=== PATIENT | male | born 1950 | race Caucasian/White ===

== ENCOUNTER 2017-01-17 15:00 | Emergency (ER) | payer MEDICARE, OTHER ==
[~2017-01-17] VITALS: Ht 177.8 cm; Wt 86.2 kg
[~2017-01-17 15:00] MED LIST: ALLO300T; BENZ0.5T; CHOLPOW; COLA100C2; FLAG500T; GLUC500T; IBUP600T; IMODIUM; LEVA500T; LIPI10TA; LOPR50TA; VICO5TAB; [UNRECOGNIZED DRUG - CODE]
[2017-01-17] MEDS ORDERED: [UNRECOGNIZED DRUG - CODE] (15:13)
[2017-01-17] MEDS ORDERED: [UNRECOGNIZED DRUG - CODE] PO (15:13)
[2017-01-17] MEDS ORDERED: CEFUROXIME (15:13)
[2017-01-17] MEDS ORDERED: ASPI81TA13 PO (15:13)
[2017-01-17] MEDS ORDERED: LEVO175T2 PO (15:13)
[2017-01-17] MEDS ORDERED: BENZ5TA (15:13)
[2017-01-17] MEDS ORDERED: KELP150T PO (15:13)
[2017-01-17] MEDS ORDERED: LOSA25TA8 (15:13)
[2017-01-17] MEDS ORDERED: FENO160T10 (15:13)
[2017-01-17] MEDS ORDERED: TEST1GEL6 (15:13)
[2017-01-17] MEDS ORDERED: [UNRECOGNIZED DRUG - CODE] PO (15:13)
[2017-01-17] MEDS ORDERED: VITA50003 PO (15:13)
[2017-01-17] MEDS ORDERED: GLUC1CAP10 PO (15:13)
--- NOTE | 2017-01-17 16:57 | REP ---
Clinical: Cough . Comparison: 11/28/2010 . Technique: PA and lateral. Findings: The mediastinum and cardiac silhouette are normal. Lateral view suggests left lower lobe/retrocardiac infiltrate and correlation is recommended. No effusion. No pneumothorax. The skeletal structures are intact and normal. Impression: Possible left lower lobe/retrocardiac infiltrate. Signed by Billy Proctor MD 01/17/2017 04:49 P
[2017-01-17] MEDS ORDERED: LEVA750T PO (16:59)
[2017-01-17] MEDS ORDERED: ALBU17IN INH (16:59)
[2017-01-17 17:08] VITALS: BP 141/75
== END 2017-01-17 17:12 | disposition home or self-care (01) ==
LOC: M ED 15:33
DX: J18.9 Pneumonia, unspecified organism (principal); I10 Essential (primary) hypertension; E78.00 Pure hypercholesterolemia, unspecified; E03.9 Hypothyroidism, unspecified; M54.9 Dorsalgia, unspecified; Z93.2 Ileostomy status; Z79.899 Other long term (current) drug therapy; Z79.2 Long term (current) use of antibiotics; Z79.82 Long term (current) use of aspirin

== ENCOUNTER 2017-12-22 17:30 | Emergency (ER) | payer MEDICARE, OTHER ==
[2017-12-22] MEDS ORDERED: MORPHINE 4 MG/ML 1ML VIAL/SYRINGE (J2270) IV (18:45)
[2017-12-22 19:18] LABS: HEMATOCRIT 47.7 % (42.0-52.0); HEMOGLOBIN 16.3 g/dl (13.5-17.5); IMMATURE GRANULOCYTE % 1.3 % (0-3.0); LYMPH # 1.2 10^3/uL (1.5-4.5); LYMPH % 26.3 % (24.0-44.0); MEAN CORPUSCULAR HEMOGLOBIN 27.6 pg (27.0-33.0); MEAN CORPUSCULAR HGB CONC 34.2 g/dl (32.0-36.5); MEAN CORPUSCULAR VOLUME 80.7 fl (80.0-96.0); MONO # 0.3 10^3/uL (0.0-0.8); MONO % 5.6 % (0.0-5.0); NEUTROPHILS % 66.8 % (36.0-66.0); PLATELET COUNT, AUTOMATED 229 10^3/uL (150-450); RED BLOOD COUNT 5.91 10^6/uL (4.30-6.10); RED CELL DISTRIBUTION WIDTH 15.9 % (11.5-14.5); WHITE BLOOD COUNT 4.5 10^3/uL (4.0-10.0)
[2017-12-22 19:23] LABS: KETONE, URINE AUTO RFX NEGATIVE (NEGATIVE); LEUKOCYTE ESTERASE UR AUTO RFX NEGATIVE (NEGATIVE); NITRITE, URINE AUTO RFX NEGATIVE (NEGATIVE); RBC, URINE AUTO RFX 1 /HPF (0-3); SPECIFIC GRAVITY UR AUTO RFX 1.012 (1.002-1.035); SQUAM EPITHELIAL CELL UR AURFX 0 /HPF (0-6); WBC, URINE AUTO RFX 1 /HPF (0-3)
[2017-12-22] MEDS: NS 1,000 ML IV (19:25)
[2017-12-22 19:47] LABS: ALBUMIN 3.8 GM/DL (3.2-5.2); ALKALINE PHOSPHATASE 68 U/L (45-117); ALT/SGPT 27 U/L (12-78); ANION GAP 8 MEQ/L (8-16); AST/SGOT 17 U/L (7-37); BILIRUBIN,DIRECT 0.4 MG/DL (0.0-0.2); BILIRUBIN,TOTAL 1.4 MG/DL (0.2-1.0); BLOOD UREA NITROGEN 19 MG/DL (7-18); CARBON DIOXIDE LEVEL 29 MEQ/L (21-32); CHLORIDE LEVEL 104 MEQ/L (98-107); CREATININE FOR GFR 1.47 MG/DL (0.70-1.30); GLOMERULAR FILTRATION RATE 50.6 (>49); GLUCOSE, FASTING 124 MG/DL (70-100); LIPASE 203 U/L (73-393); SODIUM LEVEL 141 MEQ/L (136-145); TOTAL PROTEIN 7.6 GM/DL (6.4-8.2)
[2017-12-22 19:50] LABS: LACTIC ACID SEPSIS PROTOCOL 0.9 MMOL/L (0.4-2.0)
[2017-12-22] MEDS ORDERED: ISOVUE-370 76% 100ML VIAL (Q9967) As Ordered (20:06)
[2017-12-22] MEDS: CIPROFLOXACIN 500 MG TAB PO (22:02)
[2017-12-22] MEDS: metroNIDAZOLE (FLAGYL) 500 MG TAB PO (22:02)
== END 2017-12-22 22:05 | disposition home or self-care (01) ==
LOC: M ED 17:30
DX: K57.30 Diverticulosis of large intestine without perforation or abscess without bleeding (principal); R73.09 Other abnormal glucose; I10 Essential (primary) hypertension; E78.5 Hyperlipidemia, unspecified; F20.9 Schizophrenia, unspecified; F41.9 Anxiety disorder, unspecified; F32.9 Major depressive disorder, single episode, unspecified; K56.2 Volvulus; R16.1 Splenomegaly, not elsewhere classified; Z79.82 Long term (current) use of aspirin; Z79.899 Other long term (current) drug therapy
CPT/HCPCS: Q9967

== ENCOUNTER → 2018-03-12 | Outpatient (REF) | payer MEDICARE, OTHER | LOC: M LAB REF 13:17 | DX: J02.9 Acute pharyngitis, unspecified (principal) | CPT/HCPCS: 87081 ==

== ENCOUNTER 2018-04-01 18:15 | Emergency (ER) | payer MEDICARE, OTHER ==
[2018-04-01 21:23] LABS: HEMATOCRIT 47.8 % (42.0-52.0); MEAN CORPUSCULAR HEMOGLOBIN 26.7 pg (27.0-33.0); MEAN CORPUSCULAR HGB CONC 33.5 g/dl (32.0-36.5); MEAN CORPUSCULAR VOLUME 79.7 fl (80.0-96.0); PLATELET COUNT, AUTOMATED 325 10^3/uL (150-450); RED CELL DISTRIBUTION WIDTH 15.7 % (11.5-14.5); WHITE BLOOD COUNT 2.5 10^3/uL (4.0-10.0)
[2018-04-01 21:35] LABS: INR 0.99; PROTHROMBIN TIME 13.2 SECONDS (12.1-14.4)
[2018-04-01 21:47] LABS: ALBUMIN 3.7 GM/DL (3.2-5.2); ALBUMIN/GLOBULIN RATIO 0.93 (1.00-1.93); ALKALINE PHOSPHATASE 64 U/L (45-117); ALT/SGPT 31 U/L (12-78); AST/SGOT 28 U/L (7-37); BILIRUBIN,DIRECT 0.2 MG/DL (0.0-0.2); BILIRUBIN,TOTAL 0.9 MG/DL (0.2-1.0); TOTAL PROTEIN 7.7 GM/DL (6.4-8.2)
== END 2018-04-01 22:17 | disposition home or self-care (01) ==
LOC: M ED 18:15
DX: D72.819 Decreased white blood cell count, unspecified (principal); I10 Essential (primary) hypertension; Z88.8 Allergy status to other drugs, medicaments and biological substances; Z91.030 Bee allergy status; Z91.018 Allergy to other foods; Z79.899 Other long term (current) drug therapy; Z79.82 Long term (current) use of aspirin; Z79.84 Long term (current) use of oral hypoglycemic drugs
CPT/HCPCS: 80076

== ENCOUNTER 2018-06-29 09:12 | Emergency (ER) | payer MEDICARE, OTHER ==
[2018-06-29] MEDS: MORPHINE 2 MG/ML 1ML SYRINGE (J2270) IV (10:12)
[2018-06-29] MEDS: NS 1,000 ML IV (10:12)
[2018-06-29 10:16] LABS: HEMATOCRIT 49.4 % (42.0-52.0); HEMOGLOBIN 16.6 g/dl (13.5-17.5); IMMATURE GRANULOCYTE % 1.8 % (0-3.0); LYMPH # 0.8 10^3/uL (1.5-4.5); LYMPH % 35.9 % (24.0-44.0); MEAN CORPUSCULAR HEMOGLOBIN 26.9 pg (27.0-33.0); MEAN CORPUSCULAR HGB CONC 33.6 g/dl (32.0-36.5); MEAN CORPUSCULAR VOLUME 80.2 fl (80.0-96.0); MONO # 0.2 10^3/uL (0.0-0.8); MONO % 8.2 % (0.0-5.0); NEUTROPHILS # 1.2 10^3/uL (1.8-7.7); NEUTROPHILS % 54.1 % (36.0-66.0); PLATELET COUNT, AUTOMATED 214 10^3/uL (150-450); RED BLOOD COUNT 6.16 10^6/uL (4.30-6.10); RED CELL DISTRIBUTION WIDTH 16.6 % (11.5-14.5); WHITE BLOOD COUNT 2.2 10^3/uL (4.0-10.0)
[2018-06-29 10:45] LABS: ALBUMIN 3.5 GM/DL (3.2-5.2); ALBUMIN/GLOBULIN RATIO 1.09 (1.00-1.93); ALKALINE PHOSPHATASE 86 U/L (45-117); ALT/SGPT 24 U/L (12-78); AMYLASE 53 U/L (25-115); ANION GAP 7 MEQ/L (8-16); AST/SGOT 12 U/L (7-37); BLOOD UREA NITROGEN 18 MG/DL (7-18); CALCIUM LEVEL 8.8 MG/DL (8.8-10.2); CARBON DIOXIDE LEVEL 26 MEQ/L (21-32); CHLORIDE LEVEL 101 MEQ/L (98-107); CREATININE FOR GFR 1.17 MG/DL (0.70-1.30); GLOMERULAR FILTRATION RATE > 60.0 (>42); GLUCOSE, FASTING 175 MG/DL (70-100); LIPASE 143 U/L (73-393); POTASSIUM SERUM 3.7 MEQ/L (3.5-5.1); SODIUM LEVEL 134 MEQ/L (136-145); TOTAL PROTEIN 6.7 GM/DL (6.4-8.2)
[2018-06-29 10:46] LABS: LACTIC ACID SEPSIS PROTOCOL 1.7 MMOL/L (0.4-2.0)
[2018-06-29 10:46] LABS: APPEARANCE, URINE CLEAR (CLEAR); BACTERIA, URINE AUTO NEGATIVE (NEGATIVE); BILIRUBIN, URINE AUTO NEGATIVE (NEGATIVE); BLOOD, URINE BLOOD NEGATIVE (NEGATIVE); COLOR, URINE YELLOW (YELLOW); GLUCOSE, URINE (UA) AUTO NEGATIVE (NEGATIVE); KETONE, URINE AUTO NEGATIVE (NEGATIVE); LEUKOCYTE ESTERASE, URINE AUTO NEGATIVE (NEGATIVE); MUCUS, URINE SMALL (NEGATIVE); NITRITE, URINE AUTO NEGATIVE (NEGATIVE); PROTEIN, URINE AUTO NEGATIVE (NEGATIVE); RBC, URINE AUTO 0 /HPF (0-3); SPECIFIC GRAVITY URINE AUTO 1.017 (1.002-1.035); SQUAMOUS EPITHELIAL CELL UR AU 0 /HPF (0-6); WBC, URINE AUTO 0 /HPF (0-3)
[2018-06-29] MEDS ORDERED: ISOVUE-370 76% 100ML VIAL (Q9967) As Ordered (10:48)
== END 2018-06-29 12:10 | disposition home or self-care (01) ==
LOC: M ED 09:12
DX: K57.32 Diverticulitis of large intestine without perforation or abscess without bleeding (principal); D72.819 Decreased white blood cell count, unspecified; Z87.19 Personal history of other diseases of the digestive system; I10 Essential (primary) hypertension; E03.9 Hypothyroidism, unspecified; F33.9 Major depressive disorder, recurrent, unspecified; F41.9 Anxiety disorder, unspecified; Z98.890 Other specified postprocedural states; Z79.899 Other long term (current) drug therapy; Z79.82 Long term (current) use of aspirin; Z79.890 Hormone replacement therapy; Z79.84 Long term (current) use of oral hypoglycemic drugs

== ENCOUNTER 2018-07-01 00:42 | Inpatient (IN) | payer MEDICARE, OTHER ==
[2018-07-01] MEDS: ONDANSETRON 4MG/2ML VIAL (J2405) IV (01:45)
[2018-07-01] MEDS: NS 1,000 ML IV ×4 (01:45→21:34)
[2018-07-01] MEDS ORDERED: ISOVUE-370 76% 100ML VIAL (Q9967) As Ordered (01:59)
[2018-07-01 02:36] LABS: HEMOGLOBIN 15.1 g/dl (13.5-17.5); MEAN CORPUSCULAR HEMOGLOBIN 27.2 pg (27.0-33.0); MEAN CORPUSCULAR HGB CONC 33.6 g/dl (32.0-36.5); MEAN CORPUSCULAR VOLUME 81.1 fl (80.0-96.0); PLATELET COUNT, AUTOMATED 163 10^3/uL (150-450); RED BLOOD COUNT 5.55 10^6/uL (4.30-6.10); RED CELL DISTRIBUTION WIDTH 16.3 % (11.5-14.5)
[2018-07-01 02:38] LABS: ADD MANUAL DIFFER YES; DIFF SLIDE NUMBER 90; POS COUNT POS FLAG; POSITIVE DIFF POS FLAG; POSITIVE MORPH POS FLAG; WHITE BLOOD COUNT 1.1 10^3/uL (4.0-10.0)
[2018-07-01 02:48] LABS: INR 1.24; PROTHROMBIN TIME 15.8 SECONDS (12.1-14.4)
[2018-07-01 02:49] LABS: PARTIAL THROMBOPLASTIN TIME 33.4 SECONDS (25.4-37.6)
[2018-07-01] MEDS: MORPHINE 4 MG/ML 1ML VIAL/SYRINGE (J2270) IV (02:55)
[2018-07-01 03:01] LABS: LACTIC ACID SEPSIS PROTOCOL 1.4 MMOL/L (0.4-2.0)
[2018-07-01 03:06] LABS: ALBUMIN 2.6 GM/DL (3.2-5.2); ALBUMIN/GLOBULIN RATIO 0.87 (1.00-1.93); ALKALINE PHOSPHATASE 70 U/L (45-117); ALT/SGPT 19 U/L (12-78); ANION GAP 9 MEQ/L (8-16); AST/SGOT 14 U/L (7-37); BILIRUBIN,DIRECT 0.4 MG/DL (0.0-0.2); BILIRUBIN,TOTAL 1.8 MG/DL (0.2-1.0); BLOOD UREA NITROGEN 20 MG/DL (7-18); CALCIUM LEVEL 7.7 MG/DL (8.8-10.2); CARBON DIOXIDE LEVEL 26 MEQ/L (21-32); CHLORIDE LEVEL 99 MEQ/L (98-107); CREATININE FOR GFR 1.71 MG/DL (0.70-1.30); GLOMERULAR FILTRATION RATE 42.3 (>42); GLUCOSE, FASTING 181 MG/DL (70-100); LIPASE 144 U/L (73-393); POTASSIUM SERUM 3.8 MEQ/L (3.5-5.1); SODIUM LEVEL 134 MEQ/L (136-145); TOTAL PROTEIN 5.6 GM/DL (6.4-8.2)
[2018-07-01 03:11] LABS: ATYPICAL LYMPH 2 % (0-5); BANDS 2 % (< 11); LYMPHOCYTES 14 % (16-52); METAMYELOCYTES 1 % (0-0); MONOCYTES 3 % (0-8); NEUTROPHILS 78 % (35-75)
[2018-07-01 03:13] LABS: ANISOCYTOSIS 1+; GIANT PLATELETS 2+; PLATELET ESTIMATE NORMAL (NORMAL)
[2018-07-01] MEDS: VANCOMYCIN HCL 1,000 MG, VIAL MATE ADAPTER 1 EACH in D5W 250 ML IV ×2 (04:00→17:27)
[2018-07-01] MEDS: PIPERACILLIN/TAZOBACTAM SOD 3.375 GM in D5W MINI-BAG PLUS 50 ML IV ×3 (04:00→19:38)
[2018-07-01] MEDS ORDERED: BISACODYL 10 MG SUPP PR (04:15)
[2018-07-01] MEDS ORDERED: DEXTROSE 50% 50 ML SYRINGE IV (04:15)
[2018-07-01] MEDS ORDERED: MORPHINE 4 MG/ML 1ML VIAL/SYRINGE (J2270) IV (04:15)
[2018-07-01] MEDS ORDERED: GLUCAGON FOR INJ 1 MG VIAL (J1610) SC (04:15)
[2018-07-01] MEDS ORDERED: ONDANSETRON 4MG/2ML VIAL (J2405) IV (04:15)
[2018-07-01] MEDS ORDERED: GLUCOSE 4 GM CHEW TABLET PO (04:15)
[2018-07-01 04:21] LABS: IMMATURE GRANULOCYTE % 1.8 % (0-3.0); LYMPH # 0.2 10^3/uL (1.5-4.5); LYMPH % 17.1 % (24.0-44.0); MONO # 0.1 10^3/uL (0.0-0.8); MONO % 6.3 % (0.0-5.0); NEUTROPHILS # 0.8 10^3/uL (1.8-7.7); NEUTROPHILS % 74.8 % (36.0-66.0)
[2018-07-01] MEDS ORDERED: NORCO, ANEXSIA 5/325MG TABLET (HYDROcodone/ACETAMINOPHEN) PO (05:15)
[2018-07-01] MEDS ORDERED: ALBUTEROL 90 MCG/ACT 8GM HFA INHALER INH (05:15)
[2018-07-01] MEDS ORDERED: metroNIDAZOLE 500 MG in APPROPRIATE DILUENT 1 EA IV (06:00)
[2018-07-01] MEDS: HumaLOG INSULIN (NovoLOG) PER UNIT SC ×4 (07:30→21:00)
[2018-07-01] MEDS: PANTOPRAZOLE 40MG INJ (PROTONIX) (C9113) IV (08:58)
[2018-07-01] MEDS: HEPARIN SOD (PORCINE) 5000 UNITS/ML VIAL SC ×3 (08:58→21:34)
[2018-07-01] MEDS: LOSARTAN 25 MG TAB PO (08:59)
[2018-07-01] MEDS: LEVOTHYROXINE 100MCG TABLET (0.1MG) PO (08:59)
[2018-07-01] MEDS: ASPIRIN 81 MG ENTERIC TAB PO (08:59)
[2018-07-01] MEDS: LEVOTHYROXINE 75MCG TABLET (0.075MG) PO (09:00)
[2018-07-01] MEDS: ACETAMINOPHEN TAB 650MG DOSE (2X325MG) PO ×2 (09:06→18:20)
[2018-07-01 12:06] LABS: BEDSIDE GLUCOSE 235 MG/DL (83-110)
[2018-07-01 12:09] LABS: HEMATOCRIT 43.6 % (42.0-52.0); HEMOGLOBIN 14.6 g/dl (13.5-17.5); IMMATURE GRANULOCYTE % 0.9 % (0-3.0); LYMPH # 0.3 10^3/uL (1.5-4.5); LYMPH % 23.1 % (24.0-44.0); MEAN CORPUSCULAR HEMOGLOBIN 27.3 pg (27.0-33.0); MEAN CORPUSCULAR HGB CONC 33.5 g/dl (32.0-36.5); MEAN CORPUSCULAR VOLUME 81.6 fl (80.0-96.0); MONO # 0.1 10^3/uL (0.0-0.8); MONO % 6.8 % (0.0-5.0); NEUTROPHILS % 69.2 % (36.0-66.0); PLATELET COUNT, AUTOMATED 154 10^3/uL (150-450); RED BLOOD COUNT 5.34 10^6/uL (4.30-6.10); RED CELL DISTRIBUTION WIDTH 16.5 % (11.5-14.5)
[2018-07-01 12:42] LABS: NEUTROPHILS # 0.8 10^3/uL (1.8-7.7); POS COUNT POS FLAG; POSITIVE DIFF POS FLAG; WHITE BLOOD COUNT 1.2 10^3/uL (4.0-10.0)
[2018-07-01 16:39] LABS: BEDSIDE GLUCOSE 177 MG/DL (83-110)
[2018-07-01 21:45] LABS: BEDSIDE GLUCOSE 188 MG/DL (83-110)
[2018-07-02] MEDS: PIPERACILLIN/TAZOBACTAM SOD 3.375 GM in D5W MINI-BAG PLUS 50 ML IV ×3 (04:18→20:12)
[2018-07-02] MEDS: HEPARIN SOD (PORCINE) 5000 UNITS/ML VIAL SC ×3 (05:54→22:12)
[2018-07-02] MEDS: PANTOPRAZOLE 40MG INJ (PROTONIX) (C9113) IV (05:54)
[2018-07-02] MEDS: LEVOTHYROXINE 100MCG TABLET (0.1MG) PO (05:54)
[2018-07-02] MEDS: LEVOTHYROXINE 75MCG TABLET (0.075MG) PO (05:54)
[2018-07-02 06:43] LABS: HEMATOCRIT 43.8 % (42.0-52.0); HEMOGLOBIN 14.5 g/dl (13.5-17.5); MEAN CORPUSCULAR HEMOGLOBIN 26.9 pg (27.0-33.0); MEAN CORPUSCULAR HGB CONC 33.1 g/dl (32.0-36.5); MEAN CORPUSCULAR VOLUME 81.3 fl (80.0-96.0); PLATELET COUNT, AUTOMATED 165 10^3/uL (150-450); RED BLOOD COUNT 5.39 10^6/uL (4.30-6.10); RED CELL DISTRIBUTION WIDTH 16.4 % (11.5-14.5)
[2018-07-02 07:06] LABS: POS COUNT POS FLAG; POSITIVE DIFF POS FLAG; WHITE BLOOD COUNT 0.8 10^3/uL (4.0-10.0)
[2018-07-02 07:09] LABS: ANION GAP 8 MEQ/L (8-16); BLOOD UREA NITROGEN 13 MG/DL (7-18); CALCIUM LEVEL 8.3 MG/DL (8.8-10.2); CARBON DIOXIDE LEVEL 27 MEQ/L (21-32); CHLORIDE LEVEL 104 MEQ/L (98-107); CREATININE FOR GFR 1.32 MG/DL (0.70-1.30); GLOMERULAR FILTRATION RATE 57.1 (>42); GLUCOSE, FASTING 143 MG/DL (70-100); MAGNESIUM LEVEL 1.5 MG/DL (1.8-2.4); POTASSIUM SERUM 3.7 MEQ/L (3.5-5.1); SODIUM LEVEL 139 MEQ/L (136-145)
[2018-07-02 07:46] LABS: SLIDE REVIEW Report; SOURCE PERIPHERAL SMEAR
[2018-07-02 07:47] LABS: REASON FOR REVIEW WBC/LEUKEMIA/BLAST
[2018-07-02 08:08] LABS: C REACTIVE PROTEIN QUANTITATIV 8.06 MG/DL (0.00-0.30)
[2018-07-02] MEDS: HumaLOG INSULIN (NovoLOG) PER UNIT SC ×4 (08:24→20:15)
[2018-07-02] MEDS: ASPIRIN 81 MG ENTERIC TAB PO (08:25)
[2018-07-02] MEDS: LOSARTAN 25 MG TAB PO (08:26)
[2018-07-02] MEDS: MAG SULF 1GM/100ML (MAG RUN) 1 GM in APPROPRIATE DILUENT 1 EA IV (08:27)
[2018-07-02 08:34] LABS: ALBUMIN 2.4 GM/DL (3.2-5.2); ALBUMIN/GLOBULIN RATIO 0.71 (1.00-1.93); ALKALINE PHOSPHATASE 62 U/L (45-117); ALT/SGPT 16 U/L (12-78); AST/SGOT 6 U/L (7-37); BILIRUBIN,TOTAL 1.3 MG/DL (0.2-1.0); TOTAL PROTEIN 5.8 GM/DL (6.4-8.2)
[2018-07-02] MEDS: NS 1,000 ML IV ×2 (08:36→20:10)
[2018-07-02 11:48] LABS: BEDSIDE GLUCOSE 220 MG/DL (83-110)
[2018-07-02 16:48] LABS: BEDSIDE GLUCOSE 153 MG/DL (83-110)
[2018-07-02] MEDS: FILGRASTIM 480 MCG/0.8 ML SYRINGE (J1442) SC (17:14)
[2018-07-02] MEDS: QUEtiapine FUMARATE 25 MG TAB PO (20:10)
[2018-07-02 20:15] LABS: BEDSIDE GLUCOSE 171 MG/DL (83-110)
[2018-07-02 21:20] LABS: BEDSIDE GLUCOSE 169 MG/DL (83-110)
[2018-07-03] MEDS: PIPERACILLIN/TAZOBACTAM SOD 3.375 GM in D5W MINI-BAG PLUS 50 ML IV ×3 (04:31→20:23)
[2018-07-03] MEDS: HEPARIN SOD (PORCINE) 5000 UNITS/ML VIAL SC ×3 (05:55→21:56)
[2018-07-03] MEDS: NS 1,000 ML IV ×3 (05:55→20:23)
[2018-07-03] MEDS: LEVOTHYROXINE 75MCG TABLET (0.075MG) PO (05:55)
[2018-07-03] MEDS: LEVOTHYROXINE 100MCG TABLET (0.1MG) PO (05:55)
[2018-07-03] MEDS: PANTOPRAZOLE 40MG INJ (PROTONIX) (C9113) IV (05:55)
[2018-07-03] MEDS: HumaLOG INSULIN (NovoLOG) PER UNIT SC ×4 (07:30→21:00)
[2018-07-03 08:03] LABS: BASO % 0.3 % (0.0-1.0); HEMATOCRIT 43.8 % (42.0-52.0); HEMOGLOBIN 14.8 g/dl (13.5-17.5); IMMATURE GRANULOCYTE % 1.3 % (0-3.0); LYMPH # 0.7 10^3/uL (1.5-4.5); LYMPH % 17.7 % (24.0-44.0); MEAN CORPUSCULAR HEMOGLOBIN 27.3 pg (27.0-33.0); MEAN CORPUSCULAR HGB CONC 33.8 g/dl (32.0-36.5); MEAN CORPUSCULAR VOLUME 80.8 fl (80.0-96.0); MONO # 0.1 10^3/uL (0.0-0.8); MONO % 3.2 % (0.0-5.0); NEUTROPHILS # 2.9 10^3/uL (1.8-7.7); NEUTROPHILS % 77.5 % (36.0-66.0); PLATELET COUNT, AUTOMATED 199 10^3/uL (150-450); RED BLOOD COUNT 5.42 10^6/uL (4.30-6.10); RED CELL DISTRIBUTION WIDTH 16.4 % (11.5-14.5); WHITE BLOOD COUNT 3.7 10^3/uL (4.0-10.0)
[2018-07-03 08:24] LABS: MAGNESIUM LEVEL 1.6 MG/DL (1.8-2.4)
[2018-07-03 08:30] LABS: ALBUMIN 2.4 GM/DL (3.2-5.2); ALBUMIN/GLOBULIN RATIO 0.71 (1.00-1.93); ALKALINE PHOSPHATASE 92 U/L (45-117); ALT/SGPT 17 U/L (12-78); ANION GAP 7 MEQ/L (8-16); AST/SGOT 10 U/L (7-37); BILIRUBIN,TOTAL 1.3 MG/DL (0.2-1.0); BLOOD UREA NITROGEN 9 MG/DL (7-18); C REACTIVE PROTEIN QUANTITATIV 3.21 MG/DL (0.00-0.30); CALCIUM LEVEL 8.1 MG/DL (8.8-10.2); CARBON DIOXIDE LEVEL 26 MEQ/L (21-32); CHLORIDE LEVEL 107 MEQ/L (98-107); CREATININE FOR GFR 1.17 MG/DL (0.70-1.30); GLOMERULAR FILTRATION RATE > 60.0 (>42); GLUCOSE, FASTING 116 MG/DL (70-100); POTASSIUM SERUM 3.6 MEQ/L (3.5-5.1); SODIUM LEVEL 140 MEQ/L (136-145); TOTAL PROTEIN 5.8 GM/DL (6.4-8.2)
[2018-07-03 08:40] LABS: KETONE, URINE AUTO RFX NEGATIVE (NEGATIVE); LEUKOCYTE ESTERASE UR AUTO RFX NEGATIVE (NEGATIVE); MUCUS, URINE RFX SMALL (NEGATIVE); NITRITE, URINE AUTO RFX NEGATIVE (NEGATIVE); RBC, URINE AUTO RFX 0 /HPF (0-3); SPECIFIC GRAVITY UR AUTO RFX 1.011 (1.002-1.035); SQUAM EPITHELIAL CELL UR AURFX 0 /HPF (0-6); WBC, URINE AUTO RFX 0 /HPF (0-3)
[2018-07-03] MEDS: ASPIRIN 81 MG ENTERIC TAB PO (09:48)
[2018-07-03] MEDS: LOSARTAN 25 MG TAB PO (09:49)
[2018-07-03] MEDS: MAG SULF 1GM/100ML (MAG RUN) 1 GM in APPROPRIATE DILUENT 1 EA IV (09:50)
[2018-07-03] MEDS: FILGRASTIM 480 MCG/0.8 ML SYRINGE (J1442) SC (10:27)
[2018-07-03 11:34] LABS: BEDSIDE GLUCOSE 184 MG/DL (83-110)
[2018-07-03 16:31] LABS: BEDSIDE GLUCOSE 105 MG/DL (83-110)
[2018-07-03 17:18] LABS: BEDSIDE GLUCOSE 106 MG/DL (83-110)
[2018-07-03] MEDS: QUEtiapine FUMARATE 25 MG TAB PO (20:23)
[2018-07-03 20:36] LABS: BEDSIDE GLUCOSE 164 MG/DL (83-110)
[2018-07-04] MEDS: PIPERACILLIN/TAZOBACTAM SOD 3.375 GM in D5W MINI-BAG PLUS 50 ML IV ×2 (03:55→12:00)
[2018-07-04] MEDS: PANTOPRAZOLE 40MG INJ (PROTONIX) (C9113) IV (05:51)
[2018-07-04] MEDS: HEPARIN SOD (PORCINE) 5000 UNITS/ML VIAL SC (05:51)
[2018-07-04] MEDS: LEVOTHYROXINE 100MCG TABLET (0.1MG) PO (05:51)
[2018-07-04] MEDS: LEVOTHYROXINE 75MCG TABLET (0.075MG) PO (05:51)
[2018-07-04 06:57] LABS: HEMATOCRIT 43.9 % (42.0-52.0); HEMOGLOBIN 14.6 g/dl (13.5-17.5); MEAN CORPUSCULAR HEMOGLOBIN 26.9 pg (27.0-33.0); MEAN CORPUSCULAR HGB CONC 33.3 g/dl (32.0-36.5); PLATELET COUNT, AUTOMATED 217 10^3/uL (150-450); RED BLOOD COUNT 5.42 10^6/uL (4.30-6.10); RED CELL DISTRIBUTION WIDTH 16.4 % (11.5-14.5)
[2018-07-04 07:18] LABS: ANION GAP 6 MEQ/L (8-16); BLOOD UREA NITROGEN 8 MG/DL (7-18); C REACTIVE PROTEIN QUANTITATIV 2.17 MG/DL (0.00-0.30); CARBON DIOXIDE LEVEL 29 MEQ/L (21-32); CHLORIDE LEVEL 106 MEQ/L (98-107); GLOMERULAR FILTRATION RATE 58.1 (>42); GLUCOSE, FASTING 101 MG/DL (70-100); MAGNESIUM LEVEL 1.4 MG/DL (1.8-2.4); POTASSIUM SERUM 3.7 MEQ/L (3.5-5.1); SODIUM LEVEL 141 MEQ/L (136-145)
[2018-07-04 07:19] LABS: ADD MANUAL DIFFER YES; DIFF SLIDE NUMBER 71; POS COUNT POS FLAG; POSITIVE MORPH POS FLAG
[2018-07-04 07:49] LABS: ANISOCYTOSIS 1+; ATYPICAL LYMPH 4 % (0-5); BANDS 10 % (< 11); HYPOCHROMASIA 1+; LYMPHOCYTES 17 % (16-52); MICROCYTOSIS 1+; MONOCYTES 3 % (0-8); NEUTROPHILS 66 % (35-75); PLATELET ESTIMATE NORMAL (NORMAL)
[2018-07-04] MEDS: ASPIRIN 81 MG ENTERIC TAB PO (08:31)
[2018-07-04] MEDS: LOSARTAN 50 MG TAB PO (08:31)
[2018-07-04] MEDS: HumaLOG INSULIN (NovoLOG) PER UNIT SC ×2 (08:31→12:36)
[2018-07-04] MEDS: amLODIPine 5 MG TAB PO (08:31)
[2018-07-04 12:03] LABS: BEDSIDE GLUCOSE 118 MG/DL (83-110)
== END 2018-07-04 12:30 | disposition home or self-care (01) | DRG 872 ==
LOC: M ED 00:42 → M ED INP 04:13 → M MSPAV 15:55
DX: A41.9 Sepsis, unspecified organism (principal); N17.9 Acute kidney failure, unspecified; K57.32 Diverticulitis of large intestine without perforation or abscess without bleeding; D70.2 Other drug-induced agranulocytosis; E86.0 Dehydration; F32.9 Major depressive disorder, single episode, unspecified; F25.0 Schizoaffective disorder, bipolar type; E11.9 Type 2 diabetes mellitus without complications; I10 Essential (primary) hypertension; E78.00 Pure hypercholesterolemia, unspecified; E03.9 Hypothyroidism, unspecified; Z79.82 Long term (current) use of aspirin; Z79.84 Long term (current) use of oral hypoglycemic drugs; Z79.899 Other long term (current) drug therapy; Z91.030 Bee allergy status; Z91.018 Allergy to other foods; Z88.8 Allergy status to other drugs, medicaments and biological substances; T43.505A Adverse effect of unspecified antipsychotics and neuroleptics, initial encounter

== ENCOUNTER → 2018-07-28 | Outpatient (REF) | payer MEDICARE, OTHER ==
[2018-07-28 18:25] LABS: APPEARANCE, URINE CLEAR (CLEAR); BACTERIA, URINE AUTO NEGATIVE (NEGATIVE); BILIRUBIN, URINE AUTO NEGATIVE (NEGATIVE); BLOOD, URINE BLOOD NEGATIVE (NEGATIVE); COLOR, URINE YELLOW (YELLOW); GLUCOSE, URINE (UA) AUTO 3+ mg/dL (NEGATIVE); KETONE, URINE AUTO NEGATIVE (NEGATIVE); LEUKOCYTE ESTERASE, URINE AUTO NEGATIVE (NEGATIVE); MUCUS, URINE SMALL (NEGATIVE); NITRITE, URINE AUTO NEGATIVE (NEGATIVE); PROTEIN, URINE AUTO NEGATIVE (NEGATIVE); RBC, URINE AUTO 0 /HPF (0-3); SPECIFIC GRAVITY URINE AUTO 1.015 (1.002-1.035); SQUAMOUS EPITHELIAL CELL UR AU 0 /HPF (0-6); UROBILINOGEN, URINE AUTO 0.2 mg/dL (0.0-2.0); WBC, URINE AUTO 3 /HPF (0-3)
[2018-07-28 18:48] LABS: ERYTHROCYTE SEDIMENTATION RATE 1 mm/hr (0-20)
[2018-07-28 19:45] LABS: C REACTIVE PROTEIN QUANTITATIV < 0.30 MG/DL (0.00-0.30); COMPLEMENT C3 124 MG/DL (90-180); COMPLEMENT C4 26 MG/DL (10-40); IMMUNOGLOBULIN A 351 MG/DL (70-400); IMMUNOGLOBULIN G 1270 MG/DL (681-1648); IMMUNOGLOBULIN M 20 MG/DL (40-230); RHEUMATOID FACTOR QUANT < 10.0 IU/ML (<15.0)
[2018-07-28 22:55] LABS: TOTAL PROTEIN,RANDOM URINE 19.3 MG/DL (0.0-12.0)
[2018-08-02 00:30] LABS: ANA (HEP2) Positive (.); ANA HOMOGENEOUS PATTERN >1:1280 (.); ANTI DOUBLE STRAND-DNA AB 72 IU/mL (0-9); ANTI TETANUS ANTIBODY >7.00 IU/mL (<0.10); BETA-2 GLYCOPROTEIN I ABY IGA <9 (0-25); BETA-2 GLYCOPROTEIN I ABY IGG <9 (0-20); BETA-2 GLYCOPROTEIN I ABY IGM <9 (0-32); CARDIOLIPIN IGA ANTIBODY <9 APL U/mL (0-11); CARDIOLIPIN IGG ANTIBODY <9 GPL U/mL (0-14); CARDIOLIPIN IGM ANTIBODY <9 MPL U/mL (0-12); CYCLIC CITRULLINATED PEPTIDE 21 units (0-19); RNP ANTIBODY 0.4 AI (0.0-0.9); SMITHS ANTIBODY < 0.2 AI (0.0-0.9)
[2018-08-02 09:19] LABS: DRVV SCREEN 40.4 SEC
== END ==
LOC: M SFHCPLAZ 15:41
DX: R76.8 Other specified abnormal immunological findings in serum (principal); D72.810 Lymphocytopenia; E03.9 Hypothyroidism, unspecified
CPT/HCPCS: 84443

== ENCOUNTER 2018-08-02 03:20 | Inpatient (IN) | payer MEDICARE, OTHER ==
[2018-08-02 04:43] LABS: ALBUMIN 3.7 GM/DL (3.2-5.2); ALBUMIN/GLOBULIN RATIO 1.19 (1.00-1.93); ALKALINE PHOSPHATASE 97 U/L (45-117); ALT/SGPT 30 U/L (12-78); ANION GAP 9 MEQ/L (8-16); AST/SGOT 19 U/L (7-37); BILIRUBIN,DIRECT 0.4 MG/DL (0.0-0.2); BILIRUBIN,TOTAL 1.6 MG/DL (0.2-1.0); BLOOD UREA NITROGEN 31 MG/DL (7-18); CALCIUM LEVEL 8.8 MG/DL (8.8-10.2); CARBON DIOXIDE LEVEL 28 MEQ/L (21-32); CHLORIDE LEVEL 102 MEQ/L (98-107); CREATININE FOR GFR 1.62 MG/DL (0.70-1.30); GLOMERULAR FILTRATION RATE 45.1 (>42); GLUCOSE, FASTING 135 MG/DL (70-100); POTASSIUM SERUM 3.8 MEQ/L (3.5-5.1); SODIUM LEVEL 139 MEQ/L (136-145); TOTAL PROTEIN 6.8 GM/DL (6.4-8.2)
[2018-08-02 04:44] LABS: HEMATOCRIT 51.7 % (42.0-52.0); HEMOGLOBIN 17.2 g/dl (13.5-17.5); IMMATURE GRANULOCYTE % 0.9 % (0-3.0); LYMPH % 15.8 % (24.0-44.0); MEAN CORPUSCULAR HEMOGLOBIN 27.2 pg (27.0-33.0); MEAN CORPUSCULAR HGB CONC 33.3 g/dl (32.0-36.5); MEAN CORPUSCULAR VOLUME 81.7 fl (80.0-96.0); MONO % 1.8 % (0.0-5.0); NEUTROPHILS % 81.5 % (36.0-66.0); PLATELET COUNT, AUTOMATED 247 10^3/uL (150-450); RED BLOOD COUNT 6.33 10^6/uL (4.30-6.10); RED CELL DISTRIBUTION WIDTH 17.4 % (11.5-14.5)
[2018-08-02 05:11] LABS: LYMPH # 0.2 10^3/uL (1.5-4.5); NEUTROPHILS # 0.9 10^3/uL (1.8-7.7); POS COUNT POS FLAG; POSITIVE DIFF POS FLAG; WHITE BLOOD COUNT 1.1 10^3/uL (4.0-10.0)
[2018-08-02] MEDS: ONDANSETRON 4MG/2ML VIAL (J2405) IV (06:15)
[2018-08-02] MEDS: NS 1,000 ML IV ×5 (06:15→22:11)
[2018-08-02] MEDS: PIPERACILLIN/TAZOBACTAM SOD 3.375 GM in D5W MINI-BAG PLUS 50 ML IV (07:53)
[2018-08-02 08:29] LABS: AMORPHOUS SEDIMENT SMALL (NEGATIVE); APPEARANCE, URINE HAZY (CLEAR); BACTERIA, URINE AUTO 1+ (NEGATIVE); BILIRUBIN, URINE AUTO NEGATIVE (NEGATIVE); BLOOD, URINE BLOOD NEGATIVE (NEGATIVE); CALCIUM OXALATE CRYSTALS SMALL; COLOR, URINE AMBER (YELLOW); GLUCOSE, URINE (UA) AUTO NEGATIVE (NEGATIVE); KETONE, URINE AUTO NEGATIVE (NEGATIVE); LEUKOCYTE ESTERASE, URINE AUTO TRACE (NEGATIVE); MUCUS, URINE SMALL (NEGATIVE); NITRITE, URINE AUTO NEGATIVE (NEGATIVE); PROTEIN, URINE AUTO 2+ mg/dL (NEGATIVE); RBC, URINE AUTO 2 /HPF (0-3); SPECIFIC GRAVITY URINE AUTO 1.018 (1.002-1.035); SQUAMOUS EPITHELIAL CELL UR AU 0 /HPF (0-6); WBC, URINE AUTO 15 /HPF (0-3)
[2018-08-02] MEDS: ACETAMINOPHEN TAB 650MG DOSE (2X325MG) PO (09:01)
[2018-08-02 09:48] LABS: LACTIC ACID SEPSIS PROTOCOL 1.9 MMOL/L (0.4-2.0)
[2018-08-02] MEDS ORDERED: NS 1,000 ML IV (10:00)
[2018-08-02] MEDS ORDERED: GLUCAGON FOR INJ 1 MG VIAL (J1610) SC (10:15)
[2018-08-02] MEDS ORDERED: GLUCOSE 4 GM CHEW TABLET PO (10:15)
[2018-08-02] MEDS ORDERED: ONDANSETRON 4MG/2ML VIAL (J2405) IV (10:15)
[2018-08-02] MEDS ORDERED: DEXTROSE 50% 50 ML SYRINGE IV (10:15)
[2018-08-02] MEDS: ASPIRIN 81 MG ENTERIC TAB PO (10:51)
[2018-08-02] MEDS: MULTIVITAMINS/MINERALS THERAP 1 TAB PO (10:51)
[2018-08-02] MEDS: LEVOTHYROXINE 75MCG TABLET (0.075MG) PO (10:52)
[2018-08-02] MEDS: MAGNESIUM OXIDE 400 MG TAB (MAG-OX) PO (10:52)
[2018-08-02] MEDS: LEVOTHYROXINE 100MCG TABLET (0.1MG) PO (10:52)
[2018-08-02 11:00] LABS: C REACTIVE PROTEIN QUANTITATIV < 0.30 MG/DL (0.00-0.30)
[2018-08-02] MEDS: VANCOMYCIN HCL 1,000 MG, VIAL MATE ADAPTER 1 EACH in D5W 250 ML IV ×2 (11:45→22:11)
[2018-08-02] MEDS: VANCOMYCIN HCL 750 MG, VIAL MATE ADAPTER 1 EACH in D5W 250 ML IV (12:30)
[2018-08-02 12:32] LABS: BEDSIDE GLUCOSE 132 MG/DL (83-110)
[2018-08-02] MEDS: HumaLOG INSULIN (NovoLOG) PER UNIT SC ×3 (12:35→21:00)
[2018-08-02] MEDS: HEPARIN SOD (PORCINE) 5000 UNITS/ML VIAL SC ×2 (14:45→22:11)
[2018-08-02] MEDS: PIPERACILLIN/TAZOBACTAM SOD 2.25 GM in D5W MINI-BAG PLUS 50 ML IV ×2 (14:45→20:05)
[2018-08-02 17:28] LABS: BEDSIDE GLUCOSE 161 MG/DL (83-110)
[2018-08-02] MEDS ORDERED: diphenhydrAMINE INJ 50MG/ML VIAL (J1200) IV (17:46)
[2018-08-02] MEDS: FAMOTIDINE IV BAG 20 MG in APPROPRIATE DILUENT 1 EA IV (18:00)
[2018-08-02] MEDS: diphenhydrAMINE INJ 50MG/ML VIAL (J1200) IV (18:17)
[2018-08-02 18:42] LABS: ERYTHROCYTE SEDIMENTATION RATE 1 mm/hr (0-20)
[2018-08-02 20:06] LABS: IMMUNOGLOBULIN A 254 MG/DL (70-400); IMMUNOGLOBULIN G 887 MG/DL (681-1648); IMMUNOGLOBULIN M 12 MG/DL (40-230)
[2018-08-02] MEDS: QUEtiapine FUMARATE 25 MG TAB PO (22:11)
[2018-08-02 22:19] LABS: BEDSIDE GLUCOSE 139 MG/DL (83-110)
[2018-08-03] MEDS: diphenhydrAMINE INJ 50MG/ML VIAL (J1200) IV ×2 (01:04→09:12)
[2018-08-03] MEDS: PIPERACILLIN/TAZOBACTAM SOD 2.25 GM in D5W MINI-BAG PLUS 50 ML IV ×2 (01:04→09:12)
[2018-08-03 05:07] LABS: LYMPH # 0.5 10^3/uL (1.5-4.5); LYMPH % 33.8 % (24.0-44.0); MEAN CORPUSCULAR HEMOGLOBIN 27.1 pg (27.0-33.0); MEAN CORPUSCULAR HGB CONC 32.9 g/dl (32.0-36.5); MEAN CORPUSCULAR VOLUME 82.3 fl (80.0-96.0); MONO # 0.1 10^3/uL (0.0-0.8); MONO % 7.4 % (0.0-5.0); NEUTROPHILS % 58.8 % (36.0-66.0); PLATELET COUNT, AUTOMATED 188 10^3/uL (150-450); RED BLOOD COUNT 4.98 10^6/uL (4.30-6.10); RED CELL DISTRIBUTION WIDTH 16.9 % (11.5-14.5)
[2018-08-03 05:10] LABS: NEUTROPHILS # 0.8 10^3/uL (1.8-7.7); POS COUNT POS FLAG; POSITIVE DIFF POS FLAG; WHITE BLOOD COUNT 1.4 10^3/uL (4.0-10.0)
[2018-08-03 05:11] LABS: HEMOGLOBIN 13.5 g/dl (13.5-17.5)
[2018-08-03 05:34] LABS: ALBUMIN 2.4 GM/DL (3.2-5.2); ALBUMIN/GLOBULIN RATIO 0.77 (1.00-1.93); ALKALINE PHOSPHATASE 61 U/L (45-117); ALT/SGPT 25 U/L (12-78); ANION GAP 6 MEQ/L (8-16); AST/SGOT 11 U/L (7-37); BILIRUBIN,TOTAL 2.2 MG/DL (0.2-1.0); BLOOD UREA NITROGEN 26 MG/DL (7-18); CALCIUM LEVEL 7.3 MG/DL (8.8-10.2); CARBON DIOXIDE LEVEL 26 MEQ/L (21-32); CHLORIDE LEVEL 108 MEQ/L (98-107); CREATININE FOR GFR 1.74 MG/DL (0.70-1.30); GLOMERULAR FILTRATION RATE 41.5 (>42); GLUCOSE, FASTING 112 MG/DL (70-100); MAGNESIUM LEVEL 1.6 MG/DL (1.8-2.4); POTASSIUM SERUM 4.5 MEQ/L (3.5-5.1); SODIUM LEVEL 140 MEQ/L (136-145); TOTAL PROTEIN 5.5 GM/DL (6.4-8.2)
[2018-08-03] MEDS: LEVOTHYROXINE 75MCG TABLET (0.075MG) PO (05:36)
[2018-08-03] MEDS: FAMOTIDINE IV BAG 20 MG in APPROPRIATE DILUENT 1 EA IV ×2 (05:37→17:27)
[2018-08-03] MEDS: HEPARIN SOD (PORCINE) 5000 UNITS/ML VIAL SC ×3 (05:37→21:47)
[2018-08-03] MEDS: LEVOTHYROXINE 100MCG TABLET (0.1MG) PO (05:37)
[2018-08-03] MEDS: MULTIVITAMINS/MINERALS THERAP 1 TAB PO (09:11)
[2018-08-03] MEDS: ASPIRIN 81 MG ENTERIC TAB PO (09:11)
[2018-08-03] MEDS: MAGNESIUM OXIDE 400 MG TAB (MAG-OX) PO (09:12)
[2018-08-03] MEDS: HumaLOG INSULIN (NovoLOG) PER UNIT SC ×4 (09:12→20:45)
[2018-08-03] MEDS ORDERED: diphenhydrAMINE INJ 50MG/ML VIAL (J1200) IV (11:15)
[2018-08-03] MEDS: NS 1,000 ML IV ×2 (11:52→12:29)
[2018-08-03 12:09] LABS: BEDSIDE GLUCOSE 116 MG/DL (83-110)
[2018-08-03] MEDS: FILGRASTIM 480 MCG/0.8 ML SYRINGE (J1442) SC (15:04)
[2018-08-03 16:48] LABS: BEDSIDE GLUCOSE 145 MG/DL (83-110)
[2018-08-03 19:47] LABS: BEDSIDE GLUCOSE 149 MG/DL (83-110)
[2018-08-03] MEDS: QUEtiapine FUMARATE 25 MG TAB PO (20:15)
[2018-08-03] MEDS: ACETAMINOPHEN TAB 650MG DOSE (2X325MG) PO (20:16)
[2018-08-04 05:06] LABS: BASO % 0.2 % (0.0-1.0); HEMATOCRIT 45.4 % (42.0-52.0); HEMOGLOBIN 14.9 g/dl (13.5-17.5); IMMATURE GRANULOCYTE % 3.7 % (0-3.0); LYMPH # 0.9 10^3/uL (1.5-4.5); MEAN CORPUSCULAR HEMOGLOBIN 27.5 pg (27.0-33.0); MEAN CORPUSCULAR HGB CONC 32.8 g/dl (32.0-36.5); MEAN CORPUSCULAR VOLUME 83.8 fl (80.0-96.0); MONO # 0.1 10^3/uL (0.0-0.8); MONO % 3.4 % (0.0-5.0); NEUTROPHILS # 2.9 10^3/uL (1.8-7.7); NEUTROPHILS % 71.7 % (36.0-66.0); PLATELET COUNT, AUTOMATED 192 10^3/uL (150-450); RED BLOOD COUNT 5.42 10^6/uL (4.30-6.10); WHITE BLOOD COUNT 4.1 10^3/uL (4.0-10.0)
[2018-08-04 05:29] LABS: ALBUMIN 2.8 GM/DL (3.2-5.2); ALBUMIN/GLOBULIN RATIO 0.82 (1.00-1.93); ALKALINE PHOSPHATASE 65 U/L (45-117); ALT/SGPT 24 U/L (12-78); ANION GAP 4 MEQ/L (8-16); AST/SGOT 12 U/L (7-37); BILIRUBIN,TOTAL 1.9 MG/DL (0.2-1.0); BLOOD UREA NITROGEN 17 MG/DL (7-18); C REACTIVE PROTEIN QUANTITATIV 7.36 MG/DL (0.00-0.30); CALCIUM LEVEL 8.4 MG/DL (8.8-10.2); CARBON DIOXIDE LEVEL 27 MEQ/L (21-32); CHLORIDE LEVEL 110 MEQ/L (98-107); CREATININE FOR GFR 1.47 MG/DL (0.70-1.30); GLOMERULAR FILTRATION RATE 50.4 (>42); GLUCOSE, FASTING 105 MG/DL (70-100); MAGNESIUM LEVEL 1.6 MG/DL (1.8-2.4); POTASSIUM SERUM 4.9 MEQ/L (3.5-5.1); SODIUM LEVEL 141 MEQ/L (136-145); TOTAL PROTEIN 6.2 GM/DL (6.4-8.2)
[2018-08-04] MEDS: LEVOTHYROXINE 100MCG TABLET (0.1MG) PO (06:08)
[2018-08-04] MEDS: FAMOTIDINE IV BAG 20 MG in APPROPRIATE DILUENT 1 EA IV (06:08)
[2018-08-04] MEDS: LEVOTHYROXINE 75MCG TABLET (0.075MG) PO (06:08)
[2018-08-04] MEDS: HEPARIN SOD (PORCINE) 5000 UNITS/ML VIAL SC (06:09)
[2018-08-04] MEDS: MAG SULF 1GM/100ML (MAG RUN) 1 GM in APPROPRIATE DILUENT 1 EA IV ×2 (08:29→09:45)
[2018-08-04] MEDS: ASPIRIN 81 MG ENTERIC TAB PO (08:29)
[2018-08-04] MEDS: HumaLOG INSULIN (NovoLOG) PER UNIT SC (08:29)
[2018-08-04] MEDS: MULTIVITAMINS/MINERALS THERAP 1 TAB PO (08:29)
[2018-08-04] MEDS: MAGNESIUM OXIDE 400 MG TAB (MAG-OX) PO (08:30)
[2018-08-04] MEDS: LOSARTAN 50 MG TAB PO (09:45)
[2018-08-04] MEDS: FILGRASTIM 480 MCG/0.8 ML SYRINGE (J1442) SC (09:45)
[2018-08-04] MEDS ORDERED: amLODIPine 5 MG TAB PO (21:00)
[2018-08-05 00:29] LABS: EBV VIRAL CAPSID AG IgM <36.0 U/mL (0.0-35.9)
== END 2018-08-04 11:08 | disposition home or self-care (01) | DRG 810 ==
LOC: M ED 03:20 → M ED INP 10:10 → M ICU 13:38
DX: D70.9 Neutropenia, unspecified (principal); B34.8 Other viral infections of unspecified site; F32.9 Major depressive disorder, single episode, unspecified; E11.22 Type 2 diabetes mellitus with diabetic chronic kidney disease; I12.9 Hypertensive chronic kidney disease with stage 1 through stage 4 chronic kidney disease, or unspecified chronic kidney disease; E78.5 Hyperlipidemia, unspecified; N18.3 Chronic kidney disease, stage 3 (moderate); R21 Rash and other nonspecific skin eruption; E03.9 Hypothyroidism, unspecified; Z79.82 Long term (current) use of aspirin; Z79.84 Long term (current) use of oral hypoglycemic drugs; Z79.899 Other long term (current) drug therapy; Z91.030 Bee allergy status; Z91.018 Allergy to other foods; Z88.8 Allergy status to other drugs, medicaments and biological substances; T36.0X5A Adverse effect of penicillins, initial encounter

== ENCOUNTER → 2018-09-12 | Outpatient (CLI) | payer MEDICARE, OTHER ==
[~2018-09-12] MED LIST changes: +ALBU17IN INH; +AMLO2.5T3 PO; +AMLO5TAB6 PO; +ARTI99.0 OU; +ASPI81TA24 PO; +AUGM500T34 PO; +AUGM875T28 PO; +BENZ0.5T PO; +CEFD300CAP PO; +CEFUROXIME; +CIPR-249 PO; +COZA50TA PO; +D32000CA PO; +FENO160T10; +FISH5CAP PO; +FLAG500T PO; +GLUC1CAP10 PO; +IBUP200T45 PO; +IBUPOTC PO; +KEFL500C17 PO; +KELP150T PO; +LEVA750T7 PO; +LEVO175T2 PO; +LOSA25TA14; +LOSA25TA14 PO; +LOSA50TA88 PO; +MAGN400T2 PO; +METF500T13 PO; +METF500T4 PO; +NORC1TAB4 PO; +NORCOTAB PO; +PRED10TA2 PO; +PROAAER10 INH; +QUET1TAB7 PO; +TEST1GEL6; +TEST200I14 IM; +VITA200048 PO; +VITA50005 PO; +VITMTA PO; +[UNRECOGNIZED DRUG - CODE]; +[UNRECOGNIZED DRUG - CODE] PO; +[UNRECOGNIZED DRUG - CODE] PO; +[UNRECOGNIZED DRUG - CODE] PO; +[UNRECOGNIZED DRUG - CODE] PO
[2018-09-12 18:28] LABS: EOS % 1.5 % (0.0-3.0); HEMATOCRIT 48.2 % (42.0-52.0); HEMOGLOBIN 16.6 g/dl (13.5-17.5); LYMPH # 0.6 10^3/uL (1.5-4.5); LYMPH % 44.6 % (24.0-44.0); MEAN CORPUSCULAR HEMOGLOBIN 27.9 pg (27.0-33.0); MEAN CORPUSCULAR HGB CONC 34.4 g/dl (32.0-36.5); MEAN CORPUSCULAR VOLUME 81.1 fl (80.0-96.0); MONO # 0.1 10^3/uL (0.0-0.8); MONO % 3.8 % (0.0-5.0); NEUTROPHILS % 48.6 % (36.0-66.0); RED BLOOD COUNT 5.94 10^6/uL (4.30-6.10)
[2018-09-12 18:29] LABS: APPEARANCE, URINE CLEAR (CLEAR); BACTERIA, URINE AUTO NEGATIVE (NEGATIVE); BILIRUBIN, URINE AUTO NEGATIVE (NEGATIVE); BLOOD, URINE BLOOD NEGATIVE (NEGATIVE); COLOR, URINE YELLOW (YELLOW); GLUCOSE, URINE (UA) AUTO 3+ mg/dL (NEGATIVE); KETONE, URINE AUTO NEGATIVE (NEGATIVE); LEUKOCYTE ESTERASE, URINE AUTO NEGATIVE (NEGATIVE); NITRITE, URINE AUTO NEGATIVE (NEGATIVE); PROTEIN, URINE AUTO NEGATIVE (NEGATIVE); RBC, URINE AUTO 1 /HPF (0-3); SPECIFIC GRAVITY URINE AUTO 1.016 (1.002-1.035); SQUAMOUS EPITHELIAL CELL UR AU 0 /HPF (0-6); UROBILINOGEN, URINE AUTO 0.2 mg/dL (0.0-2.0); WBC, URINE AUTO 1 /HPF (0-3)
[2018-09-12 18:36] LABS: HEMOGLOBIN A1c 7.4 %
[2018-09-12 18:43] LABS: C REACTIVE PROTEIN QUANTITATIV 0.86 MG/DL (0.00-0.30); TOTAL PROTEIN 7.2 GM/DL (6.4-8.2)
[2018-09-12 18:50] LABS: THYROID PEROXIDASE ANTIBODY < 28.0 U/ML (<60.0)
[2018-09-12 19:17] LABS: NEUTROPHILS # 0.6 10^3/uL (1.8-7.7); WHITE BLOOD COUNT 1.3 10^3/uL (4.0-10.0)
[2018-09-12 19:22] LABS: TOTAL PROTEIN,RANDOM URINE 26.5 MG/DL (0.0-12.0)
[2018-09-13 13:46] LABS: ALBUMIN % 60.3 % (55.8-66.1); ALPHA-1-GLOBULIN % 5.3 % (2.9-4.9); ALPHA-2-GLOBULINS % 8.9 % (7.1-11.8); BETA-1-GLOBULINS % 6.5 % (4.7-7.2); BETA-2-GLOBULINS % 5.8 % (3.2-6.5); GAMMA GLOBULIN % 13.2 % (11.1-18.8)
[2018-09-13 13:50] LABS: ALBUMIN 4.34 GM/DL (3.29-5.55); ALPHA-1-GLOBULINS 0.38 GM/DL (0.17-0.41); ALPHA-2-GLOBULINS 0.64 GM/DL (0.42-0.99); BETA-1-GLOBULINS 0.47 GM/DL (0.28-0.60); BETA-2-GLOBULINS 0.42 GM/DL (0.19-0.55); GAMMA GLOBULINS 0.95 GM/DL (0.65-1.58)
[2018-09-14 10:17] LABS: ANTI DOUBLE STRAND-DNA AB 41 IU/mL (0-9)
[2018-09-15 00:10] LABS: COMPLEMENT TOTAL (CH50) > 60 U/mL (>41); CYCLIC CITRULLINATED PEPTIDE 11 units (0-19); THYROID STIMULATING IMMUNOGLOB <0.10 IU/L (0.00-0.55); TISSUE TRANSGLUTAMINASE IgA <2 U/mL (0-3); TISSUE TRANSGLUTAMINASE IgG <2 U/mL (0-5)
== END ==
LOC: M LAB 16:17
PROVIDERS: ATTEND Internal Medicine Rheumatology
DX: D80.4 Selective deficiency of immunoglobulin M [IgM] (principal); E11.22 Type 2 diabetes mellitus with diabetic chronic kidney disease
CPT/HCPCS: 36415; 81001; 82570; 83036; 84156; 84165; 84445; 85025; 86140; 86162; 86200; 86225; 86256; 86335; 86376; G0463

== ENCOUNTER → 2018-09-19 | Outpatient (REF) | payer MEDICARE, OTHER ==
[~2018-09-19] MED LIST changes: -AMLO2.5T3 PO
[2018-09-19 12:00] LABS: HEMATOCRIT 45.7 % (42.0-52.0); HEMOGLOBIN 15.6 g/dl (13.5-17.5); LYMPH # 0.8 10^3/uL (1.5-4.5); LYMPH % 49.4 % (24.0-44.0); MEAN CORPUSCULAR HEMOGLOBIN 28.4 pg (27.0-33.0); MEAN CORPUSCULAR HGB CONC 34.1 g/dl (32.0-36.5); MEAN CORPUSCULAR VOLUME 83.1 fl (80.0-96.0); MONO # 0.1 10^3/uL (0.0-0.8); MONO % 3.2 % (0.0-5.0); NEUTROPHILS % 46.8 % (36.0-66.0); PLATELET COUNT, AUTOMATED 260 10^3/uL (150-450)
[2018-09-19 12:19] LABS: WHITE BLOOD COUNT 1.6 10^3/uL (4.0-10.0)
[2018-09-19 12:20] LABS: NEUTROPHILS # 0.7 10^3/uL (1.8-7.7)
== END ==
LOC: M SFHCPLAZ 09:15
PROVIDERS: ATTEND Internal Medicine Rheumatology
DX: D80.4 Selective deficiency of immunoglobulin M [IgM] (principal)

== ENCOUNTER → 2018-09-26 | Outpatient (REF) | payer MEDICARE, OTHER ==
[~2018-09-26] MED LIST changes: +AMLO2.5T3 PO; +SULF1TAB93 PO
[2018-09-26 19:07] LABS: HEMATOCRIT 42.1 % (42.0-52.0); HEMOGLOBIN 14.6 g/dl (13.5-17.5); LYMPH % 23.6 % (24.0-44.0); MEAN CORPUSCULAR HEMOGLOBIN 28.1 pg (27.0-33.0); MEAN CORPUSCULAR HGB CONC 34.7 g/dl (32.0-36.5); MEAN CORPUSCULAR VOLUME 81.1 fl (80.0-96.0); MONO % 3.4 % (0.0-5.0); NEUTROPHILS % 70.8 % (36.0-66.0); PLATELET COUNT, AUTOMATED 266 10^3/uL (150-450); RED BLOOD COUNT 5.19 10^6/uL (4.30-6.10)
[2018-09-26 19:25] LABS: LYMPH # 0.2 10^3/uL (1.5-4.5); NEUTROPHILS # 0.6 10^3/uL (1.8-7.7); WHITE BLOOD COUNT 0.9 10^3/uL (4.0-10.0)
[2018-09-28 11:15] LABS: HEPATITIS B SURFACE ANTIGEN NEGATIVE (NEGATIVE)
[2018-09-30 00:06] LABS: IgG SERUM (part of Subclasses) 804 mg/dL (700-1600); IgG Subclass 1 471 mg/dL (248-810); IgG Subclass 2 300 mg/dL (130-555); IgG Subclass 3 21 mg/dL (15-102); IgG Subclass 4 10 mg/dL (2-96)
== END ==
LOC: M SFHCPLAZ 15:59
PROVIDERS: ATTEND Internal Medicine Rheumatology
DX: D72.819 Decreased white blood cell count, unspecified (principal)
CPT/HCPCS: 36415; 82784; 82787; 85025; 86803; 87340; G0463

== ENCOUNTER 2018-10-03 11:51 | Inpatient (IN) | payer MEDICARE, OTHER ==
[~2018-10-03] VITALS: Ht 177.8 cm; Wt 77.2 kg
[~2018-10-03 11:51] MED LIST changes: -AMLO2.5T3 PO
[2018-10-03 12:22] LABS: HEMATOCRIT 38.5 % (42.0-52.0); HEMOGLOBIN 13.7 g/dl (13.5-17.5); LYMPH # 0.5 10^3/uL (1.5-4.5); LYMPH % 31.9 % (24.0-44.0); MEAN CORPUSCULAR HEMOGLOBIN 28.7 pg (27.0-33.0); MEAN CORPUSCULAR HGB CONC 35.6 g/dl (32.0-36.5); MEAN CORPUSCULAR VOLUME 80.7 fl (80.0-96.0); MONO # 0.1 10^3/uL (0.0-0.8); MONO % 4.9 % (0.0-5.0); NEUTROPHILS % 61.8 % (36.0-66.0); PLATELET COUNT, AUTOMATED 242 10^3/uL (150-450); RED BLOOD COUNT 4.77 10^6/uL (4.30-6.10)
[2018-10-03 12:41] LABS: WHITE BLOOD COUNT 1.4 10^3/uL (4.0-10.0)
[2018-10-03 12:42] LABS: NEUTROPHILS # 0.9 10^3/uL (1.8-7.7)
[2018-10-03 12:52] LABS: ALBUMIN 3.6 GM/DL (3.2-5.2); BILIRUBIN,DIRECT 0.5 MG/DL (0.0-0.2); BILIRUBIN,TOTAL 2.2 MG/DL (0.2-1.0); CALCIUM LEVEL 8.9 MG/DL (8.8-10.2); CREATININE FOR GFR 1.34 MG/DL (0.70-1.30); GLOMERULAR FILTRATION RATE 56.1 (>42); POTASSIUM SERUM 4.5 MEQ/L (3.5-5.1); TOTAL PROTEIN 6.5 GM/DL (6.4-8.2)
[2018-10-03] MEDS ORDERED: MORPHINE 2 MG/ML 1ML SYRINGE (J2270) IV PRN (14:15)
[2018-10-03] MEDS: NS 1,000 ML IV SCH ×2 (14:45→20:37)
[2018-10-03] MEDS: GASTROGRAFIN SOLUTION 30ML PO SCH ×2 (14:58→15:27)
[2018-10-03] MEDS ORDERED: ISOVUE-370 76% 100ML VIAL (Q9967) As Ordered ONE (16:39)
[2018-10-03] MEDS ORDERED: metroNIDAZOLE 500 MG in APPROPRIATE DILUENT 1 EA IV ONE (19:00)
[2018-10-03] MEDS ORDERED: CIPROFLOXACIN 400 MG in APPROPRIATE DILUENT 1 EA IV ONE (19:00)
--- NOTE | 2018-10-03 19:08 | REP ---
CT ABDOMEN AND PELVIS WITH ORAL AND IV CONTRAST: TECHNIQUE: Axial contrast enhanced images from the lung bases to the pubic symphysis using 100 mL Isovue 370 intravenous contrast material with multiplanar reformations. There are again bibasilar fibro atelectatic changes with scattered tiny calcifications inferiorly on the right. The liver is unremarkable in appearance. The patient has had a prior cholecystectomy. The spleen, adrenals and pancreas are unremarkable. There are bilateral renal cysts. There is no hydronephrosis. There is no abdominal aortic aneurysm. There is no adenopathy. There is no free air or free fluid. Diffuse colonic diverticulosis is again noted. There is segmental thickening with surrounding streaky inflammatory change involving the mid to left transverse colon consistent with diverticulitis. Anterior abdominal wall hernias in the midline and to the right are unchanged. No pelvic mass is seen. Urinary bladder appears unremarkable. IMPRESSION: Diverticulitis of the mid to left transverse colon. Scattered diverticula are seen throughout the remainder of the colon without other acute finding. No free air or free fluid. Electronically Signed by Brendon Pickens MD 10/03/2018 07:59 P
[2018-10-03] MEDS ORDERED: AMLO2.5T3 PO (19:44)
[2018-10-03] MEDS ORDERED: PRED10TA2 PO (19:44)
[2018-10-03] MEDS ORDERED: MORPHINE 4 MG/ML 1ML VIAL/SYRINGE (J2270) IV PRN (22:15)
[2018-10-03] MEDS ORDERED: ONDANSETRON 4MG/2ML VIAL (J2405) IV PRN (22:15)
[2018-10-03] MEDS ORDERED: GLUCOSE 4 GM CHEW TABLET PO PRN (22:45)
[2018-10-03] MEDS ORDERED: GLUCAGON FOR INJ 1 MG VIAL (J1610) SC PRN (22:45)
[2018-10-03] MEDS ORDERED: POLYVINYL ALCOHOL OPHTH SOLN 15 ML(LIQUITEARS) OU PRN (22:45)
[2018-10-03] MEDS ORDERED: DEXTROSE 50% 50 ML SYRINGE IV PRN (22:45)
[2018-10-03 23:00] LABS: THYROID STIMULATING HORMONE 2.82 uIU/ML (0.358-3.740)
[2018-10-03] MEDS ORDERED: NS 1,000 ML IV SCH (23:00)
[2018-10-03] MEDS ORDERED: FILGRASTIM 480 MCG/0.8 ML SYRINGE (J1442) SC ONE (23:00)
[2018-10-03] MEDS: QUEtiapine FUMARATE 25 MG TAB PO SCH (23:52)
[2018-10-03] MEDS: ACETAMINOPHEN TAB 650MG DOSE (2X325MG) PO PRN (23:56)
[2018-10-04] MEDS: metroNIDAZOLE 500 MG in APPROPRIATE DILUENT 1 EA IV SCH ×3 (05:23→21:17)
[2018-10-04] MEDS: NS 1,000 ML IV SCH ×4 (05:23→21:17)
[2018-10-04] MEDS: LEVOTHYROXINE 125MCG TABLET (0.125MG) PO SCH (05:24)
[2018-10-04] MEDS: LEVOTHYROXINE 50MCG TABLET (0.05MG) PO SCH (05:24)
[2018-10-04 05:33] VITALS: BP 125/60
--- NOTE | 2018-10-04 05:48 | HPE ---
DATE OF ADMISSION: 10/03/2018 CHIEF COMPLAINT: Left lower quadrant abdominal pain. HISTORY OF PRESENT ILLNESS (HPI): The patient is a 68-year-old male. His significant past medical history is depression, diabetes, hypertension, hyperlipidemia, hypothyroidism. He has neutropenia. He follows with Dr. Edwards and Dr. Baptiste for hematology/oncology. He has also been seen by Dr. Tang of rheumatology. He has had bone marrow biopsy. The etiology of his neutropenia is unclear. He has received multiple doses of Neupogen. He is scheduled to have IVIG infusion starting tomorrow with Dr. Tang, three doses; therefore coming into the emergency room complaining of left lower quadrant abdominal pain. He denies nausea, vomiting. On presentation to the emergency room he received morphine and the pain significantly improved. He denies any diarrhea, he denies any cough, chest pain, shortness of breath, urinary symptoms, fever or chills. In the emergency room a CAT scan was done which is concerning for diverticulitis uncomplicated. He is also neutropenic with an absolute neutrophil content of 900. The information technology instructor, Dr. Edwards who was on-call was consulted and stated to start the patient on Neupogen. PAST MEDICAL HISTORY: See HPI. PAST SURGICAL HISTORY: 1. Bone marrow biopsy. 2. Abdominal surgery for volvulus with partial colectomy. 3. Vasectomy. 4. Cataracts. 5. Tonsillectomy. 6. Ileostomy which is since reversed. ALLERGIES: MICH INHIBITORS, AMOXICILLIN, BEE VENOM, CLAVULANIC ACID, POULTRY. SOCIAL HISTORY: Denies tobacco, alcohol or illicit drug use. FAMILY HISTORY: Noncontributory. REVIEW OF SYSTEMS: A 12-point review of system was completed all of which negative except those listed in the HPI. HOME MEDICATIONS: - Norvasc - aspirin - losartan - magnesium oxide - metformin - prednisone - Seroquel - vitamin D - Synthroid PHYSICAL EXAMINATION: VITAL SIGNS ON ADMISSION: Temperature 98.9, pulse 81, respirations 17, blood pressure 121/59, satting 96% on room air. GENERAL: He is well nourished in no apparent distress. HEAD: Normocephalic atraumatic. Eyes: Extraocular movements are intact. Pupils equal, round, and reactive to light. NECK: Supple, no jugular venous distention (JVD). LUNGS: Clear to auscultation. No crackles, wheezes, rales or rhonchi. CARDIOVASCULAR: Regular rate and rhythm, normal S1, S2, no murmurs, rubs, gallops. ABDOMEN: Soft, nontender, nondistended. Positive bowel sounds. No rebound or guarding. Well healed midline scar. Well healed past ileostomy scar. EXTREMITIES: No pitting edema or calf tenderness. SKIN: Intact, no rashes, lesions or breakdown. NEUROLOGIC: Awake, alert and oriented times three. No focal deficits appreciated on the exam. LABS AND IMAGING DONE IN THE EMERGENCY ROOM (ER): White count 1.4, absolute neutrophils count 900, hemoglobin 13, hematocrit 38, platelet count 242. Lactate 2.5, normalized. Sodium 1323, chloride 94, BUN 24, creatinine 1.34. Baseline creatinine is around 1.4. Total bilirubin (T-bili) is elevated at 2.2 with direct bilirubin of 0.5. He has a chronic elevation of T-bili possibly secondary to Gilbert syndrome. ASSESSMENT AND PLAN: 1.Acute on complicated diverticulitis in the setting of neutropenia. Will place the patient on Cipro and Flagyl, Zofran as needed, morphine as needed. Continue his diet. The patient is able to tolerate diabetic, cardiac diet. Will give gentle fluid hydration. 2. Neutropenia. Etiology is unclear. Absolute neutrophil count is 900. As per the emergency room provider the patient is to be started on Neupogen, to be seen by information technology instructor, Dr. Edwards in the a.m. Continue prednisone. The patient is also supposed to see Dr. Tang tomorrow for infusion of IVIG. This will likely have to be deferred until his diverticulitis has resolved. He is also scheduled for an outpatient PET scan next week, Wednesday for elevation of total bilirubin. This seems to be chronically elevated. This is possibly secondary to Gilbert's syndrome versus possibly hemolysis. Will continue to trend renal function. Heme/Onc evaluation pending. 3. Blood pressure. Will continue Norvasc and losartan. 4. Diabetes. Hold metformin, insulin sliding scale. 5. Mood disorder. Continue Seroquel. 6. Hypothyroidism. Continue Synthroid. 7. Chronic kidney disease (CKD) stage III. Creatinine stable at baseline. 8. History of volvulus. Status post surgery with end ileostomy which is intra versed. This is stable. The patient will likely need a colonoscopy after this episode of diverticulitis has resolved in 4-6 weeks which can be set up as an outpatient. SUPPORTIVE: Deep venous thrombosis (DVT) prophylaxis, sequential compression devices (SCDs). Gastrointestinal (GI) prophylaxis not indicated. DIET: Cardiac diabetic diet.
[2018-10-04 07:04] LABS: HEMOGLOBIN 12.1 g/dl (13.5-17.5); MEAN CORPUSCULAR HEMOGLOBIN 28.3 pg (27.0-33.0); MEAN CORPUSCULAR HGB CONC 34.6 g/dl (32.0-36.5); PLATELET COUNT, AUTOMATED 193 10^3/uL (150-450); RED BLOOD COUNT 4.27 10^6/uL (4.30-6.10); WHITE BLOOD COUNT 2.8 10^3/uL (4.0-10.0)
[2018-10-04 07:29] LABS: ALT/SGPT 21 U/L (12-78); BILIRUBIN,TOTAL 2.6 MG/DL (0.2-1.0); BLOOD UREA NITROGEN 15 MG/DL (7-18); CALCIUM LEVEL 8.5 MG/DL (8.8-10.2); CARBON DIOXIDE LEVEL 33 MEQ/L (21-32); CHLORIDE LEVEL 100 MEQ/L (98-107); CREATININE FOR GFR 1.18 MG/DL (0.70-1.30); GLOMERULAR FILTRATION RATE > 60.0 (>42); GLUCOSE, FASTING 147 MG/DL (70-100); POTASSIUM SERUM 3.9 MEQ/L (3.5-5.1); SODIUM LEVEL 137 MEQ/L (136-145); TOTAL PROTEIN 5.9 GM/DL (6.4-8.2)
[2018-10-04 08:00] VITALS: BP 129/60
[2018-10-04] MEDS: HumaLOG INSULIN (NovoLOG) PER UNIT SC SCH ×3 (08:03→17:41)
[2018-10-04] MEDS: CIPROFLOXACIN 400 MG in APPROPRIATE DILUENT 1 EA IV SCH ×2 (08:03→22:27)
[2018-10-04] MEDS: VITAMIN D 1,000 INTERNATIONAL UNITS TABLET PO SCH (08:04)
[2018-10-04] MEDS: MULTIVITAMINS/MINERALS THERAP 1 TAB PO SCH (08:04)
[2018-10-04] MEDS: ASPIRIN 81 MG ENTERIC TAB PO SCH (08:04)
[2018-10-04] MEDS: LOSARTAN 50 MG TAB PO SCH (08:05)
[2018-10-04] MEDS ORDERED: predniSONE 10 MG TAB PO ONE (09:00)
[2018-10-04] MEDS ORDERED: FILGRASTIM 480 MCG/0.8 ML SYRINGE (J1442) SC SCH (09:00)
[2018-10-04] MEDS ORDERED: predniSONE 10 MG TAB PO SCH (09:00)
[2018-10-04 11:24] VITALS: BP 129/72
[2018-10-04] MEDS: MAGNESIUM OXIDE 400 MG TAB (MAG-OX) PO SCH (12:17)
[2018-10-04 14:00] VITALS: BP 111/58
--- NOTE | 2018-10-04 19:30 | CR ---
DATE OF CONSULTATION: 10/04/2018 HEMATOLOGY/ONCOLOGY INPATIENT CONSULTATION This is a very pleasant 68-year-old male who has a significant past medical history of neutropenia. He had been followed by my colleague, Dr. Karon Morales. He had a bone marrow biopsy and aspirate done for neutropenia and was found to have a normal male karyotype and cytogenetics as well as a marked erythroid hyperplasia with increasing hemoglobin and hematocrit in the peripheral blood. The concern was that the patient may have some form of myeloproliferative disorder and JAK2 mutational analysis was initially done. In the differential count, he had a preponderance of 68% erythroid precursors and the remainder myeloid. The megakaryocytes had appeared increased with normal morphology, and the erythroid maturation appeared to be normoblastic with hyperplastic and a few binucleated forms. The myeloid maturation appeared news videographer and complete with decreased numbers. Sideroblasts were seen, approximately 5%. The overall M/E ratio was decreased. There was about 12% lymphocytes and about 3.6% neutrophils noted overall and 1.6% plasma cells in the differential of his bone marrow biopsy. There was approximately 4% blasts and a markedly decreased M/E ratio. 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 There is an unknown clinical effect of this particular variant and no associated known pathology assigned to it. The patient had been admitted to the hospital due to abdominal pain and concern for acute diverticulitis. Due to the neutropenia, the patient had been treated with broad-spectrum antibiotic therapy and concern for gram-negative sepsis was predominant. He currently is getting broad-spectrum antibiotic. He is getting Flagyl therapy. He has no fever. He has currently abdominal pain only when palpated and is here with his . No diarrhea or any constipation. The abdominal pain is predominantly in the left lower quadrant. He has had no nausea or vomiting. The pain was improved with morphine. His past medical history includes abdominal surgery for volvulus and partial colectomy, a vasectomy, cataracts, tonsillectomy and a reversal of an ileostomy. Allergies are to have AMOXICILLIN, BEE VENOM, CLAVULANIC ACID, POULTRY and ANGIOTENSIN-CONVERTING ENZYME (MICH) INHIBITORS. SOCIAL HISTORY: He denies tobacco, smoking. He is currently . is supportive. Family history is otherwise noncontributory. The remainder of the 12-point review of systems was completed. They were all negative with the exception of the GI system and abdominal examination, which was noted in HPI. The patient's current medications include the above noted Flagyl. His medications at home include amlodipine besylate 2.5 mg p.o. daily, aspirin 81 mg p.o. daily, fish oil 1200 mg two capsules p.o. b.i.d., levothyroxine 175 mcg p.o. daily, losartan potassium 50 mg p.o. daily, magnesium oxide 800 mg p.o. daily and metformin 500 mg p.o. He is on prednisone 10 mg taper and quetiapine fumarate 25 mg p.o. q.h.s. Prednisone 10 mg taper. PHYSICAL EXAM: On his physical examination, he is awake, alert. He appears to be in no acute distress. His temperature is 98.5, pulse is 87, respiratory rate is 18, BP is 118/58, pulse oximetry is 98%. HEENT: He has generalized pallor. His sclerae is white, nonicteric. Oropharynx is otherwise clear. TMs are intact. There are no signs of any buccal lesions, thrush, ulcerations. He has no adenopathy in the neck, supraclavicular area, axillary area. His chest is clear to auscultation and percussion. Cardiovascular: S1 and S2 are appreciated with no murmurs. His abdomen is otherwise soft. He does have some pain on deep palpation. His bowel sounds are positive, and he shows no signs of any edema or numbness or tingling of the fingertips or toes. On his laboratories, he has an admission WBC count of 1.4, hemoglobin of 13.7 over 38.5, MCV of 80.7, RDW of 16.2, platelets of 242,000, neutrophils of 61% lymphocytes of 31%. His chemistries show a sodium of 131, potassium 3.9, chloride of 100, CO2 of 33, BUN of 15, creatinine of 1.18, GFR is greater than 60, calcium is 8.5, total bilirubin is 2.6 and AST is 13, ALT is 21. Please note that the absolute neutrophil count was 900 on admission. IMPRESSION: At this time is myeloproliferative disorder with an increase of 4% blasts noted in his peripheral smear with JAK2 mutation, Exon 12 being positive with an unknown clinical significance in a 68-year-old male. The differential diagnosis is a primary unclassified hematological disorder versus an autoimmune phenomenon due to rheumatologic disorder or perhaps even a combination of both. Plan is to cover the patient with broad-spectrum antibiotic therapy, also to support the patient with Neupogen injections so that his absolute neutrophil count is over 1000 or 1500 preferably. I would be more than happy to follow this gentleman with you until he gets over his acute episode of abdominal pain and would maintain his ANC at least over 1000 once he is discharged on an outpatient basis. The patient and his plan to go to [place] to the [facility] there and for a second opinion regarding his disease.
[2018-10-04 20:00] VITALS: BP 119/58
--- NOTE | 2018-10-04 21:43 | IPN ---
DATE: 10/04/2018 SUBJECTIVE: The patient tells me he is feeling much better today and tells me he has no specific complaints and his pain is improved. He is having minimal belly pain. This is not his worse episode of diverticulitis and that is resolving quite well. He has actually been able to tolerate a diet this morning. OBJECTIVE: VITAL SIGNS: Temperature 98.3, maximum temperature 99.4, heart rate 96, respiratory rate 18, blood pressure 129/72, oxygen saturation 97% on room air. GENERAL: He is a pleasant elderly male laying flat in bed. He does not appear to be in any acute distress. Awake and alert times three, speaking in complete sentences. HEENT: Cranial nerves II through XII are grossly intact. He had moist mucous membranes. No elevation in CVP. CARDIOVASCULAR: S1 and S2 are regular. RESPIRATORY EXAM: Clear. ABDOMINAL EXAM: Bowel sounds are present. The abdomen is actually soft and there is some mild diffuse tenderness to palpation in the lower quadrant. EXTREMITIES: No clubbing, cyanosis or edema. LABORATORY STUDIES: WBC 2.8, hemoglobin 12.1, platelet count 193. Chemistry panel: Sodium 137, potassium 3.9, chloride 100, bicarbonate 33, BUN 15, creatinine 1.1. MICROBIOLOGY: Blood cultures thus far negative. IMAGING: The patient had a CT scan of the abdomen and pelvis which revealed reticulitis of the mid to left transverse colon and scattered diverticula are seen throughout the remainder of the colon without other acute findings. ASSESSMENT AND PLAN: This is a 68-year-old man with myeloproliferative disorder with an unclassified hematological disorder and presenting with diverticulitis. PROBLEMS: 1. Diverticulitis. He is on appropriate antiobiotic therapy. His case appears to be relatively mild and he appears to be doing quite well with diet at this time. He was given one dose of Neupogen with a goal of getting his ANC greater than 1000 or 1500 preferably. I suspect that he may be able to get there as early as tomorrow. He has had positive response of his Neupogen in the past he is able to tell me. Patient is currently tolerating a diet so I will not dial that back. We will continue with it. As soon as the ANC increases I suspect he could potentially go home with a low reside diet as early as tomorrow. 2. Neutropenia. The of the patient plan on going to [place] for a second opinion. For the time being he is continued on Prednisone. 3. Hypertension. He is on Losartan. The patient is on Norvasc. 4. Hypothyroidism . He is on Levothyroxine. 5. Psychiatric condition, he is continued on Seroquel. DISPOSITION: Possibly home tomorrow if his ANC is improved and he continues to tolerate diet with improvement in his symptoms.
[2018-10-04] MEDS: QUEtiapine FUMARATE 25 MG TAB PO SCH (22:27)
[2018-10-05] MEDS: NS 1,000 ML IV SCH ×3 (00:54→16:56)
[2018-10-05] MEDS: metroNIDAZOLE 500 MG in APPROPRIATE DILUENT 1 EA IV SCH ×3 (04:09→21:35)
[2018-10-05] MEDS: LEVOTHYROXINE 125MCG TABLET (0.125MG) PO SCH (05:11)
[2018-10-05] MEDS: LEVOTHYROXINE 50MCG TABLET (0.05MG) PO SCH (05:11)
[2018-10-05 06:00] VITALS: BP 124/64
[2018-10-05 06:52] LABS: HEMATOCRIT 31.4 % (42.0-52.0); HEMOGLOBIN 10.8 g/dl (13.5-17.5); MEAN CORPUSCULAR HEMOGLOBIN 28.5 pg (27.0-33.0); MEAN CORPUSCULAR HGB CONC 34.4 g/dl (32.0-36.5); MEAN CORPUSCULAR VOLUME 82.8 fl (80.0-96.0); PLATELET COUNT, AUTOMATED 204 10^3/uL (150-450); RED BLOOD COUNT 3.79 10^6/uL (4.30-6.10); WHITE BLOOD COUNT 2.8 10^3/uL (4.0-10.0)
[2018-10-05 07:14] LABS: ALBUMIN 2.7 GM/DL (3.2-5.2); ALT/SGPT 18 U/L (12-78); BILIRUBIN,TOTAL 1.8 MG/DL (0.2-1.0); BLOOD UREA NITROGEN 12 MG/DL (7-18); CARBON DIOXIDE LEVEL 29 MEQ/L (21-32); CHLORIDE LEVEL 103 MEQ/L (98-107); CREATININE FOR GFR 1.16 MG/DL (0.70-1.30); GLOMERULAR FILTRATION RATE > 60.0 (>42); GLUCOSE, FASTING 150 MG/DL (70-100); POTASSIUM SERUM 3.7 MEQ/L (3.5-5.1); SODIUM LEVEL 139 MEQ/L (136-145); TOTAL PROTEIN 5.5 GM/DL (6.4-8.2)
[2018-10-05] MEDS: CIPROFLOXACIN 400 MG in APPROPRIATE DILUENT 1 EA IV SCH ×2 (08:39→22:44)
[2018-10-05] MEDS: predniSONE 5 MG TAB PO SCH (08:40)
[2018-10-05] MEDS: ASPIRIN 81 MG ENTERIC TAB PO SCH (08:40)
[2018-10-05] MEDS: MULTIVITAMINS/MINERALS THERAP 1 TAB PO SCH (08:40)
[2018-10-05] MEDS: LOSARTAN 50 MG TAB PO SCH (08:41)
[2018-10-05] MEDS: ACETAMINOPHEN TAB 650MG DOSE (2X325MG) PO PRN ×2 (08:42→17:50)
[2018-10-05] MEDS: VITAMIN D 1,000 INTERNATIONAL UNITS TABLET PO SCH (08:42)
[2018-10-05] MEDS: HumaLOG INSULIN (NovoLOG) PER UNIT SC SCH ×3 (08:43→17:39)
[2018-10-05 09:47] LABS: BASOPHILS 1 % (0-4); LYMPHOCYTES 35 % (16-52); MONOCYTES 3 % (0-8); NEUTROPHILS 51 % (35-75)
[2018-10-05 09:48] LABS: PLATELET ESTIMATE NORMAL (NORMAL)
[2018-10-05] MEDS: MAGNESIUM OXIDE 400 MG TAB (MAG-OX) PO SCH (12:13)
[2018-10-05 14:00] VITALS: BP 127/60
--- NOTE | 2018-10-05 17:52 | IPN ---
DATE: 10/05/2018 SUBJECTIVE: The patient tells me that he has some right lower quadrant abdominal pain which was not there yesterday. He denies any chest pain or shortness of breath. He denies that it is associated with food. Otherwise, he denies any other change in status. OBJECTIVE: VITAL SIGNS: Temperature 98.4, pulse 91, respiratory rate 18, blood pressure 124/64, oxygen saturation 95% on room air. GENERAL: He is a pleasant, elderly man laying flat in bed. He does not appear to be in no acute distress. He does have a strange affect. HEENT: Cranial nerves II-XII are grossly intact. He has moist mucous membranes. No elevation of central venous pressure (CVP). CARDIOVASCULAR: S1, S2. Regular rate and rhythm. RESPIRATORY EXAMINATION: Clear. ABDOMINAL EXAMINATION: Bowel sounds are present. The abdomen is soft. There is mild tenderness to palpation in the right lower quadrant, but otherwise, fairly unremarkable. EXTREMITIES: No clubbing, cyanosis or edema. LABORATORY STUDIES: WBC 2.8, hemoglobin 10.8, platelet count 204, % neutrophils 51. ANC just below 1500. Chemistry panel: Sodium 139, potassium 3.7, chloride 103, bicarbonate 29, BUN 12, creatinine 1.1. MICROBIOLOGY: Blood cultures are negative. No imaging. ASSESSMENT AND PLAN: This is a 68-year-old man with myeloproliferative disorder presenting with an unclassified hematological disorder presenting with diverticulitis. PROBLEMS: 1. Diverticulitis. He is on appropriate antibiotics. Appears to be a relatively mild case. He is doing quite well. I suspect that his right lower quadrant pain is related to this. We will continue to monitor him closely and sure that it does resolve over the next 24 hours. His ANC is still less than 1500. He did receive Neupogen. We will reevaluate his differential tomorrow. I suspect that it may be above and at that point be stable for discharge. 2. Unclassified hematological disorder with neutropenia. Dr. Baptiste's help is really appreciated. The plan is for him to continue on prednisone and have outpatient followup in [place] for a second opinion. 3. Hypertension. He is on Losartan. He is on Norvasc. 4. Hypothyroidism . He is on Levothyroxine. 5. Psychiatric condition. He is continued on Seroquel. DISPOSITION: Possibly home pending his ANC.
[2018-10-05 20:00] VITALS: BP 138/67
[2018-10-05] MEDS: QUEtiapine FUMARATE 25 MG TAB PO SCH (21:36)
[2018-10-06] MEDS: NS 1,000 ML IV SCH ×2 (01:00→08:34)
[2018-10-06 04:00] VITALS: BP 147/71
[2018-10-06] MEDS: metroNIDAZOLE 500 MG in APPROPRIATE DILUENT 1 EA IV SCH (04:30)
[2018-10-06] MEDS: LEVOTHYROXINE 50MCG TABLET (0.05MG) PO SCH (05:31)
[2018-10-06] MEDS: LEVOTHYROXINE 125MCG TABLET (0.125MG) PO SCH (05:32)
[2018-10-06 06:59] LABS: HEMATOCRIT 31.4 % (42.0-52.0); HEMOGLOBIN 10.6 g/dl (13.5-17.5); LYMPH # 0.6 10^3/uL (1.5-4.5); LYMPH % 43.1 % (24.0-44.0); MEAN CORPUSCULAR HEMOGLOBIN 28.2 pg (27.0-33.0); MEAN CORPUSCULAR HGB CONC 33.8 g/dl (32.0-36.5); MEAN CORPUSCULAR VOLUME 83.5 fl (80.0-96.0); MONO % 2.8 % (0.0-5.0); NEUTROPHILS % 52.7 % (36.0-66.0); PLATELET COUNT, AUTOMATED 213 10^3/uL (150-450); RED BLOOD COUNT 3.76 10^6/uL (4.30-6.10)
[2018-10-06 07:11] LABS: ALBUMIN 2.7 GM/DL (3.2-5.2); ALT/SGPT 19 U/L (12-78); BLOOD UREA NITROGEN 11 MG/DL (7-18); CALCIUM LEVEL 8.2 MG/DL (8.8-10.2); CARBON DIOXIDE LEVEL 28 MEQ/L (21-32); CHLORIDE LEVEL 107 MEQ/L (98-107); CREATININE FOR GFR 0.99 MG/DL (0.70-1.30); GLOMERULAR FILTRATION RATE > 60.0 (>42); GLUCOSE, FASTING 153 MG/DL (70-100); POTASSIUM SERUM 3.7 MEQ/L (3.5-5.1); SODIUM LEVEL 140 MEQ/L (136-145); TOTAL PROTEIN 5.5 GM/DL (6.4-8.2)
[2018-10-06 07:13] LABS: WHITE BLOOD COUNT 1.4 10^3/uL (4.0-10.0)
[2018-10-06 07:14] LABS: NEUTROPHILS # 0.8 10^3/uL (1.8-7.7)
[2018-10-06] MEDS: FILGRASTIM 480 MCG/0.8 ML SYRINGE (J1442) SC SCH (08:33)
[2018-10-06] MEDS: BACTRIM 160MG/800MG DS TAB PO SCH ×2 (08:33→20:41)
[2018-10-06] MEDS: VITAMIN D 1,000 INTERNATIONAL UNITS TABLET PO SCH (08:33)
[2018-10-06] MEDS: LOSARTAN 50 MG TAB PO SCH (08:33)
[2018-10-06] MEDS: MULTIVITAMINS/MINERALS THERAP 1 TAB PO SCH (08:33)
[2018-10-06] MEDS: ASPIRIN 81 MG ENTERIC TAB PO SCH (08:33)
[2018-10-06] MEDS: predniSONE 5 MG TAB PO SCH (08:33)
[2018-10-06] MEDS: HumaLOG INSULIN (NovoLOG) PER UNIT SC SCH ×3 (08:34→17:26)
[2018-10-06] MEDS: MAGNESIUM OXIDE 400 MG TAB (MAG-OX) PO SCH (12:32)
[2018-10-06 14:00] VITALS: BP 148/68
--- NOTE | 2018-10-06 15:08 | IPNPDOC ---
Date Seen The patient was seen on 10/06/18. Progress Note SUBJECTIVE: Patient tells me that his abdominal pain is improved he will yesterday was 5 today is 1 he is having normal bowel movements she has no specific complaints at this time OBJECTIVE PHYSICAL EXAMINATION: VITAL SIGNS: Please see below. GENERAL: [Pleasant elderly man with a strange affect lying flat in bed he is in no acute distress] HEENT: Cranial nerves II through XII grossly intact CARDIOVASCULAR: Is 1 S2 regular. RESPIRATORY: Clear to auscultation bilaterally. ABDOMINAL: Bowel sounds are present abdomen soft there is some mild tenderness to deep palpation in the right lower quadrant EXTREMITIES: No clubbing cyanosis or edema LABORATORY DATA, IMAGING STUDIES, MICROBIOLOGY: Please see below. DVT prophylaxis ordered?: [Encourage early ambulation] ASSESSMENT AND PLAN: This is a [68]-year-old man with diverticulitis and neutropenia. 1. Diverticulitis. He is on appropriate antibiotics however his neutrophil count is dropping and as such I'll transition him off ciprofloxacin and on Bactrim and transition to by mouth antibiotics. I'll discontinue his IV fluids well. Appears to be a relatively mild case. He is doing quite well. I suspect that his right lower quadrant pain is related to this and continues to resolve today. 2. Unclassified hematological disorder with neutropenia. Dr. Baptiste's help is really appreciated. The plan is for him to continue on prednisone and have outpatient followup in [place] for a second opinion. His ANC is actually dropped today I'll provide him with additional Neupogen changes antibiotics and discontinue IV fluids should be above 1500 tomorrow I would like to discharge home 3. Hypertension. He is on Losartan. He is on Norvasc. 4. Hypothyroidism . He is on Levothyroxine. 5. Psychiatric condition. He is continued on Seroquel. DISPOSITION: Possibly home pending his ANC. DISPOSITION: . VS, I&O, 24H, Fishbone Vital Signs/I&O Vital Signs Date Time Temp Pulse Resp B/P (MAP) Pulse Ox O2 Delivery O2 Flow Rate FiO2 10/06/18 14:00 97.7 84 18 148/68 (94) 96 10/03/18 23:40 Room Air I&O- Last 24 Hours up to 6 AM 10/06/18 06:00 Intake Total 1405 ml Output Total 1900 ml Balance -495 ml Laboratory Data 24H LABS Laboratory Tests 2 10/05/18 17:25: Bedside Glucose (Misc Panel) 173H 10/05/18 20:38: Bedside Glucose (Misc Panel) 270H 10/06/18 06:27: Immature Granulocyte % (Auto) 1.4, White Blood Count 1.4L, Red Blood Count 3.76L, Hemoglobin 10.6L, Hematocrit 31.4L, Mean Corpuscular Volume 83.5, Mean Corpuscular Hemoglobin 28.2, Mean Corpuscular Hemoglobin Concent 33.8, Red Cell Distribution Width 16.8H, Platelet Count 213, Neutrophils (%) (Auto) 52.7, Lymphocytes (%) (Auto) 43.1, Monocytes (%) (Auto) 2.8, Eosinophils (%) (Auto) 0.0, Basophils (%) (Auto) 0.0, Neutrophils # (Auto) 0.8L, Lymphocytes # (Auto) 0.6L, Monocytes # (Auto) 0.0, Eosinophils # (Auto) 0.0, Basophils # (Auto) 0.0, Nucleated Red Blood Cells % (auto) 0.0 10/06/18 06:29: Anion Gap 5L, Glomerular Filtration Rate > 60.0, Blood Urea Nitrogen 11, Creatinine 0.99, Sodium Level 140, Potassium Level 3.7, Chloride Level 107, Carbon Dioxide Level 28, Calcium Level 8.2L, Aspartate Amino Transf (AST/SGOT) 7, Alanine Aminotransferase (ALT/SGPT) 19, Alkaline Phosphatase 63, Total Bilirubin 1.0, Total Protein 5.5L, Albumin 2.7L, Albumin/Globulin Ratio 0.96L 10/06/18 11:50: Bedside Glucose (Misc Panel) 197H CBC/BMP Laboratory Tests 10/06/18 06:27 Red Blood Count 3.76 L, Mean Corpuscular Volume 83.5, Mean Corpuscular Hemoglobin 28.2, Mean Corpuscular Hemoglobin Concent 33.8, Red Cell Distribution Width 16.8 H, Neutrophils (%) (Auto) 52.7, Lymphocytes (%) (Auto) 43.1, Monocytes (%) (Auto) 2.8, Eosinophils (%) (Auto) 0.0, Basophils (%) (Auto) 0.0, Neutrophils # (Auto) 0.8 L, Lymphocytes # (Auto) 0.6 L, Monocytes # (Auto) 0.0, Eosinophils # (Auto) 0.0, Basophils # (Auto) 0.0 10/06/18 06:29 Calcium Level 8.2 L, Aspartate Amino Transf (AST/SGOT) 7, Alanine Aminotransferase (ALT/SGPT) 19, Alkaline Phosphatase 63, Total Bilirubin 1.0, Total Protein 5.5 L, Albumin 2.7 L Microbiology Microbiology 10/03/18 Blood Culture - Preliminary, Resulted No Growth after 72 hours. All specime... PEREZ QUINN MD Oct 06, 2018 15:07
[2018-10-06] MEDS: metroNIDAZOLE (FLAGYL) 500 MG TAB PO SCH ×2 (15:14→20:41)
[2018-10-06 20:00] VITALS: BP 149/70
[2018-10-06] MEDS: QUEtiapine FUMARATE 25 MG TAB PO SCH (20:41)
[2018-10-07 05:00] VITALS: BP 138/65
[2018-10-07] MEDS: LEVOTHYROXINE 50MCG TABLET (0.05MG) PO SCH (05:11)
[2018-10-07] MEDS: LEVOTHYROXINE 125MCG TABLET (0.125MG) PO SCH (05:12)
[2018-10-07] MEDS: metroNIDAZOLE (FLAGYL) 500 MG TAB PO SCH (05:12)
[2018-10-07 07:40] LABS: HEMATOCRIT 32.6 % (42.0-52.0); HEMOGLOBIN 11.1 g/dl (13.5-17.5); LYMPH # 0.9 10^3/uL (1.5-4.5); LYMPH % 31.3 % (24.0-44.0); MEAN CORPUSCULAR HEMOGLOBIN 27.9 pg (27.0-33.0); MEAN CORPUSCULAR VOLUME 81.9 fl (80.0-96.0); MONO # 0.1 10^3/uL (0.0-0.8); MONO % 3.6 % (0.0-5.0); NEUTROPHILS # 1.8 10^3/uL (1.8-7.7); NEUTROPHILS % 64.4 % (36.0-66.0); PLATELET COUNT, AUTOMATED 267 10^3/uL (150-450); RED BLOOD COUNT 3.98 10^6/uL (4.30-6.10); WHITE BLOOD COUNT 2.8 10^3/uL (4.0-10.0)
[2018-10-07] MEDS ORDERED: FLAG500T PO (07:57)
[2018-10-07] MEDS ORDERED: SULF1TAB93 PO (07:57)
[2018-10-07 08:00] VITALS: BP 152/72
[2018-10-07 08:03] LABS: ALBUMIN 2.8 GM/DL (3.2-5.2); ALT/SGPT 22 U/L (12-78); BILIRUBIN,TOTAL 1.4 MG/DL (0.2-1.0); BLOOD UREA NITROGEN 8 MG/DL (7-18); CALCIUM LEVEL 8.1 MG/DL (8.8-10.2); CARBON DIOXIDE LEVEL 26 MEQ/L (21-32); CHLORIDE LEVEL 106 MEQ/L (98-107); CREATININE FOR GFR 1.08 MG/DL (0.70-1.30); GLOMERULAR FILTRATION RATE > 60.0 (>42); GLUCOSE, FASTING 137 MG/DL (70-100); POTASSIUM SERUM 3.5 MEQ/L (3.5-5.1); SODIUM LEVEL 138 MEQ/L (136-145); TOTAL PROTEIN 5.7 GM/DL (6.4-8.2)
[2018-10-07] MEDS: BACTRIM 160MG/800MG DS TAB PO SCH (08:24)
[2018-10-07] MEDS: VITAMIN D 1,000 INTERNATIONAL UNITS TABLET PO SCH (08:24)
[2018-10-07] MEDS: ASPIRIN 81 MG ENTERIC TAB PO SCH (08:24)
[2018-10-07 08:25] VITALS: BP 152/72
[2018-10-07] MEDS: MULTIVITAMINS/MINERALS THERAP 1 TAB PO SCH (08:25)
[2018-10-07] MEDS: HumaLOG INSULIN (NovoLOG) PER UNIT SC SCH (08:25)
[2018-10-07] MEDS: ACETAMINOPHEN TAB 650MG DOSE (2X325MG) PO PRN (08:25)
[2018-10-07] MEDS: predniSONE 5 MG TAB PO SCH (08:25)
[2018-10-07] MEDS: LOSARTAN 50 MG TAB PO SCH (08:25)
[2018-10-07] MEDS: FILGRASTIM 480 MCG/0.8 ML SYRINGE (J1442) SC SCH (09:45)
--- NOTE | 2018-10-07 20:46 | DSES ---
DATE OF ADMISSION: 10/03/2018 DATE OF DISCHARGE: 10/07/2018 DISCHARGE DIAGNOSIS: Diverticulitis. SECONDARY DIAGNOSES: 1. Neutropenia. 2. Unclassified hematological disorder. 3. Hypertension. 4. Hypothyroidism. 5. Psychiatric disorders. HOSPITAL COURSE: The patient is a 68-year-old man who presented with a relatively mild case of diverticulitis, but given that he was neutropenic with an ANC less than 1500, he was admitted for close observation. He did receive Neupogen and IV fluid, as well as IV Cipro and Flagyl. His WBC count was slow to respond, even with Neupogen, and I did transition him from Cipro and Bactrim. We discontinued IV fluids and he was able to tolerate his diet quite well. After the two doses of Neupogen, his ANC did begin to rise. He did receive three doses total while in the hospital. He was seen in consultation by Dr. Baptiste. At this time, he was cleared for discharge. I sent him with a prescription to have a CBC checked with differential again on Wednesday with the results sent to Dr. Baptiste. OBJECTIVE: This morning, the patient tells me that he is feeling better. He has no abdominal pain. Bowel movements are normal. He has no complaints. VITAL SIGNS: Temperature 99, heart rate 79, respiratory rate 18, blood pressure 152/72, oxygen saturation 95% on room air. GENERAL: He is a very pleasant, elderly, man lying flat in bed with a strange affect. He is in no acute distress. Cranial nerves II-XII are grossly intact. He has moist mucous membranes. CARDIOVASCULAR EXAM: S1, S2 regular. RESPIRATORY EXAM: Clear. ABDOMINAL EXAM: Benign. EXTREMITIES: No clubbing or cyanosis. LABORATORY STUDIES: WBC 2.8, ANC greater than 1500, hemoglobin 11.1, platelets 267. Chemistry panel: Sodium 138, potassium 3.5, chloride 106, bicarbonate 26, BUN 8, creatinine 1.0. IMAGING: The patient did have a CT scan of the abdomen that was suggestive of diverticulitis on 10/03/2018 involving the mid and left transverse colon. ASSESSMENT AND PLAN: This is a 68-year-old man with diverticulitis and neutropenia. 1. Diverticulitis. At this time, he has been transitioned to Bactrim and Flagyl orally. I will discharge him on this to complete a 7 day course. He is doing quite well. I recommended a high fiber diet and he should consider an outpatient colonoscopy, as he has not had one recently. 2. Unclassified hematologic disorder with neutropenia. Dr. Baptiste's help was greatly appreciated. He was continued on prednisone. He was planning to followup in [place] for a second opinion. He did receive three doses of Neupogen in total while hospitalized. At this time, after receiving two doses, his ANC is greater than 1500. He is medically stable for discharge home with a repeat lab on Wednesday sent to Dr. Baptiste's office. 3. Hypertension. He is on losartan and Norvasc. 4. Hypothyroidism. He is on levothyroxine. 5. Psychiatric disorder. He is continued on Seroquel. DISPOSITION: At this time, he is medically stable for discharge home. His clinical syndrome has resolved. He is to followup with his primary care provider in [address] Baptiste within 2 weeks. Activity is as prior to admission. Diet is high fiber. Consider outpatient colonoscopy. Return to the emergency room if symptoms worsen. MEDICATIONS: At the time of discharge: - Flagyl 500 mg every 8 hours - Bactrim DSS 800-160 mg one tablet twice a day to complete a 7 day course - amlodipine 2.5 mg at night - artificial tears one drop in each eye four times a day as needed for dry eyes - aspirin 81 mg daily - vitamin D 2000 units daily - fish oil 1200 mg two tablets twice a day - kelp 150 mcg daily, as per the patient - Synthroid 175 mcg daily - losartan 50 mg daily - magnesium oxide 800 mg daily - metformin 500 mg - multivitamin one tablet daily - prednisone taper as outlined from his provider prior to admission - Seroquel 25 mg at night Greater than 30 minutes was spent organizing disposition.
== END 2018-10-07 10:27 | disposition home or self-care (01) | DRG 392 ==
LOC: M ED 11:51 → M ED INP 22:34 → M MS4PR 10-04 11:37
PROVIDERS: ADMIT Internal Medicine; ATTEND Internal Medicine
DX: K57.32 Diverticulitis of large intestine without perforation or abscess without bleeding (principal); C94.6 Myelodysplastic disease, not elsewhere classified; F32.9 Major depressive disorder, single episode, unspecified; E11.9 Type 2 diabetes mellitus without complications; D75.9 Disease of blood and blood-forming organs, unspecified; I12.9 Hypertensive chronic kidney disease with stage 1 through stage 4 chronic kidney disease, or unspecified chronic kidney disease; N18.3 Chronic kidney disease, stage 3 (moderate); E78.5 Hyperlipidemia, unspecified; E03.9 Hypothyroidism, unspecified; Z90.49 Acquired absence of other specified parts of digestive tract; Z98.49 Cataract extraction status, unspecified eye; Z88.1 Allergy status to other antibiotic agents; Z88.8 Allergy status to other drugs, medicaments and biological substances; Z91.030 Bee allergy status; Z91.018 Allergy to other foods; Z79.82 Long term (current) use of aspirin; Z79.52 Long term (current) use of systemic steroids; Z79.899 Other long term (current) drug therapy

== ENCOUNTER → 2018-10-03 | Outpatient (REF) | payer MEDICARE, OTHER ==
[~2018-10-03] MED LIST changes: -SULF1TAB93 PO
== END ==
LOC: M LABDRAWP 09:10
PROVIDERS: ATTEND Internal Medicine Rheumatology
DX: D72.819 Decreased white blood cell count, unspecified (principal)

== ENCOUNTER → 2018-10-10 | Outpatient (REF) | payer MEDICARE, OTHER ==
[~2018-10-10] MED LIST changes: +AMLO2.5T3 PO; +SULF1TAB93 PO
[2018-10-10 14:05] LABS: HEMATOCRIT 34.9 % (42.0-52.0); MEAN CORPUSCULAR HEMOGLOBIN 28.1 pg (27.0-33.0); MEAN CORPUSCULAR HGB CONC 34.4 g/dl (32.0-36.5); MEAN CORPUSCULAR VOLUME 81.7 fl (80.0-96.0); PLATELET COUNT, AUTOMATED 366 10^3/uL (150-450); RED BLOOD COUNT 4.27 10^6/uL (4.30-6.10)
[2018-10-10 14:07] LABS: WHITE BLOOD COUNT 1.6 10^3/uL (4.0-10.0)
== END ==
LOC: M LABDRWAD 12:16
PROVIDERS: ATTEND Internal Medicine
DX: D70.9 Neutropenia, unspecified (principal)

== ENCOUNTER → 2018-10-20 | Outpatient (REF) | payer MEDICARE, OTHER ==
[2018-10-20 16:04] LABS: CLOSTRIDIUM DIFFICILE PCR NEGATIVE (NEGATIVE)
== END ==
LOC: M LAB REF 15:07
PROVIDERS: ATTEND Internal Medicine Gastroenterology
DX: K57.33 Diverticulitis of large intestine without perforation or abscess with bleeding (principal)

== ENCOUNTER 2018-11-03 07:20 | Outpatient (CLI) | payer MEDICARE, OTHER ==
[2018-11-03] VITALS (7 sets, daily range): BP systolic 103–121; BP diastolic 56–59
[~2018-11-03] VITALS: Ht 177.8 cm; Wt 78.3 kg
[~2018-11-03 07:20] MED LIST changes: +HYDR-3715 PO; +IMMUNE GLOBULIN 10% 10 GM in APPROPRIATE DILUENT 1 EA IV ONE; +IMMUNE GLOBULIN 10% 20 GM in APPROPRIATE DILUENT 1 EA IV ONE; +IMMUNE GLOBULIN 10% 40 GM in APPROPRIATE DILUENT 1 EA IV ONE; +IMMUNE GLOBULIN 10% 5 GM in APPROPRIATE DILUENT 1 EA IV ONE; -NORC1TAB4 PO; +NORC1TAB7 PO; -NORCOTAB PO
[2018-11-10] MEDS ORDERED: ACET500T15 PO (12:58)
[2018-11-10] MEDS ORDERED: LORA1TAB12 PO (13:42)
[2019-01-04] MEDS ORDERED: KELP150T2 PO (13:29)
[2019-01-04] MEDS ORDERED: OMEG12003 PO (13:29)
== END 2018-11-03 13:20 | disposition home or self-care (01) ==
LOC: M INFU 07:20
PROVIDERS: ATTEND Internal Medicine Hematology & Oncology
DX: D80.5 Immunodeficiency with increased immunoglobulin M [IgM] (principal); D81.89 Other combined immunodeficiencies; D61.810 Antineoplastic chemotherapy induced pancytopenia; D70.8 Other neutropenia; C94.6 Myelodysplastic disease, not elsewhere classified; D72.819 Decreased white blood cell count, unspecified; N18.9 Chronic kidney disease, unspecified; Z79.899 Other long term (current) drug therapy
CPT/HCPCS: 96365; 96366; J1459

== ENCOUNTER 2018-11-04 07:18 | Outpatient (CLI) | payer MEDICARE, OTHER ==
[2018-11-04] VITALS (8 sets, daily range): BP systolic 99–133; BP diastolic 54–63
[~2018-11-04] VITALS: Ht 177.8 cm; Wt 78.3 kg
[~2018-11-04 07:18] MED LIST changes: -HYDR-3715 PO; -IMMUNE GLOBULIN 10% 10 GM in APPROPRIATE DILUENT 1 EA IV ONE; -IMMUNE GLOBULIN 10% 20 GM in APPROPRIATE DILUENT 1 EA IV ONE; -IMMUNE GLOBULIN 10% 40 GM in APPROPRIATE DILUENT 1 EA IV ONE; -IMMUNE GLOBULIN 10% 5 GM in APPROPRIATE DILUENT 1 EA IV ONE; +NORC1TAB4 PO; -NORC1TAB7 PO; +NORCOTAB PO
[2018-11-04] MEDS ORDERED: IMMUNE GLOBULIN 10% 60 GM in APPROPRIATE DILUENT 1 EA IV ONE (07:30)
[2018-11-04] MEDS ORDERED: IMMUNE GLOBULIN 10% 5 GM in APPROPRIATE DILUENT 1 EA IV ONE (07:30)
[2018-11-04] MEDS ORDERED: IMMUNE GLOBULIN 10% 10 GM in APPROPRIATE DILUENT 1 EA IV ONE (07:30)
[2018-11-04] MEDS ORDERED: IMMUNE GLOBULIN 10% 20GM 200ML BOTTLE (PRIVIGEN) (J1459 PER 500MG) As Ordered ONE (08:30)
== END 2018-11-04 13:00 | disposition home or self-care (01) ==
LOC: M INFU 07:18
PROVIDERS: ATTEND Internal Medicine Hematology & Oncology
DX: D80.4 Selective deficiency of immunoglobulin M [IgM] (principal); D75.9 Disease of blood and blood-forming organs, unspecified; C94.6 Myelodysplastic disease, not elsewhere classified; D81.9 Combined immunodeficiency, unspecified
CPT/HCPCS: 96365; 96366; J1459

== ENCOUNTER 2018-12-13 20:16 | Emergency (ER) | payer MEDICARE, OTHER ==
[~2018-12-13] VITALS: Ht 180.3 cm; Wt 160.0 kg
[~2018-12-13 20:16] MED LIST changes: +ACET500T15 PO; +HYDR-3715 PO; +LORA1TAB12 PO; -NORC1TAB4 PO; +NORC1TAB7 PO; -NORCOTAB PO
[2018-12-13] MEDS ORDERED: MAGN400C2 PO (20:31)
[2018-12-13 22:41] VITALS: BP 114/55
--- NOTE | 2018-12-14 08:27 | REP ---
Third digit left hand four views: There is no fracture or dislocation. There are no calcifications or foreign bodies. There is mild joint space narrowing. I suspect there is soft tissue in discard injury at the distal tip. Electronically Signed by Brendon Roy MD 12/14/2018 08:19 A
== END 2018-12-13 22:46 | disposition home or self-care (01) ==
LOC: M ED 20:16
DX: S61.213A Laceration without foreign body of left middle finger without damage to nail, initial encounter (principal); W31.2XXA Contact with powered woodworking and forming machines, initial encounter; Y92.098 Other place in other non-institutional residence as the place of occurrence of the external cause; I10 Essential (primary) hypertension; E78.5 Hyperlipidemia, unspecified; D70.9 Neutropenia, unspecified; Z79.899 Other long term (current) drug therapy; Z79.82 Long term (current) use of aspirin; Z79.84 Long term (current) use of oral hypoglycemic drugs; Z88.8 Allergy status to other drugs, medicaments and biological substances; Z88.0 Allergy status to penicillin; Z91.018 Allergy to other foods; Z91.030 Bee allergy status

== ENCOUNTER 2019-01-23 19:36 | Inpatient (IN) | payer MEDICARE, OTHER ==
[~2019-01-23] VITALS: Ht 182.9 cm; Wt 69.6 kg
[~2019-01-23 19:36] MED LIST changes: +KELP150T2 PO; +MAGN400C2 PO; +OMEG12003 PO
[2019-01-23] MEDS ORDERED: DOXY100C37 (19:46)
[2019-01-23] MEDS ORDERED: FILG48VL SC (20:41)
[2019-01-23] MEDS ORDERED: MAGN400T PO (20:41)
[2019-01-23] MEDS ORDERED: FISH1000 PO (20:41)
[2019-01-23 21:04] LABS: HEMOGLOBIN 11.8 g/dl (13.5-17.5); MEAN CORPUSCULAR HEMOGLOBIN 29.6 pg (27.0-33.0); MEAN CORPUSCULAR HGB CONC 34.7 g/dl (32.0-36.5); MEAN CORPUSCULAR VOLUME 85.4 fl (80.0-96.0); PLATELET COUNT, AUTOMATED 466 10^3/uL (150-450); RED BLOOD COUNT 3.98 10^6/uL (4.30-6.10)
[2019-01-23 21:07] LABS: WHITE BLOOD COUNT 1.6 10^3/uL (4.0-10.0)
--- NOTE | 2019-01-23 21:24 | REPVR ---
EXAM: US Abdomen Limited EXAM DATE/TIME: 01/23/2019 8:41 PM CLINICAL HISTORY: 68 years old, male; Signs and symptoms; Mass, lump, or swelling; Periumbilical; Additional info: Assess for skin abscess umbilical area TECHNIQUE: Imaging protocol: Real-time ultrasound of the abdomen with image documentation. Examination is focused on the region of clinical interest. COMPARISON: CT ABD PELVIS W/O CONTRAST 08/02/2018 11:10 AM FINDINGS: Soft tissues: According to history the patient had a possible tick bite left of the umbilicus. The scan was only in the area of the umbilicus and a reddened area. Other findings: There is no evidence of abscess. There is mild soft tissue swelling. IMPRESSION: Mild soft tissue swelling. Electronically signed by: Sunil Castillo On 01/23/2019 21:24:05 PM
[2019-01-23 21:26] LABS: ALBUMIN 3.6 GM/DL (3.2-5.2); ALT/SGPT 34 U/L (12-78); ATYPICAL LYMPH 6 % (0-5); BILIRUBIN,DIRECT 0.3 MG/DL (0.0-0.2); BILIRUBIN,TOTAL 1.3 MG/DL (0.2-1.0); BLOOD UREA NITROGEN 26 MG/DL (7-18); CALCIUM LEVEL 8.7 MG/DL (8.8-10.2); CARBON DIOXIDE LEVEL 29 MEQ/L (21-32); CHLORIDE LEVEL 98 MEQ/L (98-107); CREATININE FOR GFR 1.09 MG/DL (0.70-1.30); GLOMERULAR FILTRATION RATE > 60.0 (>42); GLUCOSE, FASTING 98 MG/DL (70-100); LYMPHOCYTES 74 % (16-52); MAGNESIUM LEVEL 1.7 MG/DL (1.8-2.4); NEUTROPHILS 20 % (35-75); PLATELET ESTIMATE INCREASED (NORMAL); POTASSIUM SERUM 4.7 MEQ/L (3.5-5.1); SODIUM LEVEL 137 MEQ/L (136-145); TOTAL PROTEIN 6.8 GM/DL (6.4-8.2)
[2019-01-23] MEDS ORDERED: NS 1,000 ML IV ONE (21:45)
[2019-01-23] MEDS ORDERED: VANCOMYCIN HCL 1,000 MG, VIAL MATE ADAPTER 1 EACH in D5W 250 ML IV ONE (22:15)
[2019-01-23] MEDS ORDERED: DEXTROSE 50% 50 ML SYRINGE IV PRN (23:45)
[2019-01-23] MEDS ORDERED: POLYVINYL ALCOHOL OPHTH SOLN 15 ML(LIQUITEARS) OU PRN (23:45)
[2019-01-23] MEDS ORDERED: GLUCAGON FOR INJ 1 MG VIAL (J1610) SC PRN (23:45)
[2019-01-23] MEDS ORDERED: GLUCOSE 4 GM CHEW TABLET PO PRN (23:45)
[2019-01-24] VITALS: BP 136/62
--- NOTE | 2019-01-24 00:25 | HPEPDOC ---
General Date of Admission January 23, 2019 at 23:20 Date of Service: January 23, 2019 Other Providers Primary care provider: Clarence Mancuso Attending Physician: ETTA MILLER MD Chief Complaint The patient is a 68-year-old male admitted with a reason for visit of Cellulitis, Abdominal Wall. Source: Patient, Old records Exam Limitations: No limitations Timing/Duration: Day(s) History of Present Illness Mr. Chin is a 68-year-old male who presents to 's Emergency Department with left sided abdominal swelling and redness. Patient states that he was in his usual state of health until Wednesday, January 07, when he was outside clearing brush, trimming trees, and getting ready to mow. On the Wednesday after getting out of the shower he noticed what appeared to him as an "infected hair follicle" on his abdomen. There was no itching or pain. His noticed the same area on Wednesday and recommended that he put some Neosporin and a band aid over it. He then had a follow up appointment with his local medical oncologist the following day. The nurse at the office removed the band aid and noticed an engorged tick in the same location. The patient then presented to the Urgent Care on January 11. The tick was removed in its entirety. He was given two tablets of Doxycycline. The patient does not recall a rash in the area not does he report rashes in any other location. He states that he has subsequently undergone a full skin examination for other ticks, but none have been found. He further denies painful joints, painful muscles, chest pain, shortness of breath, constitutional symptoms, such as fever, night sweats, or chills. He does report some orthostatic hypotension associated with his Losartan, but does not report weakness or any current dizziness or lightheadedness. Hospitalist service was consulted and patient was admitted for further medical management. Home Medications Scheduled Aspirin (Aspirin EC) 81 Mg Tab, 81 MG PO DAILY, (Reported) Ergocalciferol (Vitamin D2) (Vitamin D2) 2,000 Unit Cap, 2,000 UNIT PO DAILY, (Reported) Filgrastim (Neupogen) 480 Mcg/0.8 Ml Syringe, 480 MCG SC 1XWK, (Reported) WEDNESDAYS Iodine (Kelp) 150 Mcg Tablet, 150 MCG PO DAILY, (Reported) Levothyroxine Sodium (Levothyroxine Sodium) 175 Mcg Tab, 175 MCG PO DAILY, (Reported) Losartan Potassium (Losartan Potassium) 50 Mg Tab, 50 MG PO DAILY, (Reported) Magnesium Oxide (Magnesium Oxide) 400 Mg Tablet, 800 MG PO BID, (Reported) LUNCH AND DINNERTIME Metformin HCl (Metformin HCl ER) 500 Mg Tab, 1,000 MG PO QPM, (Reported) TAKES AT DINNERTIME Multivitamins (Thera M Plus Tablet) 1 Tab Tab, 1 TAB PO DAILY, (Reported) Calhoun-3 Fatty Acids/Fish Oil (Fish Oil 1,000 mg Capsule) 1 Each Capsule, 2,000 MG PO BID, (Reported) Quetiapine Fumarate (Quetiapine Fumarate) 25 Mg Tab, 25 MG PO QHS, (Reported) Scheduled PRN Polyvinyl Alcohol (Artificial Tears) 1.4 % Rach, 1 DROP OU QID PRN for DRY EYES, (Reported) Allergies Coded Allergies: bee venom protein (honey bee) (Verified Allergy, Severe, ANAPHYLACTIC, 11/25/18) amoxicillin (Verified Allergy, Intermediate, ALL OVER BODY RASH, 11/25/18) clavulanic acid (Verified Allergy, Intermediate, ALL OVER BODY RASH, 11/25/18) POULTRY (Verified Adverse Reaction, Intermediate, turkey - gout, 07/01/18) MICH Inhibitors (Verified Adverse Reaction, Mild, COUGH, 11/25/18) Past Medical History Medical History 1. 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 Diverticulitis 3. HTN 4. Hypothyroidism 5. Schizophrenia 6. DM 7. Chronic diarrhea 8. Questionable Lupus Surgical History 1. Right colon resection with ileostomy 2. Appendectomy 3. Cholecystectomy Family History Father: , 76, CHF Mother: , 96, heart and kidney Siblings - Sister: Alive, 74, DM-II Social History * Smoker: Denies Alcohol: Denies Drugs: denies Patient is a retired manager clinical research. He is to his of 44 years. They have one adult daughter who has many medical problems, including DM-I, failed renal and pancreatic transplant, and hemodialysis. Patient does not smoke, drink alcohol, or use illicit drugs. There are no pets in the home. He has no grandchildren. He has "granddogs." A-FIB/CHADSVASC A-FIB History Current/History of A-Fib/PAF?: No Review of Systems Constitutional: Reports: Weight Loss (40 pounds since 08/2017); Denies: Chills, Fever, Malaise, Night Sweats, Weakness, Fatigue Eyes: Denies: Pain, Vision change, Conjunctivae inflammation, Eyelid inflammation ENT: Denies: Head Aches, Ear Pain, Dysphagia, Sinus Congestion, Post Nasal Drip, Sore Throat, Epistaxis Skin: Reports: Rash (left sided abdomen without pruritus or pain); Denies: Lesions, Jaundice, Bruising, Dry Pulmonary: Denies: Dyspnea, Cough, Pleuritic Chest Pain Cardiovascular: Reports: Orthopnea (associated with Losartan); Denies: Chest Pain, Palpitations, Paroxysmal Noc. Dyspnea, Edema, Lt Headedness Gastrointestinal: Reports: Diarrhea (chronic secondary to prior colonic surgery); Denies: Nausea, Vomiting, Abdominal Pain, Constipation, Melena, Hematochezia Genitourinary: Denies: Dysuria, Frequency, Incontinence, Hematuria Hematologic: Denies: Bruising, Bleeding Excessively Endocrine: Reports: Polydipsia, Polyuria; Denies: Polyphagia Musculoskeletal: Denies: Neck Pain, Back Pain, Joint Pain, Muscle Pain Neurological: Denies: Weakness, Numbness Physical Examination General Exam: Positive: Alert, Cooperative, No Acute Distress Eye Exam: Positive: PERRLA, Conjunctiva & lids normal, EOMI; Negative: Sclera icteric ENT Exam: Positive: Atraumatic, Mucous membr. moist/pink, Pharynx Normal, Tongue Midline, Pharyngeal Edema, Nares Patent, Other ENT (wearing protective mask) Neck Exam: Positive: Supple, +2 carotid pulse wo bruit; Negative: JVD, thyromegaly, Lymphadenopathy Chest Exam: Positive: Clear to auscultation, Normal air movement; Negative: Rales, Rhonchi, Wheezing, Diminished Heart Exam: Positive: Rate Normal, Regular Rhythm, Normal S1, Normal S2; Negative: Gallops, Murmurs, Rubs Telemetry: Positive: Sinus Abdomen Exam: Positive: Normal bowel sounds, Soft, Hernia (abdominal), Other (ovoid shaped elevated erythematous area approximately 10cm in greatest length with isolated central pustular lesion in the center, healed abdominal surgical scars); Negative: Tenderness, Hepatospenomegaly, Mass Extremity Exam: Positive: Normal pulses; Negative: Clubbing, Cyanosis, Edema, Tenderness, Swelling Skin Exam: Positive: Rash (as noted in abdominal examination); Negative: Lesion Neuro Exam: Positive: Normal Speech, Strength at 5/5 X4 ext, Cranial Nerves 3- 12 NL Psych Exam: Positive: Oriented x 3 Vital Signs Vital Signs Date Time Temp Pulse Resp B/P (MAP) Pulse Ox O2 Delivery O2 Flow Rate FiO2 01/23/19 23:45 63 97 01/23/19 23:30 18 140/67 (91) Room Air 01/23/19 20:57 98.3 Height (in): 72 Weight (kg): 74 BMI (kg): 22.1 Laboratory Data Labs 24H Laboratory Tests 2 01/23/19 20:52: White Blood Count 1.6L, Red Blood Count 3.98L, Hemoglobin 11.8L, Hematocrit 34.0L, Mean Corpuscular Volume 85.4, Mean Corpuscular Hemoglobin 29.6, Mean Corpuscular Hemoglobin Concent 34.7, Red Cell Distribution Width 14.6H, Platelet Count 466H, Neutrophils # (Auto) , Nucleated Red Blood Cells % (auto) 0.0, Neutrophils 20L, Lymphocytes (Manual) 74H, Atypical Lymphocytes 6H, Platelet Estimate INCREASED, Red Blood Cell Morphology NORMAL, Anion Gap 10, Glomerular Filtration Rate > 60.0, Lactic Acid Level 2.0, Calcium Level 8.7L, Magnesium Level 1.7L, Aspartate Amino Transf (AST/SGOT) 22, Alanine Aminotransferase (ALT/SGPT) 34, Alkaline Phosphatase 93, Total Bilirubin 1.3H, Direct Bilirubin 0.3H, Total Protein 6.8, Albumin 3.6, Albumin/Globulin Ratio 1.13 CBC/BMP Laboratory Tests 01/23/19 20:52 Red Blood Count 3.98 L, Mean Corpuscular Volume 85.4, Mean Corpuscular Hemoglobin 29.6, Mean Corpuscular Hemoglobin Concent 34.7, Red Cell Distribution Width 14.6 H, Neutrophils # (Auto) Microbiology Microbiology 01/23/19 Blood Culture, Received Pending 01/23/19 Blood Culture, Received Pending Plan / VTE VTE Prophylaxis Ordered?: Yes (Lovenox 40mg SQ daily) Plan Plan 1. Abdominal cellulitis - Ceftriaxone 1g IV Q24H. One-time dose of Vancomycin in ED. Abdominal US revealed mild soft tissue swelling. MRSA screen. Lyme screen. Blood cultures pending. Daily CBC, CMP. Tylenol 650mg PO Q4HP for pain or fever. 2. Chronic autoimmune neutropenia - Continue Neupogen weekly. Daily CBC. Eveline rendon follows with local medical oncologist. 3. DM - Hold Metformin. SSI AC/HS, FSBS AC/HS, hypoglycemic protocol. 4. HTN - Continue Losartan. 5. Hypothyroidism - Continue Levothyroxine 175mcg daily. 6. Schizophrenia - Continue Seroquel. Disposition Admit: Med/Surg Anticipated hospitalization: 2 nights Attending: Diet: Continue Current (2g Na) Activity: Continue Current Medications: Start Antibiotics (Ceftriaxone 1g IV Q24H) Diagnostics: Check Labs, Repeat Labs in AM, Obtain Cultures (blood) Anticipated Discharge: Home TRISHA WALLS DO January 24, 2019 00:25
[2019-01-24] MEDS: ENOXAPARIN 40 MG/0.4 ML SYRINGE (J1650) SC SCH ×2 (00:45→21:57)
[2019-01-24] MEDS: QUEtiapine FUMARATE 25 MG TAB PO SCH ×2 (00:45→21:56)
[2019-01-24] MEDS: cefTRIAXone SOD 1 GM in D5W MINI-BAG PLUS 50 ML IV SCH (00:46)
[2019-01-24] MEDS: LEVOTHYROXINE 25MCG TABLET (0.025MG) PO SCH (05:29)
[2019-01-24] MEDS: LEVOTHYROXINE 150MCG TABLET (0.15MG) PO SCH (05:29)
[2019-01-24 06:00] VITALS: BP 138/69
[2019-01-24] MEDS: ACETAMINOPHEN TAB 650MG DOSE (2X325MG) PO PRN ×2 (06:07→21:56)
[2019-01-24 06:26] LABS: ALBUMIN 3.9 GM/DL (3.2-5.2); ALT/SGPT 32 U/L (12-78); BILIRUBIN,TOTAL 1.4 MG/DL (0.2-1.0); BLOOD UREA NITROGEN 20 MG/DL (7-18); CALCIUM LEVEL 9.4 MG/DL (8.8-10.2); CARBON DIOXIDE LEVEL 27 MEQ/L (21-32); CHLORIDE LEVEL 106 MEQ/L (98-107); GLOMERULAR FILTRATION RATE > 60.0 (>42); GLUCOSE, FASTING 94 MG/DL (70-100); POTASSIUM SERUM 4.6 MEQ/L (3.5-5.1); SODIUM LEVEL 138 MEQ/L (136-145); TOTAL PROTEIN 7.1 GM/DL (6.4-8.2)
[2019-01-24] MEDS: HumaLOG INSULIN (NovoLOG) PER UNIT SC SCH ×4 (07:30→21:00)
[2019-01-24] MEDS ORDERED: VANCOMYCIN HCL 1,000 MG, VIAL MATE ADAPTER 1 EACH in D5W 250 ML IV ONE ×2 (07:45→08:00)
--- NOTE | 2019-01-24 08:11 | REP ---
Chest x-ray: Two views. History: Systemic inflammatory response syndrome. Findings: The lungs are well inflated and clear. The pleural angles are sharp. Heart size is normal. The aorta somewhat tortuous. Pulmonary vasculature is not increased. Pleural angles are sharp. There are degenerative changes in the thoracic spine. Impression: No active disease. Electronically Signed by Aravind Ge MD 01/24/2019 08:02 A
[2019-01-24 08:17] LABS: HEMATOCRIT 37.9 % (42.0-52.0); HEMOGLOBIN 12.9 g/dl (13.5-17.5); LYMPH # 0.9 10^3/uL (1.5-4.5); LYMPH % 71.4 % (24.0-44.0); MEAN CORPUSCULAR HEMOGLOBIN 28.9 pg (27.0-33.0); MEAN CORPUSCULAR VOLUME 84.8 fl (80.0-96.0); MONO # 0.1 10^3/uL (0.0-0.8); NEUTROPHILS % 23.6 % (36.0-66.0); PLATELET COUNT, AUTOMATED 473 10^3/uL (150-450); RED BLOOD COUNT 4.47 10^6/uL (4.30-6.10)
[2019-01-24 09:05] LABS: NEUTROPHILS # 0.3 10^3/uL (1.8-7.7); WHITE BLOOD COUNT 1.2 10^3/uL (4.0-10.0)
[2019-01-24] MEDS: MULTIVITAMINS/MINERALS THERAP 1 TAB PO SCH (09:26)
[2019-01-24] MEDS: ASPIRIN 81 MG ENTERIC TAB PO SCH (09:26)
[2019-01-24] MEDS: MAGNESIUM OXIDE 400 MG TAB (MAG-OX) PO SCH ×2 (09:26→21:56)
[2019-01-24] MEDS: LOSARTAN 50 MG TAB PO SCH (09:26)
--- NOTE | 2019-01-24 10:10 | PHACANCOPD ---
PHARMACY VANCOMYCIN DOSING Pt Demographics Demographics Patient Age:68 , Weight:75.000 , Gender: male Adjusted Body Weight Date: 01/24/19, Adjusted Body Weight: 75.56 Kg Events Past 24 Hours Events Past 24 Hours: YES: Other Vancomycin Vancomycin indication: SKIN SOFT TISSUE Vancomycin Target Ranges: 15-20 mcg/ml Vancomycin Load Y/N: Yes Load Dose Date Time Vancomycin Load Dose: PATIENT RECEIVED 1G IN ED @ 2300 ON 01/23 AND THEN 1G @0927 ON 01/24 Vancomycin Dose Date: 01/24/19. Current Vancomycin Dose: [1G Q12H STARTING @1500] Intermittent Dosing?: No Labs Labs Laboratory Tests 01/23/19 20:52 Red Blood Count 3.98 L, Mean Corpuscular Volume 85.4, Mean Corpuscular Hemoglobin 29.6, Mean Corpuscular Hemoglobin Concent 34.7, Red Cell Distribution Width 14.6 H, Neutrophils # (Auto) 01/24/19 05:41 Red Blood Count 4.47, Mean Corpuscular Volume 84.8, Mean Corpuscular Hemoglobin 28.9, Mean Corpuscular Hemoglobin Concent 34.0, Red Cell Distribution Width 14.9 H, Neutrophils # (Auto) 0.3 L, Neutrophils (%) (Auto) 23.6 L, Lymphocytes (%) (Auto) 71.4 H, Monocytes (%) (Auto) 5.0, Eosinophils (%) (Auto) 0.0, Basophils (%) (Auto) 0.0, Lymphocytes # (Auto) 0.9 L, Monocytes # (Auto) 0.1, Eosinophils # (Auto) 0.0, Basophils # (Auto) 0.0 01/24/19 05:48 Calcium Level 9.4, Aspartate Amino Transf (AST/SGOT) 22, Alanine Aminotransferase (ALT/SGPT) 32, Alkaline Phosphatase 105, Total Bilirubin 1.4 H, Total Protein 7.1, Albumin 3.9 Micro Microbiology 01/23/19 Blood Culture, Received Pending 01/23/19 Blood Culture, Received Pending 01/24/19 MRSA Screen, Received Pending Creatinine Clearance Date:01/24/19. Creatinine Clearance: . Pending Labs MRSA SCREEN PENDING AND BC PENDING Assessment and Plan Maintaining Current Dose?: Yes Reason for dose change: No Dose Change Pharmacist Note Pharmacist Note Date: 01/24/19. Pharmacist note: Patient does have vancomycin history here at [facility], however, treatment was d/c before trough could be obtained. Patient's kidney function is improved at this time vs last stay in 08/16 with a CrCl of 75. Patient being treated for skin/soft tissue infection and also receiving ceftriaxone 1g q24h. MRSA screen and BC pending. Patient received 1G IV Vanco in ED @2300 on 01/23/19. I scheduled another 1g dose IV Vanco that was given @0927 om 01/24/19 to be followed by 1g q12h starting at 1500. I have scheduled a trough for 1400 tomorrow 01/25/19. I will continue to monitor patient and adjust dose as needed. MAHAD GIRALDO PHARMACY January 24, 2019 10:10
[2019-01-24 14:00] VITALS: BP 128/66
[2019-01-24] MEDS: VANCOMYCIN HCL 1,000 MG, VIAL MATE ADAPTER 1 EACH in D5W 250 ML IV SCH (16:40)
--- NOTE | 2019-01-24 18:18 | IPNPDOC ---
Subjective Date Seen The patient was seen on 01/24/19. Subjective Chief Complaint/HPI Erythema/pain involving abdominal wall following tick bite 2 weeks ago Objective Physical Examination Eye Exam: Negative: Sclera icteric Neck Exam: Negative: JVD, thyromegaly, Lymphadenopathy Chest Exam: Negative: Rales, Rhonchi, Wheezing, Diminished Heart Exam: Negative: Gallops, Murmurs, Rubs Abdomen Exam: Negative: Tenderness, Hepatospenomegaly, Mass Extremity Exam: Negative: Clubbing, Cyanosis, Edema, Tenderness, Swelling Skin Exam: Negative: Lesion Assessment /Plan Assessment Current Medications Acetaminophen (Tylenol Tab) 650 mg Q4H PRN PO PAIN OR FEVER Last administered on 01/24/19at 06:07; Start 01/23/19 at 23:45 Artificial Tears (Akwa Tears) 1 drop QID PRN OU DRY EYES; Start 01/23/19 at 23: 45 Aspirin (Ecotrin) 81 mg DAILY PO Last administered on 01/24/19at 09:26; Start 01/24/19 at 09:00 Ceftriaxone Sodium 1 gm/ Dextrose 50 ml @ 100 mls/hr Q24H IV Last administered on 01/24/19at 00:46; Start 01/24/19 at 00:00 Dextrose (Dextrose 50%) 25 ml ASDIRECTED PRN IV SEE LABEL COMMENTS; Start 01/23/19 at 23:45 Enoxaparin Sodium (Lovenox) 40 mg DAILY@2100 SC Last administered on 01/24/19at 00:45; Start 01/23/19 at 21:00 Filgrastim (Neupogen) 480 mcg We@0900 SC ; Start 01/25/19 at 09:00 Glucagon (Glucagon) 1 mg ASDIRECTED PRN SC SEE LABEL COMMENTS; Start 01/23/19 at 23:45 Glucose (Glucose) 16 GM ASDIRECTED PRN PO SEE LABEL COMMENTS; Start 01/23/19 at 23:45 Home Med (Med Rec Complete!) ASDIRECTED XX ; Start 01/23/19 at 20:45; Stop 01/23/19 at 20:45; Status DC Insulin Human Lispro (HumaLOG INSULIN) SEE PROTOCOL TABLE AC SC Last administered on 01/24/19at 17:29; Start 01/24/19 at 07:30 Insulin Human Lispro (HumaLOG INSULIN) SEE PROTOCOL TABLE QHS SC ; Start 01/24/19 at 21:00 Levothyroxine Sodium (Synthroid) 25 mcg DAILY@06 PO Last administered on 01/24/19 05:29; Start 01/24/19 at 06:00 Levothyroxine Sodium (Synthroid) 150 mcg DAILY@06 PO Last administered on 01/24/19 05:29; Start 01/24/19 at 06:00 Losartan Potassium (Cozaar) 50 mg DAILY PO Last administered on 01/24/19 09:26; Start 01/24/19 at 09:00 Magnesium Oxide (Mag-Ox) 800 mg BID PO Last administered on 01/24/19 09:26; Start 01/24/19 at 09:00 Multivitamins (Theragram-M) 1 tab DAILY PO Last administered on 01/24/19 09:26; Start 01/24/19 at 09:00 Quetiapine Fumarate (SEROquel) 25 mg QHS PO Last administered on 01/24/19 00:45; Start 01/23/19 at 21:00 Vancomycin HCl 1000 mg/IV Miscellaneous Supplies 1 each/ Dextrose 270 ml @ 270 mls/hr Q12H IV Last administered on 01/24/19 16:40; Start 01/24/19 at 15:00 I personally saw and examined the patient earlier today. Vitals as well as labs/imaging studies were personally reviewed. 1. Abdominal wall cellulitis following previous tick bite 2 weeks ago, in setting of chronic autoimmune neutropenia: -Continue IV vancomycin and ceftriaxone -MRSA and Lyme screen -Abdominal ultrasound did not show any abscess -Follow up on blood cultures 2. Chronic autoimmune neutropenia -Continue Neupogen weekly - dose ordered for tomorrow morning. -Outpatient follow-up with hematology/oncology per previous appointment on discharge 3. DM -Hold Metformin. -Continue SSI AC/HS, FSBS AC/HS, hypoglycemic protocol. 4. HTN -Continue Losartan. 5. Hypothyroidism: -Continue Levothyroxine 6. Schizophrenia -Continue Seroquel. DVT prophylaxis: -Enoxaparin Disposition Anticipate eventual discharge home once cellulitis improves Plan/VTE VTE Prophylaxis Ordered?: Yes (Lovenox 40mg SQ daily) VS, I&O, 24H, Fishbone Vital Signs/I&O Vital Signs Date Time Temp Pulse Resp B/P (MAP) Pulse Ox O2 Delivery O2 Flow Rate FiO2 01/24/19 09:26 138/69 01/24/19 06:00 97.2 76 19 99 01/23/19 23:30 Room Air I&O- Last 24 Hours up to 6 AM 01/24/19 06:00 Intake Total 1870 ml Output Total 4475 ml Balance -2605 ml Laboratory Data 24H LABS Laboratory Tests 2 01/23/19 20:52: White Blood Count 1.6L, Red Blood Count 3.98L, Hemoglobin 11.8L, Hematocrit 34.0L, Mean Corpuscular Volume 85.4, Mean Corpuscular Hemoglobin 29.6, Mean Corpuscular Hemoglobin Concent 34.7, Red Cell Distribution Width 14.6H, Platelet Count 466H, Neutrophils # (Auto) , Nucleated Red Blood Cells % (auto) 0.0, Neutrophils 20L, Lymphocytes (Manual) 74H, Atypical Lymphocytes 6H, Platelet Estimate INCREASED, Red Blood Cell Morphology NORMAL, Anion Gap 10, Glomerular Filtration Rate > 60.0, Lactic Acid Level 2.0, Calcium Level 8.7L, Magnesium Level 1.7L, Aspartate Amino Transf (AST/SGOT) 22, Alanine Aminotransferase (ALT/SGPT) 34, Alkaline Phosphatase 93, Total Bilirubin 1.3H, Direct Bilirubin 0.3H, Total Protein 6.8, Albumin 3.6, Albumin/Globulin Ratio 1.13 01/24/19 05:41: White Blood Count 1.2L, Red Blood Count 4.47, Hemoglobin 12.9L, Hematocrit 37.9L, Mean Corpuscular Volume 84.8, Mean Corpuscular Hemoglobin 28.9, Mean Corpuscular Hemoglobin Concent 34.0, Red Cell Distribution Width 14.9H, Platelet Count 473H, Neutrophils # (Auto) 0.3L, Nucleated Red Blood Cells % (auto) 0.0, Immature Granulocyte % (Auto) 0.0, Neutrophils (%) (Auto) 23.6L, Lymphocytes (%) (Auto) 71.4H, Monocytes (%) (Auto) 5.0, Eosinophils (%) (Auto) 0.0, Basophils (%) (Auto) 0.0, Lymphocytes # (Auto) 0.9L, Monocytes # (Auto) 0.1, Eosinophils # (Auto) 0.0, Basophils # (Auto) 0.0 01/24/19 05:48: Anion Gap 5L, Glomerular Filtration Rate > 60.0, Calcium Level 9.4, Aspartate Amino Transf (AST/SGOT) 22, Alanine Aminotransferase (ALT/SGPT) 32, Alkaline Phosphatase 105, Total Bilirubin 1.4H, Total Protein 7.1, Albumin 3.9, Albumin/Globulin Ratio 1.22, Blood Urea Nitrogen 20H, Creatinine 1.00, Sodium Level 138, Potassium Level 4.6, Chloride Level 106, Carbon Dioxide Level 27 01/24/19 11:48: Bedside Glucose (Misc Panel) 93 01/24/19 16:55: Bedside Glucose (Misc Panel) 123H CBC/BMP Laboratory Tests 01/23/19 20:52 Red Blood Count 3.98 L, Mean Corpuscular Volume 85.4, Mean Corpuscular Hemoglobin 29.6, Mean Corpuscular Hemoglobin Concent 34.7, Red Cell Distribution Width 14.6 H, Neutrophils # (Auto) 01/24/19 05:41 Red Blood Count 4.47, Mean Corpuscular Volume 84.8, Mean Corpuscular Hemoglobin 28.9, Mean Corpuscular Hemoglobin Concent 34.0, Red Cell Distribution Width 14.9 H, Neutrophils # (Auto) 0.3 L, Neutrophils (%) (Auto) 23.6 L, Lymphocytes (%) (Auto) 71.4 H, Monocytes (%) (Auto) 5.0, Eosinophils (%) (Auto) 0.0, Basophils (%) (Auto) 0.0, Lymphocytes # (Auto) 0.9 L, Monocytes # (Auto) 0.1, Eosinophils # (Auto) 0.0, Basophils # (Auto) 0.0 01/24/19 05:48 Calcium Level 9.4, Aspartate Amino Transf (AST/SGOT) 22, Alanine Aminotransferase (ALT/SGPT) 32, Alkaline Phosphatase 105, Total Bilirubin 1.4 H, Total Protein 7.1, Albumin 3.9 Microbiology Microbiology 01/23/19 Blood Culture, Received Pending 01/23/19 Blood Culture, Received Pending 01/24/19 MRSA Screen, Received Pending MICHELLE HERNANDEZ MD January 24, 2019 18:18
[2019-01-24 22:00] VITALS: BP 129/63
[2019-01-25] MEDS: cefTRIAXone SOD 1 GM in D5W MINI-BAG PLUS 50 ML IV SCH ×2 (00:25→23:58)
[2019-01-25] MEDS: VANCOMYCIN HCL 1,000 MG, VIAL MATE ADAPTER 1 EACH in D5W 250 ML IV SCH (03:37)
[2019-01-25] MEDS: LEVOTHYROXINE 150MCG TABLET (0.15MG) PO SCH (05:55)
[2019-01-25] MEDS: LEVOTHYROXINE 25MCG TABLET (0.025MG) PO SCH (05:55)
[2019-01-25 06:00] VITALS: BP 136/65
[2019-01-25 07:05] LABS: HEMATOCRIT 35.3 % (42.0-52.0); HEMOGLOBIN 12.4 g/dl (13.5-17.5); LYMPH # 0.7 10^3/uL (1.5-4.5); LYMPH % 76.8 % (24.0-44.0); MEAN CORPUSCULAR HEMOGLOBIN 30.3 pg (27.0-33.0); MEAN CORPUSCULAR HGB CONC 35.1 g/dl (32.0-36.5); MEAN CORPUSCULAR VOLUME 86.3 fl (80.0-96.0); MONO # 0.1 10^3/uL (0.0-0.8); MONO % 5.3 % (0.0-5.0); NEUTROPHILS % 16.8 % (36.0-66.0); PLATELET COUNT, AUTOMATED 420 10^3/uL (150-450); RED BLOOD COUNT 4.09 10^6/uL (4.30-6.10)
[2019-01-25 07:15] LABS: NEUTROPHILS # 0.2 10^3/uL (1.8-7.7)
[2019-01-25 07:28] LABS: BLOOD UREA NITROGEN 11 MG/DL (7-18); CALCIUM LEVEL 9.4 MG/DL (8.8-10.2); CARBON DIOXIDE LEVEL 28 MEQ/L (21-32); CHLORIDE LEVEL 104 MEQ/L (98-107); CREATININE FOR GFR 0.96 MG/DL (0.70-1.30); GLOMERULAR FILTRATION RATE > 60.0 (>42); GLUCOSE, FASTING 103 MG/DL (70-100); POTASSIUM SERUM 3.8 MEQ/L (3.5-5.1); SODIUM LEVEL 137 MEQ/L (136-145)
[2019-01-25] MEDS: HumaLOG INSULIN (NovoLOG) PER UNIT SC SCH ×4 (08:34→20:53)
[2019-01-25] MEDS: ASPIRIN 81 MG ENTERIC TAB PO SCH (08:34)
[2019-01-25] MEDS: MAGNESIUM OXIDE 400 MG TAB (MAG-OX) PO SCH ×2 (08:35→20:50)
[2019-01-25] MEDS: MULTIVITAMINS/MINERALS THERAP 1 TAB PO SCH (08:35)
[2019-01-25] MEDS: LOSARTAN 50 MG TAB PO SCH (08:35)
[2019-01-25] MEDS ORDERED: FILGRASTIM 480 MCG/0.8 ML SYRINGE (J1442) SC SCH (09:00)
[2019-01-25 14:00] VITALS: BP 131/67
[2019-01-25] MEDS ORDERED: VANCOMYCIN HCL 750 MG, VIAL MATE ADAPTER 1 EACH in D5W 250 ML IV SCH (15:00)
[2019-01-25] MEDS ORDERED: VANCOMYCIN HCL 500 MG in D5W MINI-BAG PLUS 100 ML IV SCH (16:00)
--- NOTE | 2019-01-25 18:08 | IPNPDOC ---
Subjective Date Seen The patient was seen on 01/25/19. Subjective Chief Complaint/HPI Pain/erythema involving abdominal wall following tick bite 2 weeks prior Events since last encounter The patient reports the area of erythema seems about the same. Not as sore but still a little sore to touch. Denies any fevers/chills or sweats today. No nausea or vomiting. Tolerating oral intake. No chest pain or shortness of breath. Urinating okay and denies any constipation. Objective Physical Examination General Exam: Positive: Alert, Cooperative, No Acute Distress Eye Exam: Positive: PERRLA ENT Exam: Positive: Mucous membr. moist/pink Chest Exam: Positive: Clear to auscultation, Normal air movement; Negative: Rales, Rhonchi, Wheezing Heart Exam: Positive: Rate Normal, Normal S1, Normal S2; Negative: Tachycardic Abdomen Exam: Positive: Soft Skin Exam: Positive: Other skin issue (area of erythema over the left anterior abdominal wall unchanged. Associated induration seems less. No fluctuance. Minimally tender to palpation.) Neuro Exam: Positive: Other (awake, alert, answering questions appropriately.) Assessment /Plan Assessment Current Medications Acetaminophen (Tylenol Tab) 650 mg Q4H PRN PO PAIN OR FEVER Last administered on 01/24/19at 21:56; Start 01/23/19 at 23:45 Artificial Tears ([place]wa Tears) 1 drop QID PRN OU DRY EYES; Start 01/23/19 at 23:45 Aspirin (Ecotrin) 81 mg DAILY PO Last administered on 01/25/19at 08:34; Start 01/24/19 at 09:00 Ceftriaxone Sodium 1 gm/ Dextrose 50 ml @ 100 mls/hr Q24H IV Last administered on 01/25/19at 00:25; Start 01/24/19 at 00:00 Dextrose (Dextrose 50%) 25 ml ASDIRECTED PRN IV SEE LABEL COMMENTS; Start 01/23/19 at 23:45 Enoxaparin Sodium (Lovenox) 40 mg DAILY@2100 SC Last administered on 01/24/19at 21:57; Start 01/23/19 at 21:00 Filgrastim (Neupogen) 480 mcg We@0900 SC Last administered on 01/25/19at 10:20; Start 01/25/19 at 09:00 Glucagon (Glucagon) 1 mg ASDIRECTED PRN SC SEE LABEL COMMENTS; Start 01/23/19 at 23:45 Glucose (Glucose) 16 GM ASDIRECTED PRN PO SEE LABEL COMMENTS; Start 01/23/19 at 23:45 Home Med (Med Rec Complete!) ASDIRECTED XX ; Start 01/23/19 at 20:45; Stop 01/23/19 at 20:45; Status DC Insulin Human Lispro (HumaLOG INSULIN) SEE PROTOCOL TABLE AC SC Last admini stered on 01/25/19at 08:34; Start 01/24/19 at 07:30 Insulin Human Lispro (HumaLOG INSULIN) SEE PROTOCOL TABLE QHS SC ; Start 01/24/19 at 21:00 Levothyroxine Sodium (Synthroid) 25 mcg DAILY@06 PO Last administered on 01/25/19at 05:55; Start 01/24/19 at 06:00 Levothyroxine Sodium (Synthroid) 150 mcg DAILY@06 PO Last administered on 01/25/19at 05:55; Start 01/24/19 at 06:00 Losartan Potassium (Cozaar) 50 mg DAILY PO Last administered on 01/25/19at 08:35; Start 01/24/19 at 09:00 Magnesium Oxide (Mag-Ox) 800 mg BID PO Last administered on 01/25/19at 08:35; Start 01/24/19 at 09:00 Multivitamins (Theragram-M) 1 tab DAILY PO Last administered on 01/25/19at 08:35; Start 01/24/19 at 09:00 Quetiapine Fumarate (SEROquel) 25 mg QHS PO Last administered on 01/24/19at 21:56; Start 01/23/19 at 21:00 Vancomycin HCl 500 mg/Dextrose 110 ml @ 110 mls/hr Q12H IV Last administered on 01/25/19at 17:17; Start 01/25/19 at 16:00; Stop 01/25/19 at 18:00; Status DC Vancomycin HCl 750 mg/IV Miscellaneous Supplies 1 each/ Dextrose 275 ml @ 275 mls/hr Q12H IV Last administered on 01/25/19at 15:16; Start 01/25/19 at 15:00; Stop 01/25/19 at 18:00; Status DC Vancomycin HCl 1000 mg/IV Miscellaneous Supplies 1 each/ Dextrose 270 ml @ 270 mls/hr Q12H IV Last administered on 01/25/19at 03:37; Start 01/24/19 at 15:00; Stop 01/25/19 at 15:04; Status DC 1. Abdominal wall cellulitis following tick bite 2 weeks ago, in setting of chronic autoimmune neutropenia: -Continue IV ceftriaxone -DC IV vancomycin as cellulitis is improving and MRSA screen was negative -Abdominal ultrasound did not show any abscess -Blood cultures negative to 4 hours 2. Chronic autoimmune neutropenia with worsening neutropenia -He received Neupogen this morning -Recheck labs in the morningmay require Neupogen dose again tomorrow -Outpatient follow-up with hematology/oncology per previous appointment on discharge 3. DM type 2 -Holding Metformin. -Continue SSI 4. HTN -Continue Losartan. 5. Hypothyroidism: -Continue Levothyroxine 6. Schizophrenia -Continue Seroquel. DVT prophylaxis: -Enoxaparin Disposition Anticipate eventual discharge home on oral antibiotics once cellulitis improves, hopefully within the next 24-48 hours Plan/VTE VTE Prophylaxis Ordered?: Yes (Lovenox 40mg SQ daily) VS, I&O, 24H, [facility] Vital Signs/I&O Vital Signs Date Time Temp Pulse Resp B/P (MAP) Pulse Ox O2 Delivery O2 Flow Rate FiO2 01/25/19 08:35 136/65 01/25/19 06:00 98.0 61 16 97 01/23/19 23:30 Room Air I&O- Last 24 Hours up to 6 AM 01/25/19 06:00 Intake Total 2240 ml Output Total 1100 ml Balance 1140 ml Laboratory Data 24H LABS Laboratory Tests 2 01/24/19 20:52: Bedside Glucose (Misc Panel) 154H 01/25/19 06:40: Immature Granulocyte % (Auto) 1.1, White Blood Count 1.0L, Red Blood Count 4.09L, Hemoglobin 12.4L, Hematocrit 35.3L, Mean Corpuscular Volume 86.3, Mean Corpuscular Hemoglobin 30.3, Mean Corpuscular Hemoglobin Concent 35.1, Red Cell Distribution Width 14.7H, Platelet Count 420, Neutrophils (%) (Auto) 16.8L, Lymphocytes (%) (Auto) 76.8H, Monocytes (%) (Auto) 5.3H, Eosinophils (%) (Auto) 0.0, Basophils (%) (Auto) 0.0, Neutrophils # (Auto) 0.2L, Lymphocytes # (Auto) 0.7L, Monocytes # (Auto) 0.1, Eosinophils # (Auto) 0.0, Basophils # (Auto) 0.0, Nucleated Red Blood Cells % (auto) 0.0, Anion Gap 5L, Glomerular Filtration Rate > 60.0, Blood Urea Nitrogen 11, Creatinine 0.96, Sodium Level 137, Potassium Level 3.8, Chloride Level 104, Carbon Dioxide Level 28, Calcium Level 9.4 01/25/19 12:32: Bedside Glucose (Misc Panel) 75L 01/25/19 13:54: Vancomycin Level Trough 12.1 01/25/19 13:59: Bedside Glucose (Misc Panel) 187H 01/25/19 16:48: Bedside Glucose (Misc Panel) 142H CBC/BMP Laboratory Tests 01/25/19 06:40 Red Blood Count 4.09 L, Mean Corpuscular Volume 86.3, Mean Corpuscular Hemoglobin 30.3, Mean Corpuscular Hemoglobin Concent 35.1, Red Cell Distribution Width 14.7 H, Neutrophils (%) (Auto) 16.8 L, Lymphocytes (%) (Auto) 76.8 H, [place] cytes (%) (Auto) 5.3 H, Eosinophils (%) (Auto) 0.0, Basophils (%) (Auto) 0.0, Neutrophils # (Auto) 0.2 L, Lymphocytes # (Auto) 0.7 L, Monocytes # (Auto) 0.1, Eosinophils # (Auto) 0.0, Basophils # (Auto) 0.0, Calcium Level 9.4 Microbiology Microbiology 01/23/19 Blood Culture - Preliminary, Resulted No growth after 24 hours . All specim... 01/23/19 Blood Culture - Preliminary, Resulted No growth after 24 hours . All specim... 01/24/19 MRSA Screen - Final, Complete HERNANDEZ,MICHELLE Montoya MD January 25, 2019 18:07
[2019-01-25] MEDS: QUEtiapine FUMARATE 25 MG TAB PO SCH (20:50)
[2019-01-25] MEDS: ENOXAPARIN 40 MG/0.4 ML SYRINGE (J1650) SC SCH (20:51)
[2019-01-25 22:00] VITALS: BP 121/56
[2019-01-26] MEDS ORDERED: HYDROCORTISONE 1% CREAM 30 GM TOP PRN (03:00)
[2019-01-26 06:00] VITALS: BP 118/57
[2019-01-26 06:03] LABS: HEMATOCRIT 38.2 % (42.0-52.0); HEMOGLOBIN 12.9 g/dl (13.5-17.5); LYMPH # 1.1 10^3/uL (1.5-4.5); LYMPH % 33.2 % (24.0-44.0); MEAN CORPUSCULAR HEMOGLOBIN 29.2 pg (27.0-33.0); MEAN CORPUSCULAR HGB CONC 33.8 g/dl (32.0-36.5); MEAN CORPUSCULAR VOLUME 86.4 fl (80.0-96.0); MONO # 0.1 10^3/uL (0.0-0.8); MONO % 2.8 % (0.0-5.0); NEUTROPHILS % 62.1 % (36.0-66.0); PLATELET COUNT, AUTOMATED 415 10^3/uL (150-450); RED BLOOD COUNT 4.42 10^6/uL (4.30-6.10); WHITE BLOOD COUNT 3.2 10^3/uL (4.0-10.0)
[2019-01-26] MEDS: LEVOTHYROXINE 25MCG TABLET (0.025MG) PO SCH (06:12)
[2019-01-26] MEDS: LEVOTHYROXINE 150MCG TABLET (0.15MG) PO SCH (06:12)
[2019-01-26 06:29] LABS: BLOOD UREA NITROGEN 14 MG/DL (7-18); CALCIUM LEVEL 9.5 MG/DL (8.8-10.2); CARBON DIOXIDE LEVEL 29 MEQ/L (21-32); CHLORIDE LEVEL 104 MEQ/L (98-107); CREATININE FOR GFR 1.02 MG/DL (0.70-1.30); GLOMERULAR FILTRATION RATE > 60.0 (>42); GLUCOSE, FASTING 108 MG/DL (70-100); POTASSIUM SERUM 3.8 MEQ/L (3.5-5.1); SODIUM LEVEL 139 MEQ/L (136-145)
[2019-01-26] MEDS: HumaLOG INSULIN (NovoLOG) PER UNIT SC SCH ×4 (07:30→21:00)
[2019-01-26] MEDS: LOSARTAN 50 MG TAB PO SCH (08:35)
[2019-01-26] MEDS: MULTIVITAMINS/MINERALS THERAP 1 TAB PO SCH (08:35)
[2019-01-26] MEDS: MAGNESIUM OXIDE 400 MG TAB (MAG-OX) PO SCH ×2 (08:35→17:42)
[2019-01-26] MEDS: ASPIRIN 81 MG ENTERIC TAB PO SCH (08:36)
[2019-01-26 14:00] VITALS: BP 115/58
[2019-01-26 14:19] LABS: Lyme Disease IgG/IgM Antibodie <0.91 ISR (0.00-0.90); Lyme Disease IgM Ab Quantitati <0.80 index (0.00-0.79)
--- NOTE | 2019-01-26 17:09 | IPNPDOC ---
Subjective Date Seen The patient was seen on 01/26/19. Subjective Chief Complaint/HPI Pain, erythema involving abdominal wall following tick bite 2 weeks prior to presentation Events since last encounter The patient reports daily, seems about the same as yesterday. Still a little sore. No associated overnight fevers/chills or sweats. Does report some itching involving upper extremities where he had labs drawn. Also reports a previous wound over the right dorsum of hand at the base of thumb for which he has been applying topical ointment as an outpatient denies impulsive chest pain or shortness of breath. No nausea or vomitingtolerating oral intake well. Urinating okay and having bowel movements okay. Able to ambulate okay. Objective Physical Examination General Exam: Positive: Alert, Cooperative, No Acute Distress, Other (sitting up in couch) Eye Exam: Positive: PERRLA ENT Exam: Positive: Mucous membr. moist/pink Chest Exam: Positive: Clear to auscultation, Normal air movement; Negative: Rales, Rhonchi, Wheezing Heart Exam: Positive: Rate Normal, Normal S1, Normal S2; Negative: Tachycardic Abdomen Exam: Positive: Soft Extremity Exam: Negative: Edema Skin Exam: Positive: Other skin issue (area of abdominal wall erythema anteriorlyunchanged. Associated induration does seem to be improving. Does not seem as tender to palpation today.) Neuro Exam: Positive: Other (awake, alert, answering questions appropriately.) Assessment /Plan Assessment 1. Abdominal wall cellulitis following tick bite 2 weeks ago, in setting of chronic autoimmune neutropenia: -Continue IV ceftriaxone D3 -Off IV vancomycin as cellulitis was improving and MRSA screen was negative, however, ileus in light this appears unchanged from yesterday. If not improving by tomorrow, may need to switch to a different antibiotic. -Abdominal ultrasound did not show any abscess -Blood cultures negative at 48 hours 2. Chronic autoimmune neutropenia with worsening neutropenia -Status post Neupogen 01/25/19 -ANC better [id number] -No additional Neupogen at this timerepeat labs in a.m. -Outpatient follow-up with hematology/oncology per previous appointment on discharge 3. DM type 2 -Holding Metformin. -Continue SSI 4. HTN -Continue Losartan. 5. Hypothyroidism: -Continue Levothyroxine 6. Schizophrenia -Continue Seroquel. 7. Right dorsum hand wound present on admission: -Continue topical triple antibiotic ointment 8. Itching: -When necessary Benadryl, continue topical hydrocortisone DVT prophylaxis: -Enoxaparin Disposition Anticipate eventual discharge home on oral antibiotics once cellulitis improves Plan/VTE VTE Prophylaxis Ordered?: Yes (Lovenox 40mg SQ daily) VS, I&O, 24H, Viniciusbonyesenia Vital Signs/I&O Vital Signs Date Time Temp Pulse Resp B/P (MAP) Pulse Ox O2 Delivery O2 Flow Rate FiO2 01/26/19 14:00 98.2 71 21 115/58 (77) 99 01/23/19 23:30 Room Air I&O- Last 24 Hours up to 6 AM 01/26/19 06:00 Intake Total 2345 ml Output Total 0 ml Balance 2345 ml Laboratory Data 24H LABS Laboratory Tests 2 01/25/19 19:42: Bedside Glucose (Misc Panel) 233H 01/26/19 05:37: Immature Granulocyte % (Auto) 1.9, White Blood Count 3.2L, Red Blood Count 4.42, Hemoglobin 12.9L, Hematocrit 38.2L, Mean Corpuscular Volume 86.4, Mean Corpuscular Hemoglobin 29.2, Mean Corpuscular Hemoglobin Concent 33.8, Red Cell Distribution Width 14.7H, Platelet Count 415, Neutrophils (%) (Auto) 62.1, Lymphocytes (%) (Auto) 33.2, Monocytes (%) (Auto) 2.8, Eosinophils (%) (Auto) 0.0, Basophils (%) (Auto) 0.0, Neutrophils # (Auto) 2.0, Lymphocytes # (Auto) 1.1L, Monocytes # (Auto) 0.1, Eosinophils # (Auto) 0.0, Basophils # (Auto) 0.0, Nucleated Red Blood Cells % (auto) 0.0, Anion Gap 6L, Glomerular Filtration Rate > 60.0, Blood Urea Nitrogen 14, Creatinine 1.02, Sodium Level 139, Potassium Level 3.8, Chloride Level 104, Carbon Dioxide Level 29, Calcium Level 9.5 01/26/19 11:16: Bedside Glucose (Misc Panel) 125H 01/26/19 16:11: Bedside Glucose (Misc Panel) 147H CBC/BMP Laboratory Tests 01/26/19 05:37 Red Blood Count 4.42, Mean Corpuscular Volume 86.4, Mean Corpuscular Hemoglobin 29.2, Mean Corpuscular Hemoglobin Concent 33.8, Red Cell Distribution Width 14.7 H, Neutrophils (%) (Auto) 62.1, Lymphocytes (%) (Auto) 33.2, Monocytes (%) (Auto) 2.8, Eosinophils (%) (Auto) 0.0, Basophils (%) (Auto) 0.0, Neutrophils # (Auto) 2.0, Lymphocytes # (Auto) 1.1 L, Monocytes # (Auto) 0.1, Eosinophils # (Auto) 0.0, Basophils # (Auto) 0.0, Calcium Level 9.5 Microbiology Microbiology 01/23/19 Blood Culture - Preliminary, Resulted No Growth after 48 hours. All Specime... 01/23/19 Blood Culture - Preliminary, Resulted No Growth after 48 hours. All Specime... 01/24/19 MRSA Screen - Final, Complete MICHELLE HERNANDEZ MD January 26, 2019 17:08
[2019-01-26] MEDS: NEOSPORIN TOP OINT 15GM TOP SCH (17:15)
[2019-01-26] MEDS: diphenhydrAMINE 25 MG CAP PO PRN (17:42)
[2019-01-26] MEDS: QUEtiapine FUMARATE 25 MG TAB PO SCH (21:22)
[2019-01-26] MEDS: ENOXAPARIN 40 MG/0.4 ML SYRINGE (J1650) SC SCH (21:22)
[2019-01-26 22:00] VITALS: BP 133/64
[2019-01-26] MEDS: cefTRIAXone SOD 1 GM in D5W MINI-BAG PLUS 50 ML IV SCH (23:44)
[2019-01-27] MEDS: LEVOTHYROXINE 25MCG TABLET (0.025MG) PO SCH (05:53)
[2019-01-27] MEDS: LEVOTHYROXINE 150MCG TABLET (0.15MG) PO SCH (05:53)
[2019-01-27 06:00] VITALS: BP 131/64
[2019-01-27 06:36] LABS: HEMATOCRIT 39.2 % (42.0-52.0); HEMOGLOBIN 13.6 g/dl (13.5-17.5); MEAN CORPUSCULAR HEMOGLOBIN 30.2 pg (27.0-33.0); MEAN CORPUSCULAR HGB CONC 34.7 g/dl (32.0-36.5); MEAN CORPUSCULAR VOLUME 86.9 fl (80.0-96.0); PLATELET COUNT, AUTOMATED 468 10^3/uL (150-450); RED BLOOD COUNT 4.51 10^6/uL (4.30-6.10); WHITE BLOOD COUNT 2.7 10^3/uL (4.0-10.0)
[2019-01-27 06:59] LABS: BLOOD UREA NITROGEN 16 MG/DL (7-18); CARBON DIOXIDE LEVEL 32 MEQ/L (21-32); CHLORIDE LEVEL 101 MEQ/L (98-107); CREATININE FOR GFR 1.08 MG/DL (0.70-1.30); GLOMERULAR FILTRATION RATE > 60.0 (>42); GLUCOSE, FASTING 113 MG/DL (70-100); SODIUM LEVEL 137 MEQ/L (136-145)
[2019-01-27 07:08] LABS: ATYPICAL LYMPH 11 % (0-5); LYMPHOCYTES 38 % (16-52); MONOCYTES 1 % (0-8); NEUTROPHILS 50 % (35-75)
[2019-01-27 07:11] LABS: PLATELET ESTIMATE INCREASED (NORMAL)
[2019-01-27 07:13] LABS: TOXIC VACUOLATION 1+
[2019-01-27] MEDS ORDERED: FILGRASTIM 480 MCG/0.8 ML SYRINGE (J1442) SC ONE (09:00)
[2019-01-27] MEDS: MULTIVITAMINS/MINERALS THERAP 1 TAB PO SCH (09:02)
[2019-01-27] MEDS: HumaLOG INSULIN (NovoLOG) PER UNIT SC SCH ×4 (09:02→20:22)
[2019-01-27] MEDS: ASPIRIN 81 MG ENTERIC TAB PO SCH (09:03)
[2019-01-27] MEDS: LOSARTAN 50 MG TAB PO SCH (10:30)
[2019-01-27] MEDS: MAGNESIUM OXIDE 400 MG TAB (MAG-OX) PO SCH ×2 (10:31→17:15)
[2019-01-27] MEDS: NEOSPORIN TOP OINT 15GM TOP SCH (10:33)
[2019-01-27] MEDS: ACETAMINOPHEN TAB 650MG DOSE (2X325MG) PO PRN (10:33)
[2019-01-27] MEDS: diphenhydrAMINE 25 MG CAP PO PRN (10:33)
--- NOTE | 2019-01-27 13:40 | IPNPDOC ---
Subjective Date Seen The patient was seen on 01/27/19. Subjective Chief Complaint/HPI Pain, erythema involving abdominal wall following tick bite 2 weeks prior to presentation Events since last encounter Patient reports the area of erythema appears unchanged from yesterday. Associated pain seems a little improved. No overnight associated fevers/chills or sweats. No nausea or vomiting. Tolerating oral intake. Able to ambulate well. No problems with bladder/bowel habits. Objective Physical Examination General Exam: Positive: Alert, Cooperative, No Acute Distress Eye Exam: Positive: PERRLA ENT Exam: Positive: Mucous membr. moist/pink Chest Exam: Positive: Clear to auscultation, Normal air movement; Negative: Rales, Rhonchi, Wheezing Heart Exam: Positive: Rate Normal, Normal S1, Normal S2; Negative: Tachycardic Abdomen Exam: Positive: Soft Extremity Exam: Negative: Edema Skin Exam: Positive: Other skin issue (erythema over anterior abdominal wallthere appears about the same, this seems to be some slight central clearing. Associated induration has improved. It does not seem as tender to palp ation) Neuro Exam: Positive: Other (awake, alert, answering questions appropriately.) Assessment /Plan Assessment 1. Abdominal wall cellulitis following tick bite 2 weeks ago, in setting of chronic autoimmune neutropenia: -Continue IV ceftriaxone D4 -Off IV vancomycin as cellulitis was improving and MRSA screen was negative -Area of erythema appears unchanged although there seems to some slight central clearing and improvement as far as the induration is concerned -Consulted ID -Abdominal ultrasound did not show any abscess -Blood cultures negative at 48 hours 2. Chronic autoimmune neutropenia with worsening neutropenia -Status post Neupogen 01/25/19 -ANC lower todayordered another dose of Neupogen 01/27/90 -Repeat labs in a.m. -Outpatient follow-up with hematology/oncology per previous appointment on discharge 3. DM type 2 -Holding Metformin. -Continue SSI 4. HTN -Continue Losartan. 5. Hypothyroidism: -Continue Levothyroxine 6. Schizophrenia -Continue Seroquel. 7. Right dorsum hand wound present on admission: -Continue topical triple antibiotic ointment 8. Itching: -When necessary Benadryl, continue topical hydrocortisone -Itching is better per patient DVT prophylaxis: -Enoxaparin Disposition Anticipate eventual discharge home on oral antibiotics once cellulitis improves, hopefully within the next 24-48 hours Plan/VTE VTE Prophylaxis Ordered?: Yes (Lovenox 40mg SQ daily) VS, I&O, 24H, [facility] Vital Signs/I&O Vital Signs Date Time Temp Pulse Resp B/P (MAP) Pulse Ox O2 Delivery O2 Flow Rate FiO2 01/27/19 10:30 105/59 01/27/19 06:00 97.1 71 20 98 01/23/19 23:30 Room Air I&O- Last 24 Hours up to 6 AM 01/27/19 06:00 Intake Total 1950 ml Output Total 0 ml Balance 1950 ml Laboratory Data 24H LABS Laboratory Tests 2 01/26/19 16:11: Bedside Glucose (Misc Panel) 147H 01/26/19 20:57: Bedside Glucose (Misc Panel) 140H 01/27/19 06:13: Nucleated Red Blood Cells % (auto) 0.0, Neutrophils 50, Lymphocytes (Manual) 38, Monocytes (Manual) 1, Atypical Lymphocytes 11H, Toxic Vacuolation 1+, Platelet Estimate INCREASED, Red Blood Cell Morphology NORMAL, Anion Gap 4L, Glomerular Filtration Rate > 60.0, Blood Urea Nitrogen 16, Creatinine 1.08, Sodium Level 137, Potassium Level 4.0, Chloride Level 101, Carbon Dioxide Level 32, Calcium Level 9.0 01/27/19 11:42: Bedside Glucose (Misc Panel) 94 CBC/BMP Laboratory Tests 01/27/19 06:13 Red Blood Count 4.51, Mean Corpuscular Volume 86.9, Mean Corpuscular Hemoglobin 30.2, Mean Corpuscular Hemoglobin Concent 34.7, Red Cell Distribution Width 14.9 H, Calcium Level 9.0 Microbiology Microbiology 01/23/19 Blood Culture - Preliminary, Resulted No Growth after 72 hours. All specime... 01/23/19 Blood Culture - Preliminary, Resulted No Growth after 72 hours. All specime... 01/24/19 MRSA Screen - Final, Complete HERNANDEZ,MICHELLE Montoya MD January 27, 2019 13:40
[2019-01-27] MEDS: DOXYCYCLINE HYCLATE 100 MG TAB PO SCH (20:22)
[2019-01-27] MEDS: ENOXAPARIN 40 MG/0.4 ML SYRINGE (J1650) SC SCH (20:22)
[2019-01-27] MEDS: QUEtiapine FUMARATE 25 MG TAB PO SCH (20:22)
[2019-01-27 22:00] VITALS: BP 140/65
[2019-01-28] MEDS: LEVOTHYROXINE 150MCG TABLET (0.15MG) PO SCH (05:41)
[2019-01-28] MEDS: LEVOTHYROXINE 25MCG TABLET (0.025MG) PO SCH (05:41)
[2019-01-28 06:00] VITALS: BP 99/60
[2019-01-28 06:42] LABS: BASO % 0.2 % (0.0-1.0); HEMATOCRIT 38.3 % (42.0-52.0); HEMOGLOBIN 13.1 g/dl (13.5-17.5); LYMPH # 1.5 10^3/uL (1.5-4.5); LYMPH % 36.9 % (24.0-44.0); MEAN CORPUSCULAR HEMOGLOBIN 29.6 pg (27.0-33.0); MEAN CORPUSCULAR HGB CONC 34.2 g/dl (32.0-36.5); MEAN CORPUSCULAR VOLUME 86.5 fl (80.0-96.0); MONO # 0.1 10^3/uL (0.0-0.8); MONO % 2.2 % (0.0-5.0); NEUTROPHILS # 2.5 10^3/uL (1.8-7.7); NEUTROPHILS % 60.2 % (36.0-66.0); PLATELET COUNT, AUTOMATED 508 10^3/uL (150-450); RED BLOOD COUNT 4.43 10^6/uL (4.30-6.10); WHITE BLOOD COUNT 4.2 10^3/uL (4.0-10.0)
[2019-01-28 06:59] LABS: BLOOD UREA NITROGEN 16 MG/DL (7-18); CARBON DIOXIDE LEVEL 31 MEQ/L (21-32); CHLORIDE LEVEL 102 MEQ/L (98-107); GLOMERULAR FILTRATION RATE > 60.0 (>42); GLUCOSE, FASTING 102 MG/DL (70-100); MAGNESIUM LEVEL 1.8 MG/DL (1.8-2.4); PHOSPHORUS LEVEL 3.5 MG/DL (2.5-4.9); POTASSIUM SERUM 3.9 MEQ/L (3.5-5.1); SODIUM LEVEL 138 MEQ/L (136-145)
[2019-01-28] MEDS: HumaLOG INSULIN (NovoLOG) PER UNIT SC SCH ×2 (07:30→12:00)
--- NOTE | 2019-01-28 08:51 | CR ---
DATE OF CONSULTATION: 01/27/2019 Asked to consult by the hospitalist for evaluation of a rash on the abdomen in the setting of a tick bite. HISTORY OF PRESENT ILLNESS: Mr. Chin is a pleasant 68-year-old gentleman with autoimmune neutropenia who was outside gardening at his daughter's house on January 07 when he was clearing brush, trimming trees and mowing. A couple days later, he noticed an infected hair follicle. About Wednesday he went to his oncologist for his followup and they recommended he go to the urgent care for removal of a tick. At that point, the tick was removed. There was no parts left and he was given doxycycline 200 mg times one dose prophylactically. This occurred on January 11. He denied having any fever or chills. No nausea, vomiting or diarrhea. No headache, neck stiffness. No Thacker's palsy. The patient presented to [facility] on 01/23 with a large rash around the same site where the tick bite was. He still feels well. He was started on IV vancomycin, Rocephin with some improvement although he still has an extensive rash. He denies any joint pain. PAST MEDICAL HISTORY: Significant for: Autoimmune thrombocytopenia. Hypothyroidism. Hypertension. Diabetes. Diverticulitis. History of volvulus. History of schizophrenia. Chronic diarrhea. PAST SURGICAL HISTORY: Volvulus with secondary infection in the ostomy. Appendectomy. Cholecystectomy. FAMILY HISTORY: Father of congestive heart failure (CHF), mother of heart and kidney disease at 96. SOCIAL HISTORY: He lives with his . (cut off) alcohol abuse. Daughter had type I diabetes and has failed renal and pancreatic transplant, currently on hemodialysis. REVIEW OF SYSTEMS: Weight loss about 40 pounds since August 2017. He has no fever, chills, night sweats. No [place] palsy. No headache. No neck stiffness. No joint pain. No dyspnea, cough, shortness of breath. His only complaint is the rash around the abdomen. LABORATORY DATA: White count was 2.7 today, on admission was 1.6, hemoglobin 13.6, hematocrit 39.2, platelets 468. 50% neutrophils, 38% lymphocytes, 11% atypical lymphs. Sodium 137, potassium 4, chloride 101, bicarbonate 32, BUN 16, creatinine 1, glucose 113, calcium 9. Vancomycin trough was 12.1. Serology line was less than 0.91 on 01/23. Blood cultures two sets were negative. Methicillin-resistant staphylococcus aureus (MRSA) screen was negative. Chest x-ray PA and lateral showed no acute disease. Abdominal ultrasound showed no evidence of abscess. Mild soft tissue swelling. On physical exam, temperature is 97.2, pulse 70, respirations 20, blood pressure 105/59, O2 sat 99% on room air. He has been afebrile throughout this admission. Heart: Normal S1, S2. No murmurs, rubs or gallops. Lungs are clear. No wheezes, rales or rhonchi. Abdomen is soft, nontender, no hepatosplenomegaly. He has a umbilical hernia. He has a midline scar from volvulus. Right lower quadrant scar from ileostomy. He has a large erythematous bright red area measuring about 15 x 10 cm right lower quadrant extending to the umbilicus. Oropharynx clear. No lesions. No thrush. Pupils equal and reactive, anicteric. Cranial nerves intact. No [place] palsy. Skin is warm but not tender to touch. IMPRESSION: This is a 68-year-old gentleman admitted with a rash on the abdomen which is nontender, not associated with fever, white count or chills. He has autoimmune neutropenia so it is difficult to from an elevated white count but this has occurred in setting of a tick bite that was engorged. His Lyme serology is expected to be negative in the setting of erythema migranes. PLAN: Discontinue IV Rocephin, start doxycycline 100 mg by mouth twice daily for 2 weeks. May repeat Lyme serology in 6 weeks to document whether it is or it was not Lyme disease. In any event, the patient should be treated for erythema migranes. Discontinue neomycin. There is no need for topical antibiotics and it can cause contact dermatitis. Would suggest discharging patient home tomorrow.
[2019-01-28 09:00] VITALS: BP 129/64
[2019-01-28] MEDS: MULTIVITAMINS/MINERALS THERAP 1 TAB PO SCH (09:24)
[2019-01-28 09:25] VITALS: BP 129/64
[2019-01-28] MEDS: DOXYCYCLINE HYCLATE 100 MG TAB PO SCH (09:25)
[2019-01-28] MEDS: MAGNESIUM OXIDE 400 MG TAB (MAG-OX) PO SCH (09:25)
[2019-01-28] MEDS: ASPIRIN 81 MG ENTERIC TAB PO SCH (09:25)
[2019-01-28] MEDS: LOSARTAN 50 MG TAB PO SCH (09:25)
[2019-01-28] MEDS ORDERED: DOXY100T PO (12:03)
[2019-01-28 12:42] VITALS: BP 128/62
--- NOTE | 2019-01-28 15:34 | DS.PDOC ---
Discharge Summary General Date of Admission January 23, 2019 at 23:20 Date of Discharge 01/28/19 Specialist/Consultants Involve: Anny Burleson MD Discharge Summary PROCEDURES PERFORMED DURING STAY: None. ADMITTING DIAGNOSES: Abdominal cellulitis, chronic autoimmune neutropenia, diabetes mellitus, hypertension, hypothyroidism, schizophrenia DISCHARGE DIAGNOSES: Abdominal wall cellulitis following tick bite 2 weeks prior to presentation in setting of chronic autoimmune neutropenia with possible erythema migrans, chronic autoimmune neutropenia with worsening neutropenia status post Neupogen 2 with improvement, diabetes mellitus type 2, hypertension, hypothyroid, schizophrenia, right dorsum hand wound present on admission, itching COMPLICATIONS/CHIEF COMPLAINT: Cellulitis, Abdominal Wall. HISTORY OF PRESENT ILLNESS: The patient is a 68-year-old gentleman who presented to the ER with left abdominal wall swelling and erythema. The patient had had a take bite a couple of weeks prior to presentationthe tick was removed at urgent care on 01/11/19 and patient was treated with 200 mg doxycycline 1 time dose. However, as noted, patient had presented with the above complaints. He did not have any painful joints/muscles/chest pain/shortness of breath/fever/night sweats or chills. The patient does have history of chronic autoimmune neutropenia for which he has been on Neupogen. The patient was admitted to our facility for further management. HOSPITAL COURSE: 1. Abdominal wall cellulitis following tick bite 2 weeks ago, in setting of chronic autoimmune neutropenia: -The patient was treated with IV vancomycin and ceftriaxone followed by IV ceftr iaxone alone after MRSA screen was negative. -There was some improvement in his abdominal wall cellulitis, but he still continued to have abdominal wall erythema despite improvement in the induration. -The patient was thereafter seen in consultation by Id by Dr Ahumadae is some concern that this may be possibly erythema migranspatient has been recommended doxycycline 100 mg twice daily for 2 weeks. -Patient has been advised outpatient recheck of Lyme serology in 6 weeks to see if he had underlying Lyme's diseasehis Lyme serology was negative here during this stay. -Abdominal ultrasound did not show any abscess -Blood cultures negative at 72 hours 2. Chronic autoimmune neutropenia with worsening neutropenia -Status post Neupogen 01/25/19 and 01/27/19 -ANC 2889 on day of discharge. -Outpatient follow-up with Dr. Baptiste per previous appointment on discharge 3. DM type 2 -Resumed metformin on discharge 4. HTN -Continue Losartan. 5. Hypothyroidism: -Continue Levothyroxine 6. Schizophrenia -Continue Seroquel. 7. Right dorsum hand wound present on admission: -Continue wound care - no obvious infection locally 8. Itching: -Was on prn benadryl, prn topical hydrocortisone -Itching is better On day of discharge, patient's cellulitis appears to have improvedneed of erythema has improved significantly. No fevers/chills or sweats. Associated abdominal wall pain has improved as well. Patient is tolerating oral intake well and able to ambulate without any problems. Plan is for the patient was discharged on oral doxycycline as noted above for 2 weeks. Outpatient recheck of Lyme serology in 6 weeksthis was discussed with the patient to be obtained through his primary care provider's office. DISCHARGE MEDICATIONS: Please see below. ALLERGIES: Please see below. PHYSICAL EXAMINATION ON DISCHARGE: VITAL SIGNS: Please see below. GENERAL: Sitting up in chair. No distress HEENT: PERRLA, oral mucous membranes moist CARDIOVASCULAR EXAMINATION: S1, S2, no rubs or gallops RESPIRATORY EXAMINATION: Clear to auscultation bilaterally ABDOMINAL EXAMINATION: Left abdominal wall erythemaimproved. No underlying induration. Nontender to touch. NEUROLOGICAL EXAMINATION: Awake, alert, answering questions appropriately PSYCHIATRIC EXAMINATION: Appropriate mood and affect LABORATORY DATA: Please see below. IMAGING: Ultrasound abdomen Limited: FINDINGS: Soft tissues: According to history the patient had a possible tick bite left of the umbilicus. The scan was only in the area of the umbilicus and a reddened area. Other findings: There is no evidence of abscess. There is mild soft tissue swelling. IMPRESSION: Mild soft tissue swelling. CXR: Impression: No active disease. PROGNOSIS: Fair ACTIVITY: As tolerated. DIET: 2 g sodium DISCHARGE PLAN: Patient will discharge home today. Outpatient follow-up with his primary care provider Dr. Clarence Mancuso in 1-2 weeks or soonest available appointment. Advised patient to recheck Lyme serology in 6 weeks through PCP. Outpatient follow-up per Dr. Kandi Baptiste on Wednesday per prior appointmentadvise d patient to discuss with her as regards need to increase the frequency of Neupogen given his neutropenia. DISPOSITION: Home, Self-Care. ITEMS TO FOLLOWUP ON ON OUTPATIENT: 1. Patient will require repeat Lyme serology testing in 6 weeks per ID recommendations DISCHARGE CONDITION: Stable. TIME SPENT ON DISCHARGE: 38 minutes. Vital Signs/I&Os Vital Signs Date Time Temp Pulse Resp B/P (MAP) Pulse Ox O2 Delivery O2 Flow Rate FiO2 01/28/19 12:42 97.8 86 18 128/62 (84) 99 01/23/19 23:30 Room Air I&O- Last 24 Hours up to 6 AM 01/28/19 06:00 Intake Total 2620 ml Balance 2620 ml Laboratory Data Labs 24H Laboratory Tests 2 01/27/19 16:30: Bedside Glucose (Misc Panel) 111H 01/27/19 19:57: Bedside Glucose (Misc Panel) 125H 01/28/19 05:55: Immature Granulocyte % (Auto) 0.5, White Blood Count 4.2, Red Blood Count 4.43, Hemoglobin 13.1L, Hematocrit 38.3L, Mean Corpuscular Volume 86.5, Mean Corpuscular Hemoglobin 29.6, Mean Corpuscular Hemoglobin Concent 34.2, Red Cell Distribution Width 14.8H, Platelet Count 508H, Neutrophils (%) (Auto) 60.2, Lymphocytes (%) (Auto) 36.9, Monocytes (%) (Auto) 2.2, Eosinophils (%) (Auto) 0.0, Basophils (%) (Auto) 0.2, Neutrophils # (Auto) 2.5, Lymphocytes # (Auto) 1 .5, Monocytes # (Auto) 0.1, Eosinophils # (Auto) 0.0, Basophils # (Auto) 0.0, Nucleated Red Blood Cells % (auto) 0.0, Anion Gap 5L, Glomerular Filtration Rate > 60.0, Blood Urea Nitrogen 16, Creatinine 1.00, Sodium Level 138, Potassium Level 3.9, Chloride Level 102, Carbon Dioxide Level 31, Calcium Level 9.0, Phosphorus Level 3.5, Magnesium Level 1.8 01/28/19 11:13: Bedside Glucose (Misc Panel) 140H CBC/BMP Laboratory Tests 01/28/19 05:55 Red Blood Count 4.43, Mean Corpuscular Volume 86.5, Mean Corpuscular Hemoglobin 29.6, Mean Corpuscular Hemoglobin Concent 34.2, Red Cell Distribution Width 14.8 H, Neutrophils (%) (Auto) 60.2, Lymphocytes (%) (Auto) 36.9, Monocytes (%) (Auto) 2.2, Eosinophils (%) (Auto) 0.0, Basophils (%) (Auto) 0.2, Neutrophils # (Auto) 2.5, Lymphocytes # (Auto) 1.5, Monocytes # (Auto) 0.1, Eosinophils # (Auto) 0.0, Basophils # (Auto) 0.0, Calcium Level 9.0 FSBS Laboratory Tests Test 01/27/19 16:30 01/27/19 19:57 01/28/19 11:13 Range/Units Bedside Glucose (Misc Panel) 111 125 140 83-110 MG/DL Microbiology Microbiology 01/23/19 Blood Culture - Preliminary, Resulted No Growth after 72 hours. All specime... 01/23/19 Blood Culture - Preliminary, Resulted No Growth after 72 hours. All specime... 01/24/19 MRSA Screen - Final, Complete Discharge Medications Scheduled Aspirin (Aspirin EC) 81 Mg Tab, 81 MG PO DAILY, (Reported) Doxycycline Hyclate (Doxycycline Hyclate) 100 Mg Tablet, 100 MG PO BID Ergocalciferol (Vitamin D2) (Vitamin D2) 2,000 Unit Cap, 2,000 UNIT PO DAILY, (Reported) Filgrastim (Neupogen) 480 Mcg/0.8 Ml Syringe, 480 MCG SC 1XWK, (Reported) [place] Iodine (Kelp) 150 Mcg Tablet, 150 MCG PO DAILY, (Reported) Levothyroxine Sodium (Levothyroxine Sodium) 175 Mcg Tab, 175 MCG PO DAILY, (Reported) Losartan Potassium (Losartan Potassium) 50 Mg Tab, 50 MG PO DAILY, (Reported) Magnesium Oxide (Magnesium Oxide) 400 Mg Tablet, 800 MG PO BID, (Reported) LUNCH AND DINNERTIME Metformin HCl (Metformin HCl ER) 500 Mg Tab, 1,000 MG PO QPM, (Reported) TAKES AT DINNERTIME Multivitamins (Thera M Plus Tablet) 1 Tab Tab, 1 TAB PO DAILY, (Reported) [place]-3 Fatty Acids/Fish Oil (Fish Oil 1,000 mg Capsule) 1 Each Capsule, 2,000 MG PO BID, (Reported) Quetiapine Fumarate (Quetiapine Fumarate) 25 Mg Tab, 25 MG PO QHS, (Reported) Scheduled PRN Polyvinyl Alcohol (Artificial Tears) 1.4 % Rach, 1 DROP OU QID PRN for DRY EYES, (Reported) Allergies Coded Allergies: bee venom protein (honey bee) (Verified Allergy, Severe, ANAPHYLACTIC, 11/25/18) amoxicillin (Verified Allergy, Intermediate, ALL OVER BODY RASH, 11/25/18) clavulanic acid (Verified Allergy, Intermediate, ALL OVER BODY RASH, 11/25/18) POULTRY (Verified Adverse Reaction, Intermediate, turkey - gout, 07/01/18) MICH Inhibitors (Verified Adverse Reaction, Mild, COUGH, 11/25/18) MICHELLE HERNANDEZ MD Jan 28, 2019 15:34
== END 2019-01-28 13:20 | disposition home or self-care (01) | DRG 603 ==
LOC: M ED 19:36 → M ED INP 23:20 → M MS5PR 01-24 00:08
PROVIDERS: ADMIT Internal Medicine Nephrology; ATTEND Internal Medicine
DX: L03.311 Cellulitis of abdominal wall (principal); D70.8 Other neutropenia; I10 Essential (primary) hypertension; E03.9 Hypothyroidism, unspecified; F20.9 Schizophrenia, unspecified; A26.0 Cutaneous erysipeloid; E11.9 Type 2 diabetes mellitus without complications; K52.9 Noninfective gastroenteritis and colitis, unspecified; Z90.49 Acquired absence of other specified parts of digestive tract; Z93.2 Ileostomy status; Z79.84 Long term (current) use of oral hypoglycemic drugs; Z79.899 Other long term (current) drug therapy; Z79.82 Long term (current) use of aspirin; Z91.030 Bee allergy status; Z88.0 Allergy status to penicillin; Z88.8 Allergy status to other drugs, medicaments and biological substances; Z91.018 Allergy to other foods

== ENCOUNTER → 2019-03-09 | Outpatient (CLI) | payer MEDICARE, OTHER ==
[~2019-03-09] MED LIST changes: -BENZ0.5T PO; +BENZ0.5T23; +BENZ0.5T23 PO; +DOXY100C37; +DOXY100T PO; +FILG48VL SC; +FISH1000 PO; +LIQUID POLIBAR PLUS 105% w/v 1900ML BTL As Ordered ONE; +MAGN400T PO
--- NOTE | 2019-03-10 10:10 | REP ---
Examination Requested: Barium and Air contrast Reason For Exam: Diverticulitis of the large intestine The procedure was performed by JUANIS Mojica, under the direct supervision of Dr. Pickens. The images were reviewed with Dr Edita Pickens. The extraction supervisor film shows no organomegaly, or pathological masses. The intestinal gas pattern is unremarkable. Liquid barium and air were instilled into the colon and retrograde flow of the barium air mixture. There is marked redundancy of the colon as well as residual feces limiting the exam. Postradiation bulla is unremarkable throughout. There is free flow of contrast to the cecum. There is reflux into the terminal ileum. The colonic mucosal pattern is normal in course and caliber. There is no annular constricting lesion identified. There are multiple diverticula visualized throughout the colon Impression: 1. Multiple diverticula visualized throughout the colon. 2. Limited exam due to redundancy of the colon and residual feces. 4.1 minutes of fluoroscopy time was utilized for this procedure. Some fluoroscopic images are performed with last image hold technology. These images require no additional radiation. Reviewed by JUANIS Giles 03/09/2019 04:25 P Electronically Signed by Brendon Pickens MD 03/10/2019 10:01 A
== END ==
LOC: M RAD 09:09
PROVIDERS: ATTEND Internal Medicine Gastroenterology
DX: K57.33 Diverticulitis of large intestine without perforation or abscess with bleeding (principal)

== ENCOUNTER → 2019-03-14 | Outpatient (REF) | payer MEDICARE, OTHER ==
[~2019-03-14] MED LIST changes: -LIQUID POLIBAR PLUS 105% w/v 1900ML BTL As Ordered ONE
[2019-03-14 15:20] LABS: FREE T3 1.9 PG/ML (2.2-4.0); FREE T4 1.12 NG/DL (0.76-1.46); THYROID STIMULATING HORMONE 0.96 uIU/ML (0.358-3.740)
== END ==
LOC: M LAB REF 14:43
PROVIDERS: ATTEND Family Medicine
DX: E03.9 Hypothyroidism, unspecified (principal)

== ENCOUNTER → 2019-05-04 | Outpatient (CLI) | payer MEDICARE, OTHER ==
[~2019-05-04] MED LIST changes: -ARTI99.0 OU; +ARTIDRO2 OU; +CVS1CAP2 PO; +CVS500TA35 PO; +D200CAP PO; +FISH1200 PO; +MAG400TA PO; +METF-791 PO; -METF500T4 PO
[2019-05-04 17:10] LABS: ALBUMIN 3.4 GM/DL (3.2-5.2); ALT/SGPT 32 U/L (12-78); BILIRUBIN,TOTAL 1.2 MG/DL (0.2-1.0); BLOOD UREA NITROGEN 28 MG/DL (7-18); CALCIUM LEVEL 9.3 MG/DL (8.8-10.2); CARBON DIOXIDE LEVEL 31 MEQ/L (21-32); CHLORIDE LEVEL 101 MEQ/L (98-107); CREATININE FOR GFR 1.01 MG/DL (0.70-1.30); GLOMERULAR FILTRATION RATE > 60.0 (>42); GLUCOSE, FASTING 105 MG/DL (70-100); POTASSIUM SERUM 4.7 MEQ/L (3.5-5.1); SODIUM LEVEL 136 MEQ/L (136-145); TOTAL PROTEIN 6.7 GM/DL (6.4-8.2)
== END ==
LOC: M LAB 15:54
PROVIDERS: ATTEND Family Medicine
DX: E78.5 Hyperlipidemia, unspecified (principal)

== ENCOUNTER 2019-05-05 17:12 | Inpatient (IN) | payer MEDICARE, OTHER ==
[~2019-05-05] VITALS: Ht 177.8 cm; Wt 70.2 kg
[~2019-05-05 17:12] MED LIST changes: -CVS1CAP2 PO; -CVS500TA35 PO; -D200CAP PO; -FISH1200 PO; -LORA1TAB12 PO; +LORA1TAB4 PO; -MAG400TA PO; -MAGN400T PO; +MAGN400T3 PO
[2019-05-05] MEDS ORDERED: D200CAP PO (17:35)
[2019-05-05] MEDS ORDERED: MAG400TA PO (17:35)
[2019-05-05] MEDS ORDERED: CVS500TA35 PO (17:35)
[2019-05-05] MEDS ORDERED: CVS1CAP2 PO (17:35)
[2019-05-05 17:50] LABS: VENOUS BASE EXCESS 3.5 (-2.0-2.0); VENOUS HCO3 29.8 MEQ/L (23.0-27.0); VENOUS O2 SATURATION 79.7 % (60.0-80.0); VENOUS PARTIAL PRESSURE CO2 53.3 mmHg (38.0-50.0); VENOUS PARTIAL PRESSURE O2 46.6 mmHg (30.0-50.0); VENOUS PH 7.365 UNITS (7.330-7.430); VENOUS STANDARD HCO3 27.2 MEQ/L; VENOUS TOTAL CO2 31.4 MEQ/L (24.0-28.0)
[2019-05-05 18:00] LABS: HEMATOCRIT 30.8 % (42.0-52.0); HEMOGLOBIN 10.7 g/dl (13.5-17.5); LYMPH # 0.9 10^3/uL (1.5-5.0); MEAN CORPUSCULAR HEMOGLOBIN 30.1 pg (27.0-33.0); MEAN CORPUSCULAR HGB CONC 34.7 g/dl (32.0-36.5); MEAN CORPUSCULAR VOLUME 86.8 fl (80.0-96.0); MONO % 2.2 % (0.0-5.0); NEUTROPHILS % 45.2 % (36.0-66.0); PLATELET COUNT, AUTOMATED 523 10^3/uL (150-450); RED BLOOD COUNT 3.55 10^6/uL (4.30-6.10)
[2019-05-05 18:13] LABS: INR 1.3; PROTHROMBIN TIME 15.9 SECONDS (11.8-14.0)
--- NOTE | 2019-05-05 18:14 | REP ---
Clinical: Sepsis/shock . Comparison: 01/23/2019 . Findings: The mediastinum and cardiac silhouette are stable and within normal limits for portable technique. The lung calderon are clear without acute consolidation, effusion, or pneumothorax. Skeletal structures are intact. Impression: No acute cardiopulmonary process appreciated. Electronically Signed by Billy Proctor MD 05/05/2019 06:06 P
[2019-05-05 18:29] LABS: ALBUMIN 3.2 GM/DL (3.2-5.2); ALT/SGPT 25 U/L (12-78); BILIRUBIN,DIRECT 0.4 MG/DL (0.0-0.2); BILIRUBIN,TOTAL 1.4 MG/DL (0.2-1.0); BLOOD UREA NITROGEN 23 MG/DL (7-18); CALCIUM LEVEL 8.6 MG/DL (8.8-10.2); CARBON DIOXIDE LEVEL 31 MEQ/L (21-32); CHLORIDE LEVEL 97 MEQ/L (98-107); CK-MB VALUE MASS 1.3 NG/ML (<3.6); CPK CREATINE PHOSPHOKINASE 41 U/L (39-308); CREATININE FOR GFR 1.16 MG/DL (0.70-1.30); GLOMERULAR FILTRATION RATE > 60.0 (>42); GLUCOSE, FASTING 205 MG/DL (70-100); MB/CK RELATIVE INDEX 3.17 (< OR =4); POTASSIUM SERUM 4.2 MEQ/L (3.5-5.1); SODIUM LEVEL 133 MEQ/L (136-145); TOTAL PROTEIN 6.3 GM/DL (6.4-8.2); TROPONIN I < 0.02 NG/ML (< 0.10)
[2019-05-05 18:44] LABS: NEUTROPHILS # 0.8 10^3/uL (1.5-8.5); WHITE BLOOD COUNT 1.8 10^3/uL (4.0-10.0)
--- NOTE | 2019-05-05 19:39 | ECGEPIP ---
[facility] - ED Test Date: 2019-05-05 Pat Name: XOCHILT TAVERAS Department: Room: - Gender: Male Manager Fleet: CT : 1950 Requested By: Kandi Acosta Order Number: [id number] Reading MD: Jair Thurman Measurements Intervals [place] Rate: 82 P: 49 OR: 158 QRS: 79 QRSD: 94 T: 73 QT: 362 QTc: 425 Interpretive Statements SINUS RHYTHM POSSIBLE INCOMPLETE RIGHT BUNDLE BRANCH BLOCK NO PRIORS FOR COMPARISON Electronically Signed on 05-05-2019 19:39:12 EDT by Jair Thurman
[2019-05-05] MEDS ORDERED: metroNIDAZOLE 500 MG in IV 1 EA IV ONE (19:45)
[2019-05-05] MEDS: QUEtiapine FUMARATE 25 MG TAB PO SCH (21:00)
[2019-05-05] MEDS ORDERED: FISH1200 PO (21:02)
[2019-05-05] MEDS ORDERED: MAALOX 30 ML SUSP *UDC PO PRN (22:30)
[2019-05-05] MEDS ORDERED: POLYVINYL ALCOHOL OPHTH SOLN 15 ML(LIQUITEARS) OU PRN (22:30)
[2019-05-05] MEDS ORDERED: FILGRASTIM 480 MCG/0.8 ML SYRINGE (J1442) SC ONE (23:00)
[2019-05-06 00:38] VITALS: BP 135/65
[2019-05-06] MEDS: ACETAMINOPHEN TAB 650MG DOSE (2X325MG) PO PRN ×3 (01:26→16:22)
[2019-05-06] MEDS: QUEtiapine FUMARATE 25 MG TAB PO SCH ×2 (01:26→20:30)
[2019-05-06] MEDS: CEFEPIME HCL 2 GM in D5W MINI-BAG PLUS 50 ML IV SCH ×3 (01:27→16:22)
--- NOTE | 2019-05-06 03:02 | HPEPDOC ---
General Date of Admission May 05, 2019 at 22:18 Date of Service: May 05, 2019 Chief Complaint The patient is a 69-year-old male admitted with a reason for visit of Acute Diverticulitis,Neutropenic Fever. 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 Pt notes that he had lifted something heavy on wednesday. Wednesday morning when he woke up he was having pain across the lower part of his abdomen which he had attributed to injuring himself lifting. He was eating normally, no subjective fevers, no change in his bowel habits. The pain persisted and he went to a clinic. he had an outpatient ct done which was reported to him to show diverticulitis. He has had several episodes of diverticulitis in the past, has not had a follow up colonoscopy due to concerns related to his chronic neutropenia. A full ROS was performed and negative except as above. Home Medications Scheduled Aspirin (Aspirin EC) 81 Mg Tab, 81 MG PO DAILY, (Reported) Cholecalciferol (Vitamin D3) (Vitamin D3) 2,000 Unit Capsule, 2,000 MG PO DAILY, (Reported) Iodine (Kelp) 150 Mcg Tablet, 150 MCG PO DAILY, (Reported) Lactobacillus Combo No.10 (Probiotic) 1 Each Capsule, 1 TAB PO DAILY, (Reported) Levothyroxine Sodium (Levothyroxine Sodium) 175 Mcg Tab, 175 MCG PO DAILY, (Reported) Losartan Potassium (Losartan Potassium) 50 Mg Tab, 25 MG PO DAILY, (Reported) Magnesium Oxide (Magnesium Oxide) 400 Mg Tablet, 800 MG PO BID, (Reported) TAKES AT NOON AND DINNERTIME Multivitamins (Thera M Plus Tablet) 1 Tab Tab, 1 TAB PO DAILY, (Reported) [place]-3 Fatty Acids/Fish Oil (Fish Oil 1,200 mg Softgel) 1 Each Capsule, 2,400 MG PO BID, (Reported) TAKES AT BREAKFAST AND DINNERTIME Quetiapine Fumarate (Quetiapine Fumarate) 25 Mg Tab, 25 MG PO QHS, (Reported) Scheduled PRN Acetaminophen (Pain Relief Extra Strength) 500 Mg Tablet, 500 MG PO for PAIN, (Reported) Polyvinyl Alcohol (Artificial Tears) 1.4 % Rach, 1 DROP OU QID PRN for DRY EYES, (Reported) Allergies Coded Allergies: bee venom protein (honey bee) (Verified Allergy, Severe, ANAPHYLACTIC, 11/25/18) amoxicillin (Verified Allergy, Intermediate, ALL OVER BODY RASH, 11/25/18) clavulanic acid (Verified Allergy, Intermediate, ALL OVER BODY RASH, 11/25/18) POULTRY (Verified Adverse Reaction, Intermediate, turkey - gout, 07/01/18) MICH Inhibitors (Verified Adverse Reaction, Mild, COUGH, 11/25/18) Family History Significant Family History: No pertinent family hx Social History * Smoker: Denies Alcohol: Denies Drugs: denies A-FIB/CHADSVASC A-FIB History Current/History of A-Fib/PAF?: No Current PO Anticoag Therapy: No Age/Risk Factor Scoring CHADSVASC: CHADSVASC Response (Comments) Value Age Risk Factor Age 65-74 years old 1 Gender Risk Factor Male 0 Hx of CHF No 0 Hx of HTN No 0 Hx of Stroke/TIA/or VTE No 0 Hx of Diabetes Yes 1 Hx of Vascular Disease No 0 Total 2 Treatment Treatment ordered: NONE Reason Anticoagulant not given: Not indicated/[id number] Physical Examination General Exam: Positive: Alert, No Acute Distress Eye Exam: Positive: PERRLA, Conjunctiva & lids normal, EOMI; Negative: Sclera icteric ENT Exam: Positive: Atraumatic, Mucous membr. moist/pink, Pharynx Normal Neck Exam: Positive: Supple; Negative: JVD, thyromegaly Chest Exam: Positive: Clear to auscultation, Normal air movement Heart Exam: Positive: Rate Normal, Regular Rhythm, Normal S1, Normal S2; Negative: Murmurs, Rubs Abdomen Exam: Positive: Normal bowel sounds, Soft, Tenderness (llq exquisitely tender to light touch); Negative: Hepatospenomegaly Extremity Exam: Positive: Normal pulses; Negative: Clubbing, Cyanosis, Edema Skin Exam: Positive: Nl turgor and temperature; Negative: Breakdown, Lesion Neuro Exam: Positive: Normal Gait, Normal Speech, Cranial Nerves 3-12 NL, Reflexes 2+ Psych Exam: Positive: Mental status NL, Oriented x 3, Other (abnormal affect) Vital Signs Vital Signs Date Time Temp Pulse Resp B/P (MAP) Pulse Ox O2 Delivery O2 Flow Rate FiO2 05/06/19 00:38 98.2 83 20 135/65 (88) 93 05/06/19 00:09 Room Air Laboratory Data Labs 24H Laboratory Tests 2 05/05/19 17:24: Immature Granulocyte % (Auto) 0.6, White Blood Count 1.8L, Red Blood Count 3.55L, Hemoglobin 10.7L, Hematocrit 30.8L, Mean Corpuscular Volume 86.8, Mean Corpuscular Hemoglobin 30.1, Mean Corpuscular Hemoglobin Concent 34.7, Red Cell Distribution Width 14.2, Platelet Count 523H, Neutrophils (%) (Auto) 45.2, Lymphocytes (%) (Auto) 52.0H, Monocytes (%) (Auto) 2.2, Eosinophils (%) (Auto) 0.0, Basophils (%) (Auto) 0.0, Neutrophils # (Auto) 0.8L, Lymphocytes # (Auto) 0.9L, Monocytes # (Auto) 0.0, Eosinophils # (Auto) 0.0, Basophils # (Auto) 0.0, Nucleated Red Blood Cells % (auto) 0.0, Prothrombin Time 15.9H, Prothromb Time International Ratio 1.30, Anion Gap 5L, Glomerular Filtration Rate > 60.0, Lactic Acid Level 1.9, Calcium Level 8.6L, Aspartate Amino Transf (AST/SGOT) 8, Alanine Aminotransferase (ALT/SGPT) 25, Alkaline Phosphatase 121H, Total Bilirubin 1.4H, Direct Bilirubin 0.4H, Total Creatine Kinase 41, Creatine Kinase MB 1.3, Creatine Kinase MB Relative Index 3.17, Troponin I < 0.02, Total Protein 6.3L, Albumin 3.2, Albumin/Globulin Ratio 1.03 05/05/19 17:34: Blood Gas Bicarbonate Standard 27.2, Venous Blood pH 7.365, Venous Blood Partial Pressure CO2 53.3H, Venous Blood Partial Pressure O2 46.6, Venous Blood Total Carbon Dioxide 31.4H, Venous Blood HCO3 29.8H, Venous Blood Oxygen Saturation 79.7, Venous Blood Base Excess 3.5H CBC/BMP Laboratory Tests 05/05/19 17:24 Red Blood Count 3.55 L, Mean Corpuscular Volume 86.8, Mean Corpuscular Hemoglobin 30.1, Mean Corpuscular Hemoglobin Concent 34.7, Red Cell Distribution Width 14.2, Neutrophils (%) (Auto) 45.2, Lymphocytes (%) (Auto) 52.0 H, Monocytes (%) (Auto) 2.2, Eosinophils (%) (Auto) 0.0, Basophils (%) (Auto) 0.0, Neutrophils # (Auto) 0.8 L, Lymphocytes # (Auto) 0.9 L, Monocytes # (Auto) 0.0, Eosinophils # (Auto) 0.0, Basophils # (Auto) 0.0 Microbiology Microbiology 05/05/19 Blood Culture, Received Pending 05/05/19 Blood Culture, Received Pending Assessment/Plan 69m p/w neutropenic fever and diverticulitis will cover with cefepime and flagyl in past admissions Dr Lieberman has started neupogen to keep anc greater than 1000 until infection improves will start neupogen consider consulting Dr Lieberman in am clear liquid diet iv fluids will either need to obtain report from outside CT or repeat study here hypothyroid stable continue synthroid schizophrenia stable continue seroquel Plan / VTE VTE Prophylaxis Ordered?: Yes JOY KOTHARI MD May 06, 2019 03:02
[2019-05-06] MEDS: metroNIDAZOLE 500 MG in IV 1 EA IV SCH ×3 (04:16→20:30)
[2019-05-06] MEDS: NS 0.45% 1,000 ML IV SCH ×2 (04:18→20:30)
[2019-05-06] MEDS ORDERED: LEVOTHYROXINE 125MCG TABLET (0.125MG) PO SCH (06:00)
[2019-05-06] MEDS: LEVOTHYROXINE 75MCG TABLET (0.075MG) PO SCH (06:41)
[2019-05-06] MEDS: LEVOTHYROXINE 100MCG TABLET (0.1MG) PO SCH (06:41)
[2019-05-06 06:48] VITALS: BP 115/70
[2019-05-06] MEDS: OMEGA-3 1000MG CAPSULE PO SCH ×2 (08:25→18:15)
[2019-05-06] MEDS: ASPIRIN 81 MG ENTERIC TAB PO SCH (08:26)
[2019-05-06] MEDS: LACTOBACILLUS ACIDOPHILUS CAP (BACID) PO SCH (08:26)
[2019-05-06] MEDS: MULTIVITAMINS/MINERALS THERAP 1 TAB PO SCH (08:28)
[2019-05-06] MEDS: LOSARTAN 25 MG TAB PO SCH (08:28)
[2019-05-06] MEDS: ENOXAPARIN 40 MG/0.4 ML SYRINGE (J1650) SC SCH (08:29)
[2019-05-06 09:20] LABS: HEMATOCRIT 33.2 % (42.0-52.0); HEMOGLOBIN 11.1 g/dl (13.5-17.5); LYMPH # 0.6 10^3/uL (1.5-5.0); LYMPH % 29.2 % (24.0-44.0); MEAN CORPUSCULAR HEMOGLOBIN 29.4 pg (27.0-33.0); MEAN CORPUSCULAR HGB CONC 33.4 g/dl (32.0-36.5); MEAN CORPUSCULAR VOLUME 87.8 fl (80.0-96.0); MONO # 0.1 10^3/uL (0.0-0.8); MONO % 3.8 % (0.0-5.0); NEUTROPHILS # 1.3 10^3/uL (1.5-8.5); NEUTROPHILS % 64.1 % (36.0-66.0); PLATELET COUNT, AUTOMATED 511 10^3/uL (150-450); RED BLOOD COUNT 3.78 10^6/uL (4.30-6.10); WHITE BLOOD COUNT 2.1 10^3/uL (4.0-10.0)
[2019-05-06 10:27] LABS: BLOOD UREA NITROGEN 19 MG/DL (7-18); CALCIUM LEVEL 8.9 MG/DL (8.8-10.2); CARBON DIOXIDE LEVEL 30 MEQ/L (21-32); CHLORIDE LEVEL 101 MEQ/L (98-107); CREATININE FOR GFR 1.02 MG/DL (0.70-1.30); GLOMERULAR FILTRATION RATE > 60.0 (>42); GLUCOSE, FASTING 195 MG/DL (70-100); POTASSIUM SERUM 4.2 MEQ/L (3.5-5.1); SODIUM LEVEL 136 MEQ/L (136-145)
[2019-05-06] MEDS: MAGNESIUM OXIDE 400 MG TAB (MAG-OX) PO SCH ×2 (12:08→18:16)
--- NOTE | 2019-05-06 12:56 | IPNPDOC ---
Text Note Date of Service The patient was seen on 05/06/19. NOTE Subjective: patient seen and examined at bedside. No acute overnight events reported. No new medical complaints this morning. Feels his pain is improving. 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 He had an outpatient CT done which was reported to him to show diverticulitis. he has not had a follow up colonoscopy due to concerns related to his chronic neutropenia. #diverticulitis in the setting of neutropenic fever - continue cefepim/flagyl - d/w Dr. Baptiste - continue neupogen - target ANC 5000 - IV fluids, CLD #hypothyroid stable continue synthroid #schizophrenia stable continue seroquel #DVT prophylaxis VS,Fishbone, I+O VS, Fishbone, I+O Laboratory Tests 05/05/19 17:24 Red Blood Count 3.55 L, Mean Corpuscular Volume 86.8, Mean Corpuscular He moglobin 30.1, Mean Corpuscular Hemoglobin Concent 34.7, Red Cell Distribution Width 14.2, Neutrophils (%) (Auto) 45.2, Lymphocytes (%) (Auto) 52.0 H, Monocytes (%) (Auto) 2.2, Eosinophils (%) (Auto) 0.0, Basophils (%) (Auto) 0.0, Neutrophils # (Auto) 0.8 L, Lymphocytes # (Auto) 0.9 L, Monocytes # (Auto) 0.0, Eosinophils # (Auto) 0.0, Basophils # (Auto) 0.0 05/06/19 08:40 Red Blood Count 3.78 L, Mean Corpuscular Volume 87.8, Mean Corpuscular Hemoglobin 29.4, Mean Corpuscular Hemoglobin Concent 33.4, Red Cell Distribution Width 14.3, Neutrophils (%) (Auto) 64.1, Lymphocytes (%) (Auto) 29.2, Monocytes (%) (Auto) 3.8, Eosinophils (%) (Auto) 0.0, Basophils (%) (Auto) 0.0, N eutrophils # (Auto) 1.3 L, Lymphocytes # (Auto) 0.6 L, Monocytes # (Auto) 0.1, Eosinophils # (Auto) 0.0, Basophils # (Auto) 0.0, Calcium Level 8.9 Vital Signs Date Time Temp Pulse Resp B/P (MAP) Pulse Ox O2 Delivery O2 Flow Rate FiO2 05/06/19 08:28 127/59 05/06/19 06:48 97.0 73 20 97 05/06/19 00:09 Room Air I&O- Last 24 Hours up to 6 AM 05/06/19 06:00 Intake Total 885 ml Output Total 0 ml Balance 885 ml TUNDE WHITE MD May 06, 2019 12:52
[2019-05-06 14:00] VITALS: BP 123/57
[2019-05-06] MEDS: ONDANSETRON 4MG/2ML VIAL (J2405) IV PRN (16:22)
[2019-05-06] MEDS: FILGRASTIM 480 MCG/0.8 ML SYRINGE (J1442) SC SCH (20:30)
[2019-05-06] MEDS ORDERED: FILGRASTIM 480 MCG/0.8 ML SYRINGE (J1442) SC SCH (21:00)
[2019-05-06 22:00] VITALS: BP 116/56
[2019-05-07] MEDS: CEFEPIME HCL 2 GM in D5W MINI-BAG PLUS 50 ML IV SCH ×3 (02:06→17:33)
[2019-05-07] MEDS: metroNIDAZOLE 500 MG in IV 1 EA IV SCH ×3 (04:51→20:13)
[2019-05-07 06:00] VITALS: BP 131/69
[2019-05-07] MEDS: LEVOTHYROXINE 100MCG TABLET (0.1MG) PO SCH (06:02)
[2019-05-07] MEDS: LEVOTHYROXINE 75MCG TABLET (0.075MG) PO SCH (06:02)
[2019-05-07] MEDS: ACETAMINOPHEN TAB 650MG DOSE (2X325MG) PO PRN (06:13)
[2019-05-07 07:16] LABS: HEMATOCRIT 31.4 % (42.0-52.0); HEMOGLOBIN 10.7 g/dl (13.5-17.5); MEAN CORPUSCULAR HEMOGLOBIN 29.3 pg (27.0-33.0); MEAN CORPUSCULAR HGB CONC 34.1 g/dl (32.0-36.5); PLATELET COUNT, AUTOMATED 537 10^3/uL (150-450); RED BLOOD COUNT 3.65 10^6/uL (4.30-6.10); WHITE BLOOD COUNT 2.4 10^3/uL (4.0-10.0)
[2019-05-07 07:40] LABS: ALBUMIN 2.8 GM/DL (3.2-5.2); ALT/SGPT 18 U/L (12-78); BILIRUBIN,TOTAL 1.8 MG/DL (0.2-1.0); BLOOD UREA NITROGEN 13 MG/DL (7-18); CALCIUM LEVEL 8.6 MG/DL (8.8-10.2); CARBON DIOXIDE LEVEL 27 MEQ/L (21-32); CHLORIDE LEVEL 103 MEQ/L (98-107); CREATININE FOR GFR 0.96 MG/DL (0.70-1.30); GLOMERULAR FILTRATION RATE > 60.0 (>42); GLUCOSE, FASTING 107 MG/DL (70-100); POTASSIUM SERUM 4.3 MEQ/L (3.5-5.1); SODIUM LEVEL 137 MEQ/L (136-145); TOTAL PROTEIN 5.9 GM/DL (6.4-8.2)
[2019-05-07 08:06] LABS: ATYPICAL LYMPH 3 % (0-5); LYMPHOCYTES 33 % (16-44); METAMYELOCYTES 1 % (0-0); MONOCYTES 1 % (0-5); MYELOCYTES 2 % (0-0); NEUTROPHILS 49 % (28-66); PLATELET ESTIMATE INCREASED (NORMAL)
[2019-05-07 08:07] LABS: ANISOCYTOSIS 1+
[2019-05-07] MEDS: ASPIRIN 81 MG ENTERIC TAB PO SCH (08:22)
[2019-05-07] MEDS: MULTIVITAMINS/MINERALS THERAP 1 TAB PO SCH (08:22)
[2019-05-07] MEDS: LACTOBACILLUS ACIDOPHILUS CAP (BACID) PO SCH (08:22)
[2019-05-07] MEDS: ONDANSETRON 4MG/2ML VIAL (J2405) IV PRN (08:22)
[2019-05-07] MEDS: OMEGA-3 1000MG CAPSULE PO SCH ×2 (08:22→17:33)
[2019-05-07] MEDS: LOSARTAN 25 MG TAB PO SCH (08:23)
[2019-05-07] MEDS: ENOXAPARIN 40 MG/0.4 ML SYRINGE (J1650) SC SCH (08:23)
[2019-05-07] MEDS ORDERED: FILGRASTIM 300 MCG/0.5 ML SYRINGE (J1442 PER 1MCG) SC SCH (09:00)
--- NOTE | 2019-05-07 09:37 | IPNPDOC ---
Text Note Date of Service The patient was seen on 05/07/19. NOTE Subjective: patient seen and examined at bedside. No acute overnight events reported. No new medical complaints this morning. Feels his pain is improving. 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 He had an outpatient CT done which was reported to him to show diverticulitis. he has not had a follow up colonoscopy due to concerns related to his chronic neutropenia. #diverticulitis in the setting of neutropenic fever - continue cefepim/flagyl - d/w Dr. Baptiste - continue neupogen - target ANC 5000 - IV fluids, advance to full liquids #hypothyroid stable continue synthroid #schizophrenia stable continue seroquel #DVT prophylaxis VS,Fishbone, I+O VS, Fishbone, I+O Laboratory Tests 05/07/19 06:50 Red Blood Count 3.65 L, Mean Corpuscular Volume 86.0, Mean Corpuscular Hemoglobin 29.3, Mean Corpuscular Hemoglobin Concent 34.1, Red Cell Distribution Width 13.9, Calcium Level 8.6 L, Aspartate Amino Transf (AST/SGOT) 6 L, Alanine Aminotransferase (ALT/SGPT) 18, Alkaline Phosphatase 122 H, Total Bilirubin 1.8 H, Total Protein 5.9 L, Albumin 2.8 L Vital Signs Date Time Temp Pulse Resp B/P (MAP) Pulse Ox O2 Delivery O2 Flow Rate FiO2 05/07/19 08:23 131/69 05/07/19 06:00 98.6 86 18 96 05/06/19 00:09 Room Air I&O- Last 24 Hours up to 6 AM 05/07/19 06:00 Intake Total 1410 ml Output Total 1850 ml Balance -440 ml TUNDE WHITE MD May 07, 2019 09:37
[2019-05-07] MEDS: MAGNESIUM OXIDE 400 MG TAB (MAG-OX) PO SCH ×2 (12:26→17:33)
[2019-05-07] MEDS: NS 0.45% 1,000 ML IV SCH ×2 (12:26→19:15)
[2019-05-07 16:00] VITALS: BP 110/52
[2019-05-07] MEDS: QUEtiapine FUMARATE 25 MG TAB PO SCH (20:13)
[2019-05-07] MEDS: FILGRASTIM 480 MCG/0.8 ML SYRINGE (J1442) SC SCH (20:14)
[2019-05-07 22:00] VITALS: BP 105/44
[2019-05-08] MEDS: CEFEPIME HCL 2 GM in D5W MINI-BAG PLUS 50 ML IV SCH ×2 (00:28→08:17)
[2019-05-08] MEDS: NS 0.45% 1,000 ML IV SCH (00:28)
[2019-05-08] MEDS: metroNIDAZOLE 500 MG in IV 1 EA IV SCH (03:24)
[2019-05-08] MEDS: ONDANSETRON 4MG/2ML VIAL (J2405) IV PRN ×2 (03:24→08:17)
[2019-05-08] MEDS: LEVOTHYROXINE 75MCG TABLET (0.075MG) PO SCH (05:18)
[2019-05-08] MEDS: LEVOTHYROXINE 100MCG TABLET (0.1MG) PO SCH (05:18)
[2019-05-08 06:00] VITALS: BP 112/54
[2019-05-08 06:39] LABS: HEMATOCRIT 31.7 % (42.0-52.0); HEMOGLOBIN 10.7 g/dl (13.5-17.5); MEAN CORPUSCULAR HEMOGLOBIN 29.3 pg (27.0-33.0); MEAN CORPUSCULAR HGB CONC 33.8 g/dl (32.0-36.5); MEAN CORPUSCULAR VOLUME 86.8 fl (80.0-96.0); PLATELET COUNT, AUTOMATED 576 10^3/uL (150-450); RED BLOOD COUNT 3.65 10^6/uL (4.30-6.10); WHITE BLOOD COUNT 3.2 10^3/uL (4.0-10.0)
[2019-05-08 06:55] LABS: ANISOCYTOSIS 1+; ATYPICAL LYMPH 4 % (0-5); GIANT PLATELETS 1+; LYMPHOCYTES 22 % (16-44); MONOCYTES 3 % (0-5); NEUTROPHILS 61 % (28-66); PLATELET ESTIMATE INCREASED (NORMAL)
[2019-05-08 07:03] LABS: ALBUMIN 2.9 GM/DL (3.2-5.2); ALT/SGPT 19 U/L (12-78); BILIRUBIN,TOTAL 1.6 MG/DL (0.2-1.0); BLOOD UREA NITROGEN 13 MG/DL (7-18); CALCIUM LEVEL 8.8 MG/DL (8.8-10.2); CARBON DIOXIDE LEVEL 27 MEQ/L (21-32); CHLORIDE LEVEL 104 MEQ/L (98-107); GLOMERULAR FILTRATION RATE > 60.0 (>42); GLUCOSE, FASTING 121 MG/DL (70-100); POTASSIUM SERUM 3.8 MEQ/L (3.5-5.1); SODIUM LEVEL 140 MEQ/L (136-145); TOTAL PROTEIN 6.2 GM/DL (6.4-8.2)
[2019-05-08] MEDS: ENOXAPARIN 40 MG/0.4 ML SYRINGE (J1650) SC SCH (08:17)
[2019-05-08] MEDS: LACTOBACILLUS ACIDOPHILUS CAP (BACID) PO SCH (08:17)
[2019-05-08] MEDS: ASPIRIN 81 MG ENTERIC TAB PO SCH (08:17)
[2019-05-08 08:18] VITALS: BP 112/54
[2019-05-08] MEDS: MULTIVITAMINS/MINERALS THERAP 1 TAB PO SCH (08:18)
[2019-05-08] MEDS: OMEGA-3 1000MG CAPSULE PO SCH (08:18)
[2019-05-08] MEDS: LOSARTAN 25 MG TAB PO SCH (08:18)
[2019-05-08] MEDS: MAGNESIUM OXIDE 400 MG TAB (MAG-OX) PO SCH (11:35)
[2019-05-08 14:00] VITALS: BP 110/52
[2019-05-08] MEDS ORDERED: metroNIDAZOLE (FLAGYL) 500 MG TAB PO SCH (14:00)
[2019-05-08] MEDS ORDERED: FLAG500T PO (15:02)
[2019-05-08] MEDS ORDERED: CEFD300CAP PO (15:02)
--- NOTE | 2019-05-08 15:07 | DS.PDOC ---
Discharge Summary General Date of Admission May 05, 2019 at 22:18 Date of Discharge 05/08/19 Discharge Summary PROCEDURES PERFORMED DURING STAY: [None]. DISCHARGE DIAGNOSES: #diverticulitis in the setting of neutropenic fever #hypothyroid #schizophrenia COMPLICATIONS/CHIEF COMPLAINT: Acute Diverticulitis,Neutropenic Fever. HISTORY OF PRESENT ILLNESS: 69m with hx of chronic autoimmune neutropenia, colon resection due to volvulus, hypothyroid and schizophrenia, who presented with abdominal pain. Pt notes that he had lifted something heavy on wednesday. Wednesday morning when he woke up he was having pain across the lower part of his abdomen which he had attributed to injuring himself lifting. He was eating normally, no subjective fevers, no change in his bowel habits. The pain persisted and he went to a clinic. he had an outpatient ct done which was reported to him to show diverticulitis. He has had several episodes of diverticulitis in the past, has not had a follow up colonoscopy due to concerns related to his chronic neutropenia. HOSPITAL COURSE: Patient admitted for furthe evaluation and treatment. He was initially NPO with IV fluids and antibiotic therapy. His diet was advanced and tolerated. He received neupogen SC daily until his ANC was >1000 as per recs with hematology. He tolerated his diet and was discharged home with outpatient follow up. DISCHARGE MEDICATIONS: Please see below. ALLERGIES: Please see below. PHYSICAL EXAMINATION ON DISCHARGE: VITAL SIGNS: Please see below. General: NAD, lying comfortably in bed HEENT: NC/AT, EOMI Lungs: CTA B/L Heart: +S1S2, RRR Abd: soft, tender, +BS Ext: no edema LABORATORY DATA: Please see below. ACTIVITY: [As tolerated]. DIET: As tolerated DISPOSITION: Discharge home DISCHARGE INSTRUCTIONS: 1. Follow up PCP in 3-5 days 2. Follow up hematology in 3-5 days 3. Follow up CBC / differential. DISCHARGE CONDITION: [Stable]. TIME SPENT ON DISCHARGE: 40 minutes. Vital Signs/I&Os Vital Signs Date Time Temp Pulse Resp B/P (MAP) Pulse Ox O2 Delivery O2 Flow Rate FiO2 05/08/19 08:18 112/54 05/08/19 06:00 97.2 76 19 96 05/06/19 00:09 Room Air I&O- Last 24 Hours up to 6 AM 05/08/19 06:00 Intake Total 2480 ml Output Total 1350 ml Balance 1130 ml Laboratory Data Labs 24H Laboratory Tests 2 05/08/19 06:17: Immature Granulocyte % (Auto) , Nucleated Red Blood Cells % (auto) 0.0, Neutrophils 61, Band Neutrophils 10, Lymphocytes (Manual) 22, Monocytes (Manual) 3, Atypical Lymphocytes 4, Platelet Estimate INCREASED, Giant Platelets 1+, Anisocytosis 1+, Anion Gap 9, Glomerular Filtration Rate > 60.0, Blood Urea Nitrogen 13, Creatinine 1.00, Sodium Level 140, Potassium Level 3.8, Chloride Level 104, Carbon Dioxide Level 27, Calcium Level 8.8, Aspartate Amino Transf (AST/SGOT) 6L, Alanine Aminotransferase (ALT/SGPT) 19, Alkaline Phosphatase 123H, Total Bilirubin 1.6H, Total Protein 6.2L, Albumin 2.9L, Albumin/Globulin Ratio 0.88L CBC/BMP Laboratory Tests 05/08/19 06:17 Red Blood Count 3.65 L, Mean Corpuscular Volume 86.8, Mean Corpuscular Hemoglobin 29.3, Mean Corpuscular Hemoglobin Concent 33.8, Red Cell Distribution Width 14.0, Calcium Level 8.8, Aspartate Amino Transf (AST/SGOT) 6 L, Alanine Aminotransferase (ALT/SGPT) 19, Alkaline Phosphatase 123 H, Total Bilirubin 1.6 H, Total Protein 6.2 L, Albumin 2.9 L Microbiology Microbiology 05/05/19 Blood Culture - Preliminary, Resulted No Growth after 48 hours. All Specime... 05/05/19 Blood Culture - Preliminary, Resulted No Growth after 48 hours. All Specime... Discharge Medications Scheduled Aspirin (Aspirin EC) 81 Mg Tab, 81 MG PO DAILY, (Reported) Cefdinir (Cefdinir) 300 Mg Capsule, 300 MG PO BID Cholecalciferol (Vitamin D3) (Vitamin D3) 2,000 Unit Capsule, 2,000 MG PO DAILY, (Reported) Iodine (Kelp) 150 Mcg Tablet, 150 MCG PO DAILY, (Reported) Lactobacillus Combo No.10 (Probiotic) 1 Each Capsule, 1 TAB PO DAILY, (Reported) Levothyroxine Sodium (Levothyroxine Sodium) 175 Mcg Tab, 175 MCG PO DAILY, (Reported) Losartan Potassium (Losartan Potassium) 50 Mg Tab, 25 MG PO DAILY, (Reported) Magnesium Oxide (Magnesium Oxide) 400 Mg Tablet, 800 MG PO BID, (Reported) TAKES AT NOON AND DINNERTIME Metronidazole (Flagyl) 500 Mg Tablet, 500 MG PO Q8H Multivitamins (Thera M Plus Tablet) 1 Tab Tab, 1 TAB PO DAILY, (Reported) [place]-3 Fatty Acids/Fish Oil (Fish Oil 1,200 mg Softgel) 1 Each Capsule, 2,400 MG PO BID, (Reported) TAKES AT BREAKFAST AND DINNERTIME Quetiapine Fumarate (Quetiapine Fumarate) 25 Mg Tab, 25 MG PO QHS, (Reported) Scheduled PRN Acetaminophen (Pain Relief Extra Strength) 500 Mg Tablet, 500 MG PO for PAIN, (Reported) Polyvinyl Alcohol (Artificial Tears) 1.4 % Rach, 1 DROP OU QID PRN for DRY EYES, (Reported) Allergies Coded Allergies: bee venom protein (honey bee) (Verified Allergy, Severe, ANAPHYLACTIC, 11/25/18) amoxicillin (Verified Allergy, Intermediate, ALL OVER BODY RASH, 11/25/18) clavulanic acid (Verified Allergy, Intermediate, ALL OVER BODY RASH, 11/25/18) POULTRY (Verified Adverse Reaction, Intermediate, turkey - gout, 07/01/18) MICH Inhibitors (Verified Adverse Reaction, Mild, COUGH, 11/25/18) TUNDE WHITE MD May 08, 2019 15:07
[2019-05-08] MEDS ORDERED: CEFDINIR 300 MG CAP (OMNICEF) PO SCH (21:00)
[2019-06-16] MEDS ORDERED: GING1CAP PO (09:42)
[2019-07-06] MEDS ORDERED: [UNRECOGNIZED DRUG - CODE] PO (10:16)
[2019-07-20] MEDS ORDERED: GRAP50CA3 PO (10:41)
[2019-08-03] MEDS ORDERED: GRAP60TA PO (11:38)
[2019-08-31] MEDS ORDERED: MAGICMW SSP (10:23)
== END 2019-05-08 15:50 | disposition home or self-care (01) | DRG 809 ==
LOC: M ED 17:12 → M ED INP 22:18 → M MS5PR 05-06 00:38
PROVIDERS: ADMIT Hospitalist; ATTEND Internal Medicine
DX: D70.8 Other neutropenia (principal); K57.92 Diverticulitis of intestine, part unspecified, without perforation or abscess without bleeding; Z90.49 Acquired absence of other specified parts of digestive tract; E03.9 Hypothyroidism, unspecified; F25.9 Schizoaffective disorder, unspecified; Z79.82 Long term (current) use of aspirin; Z79.899 Other long term (current) drug therapy; Z91.030 Bee allergy status; Z88.0 Allergy status to penicillin; Z88.8 Allergy status to other drugs, medicaments and biological substances; Z91.018 Allergy to other foods

== ENCOUNTER 2019-05-28 22:33 | Inpatient (IN) | payer MEDICARE, OTHER ==
[~2019-05-28] VITALS: Ht 177.8 cm; Wt 68.2 kg
[~2019-05-28 22:33] MED LIST changes: +CVS1CAP2 PO; +CVS500TA35 PO; +D200CAP PO; +FISH1200 PO; +LORA1TAB12 PO; -LORA1TAB4 PO; +MAG400TA PO; +MAGN400T PO; -MAGN400T3 PO
[2019-05-28] MEDS ORDERED: VITAE20CA PO (22:45)
[2019-05-28] MEDS ORDERED: KETOROLAC 30 MG/ML VIAL (J1885) IV ONE (23:00)
[2019-05-28] MEDS ORDERED: ONDANSETRON 4MG/2ML VIAL (J2405) IV ONE (23:00)
[2019-05-28] MEDS ORDERED: MORPHINE 4 MG/ML 1ML VIAL/SYRINGE (J2270) IV ONE (23:00)
[2019-05-28] MEDS: NS 1,000 ML IV SCH (23:22)
[2019-05-28 23:25] LABS: HEMATOCRIT 33.7 % (42.0-52.0); HEMOGLOBIN 11.2 g/dl (13.5-17.5); MEAN CORPUSCULAR HEMOGLOBIN 28.5 pg (27.0-33.0); MEAN CORPUSCULAR HGB CONC 33.2 g/dl (32.0-36.5); MEAN CORPUSCULAR VOLUME 85.8 fl (80.0-96.0); PLATELET COUNT, AUTOMATED 762 10^3/uL (150-450); RED BLOOD COUNT 3.93 10^6/uL (4.30-6.10)
[2019-05-28 23:34] LABS: WHITE BLOOD COUNT 1.4 10^3/uL (4.0-10.0)
[2019-05-28 23:40] LABS: INR 1.2; PROTHROMBIN TIME 14.9 SECONDS (11.8-14.0)
[2019-05-28 23:43] LABS: ATYPICAL LYMPH 14 % (0-5); LYMPHOCYTES 64 % (16-44); MONOCYTES 3 % (0-5); NEUTROPHILS 19 % (28-66)
[2019-05-28 23:44] LABS: ANISOCYTOSIS 1+; POLYCHROMASIA 1+
[2019-05-28 23:45] LABS: GIANT PLATELETS 1+
[2019-05-28 23:46] LABS: PLATELET ESTIMATE INCREASED (NORMAL)
[2019-05-28 23:49] LABS: ALBUMIN 3.8 GM/DL (3.2-5.2); ALT/SGPT 27 U/L (12-78); BILIRUBIN,DIRECT 0.2 MG/DL (0.0-0.2); BILIRUBIN,TOTAL 0.7 MG/DL (0.2-1.0); BLOOD UREA NITROGEN 33 MG/DL (7-18); CARBON DIOXIDE LEVEL 34 MEQ/L (21-32); CHLORIDE LEVEL 99 MEQ/L (98-107); GLOMERULAR FILTRATION RATE > 60.0 (>42); GLUCOSE, FASTING 106 MG/DL (70-100); LIPASE 213 U/L (73-393); POTASSIUM SERUM 4.3 MEQ/L (3.5-5.1); SODIUM LEVEL 136 MEQ/L (136-145); TOTAL PROTEIN 7.6 GM/DL (6.4-8.2)
--- NOTE | 2019-05-29 00:12 | REPVR ---
PROCEDURE INFORMATION: Exam: CT Abdomen and pelvis without contrast Exam date and time: 05/28/2019 11:06 PM Clinical history: 69 years old, male; Abdominal pain; Additional info: Llq divertic TECHNIQUE: Imaging protocol: Computed tomography of the abdomen and pelvis without contrast. Radiation optimization: All CT scans at this facility use at least one of these dose optimization techniques: automated exposure control; mA and/or kV adjustment per patient size (includes targeted exams where dose is matched to clinical indication); or iterative reconstruction. COMPARISON: CT ABD PELVIS W/O CONTRAST 08/02/2018 11:10 AM FINDINGS: Lungs: Multiple small calcified granulomata in the right lower lobe posteriorly. Mediastinum: Minimal hiatal hernia. Liver: The liver at mid clavicular line measures 17.4 cm. Gallbladder and bile ducts: Status post cholecystectomy. Pancreas: Normal. No ductal dilation. Spleen: The spleen measures 15.1 cm. Adrenals: Normal. No mass. Kidneys and ureters: Normal. No hydronephrosis. Stomach and bowel: Somewhat redundant and elongated sigmoid colonic diverticulosis. There is mild diverticulitis of the proximal to mid sigmoid which appears centered around a few diverticula but particularly a diverticulum which projects laterally on series 202, image #18 and may reflect a culprit diverticulum and is in the upper pelvis adjacent to the peritoneal surface anteriorly. Appendix: There are no changes of appendicitis. A normal appendix is not seen. There is question of prior partial descending colectomy with ileocolic anastomosis. Intraperitoneal space: Scattered suture lines in the right abdomen. Vasculature: Coronary artery calcifications are present. Lymph nodes: Unremarkable. No enlarged lymph nodes. Bladder: Unremarkable as visualized. Reproductive: Unremarkable as visualized. Bones/joints: Fusion of the SI joints. Soft tissues: Broad-based right anterolateral ventral wall hernia through the lateral aspect of the right rectus abdominis muscle. Small fat filled epigastric ventral wall hernia to the right of midline. IMPRESSION: 1. Colonic diverticulosis with mild diverticulitis of the proximal to mid sigmoid which may be centered around a specific culprit diverticulum. The sigmoid is somewhat elongated and redundant and the location of the diverticulitis since in the upper pelvis and anterior adjacent to the anterior peritoneal surface. 2. Small ventral wall epigastric hernias centered to the right of midline and anterolateral right which are similar to the prior study. 3. Mild hepatosplenomegaly which is slightly increased since 08/02/2018. 4. Minimal hiatal hernia. 5. Status post cholecystectomy. Electronically signed by: Gopal Stuart On 05/29/2019 00:10:55 AM
[2019-05-29] MEDS ORDERED: CIPROFLOXACIN 400 MG in IV 1 EA IV ONE (01:30)
[2019-05-29] MEDS ORDERED: metroNIDAZOLE 500 MG in IV 1 EA IV ONE (01:30)
[2019-05-29] MEDS ORDERED: POLYVINYL ALCOHOL OPHTH SOLN 15 ML(LIQUITEARS) OU PRN (02:45)
[2019-05-29 03:40] VITALS: BP 125/62
[2019-05-29] MEDS: NS 1,000 ML IV SCH ×2 (04:07→15:44)
[2019-05-29] MEDS: QUEtiapine FUMARATE 25 MG TAB PO SCH ×2 (04:10→20:37)
[2019-05-29] MEDS: metroNIDAZOLE 500 MG in IV 1 EA IV SCH ×3 (05:42→20:37)
[2019-05-29 06:00] VITALS: BP 128/64
[2019-05-29] MEDS ORDERED: LEVOTHYROXINE 100MCG TABLET (0.1MG) PO SCH (06:00)
[2019-05-29 06:30] LABS: HEMATOCRIT 29.1 % (42.0-52.0); HEMOGLOBIN 9.8 g/dl (13.5-17.5); MEAN CORPUSCULAR HEMOGLOBIN 28.8 pg (27.0-33.0); MEAN CORPUSCULAR HGB CONC 33.7 g/dl (32.0-36.5); MEAN CORPUSCULAR VOLUME 85.6 fl (80.0-96.0)
[2019-05-29 06:32] LABS: PLATELET COUNT, AUTOMATED 644 10^3/uL (150-450); WHITE BLOOD COUNT 1.3 10^3/uL (4.0-10.0)
--- NOTE | 2019-05-29 06:42 | HPEPDOC ---
General Date of Admission May 29, 2019 at 02:24 Date of Service: May 29, 2019 Chief Complaint The patient is a 69-year-old male admitted with a reason for visit of Acute Diverticulitis, Autoimmune Neutripenia. History of Present Illness 69m with hx of chronic autoimmune neutropenia, colon resection due to volvulus, hypothyroid and schizophrenia. Pt was admitted 05/05-05/08 for neutropenic fever and diverticulitis. He completed a 10 day course of antibiotics and was given neupogen to support his neutrophil count. His pain had improved but never quite resolved. He reports seeing Dr Lieberman 05/15 for follow up and noted to be neutropenic again. She prescribed him another four days of neupogen as he was still having some discomfort. Prior to this episode he felt he had strained his abdominal muscles lifting something heavy and still attributes the persisting pain perhaps to this injury. Last night after eating dinner he acutely felt a severe pain in his lower left abdomen which he felt was more consistent with his diverticulitis episodes and he came to the ED. He denied any fevers this time. A full ROS was performed and negative except as above Home Medications Scheduled Aspirin (Aspirin EC) 81 Mg Tab, 81 MG PO DAILY, (Reported) Cholecalciferol (Vitamin D3) (Vitamin D3) 2,000 Unit Capsule, 2,000 MG PO DAILY, (Reported) Iodine (Kelp) 150 Mcg Tablet, 150 MCG PO DAILY, (Reported) Lactobacillus Combo No.10 (Probiotic) 1 Each Capsule, 1 TAB PO DAILY, (Reported) Levothyroxine Sodium (Levothyroxine Sodium) 175 Mcg Tab, 175 MCG PO DAILY, (Reported) Losartan Potassium (Losartan Potassium) 50 Mg Tab, 25 MG PO DAILY, (Reported) Magnesium Oxide (Magnesium Oxide) 400 Mg Tablet, 800 MG PO BID, (Reported) TAKES AT NOON AND DINNERTIME Multivitamins (Thera M Plus Tablet) 1 Tab Tab, 1 TAB PO DAILY, (Reported) [place]-3 Fatty Acids/Fish Oil (Fish Oil 1,200 mg Softgel) 1 Each Capsule, 2,400 MG PO BID, (Reported) TAKES AT BREAKFAST AND DINNERTIME Quetiapine Fumarate (Quetiapine Fumarate) 25 Mg Tab, 25 MG PO QHS, (Reported) Vitamin E (Vitamin E) 200 Unit Capsule, 200 UNIT PO DAILY, (Reported) Scheduled PRN Acetaminophen (Pain Relief Extra Strength) 500 Mg Tablet, 500 MG PO for PAIN, (Reported) Polyvinyl Alcohol (Artificial Tears) 1.4 % Rach, 1 DROP OU QID PRN for DRY EYES, (Reported) Allergies Coded Allergies: bee venom protein (honey bee) (Verified Allergy, Severe, ANAPHYLACTIC, 11/25/18) amoxicillin (Verified Allergy, Intermediate, ALL OVER BODY RASH, 11/25/18) clavulanic acid (Verified Allergy, Intermediate, ALL OVER BODY RASH, 11/25/18) POULTRY (Verified Adverse Reaction, Intermediate, turkey - gout, 07/01/18) MICH Inhibitors (Verified Adverse Reaction, Mild, COUGH, 11/25/18) Past Medical History Medical History hypothyroid, chronic AI neutropenia Surgical History colon resection Family History Significant Family History: No pertinent family hx Social History * Smoker: Denies Alcohol: Denies Drugs: denies A-FIB/CHADSVASC A-FIB History Current/History of A-Fib/PAF?: No Current PO Anticoag Therapy: No Age/Risk Factor Scoring CHADSVASC: CHADSVASC Response (Comments) Value Age Risk Factor Age 65-74 years old 1 Gender Risk Factor Male 0 Hx of CHF No 0 Hx of HTN No 0 Hx of Stroke/TIA/or VTE No 0 Hx of Diabetes No 0 Hx of Vascular Disease No 0 Total 1 Treatment Treatment ordered: NONE Reason Anticoagulant not given: Not indicated/[id number] Physical Examination General Exam: Positive: Alert, No Acute Distress Eye Exam: Positive: PERRLA, Conjunctiva & lids normal, EOMI; Negative: Sclera icteric ENT Exam: Positive: Atraumatic, Mucous membr. moist/pink, Pharynx Normal Neck Exam: Positive: Supple; Negative: JVD, thyromegaly Chest Exam: Positive: Clear to auscultation, Normal air movement Heart Exam: Positive: Rate Normal, Regular Rhythm, Normal S1, Normal S2; Negative: Murmurs, Rubs Telemetry: Positive: No significant arrhythmia Abdomen Exam: Positive: Normal bowel sounds, Soft, Tenderness; Negative: Hepatospenomegaly Extremity Exam: Positive: Normal pulses; Negative: Clubbing, Cyanosis, Edema Skin Exam: Positive: Nl turgor and temperature; Negative: Breakdown, Lesion Neuro Exam: Positive: Normal Gait, Normal Speech, Cranial Nerves 3-12 NL, Reflexes 2+ Psych Exam: Positive: Mental status NL, Mood NL, Oriented x 3 Vital Signs Vital Signs Date Time Temp Pulse Resp B/P (MAP) Pulse Ox O2 Delivery O2 Flow Rate FiO2 05/29/19 03:00 65 122/70 (87) 97 05/28/19 22:33 97.4 18 Room Air Laboratory Data Labs 24H Laboratory Tests 2 05/28/19 23:18: White Blood Count 1.4L, Red Blood Count 3.93L, Hemoglobin 11.2L, Hematocrit 33.7L, Mean Corpuscular Volume 85.8, Mean Corpuscular Hemoglobin 28.5, Mean Corpuscular Hemoglobin Concent 33.2, Red Cell Distribution Width 15.6H, Platelet Count 762H, Neutrophils # (Auto) , Nucleated Red Blood Cells % (auto) 0.0, Neutrophils 19L, Lymphocytes (Manual) 64H, Monocytes (Manual) 3, Atypical Lymphocytes 14H, Platelet Estimate INCREASED, Giant Platelets 1+, Polychromasia 1+, Anisocytosis 1+, Prothrombin Time 14.9H, Prothromb Time International Ratio 1.20, Anion Gap 3L, Glomerular Filtration Rate > 60.0, Calcium Level 9.0, Aspartate Amino Transf (AST/SGOT) 12, Alanine Aminotransferase (ALT/SGPT) 27, Alkaline Phosphatase 96, Total Bilirubin 0.7, Direct Bilirubin 0.2, Total Protein 7.6, Albumin 3.8, Albumin/Globulin Ratio 1.00, Lipase 213 05/28/19 23:42: Urine Color YELLOW, Urine Appearance CLEAR, Urine pH 6.0, Urine Specific [place] 1.013, Urine Protein NEGATIVE, Urine Glucose (UA) NEGATIVE, Urine Ketones NEGATIVE, Urine Blood NEGATIVE, Urine Nitrite NEGATIVE, Urine Bilirubin NEGATIVE, Urine Urobilinogen 0.2, Urine Leukocyte Esterase NEGATIVE, Urine WBC (Auto) 0, Urine RBC (Auto) 1, Urine Hyaline Casts (Auto) 0, Urine Bacteria (Auto) NEGATIVE, Urine Squamous Epithelial Cells 0, Urine Sperm (Auto) 05/29/19 05:38: CBC/BMP Laboratory Tests 05/28/19 23:18 Red Blood Count 3.93 L, Mean Corpuscular Volume 85.8, Mean Corpuscular Hemoglobin 28.5, Mean Corpuscular Hemoglobin Concent 33.2, Red Cell Distribution Width 15.6 H, Neutrophils # (Auto) Assessment/Plan 69m p/w recurrent diverticulitis in setting of chronic neutropenia has been unable to get a colonoscopy due to the neutropenia continue cipro and flagyl as started in ED continue neupogen (ANC goal last time noted to be 5k, will defer to Dr Lieberman) monitor cbc and inflammatory markers hypothyroid stable continue synthroid schizophrenia stable continue seroquel Plan / VTE VTE Prophylaxis Ordered?: Yes JOY KOTHARI MD May 29, 2019 06:42
[2019-05-29 06:58] LABS: BLOOD UREA NITROGEN 34 MG/DL (7-18); CALCIUM LEVEL 8.5 MG/DL (8.8-10.2); CARBON DIOXIDE LEVEL 28 MEQ/L (21-32); CHLORIDE LEVEL 104 MEQ/L (98-107); CREATININE FOR GFR 0.98 MG/DL (0.70-1.30); GLOMERULAR FILTRATION RATE > 60.0 (>42); GLUCOSE, FASTING 92 MG/DL (70-100); POTASSIUM SERUM 4.2 MEQ/L (3.5-5.1); SODIUM LEVEL 137 MEQ/L (136-145)
[2019-05-29 07:21] LABS: ATYPICAL LYMPH 10 % (0-5); LYMPHOCYTES 75 % (16-44); METAMYELOCYTES 1 % (0-0); MONOCYTES 2 % (0-5); NEUTROPHILS 12 % (28-66); PLATELET ESTIMATE INCREASED (NORMAL)
[2019-05-29 07:22] LABS: ANISOCYTOSIS 1+; POIKILOCYTOSIS 1+
[2019-05-29] MEDS: LOSARTAN 50 MG TAB PO SCH (08:56)
[2019-05-29] MEDS: ASPIRIN 81 MG ENTERIC TAB PO SCH (08:56)
[2019-05-29] MEDS: MAGNESIUM OXIDE 400 MG TAB (MAG-OX) PO SCH ×2 (08:56→17:37)
[2019-05-29] MEDS: ENOXAPARIN 40 MG/0.4 ML SYRINGE (J1650) SC SCH (08:57)
[2019-05-29] MEDS: MULTIVITAMINS/MINERALS THERAP 1 TAB PO SCH (08:57)
[2019-05-29] MEDS: FILGRASTIM 480 MCG/0.8 ML SYRINGE (J1442) SC SCH (08:57)
--- NOTE | 2019-05-29 11:27 | IPNPDOC ---
Text Note Date of Service The patient was seen on 05/29/19. NOTE Subjective: Patient stated that his abdominal pain markedly improved, he denies fever, chills, nausea, vomiting, diarrhea or dysuria Objective: Objective:VITAL SIGNS: Please see below. GENERAL APPEARANCE: Well-nourished, well-developed, not in apparent distress HEENT: Normocephalic, atraumatic. Mucous members moist and pink CARDIOVASCULAR: Regular rate and rhythm. No murmurs, rubs or gallops. Radial pulses are intact. There is no lower extremity edema LUNGS: . Diminished lung sounds, scattered lung sounds on the left side ABDOMEN: Bowel sounds are hypoactive. Abdomen is soft and moderately tender in the left lower quadrant MUSCULOSKELETAL: Range of motion is intact in all 4 extremities NEUROLOGICAL: Cranial nerves II-12 are grossly intact. Speech is not dysarthric Assessment and plan Patient is 69 years old male with past medical history of autoimmune neutropeni a, colon resection due to volvulus, hypothyroidism, schizophrenia presented hospital with acute diverticulitis Acute recurrent diverticulitis Continue antibiotic treatment with Flagyl and Cipro Appreciate/agree with surgical consult for possible future bowel resection Clear liquid diet for now Neutropenia We'll check CBC with differential Patient does not have fever, chills Appreciate/agree with Dr. Baptiste consult Continue Neupogen hypothyroid stable continue synthroid schizophrenia stable continue seroquel VS,Fishbone, I+O VS, Fishbone, I+O Laboratory Tests 05/28/19 23:18 Red Blood Count 3.93 L, Mean Corpuscular Volume 85.8, Mean Corpuscular Hemoglobin 28.5, Mean Corpuscular Hemoglobin Concent 33.2, Red Cell Distribution Width 15.6 H, Neutrophils # (Auto) 05/29/19 05:38 Red Blood Count 3.40 L, Mean Corpuscular Volume 85.6, Mean Corpuscular Hemoglobin 28.8, Mean Corpuscular Hemoglobin Concent 33.7, Red Cell Distribution Width 15.8 H, Neutrophils # (Auto) , Calcium Level 8.5 L Vital Signs Date Time Temp Pulse Resp B/P (MAP) Pulse Ox O2 Delivery O2 Flow Rate FiO2 05/29/19 08:56 126/67 05/29/19 06:00 97.4 70 18 98 05/28/19 22:33 Room Air I&O- Last 24 Hours up to 6 AM 05/29/19 05:59 Intake Total 1100 ml Balance 1100 ml ISAI BRUMFIELD DO May 29, 2019 11:26
[2019-05-29 14:00] VITALS: BP 123/65
[2019-05-29] MEDS: ONDANSETRON 4MG/2ML VIAL (J2405) IV PRN (17:36)
[2019-05-29] MEDS: CIPROFLOXACIN 400 MG in IV 1 EA IV SCH (17:37)
[2019-05-29] MEDS: ACETAMINOPHEN TAB 650MG DOSE (2X325MG) PO PRN (20:37)
[2019-05-29 22:00] VITALS: BP 119/61
[2019-05-30] MEDS: NS 1,000 ML IV SCH ×2 (03:16→15:26)
[2019-05-30] MEDS: metroNIDAZOLE 500 MG in IV 1 EA IV SCH ×3 (05:05→21:12)
[2019-05-30 06:00] VITALS: BP 121/62
[2019-05-30 06:11] LABS: HEMATOCRIT 32.4 % (42.0-52.0); HEMOGLOBIN 10.6 g/dl (13.5-17.5); MEAN CORPUSCULAR HEMOGLOBIN 28.5 pg (27.0-33.0); MEAN CORPUSCULAR HGB CONC 32.7 g/dl (32.0-36.5); MEAN CORPUSCULAR VOLUME 87.1 fl (80.0-96.0); PLATELET COUNT, AUTOMATED 689 10^3/uL (150-450); RED BLOOD COUNT 3.72 10^6/uL (4.30-6.10)
[2019-05-30 06:14] LABS: WHITE BLOOD COUNT 1.3 10^3/uL (4.0-10.0)
[2019-05-30] MEDS: LEVOTHYROXINE 100MCG TABLET (0.1MG) PO SCH (06:27)
[2019-05-30] MEDS: LEVOTHYROXINE 75MCG TABLET (0.075MG) PO SCH (06:27)
[2019-05-30] MEDS: CIPROFLOXACIN 400 MG in IV 1 EA IV SCH ×2 (06:27→17:10)
[2019-05-30 06:46] LABS: BLOOD UREA NITROGEN 16 MG/DL (7-18); CALCIUM LEVEL 8.7 MG/DL (8.8-10.2); CARBON DIOXIDE LEVEL 32 MEQ/L (21-32); CHLORIDE LEVEL 108 MEQ/L (98-107); CREATININE FOR GFR 0.97 MG/DL (0.70-1.30); GLOMERULAR FILTRATION RATE > 60.0 (>42); GLUCOSE, FASTING 87 MG/DL (70-100); MAGNESIUM LEVEL 1.7 MG/DL (1.8-2.4); POTASSIUM SERUM 3.8 MEQ/L (3.5-5.1); SODIUM LEVEL 144 MEQ/L (136-145)
[2019-05-30 08:00] VITALS: BP 122/62
[2019-05-30] MEDS: ONDANSETRON 4MG/2ML VIAL (J2405) IV PRN ×4 (08:16→21:11)
[2019-05-30] MEDS: ENOXAPARIN 40 MG/0.4 ML SYRINGE (J1650) SC SCH (09:39)
[2019-05-30] MEDS: ASPIRIN 81 MG ENTERIC TAB PO SCH (09:40)
[2019-05-30] MEDS: ACETAMINOPHEN TAB 650MG DOSE (2X325MG) PO PRN ×2 (09:40→21:11)
[2019-05-30] MEDS: MAGNESIUM OXIDE 400 MG TAB (MAG-OX) PO SCH ×2 (09:41→17:10)
[2019-05-30] MEDS: LOSARTAN 50 MG TAB PO SCH (09:42)
[2019-05-30] MEDS: MULTIVITAMINS/MINERALS THERAP 1 TAB PO SCH (09:42)
[2019-05-30] MEDS: FILGRASTIM 480 MCG/0.8 ML SYRINGE (J1442) SC SCH (09:43)
--- NOTE | 2019-05-30 09:45 | CR ---
MEDICAL ONCOLOGY/HEMATOLOGY CONSULTATION DATE OF CONSULTATION: 05/29/2019 REASON FOR CONSULTATION: Neutropenia. This is a very pleasant 69-year-old gentleman who is currently being followed in the outpatient setting for autoimmune neutropenia. The patient has had bouts of diverticulitis and this is now the third admission in less than 1 year for the same. The patient had been getting Neupogen injections when he has an acute episode to try to maintain his absolute neutrophil count over 1500. He had also been tried with a trial of Neupogen on a biweekly basis, however, this failed to maintain an ANC over 500 and this was subsequently abandoned as it had not made any clinical difference. He does respond to sequential Neupogen given on a daily basis during periods of acute infection at a dose of 480 mcg daily. The patient's bone marrow biopsy core and aspirate had shown a normal cellular marrow with an erythroid predominant trilinear hematopoiesis. There was no sign of any increased blasts or neoplasia. 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 The patient has been seen at [facility] and has been advised to follow up with us here on observation alone. PAST MEDICAL HISTORY: Includes hypothyroidism, above-noted chronic neutropenia, status post colon resection, schizoaffective disorder. ALLERGIES: - BEE VENOM - AMOXICILLIN - CLAVULANIC ACID - POULTRY - MICH INHIBITORS FAMILY HISTORY: His father has CHF and diagnosed with heart disease. Mother had CHF and arthritis. There is family hereditary hearing loss also. SOCIAL HISTORY: Nonsmoker. Currently . Negative for EtOH. CURRENT MEDICATIONS: He is on acetaminophen, aspirin 81 mg, Lovenox 40 mg subcutaneous, started on Neupogen 480 mcg subcutaneous, Synthroid 75 mcg p.o. daily, Cozaar 25 mg p.o. daily, magnesium oxide 800 mg p.o. b.i.d., Seroquel 25 mg p.o. q.h.s., omega 3 fatty acids, fish oil 2400 mg p.o. b.i.d., as well as artificial Tears. REVIEW OF SYSTEMS: He currently denies any fever, shaking chills, nausea, vomiting, however, states that he does have pain and tenderness in the left flank area, especially on palpation. He has not had any problem with pain on defecation, change in color or caliber of stools. Relates that he has been trying to regulate his diet so that he has some fiber, but not too much in order to avoid these episodes. The remainder of the 12-point review of systems is otherwise negative. PHYSICAL EXAMINATION: His temperature is 98.1, pulse is 63, respiratory rate is 18, BP is 119/61, pulse oximetry is 99. HEENT is normocephalic, atraumatic. PERRL. EOMI. Sclerae is white, nonicteric. Oropharynx is otherwise clear. His neck is supple with no adenopathy. Chest has decreased breath sounds at the bases. Cardiovascular: S1 and S2 are appreciated with no murmurs. Abdomen shows an abdomen with prior scars. He does have some herniation on the left flank and the right flank area. He does have some tenderness on deep palpation in left flank area, but no guarding and no rebound. His extremities show no cyanosis, clubbing or any edema. There are no skin rashes. LABORATORIES: From 05/29/2019, show a WBC count of 1.3, hemoglobin of 9.8 over 29.1, platelet count of 644, neutrophils of 12, lymphocytes 75, monocytes 2% and atypical lymphs 10. ASSESSMENT: 1. Chronic autoimmune neutropenia with recurrent bouts of diverticulitis as a source of infection and constant risk for the patient. The plan is continue the Neupogen at 480 mcg. 2. To have surgical consultation assess the patient for possible consideration for diagnostic imaging. If the patient has one particular area where the diverticulitis is causing him trouble, resection as per surgical consultation may be amenable. Diagnostic testing may need to be done on an outside basis when the patient does not have an acute diverticulitis episode.
[2019-05-30 12:00] VITALS: BP 116/57
--- NOTE | 2019-05-30 12:38 | IPNPDOC ---
Subjective Date Seen The patient was seen on 05/30/19. Subjective Chief Complaint/HPI Patient is still has a abdominal pain and he is worried about his white cell count General: Denies: ROS Unobtainable, Chills, Night Sweats, Fatigue, Malaise, Normal Appetite, Other Symptoms Skin: Denies: Rash, Lesions, Jaundice, Bruising, Itching, Dry, Breakdown, Nail Changes, Other Pulmonary: Denies: Dyspnea, Cough, Pleuritic Chest Pain, Other Symptoms Cardiovascular: Denies: Chest Pain, Palpitations, Orthopnea, Paroxysmal Noc. Dyspnea, Edema, Lt Headedness, Other Symptoms Gastrointestinal: Reports: Abdominal Pain; Denies: Nausea, Vomiting, Diarrhea, Constipation, Melena, Hematochezia, Other Symptoms Musculoskeletal: Denies: Neck Pain, Back Pain, Shoulder Pain, Arm Pain, Hand Pain, Leg Pain, Foot Pain, Joint Pain, Muscle Pain, Spasms, Other Symptoms Neurological: Denies: Weakness, Numbness, Incoordination, Change in speech, Confusion, Seizures, Other Symptoms Objective Physical Examination General Exam: Positive: Alert, No Acute Distress Neck Exam: Positive: Supple Chest Exam: Positive: Clear to auscultation, Normal air movement Heart Exam: Positive: Rate Normal, Regular Rhythm, Normal S1, Normal S2 Abdomen Exam: Positive: Normal bowel sounds, Soft, Tenderness (left lower quadrant) Extremity Exam: Positive: Normal pulses Skin Exam: Positive: Nl turgor and temperature Assessment /Plan Problems (1) Diverticulitis Status: Acute Problem Text: Patient is 69 years old male with past medical history of autoimmune neutropenia, colon resection due to volvulus, hypothyroidism, schizophrenia presented hospital with acute diverticulitis Patient has acute recurrent diverticulitis He has been started on IVs Flagyl and Cipro Will continue the present antibiotics and follow with patient's clinical course and laboratory work Clear liquids Activity as tolerated Level work in a.m. (2) Autoimmune neutropenia Status: Chronic Problem Text: Patient follows up with Dr. Still Further recommendation as per oncology Reverse isolation Continue present medications Plan/VTE VTE Prophylaxis Ordered?: Yes VS, I&O, 24H, Fishbone Vital Signs/I&O Vital Signs Date Time Temp Pulse Resp B/P (MAP) Pulse Ox O2 Delivery O2 Flow Rate FiO2 05/30/19 12:00 97.9 71 16 116/57 (76) 97 05/28/19 22:33 Room Air I&O- Last 24 Hours up to 6 AM 05/30/19 06:00 Intake Total 3060 ml Balance 3060 ml Laboratory Data 24H LABS Laboratory Tests 2 05/30/19 05:40: Nucleated Red Blood Cells % (auto) 0.0, Anion Gap 4L, Glomerular Filtration Rate > 60.0, Blood Urea Nitrogen 16#, Creatinine 0.97, Sodium Level 144#, Potassium Level 3.8, Chloride Level 108H, Carbon Dioxide Level 32, Calcium Level 8.7L, Magnesium Level 1.7L CBC/BMP Laboratory Tests 05/30/19 05:40 Red Blood Count 3.72 L, Mean Corpuscular Volume 87.1, Mean Corpuscular Hemoglobin 28.5, Mean Corpuscular Hemoglobin Concent 32.7, Red Cell Distribution Width 16.0 H, Calcium Level 8.7 L LALIT VALENCIA MD May 30, 2019 12:38
[2019-05-30 14:00] VITALS: BP 118/60
[2019-05-30] MEDS: QUEtiapine FUMARATE 25 MG TAB PO SCH (21:12)
[2019-05-30 22:00] VITALS: BP 125/63
[2019-05-31] MEDS: NS 1,000 ML IV SCH ×3 (02:23→21:45)
[2019-05-31] MEDS: ONDANSETRON 4MG/2ML VIAL (J2405) IV PRN (05:11)
[2019-05-31] MEDS: metroNIDAZOLE 500 MG in IV 1 EA IV SCH ×3 (05:11→21:44)
[2019-05-31 06:00] VITALS: BP 126/63
[2019-05-31 06:15] LABS: HEMATOCRIT 33.7 % (42.0-52.0); MEAN CORPUSCULAR HEMOGLOBIN 28.1 pg (27.0-33.0); MEAN CORPUSCULAR HGB CONC 32.6 g/dl (32.0-36.5); MEAN CORPUSCULAR VOLUME 86.2 fl (80.0-96.0); PLATELET COUNT, AUTOMATED 658 10^3/uL (150-450); RED BLOOD COUNT 3.91 10^6/uL (4.30-6.10)
[2019-05-31] MEDS: LEVOTHYROXINE 100MCG TABLET (0.1MG) PO SCH (06:24)
[2019-05-31] MEDS: LEVOTHYROXINE 75MCG TABLET (0.075MG) PO SCH (06:24)
[2019-05-31] MEDS: CIPROFLOXACIN 400 MG in IV 1 EA IV SCH ×2 (06:24→18:45)
[2019-05-31 06:43] LABS: ALT/SGPT 19 U/L (12-78); BLOOD UREA NITROGEN 14 MG/DL (7-18); CALCIUM LEVEL 8.5 MG/DL (8.8-10.2); CARBON DIOXIDE LEVEL 26 MEQ/L (21-32); CHLORIDE LEVEL 106 MEQ/L (98-107); GLOMERULAR FILTRATION RATE > 60.0 (>42); GLUCOSE, FASTING 87 MG/DL (70-100); MAGNESIUM LEVEL 1.5 MG/DL (1.8-2.4); POTASSIUM SERUM 3.4 MEQ/L (3.5-5.1); SODIUM LEVEL 141 MEQ/L (136-145); TOTAL PROTEIN 6.4 GM/DL (6.4-8.2)
[2019-05-31 06:44] LABS: BILIRUBIN,TOTAL 1.7 MG/DL (0.2-1.0)
[2019-05-31 06:58] LABS: ANISOCYTOSIS 1+; ATYPICAL LYMPH 4 % (0-5); LYMPHOCYTES 61 % (16-44); MONOCYTES 3 % (0-5); NEUTROPHILS 32 % (28-66); PLATELET ESTIMATE INCREASED (NORMAL); SMUDGE CELLS 1+
[2019-05-31] MEDS ORDERED: POTASSIUM CHLORIDE 10 MEQ SR TABLET PO ONE (07:45)
[2019-05-31 08:00] VITALS: BP 121/64
[2019-05-31] MEDS: PROMETHAZINE INJ 25 MG/ML VIAL (J2550) IV PRN ×3 (09:15→18:07)
[2019-05-31] MEDS: ENOXAPARIN 40 MG/0.4 ML SYRINGE (J1650) SC SCH (09:17)
[2019-05-31] MEDS: FILGRASTIM 480 MCG/0.8 ML SYRINGE (J1442) SC SCH (09:17)
[2019-05-31] MEDS: ASPIRIN 81 MG ENTERIC TAB PO SCH (09:53)
[2019-05-31] MEDS: LOSARTAN 50 MG TAB PO SCH (09:54)
[2019-05-31] MEDS: MAGNESIUM OXIDE 400 MG TAB (MAG-OX) PO SCH ×2 (09:55→18:07)
[2019-05-31] MEDS: MULTIVITAMINS/MINERALS THERAP 1 TAB PO SCH (09:55)
--- NOTE | 2019-05-31 11:32 | IPNPDOC ---
Subjective Date Seen The patient was seen on 05/31/19. Subjective Chief Complaint/HPI Patient is still complaining of nausea. Zofran is not helping. General: Denies: ROS Unobtainable, Chills, Night Sweats, Fatigue, Malaise, Normal Appetite, Other Symptoms Constitutional: Denies: Chills, Fever, Malaise, Night Sweats, Weakness, Fatigue, Weight Loss, Lethargy, Other Skin: Denies: Rash, Lesions, Jaundice, Bruising, Itching, Dry, Breakdown, Nail Changes, Other Pulmonary: Denies: Dyspnea, Cough, Pleuritic Chest Pain, Other Symptoms Cardiovascular: Denies: Chest Pain, Palpitations, Orthopnea, Paroxysmal Noc. Dyspnea, Edema, Lt Headedness, Other Symptoms Gastrointestinal: Reports: Nausea Musculoskeletal: Denies: Neck Pain, Back Pain, Shoulder Pain, Arm Pain, Hand Pain, Leg Pain, Foot Pain, Joint Pain, Muscle Pain, Spasms, Other Symptoms Neurological: Denies: Weakness, Numbness, Incoordination, Change in speech, Confusion, Seizures, Other Symptoms Objective Physical Examination Neck Exam: Positive: Supple Chest Exam: Positive: Clear to auscultation, Normal air movement Heart Exam: Positive: Rate Normal, Regular Rhythm, Normal S1, Normal S2 Abdomen Exam: Positive: Normal bowel sounds, Soft, Tenderness (left lower quadrant) Extremity Exam: Positive: Normal pulses Skin Exam: Positive: Nl turgor and temperature Assessment /Plan Problems (1) Diverticulitis Status: Acute Problem Text: Patient is 69 years old male with past medical history of autoimmune neutropenia, 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 Stable H&H Patient follows up with Dr. Baptiste Further recommendation as per oncology Reverse isolation Continue present medications Plan/VTE VTE Prophylaxis Ordered?: Yes VS, I&O, 24H, Fishbone Vital Signs/I&O Vital Signs Date Time Temp Pulse Resp B/P (MAP) Pulse Ox O2 Delivery O2 Flow Rate FiO2 05/31/19 09:54 121/64 05/31/19 08:00 97.7 78 18 98 05/28/19 22:33 Room Air I&O- Last 24 Hours up to 6 AM 05/31/19 06:00 Intake Total 3840 ml Output Total 15 ml Balance 3825 ml Laboratory Data 24H LABS Laboratory Tests 2 05/31/19 05:50: White Blood Count 2.0L, Red Blood Count 3.91L, Hemoglobin 11.0L, Hematocrit 33.7L, Mean Corpuscular Volume 86.2, Mean Corpuscular Hemoglobin 28.1, Mean Corpuscular Hemoglobin Concent 32.6, Red Cell Distribution Width 15.9H, Platelet Count 658H, Neutrophils # (Auto) , Nucleated Red Blood Cells % (auto) 0.0, Neutrophils 32, Lymphocytes (Manual) 61H, Monocytes (Manual) 3, Atypical Lymphocytes 4, Smudge Cells 1+, Platelet Estimate INCREASED, Anisocytosis 1+, Ovalocytes , Anion Gap 9, Glomerular Filtration Rate > 60.0, Blood Urea Nitrogen 14, Creatinine 1.00, Sodium Level 141, Potassium Level 3.4L, Chloride Level 106, Carbon Dioxide Level 26, Calcium Level 8.5L, Aspartate Amino Transf (AST/SGOT) 5L, Alanine Aminotransferase (ALT/SGPT) 19, Alkaline Phosphatase 89, Total Bilirubin 1.7#H, Total Protein 6.4, Albumin 3.0#L, Magnesium Level 1.5L, Albumin/Globulin Ratio 0.88L CBC/BMP Laboratory Tests 05/31/19 05:50 Red Blood Count 3.91 L, Mean Corpuscular Volume 86.2, Mean Corpuscular Hemoglobin 28.1, Mean Corpuscular Hemoglobin Concent 32.6, Red Cell Distribution Width 15.9 H, Neutrophils # (Auto) , Calcium Level 8.5 L, Aspartate Amino Transf (AST/SGOT) 5 L, Alanine Aminotransferase (ALT/SGPT) 19, Alkaline Phosphatase 89, Total Bilirubin 1.7 #H, Total Protein 6.4, Albumin 3.0 #L LALIT VALENCIA MD May 31, 2019 11:32
[2019-05-31 14:01] VITALS: BP 120/60
--- NOTE | 2019-05-31 21:23 | CR ---
DATE OF CONSULTATION: 05/30/2019 REASON FOR CONSULTATION: Diverticulitis. HISTORY OF PRESENT ILLNESS The patient is a pleasant 69-year-old man who was admitted on the May 12 by the hospitalist for management of diverticulitis. The patient has a history of autoimmune neutropenia from which he has suffered for 14 months or more. He has apparently had several episodes of abdominal pain diagnosed as diverticulitis based on CT findings which mandated admission for intravenous antibiotics. He has been followed by Dr. Baptiste in the hematology oncology department for management of his neutropenia. He apparently had been tried on some Neupogen on a routine basis but did not actually achieve an adequate response and so this was stopped. He does apparently improve his white count with Neupogen on a daily basis. He reports that he had presented with some severe lower to mid abdominal pain on the left. He reports that today he is feeling better than at the time of his admission. The question had been raised as to whether he would benefit from a possible resection for his diverticulosis, particularly given his neutropenia and I was asked to consult. ALLERGIES: The patient reports allergies to AMOXICILLIN, CLAVULANIC ACID, MICH INHIBITORS, BEE VENOM and POULTRY. HOME MEDICATIONS: His routine home medications are listed as aspirin, vitamin D3, iodine, lactobacillus probiotic capsules, levothyroxine, losartan, magnesium oxide, multivitamins, omega 3 fatty acids, quetiapine fumarate and vitamin E. PAST MEDICAL HISTORY: Significant for hypothyroidism and his more recent chronic autoimmune neutropenia. 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 He unfortunately suffered an anastomotic leak shortly after that procedure and required additional surgery for drainage of multiple abscesses. During that surgery he also underwent removal of his gallbladder and had a diverting ileostomy created. His ileostomy was closed about 3 months later in July 2008. He has known ventral incisional hernias secondary to that surgery. FAMILY HISTORY: Shows no pertinent inheritable conditions. SOCIAL HISTORY The patient is retired. He denies tobacco use. REVIEW OF SYSTEMS: Reveals no history of chest pain or palpitations. He has no shortness of breath, cough or wheezing. He has not had any melena or hematochezia. He denies any history of hepatitis, pancreatitis or peptic ulcer disease. He has no significant orthopedic issues. There is no history of deep venous thrombosis (DVT) or pulmonary embolus. PHYSICAL EXAMINATION: Reveals a pleasant older man lying quietly on the hospital bed. He is alert and cooperative. He appears very knowledgeable about his medical conditions. Neck is supple without mass. Heart exam shows a regular rhythm and he is not tachycardiac. The lungs are clear. The abdomen shows scarring consistent with a long midline incision as well as a scar on the right from his ileostomy site. He appears to have hernias along the midline near the umbilicus and also in the right lower quadrant at his ileostomy site. He has bowel sounds present. There is some tenderness fairly localized to an area in the left lower quadrant slightly below the level of the umbilicus. This is an area perhaps 6-8 cm in diameter. In this area he has some moderate tenderness and some much less tenderness in the remainder of the left lower quadrant. Extremities are without edema. LABORATORY STUDIES: Show a white count of 1.3 with a hemoglobin of 11, hematocrit 32 and platelet count of 689,000. Chemistry profile showed a sodium of 144, potassium 3.8, chloride 108, CO2 of 32, BUN of 16, creatinine of 1 and glucose of 87. CT images from May 28 were reviewed. These confirm his several abdominal wall hernias. The study was done without any contrast. There is a suggestion of an anastomosis in the right midabdomen. There is some stool noted in the colon. He does have some diverticular disease noted with several contrast containing diverticuli in the sigmoid colon. There does appear to be an area of some thickening in what seems to be his transverse colon on the left. IMPRESSION: 1. Recurrent diverticulitis in a patient with autoimmune neutropenia. 2. Status post partial colectomy with a history of multiple abdominal abscesses. 3. Ventral incisional hernias. 4. Hypothyroidism. 5. Reported history of schizophrenia. RECOMMENDATIONS The patient has autoimmune neutropenia which certainly would complicate any sort of infectious process. He has had by his report several episodes of diverticulitis. Certainly if these have all occurred in the same segment of the bowel and within a reasonably short period of time it may be reasonable to consider a resection to try to prevent additional episodes just as we would do in somebody who did not have autoimmune neutropenia. However, his surgery will be a somewhat more difficult if we choose to go this road based on his past history of a colon resection complicated by anastomotic leak with multiple abscesses requiring additional surgery and bowel resection. He also has two incisional hernias that would need to be addressed. Certainly there is no indication for surgery during this acute attack. I would recommend continuing his antibiotics and addressing his neutropenia as recommended by Dr. Baptiste. I will review his other hospitalizations and CT scans to get a better feeling for whether he may be a good candidate for bowel resection and follow up with him within the next 1-2 days. DEDE
[2019-05-31] MEDS: QUEtiapine FUMARATE 25 MG TAB PO SCH (21:45)
[2019-06-01] MEDS: metroNIDAZOLE 500 MG in IV 1 EA IV SCH (05:04)
[2019-06-01] MEDS: PROMETHAZINE INJ 25 MG/ML VIAL (J2550) IV PRN ×3 (05:52→22:56)
[2019-06-01] MEDS: CIPROFLOXACIN 400 MG in IV 1 EA IV SCH (05:52)
[2019-06-01] MEDS: LEVOTHYROXINE 100MCG TABLET (0.1MG) PO SCH (05:52)
[2019-06-01] MEDS: LEVOTHYROXINE 75MCG TABLET (0.075MG) PO SCH (05:53)
[2019-06-01] MEDS: NS 1,000 ML IV SCH ×2 (05:53→17:53)
[2019-06-01 06:00] VITALS: BP 138/67
[2019-06-01 06:15] LABS: HEMATOCRIT 31.9 % (42.0-52.0); HEMOGLOBIN 10.5 g/dl (13.5-17.5); MEAN CORPUSCULAR HEMOGLOBIN 28.2 pg (27.0-33.0); MEAN CORPUSCULAR HGB CONC 32.9 g/dl (32.0-36.5); MEAN CORPUSCULAR VOLUME 85.8 fl (80.0-96.0); PLATELET COUNT, AUTOMATED 658 10^3/uL (150-450); RED BLOOD COUNT 3.72 10^6/uL (4.30-6.10)
[2019-06-01 06:23] LABS: WHITE BLOOD COUNT 1.9 10^3/uL (4.0-10.0)
[2019-06-01 06:51] LABS: ALBUMIN 2.8 GM/DL (3.2-5.2); ALT/SGPT 14 U/L (12-78); BILIRUBIN,TOTAL 1.6 MG/DL (0.2-1.0); BLOOD UREA NITROGEN 14 MG/DL (7-18); CALCIUM LEVEL 8.3 MG/DL (8.8-10.2); CARBON DIOXIDE LEVEL 25 MEQ/L (21-32); CHLORIDE LEVEL 106 MEQ/L (98-107); CREATININE FOR GFR 0.93 MG/DL (0.70-1.30); GLOMERULAR FILTRATION RATE > 60.0 (>42); GLUCOSE, FASTING 97 MG/DL (70-100); MAGNESIUM LEVEL 1.5 MG/DL (1.8-2.4); POTASSIUM SERUM 3.6 MEQ/L (3.5-5.1); SODIUM LEVEL 139 MEQ/L (136-145); TOTAL PROTEIN 5.6 GM/DL (6.4-8.2)
[2019-06-01 07:05] LABS: ANISOCYTOSIS 1+; ATYPICAL LYMPH 4 % (0-5); LYMPHOCYTES 52 % (16-44); MONOCYTES 6 % (0-5); NEUTROPHILS 38 % (28-66); PLATELET ESTIMATE INCREASED (NORMAL)
[2019-06-01 07:06] LABS: POLYCHROMASIA 1+
[2019-06-01] MEDS: ENOXAPARIN 40 MG/0.4 ML SYRINGE (J1650) SC SCH (09:22)
[2019-06-01] MEDS: ASPIRIN 81 MG ENTERIC TAB PO SCH (09:23)
[2019-06-01] MEDS: MAGNESIUM OXIDE 400 MG TAB (MAG-OX) PO SCH ×2 (09:24→17:53)
[2019-06-01] MEDS: MULTIVITAMINS/MINERALS THERAP 1 TAB PO SCH (09:24)
[2019-06-01] MEDS: LOSARTAN 50 MG TAB PO SCH (09:25)
[2019-06-01] MEDS: PIPERACILLIN/TAZOBACTAM SOD 3.375 GM in D5W MINI-BAG PLUS 50 ML IV SCH ×3 (09:26→21:22)
[2019-06-01] MEDS ORDERED: MAG SULF 1GM/100ML (MAG RUN) 1 GM in IV 1 EA IV ONE (09:30)
[2019-06-01] MEDS: FILGRASTIM 480 MCG/0.8 ML SYRINGE (J1442) SC SCH (09:33)
--- NOTE | 2019-06-01 11:35 | IPNPDOC ---
Subjective Date Seen The patient was seen on 06/01/19. Subjective Chief Complaint/HPI . Patient is still experiencing nausea, vomiting with Cipro and Flagyl when he is given Phenergan, which is working better than Zofran. He was previously taking before the IV antibiotics and his nausea, vomiting is pending determinations in severity. Patient is anxious wishes antibiotics to be changed and worried about his white cell count. Note, he does not offer any complaints of abdominal pain General: Denies: ROS Unobtainable, Chills, Night Sweats, Fatigue, Malaise, Normal Appetite, Other Symptoms Constitutional: Denies: Chills, Fever, Malaise, Night Sweats, Weakness, Fatigue, Weight Loss, Lethargy, Other Pulmonary: Denies: Dyspnea, Cough, Pleuritic Chest Pain, Other Symptoms Cardiovascular: Denies: Chest Pain, Palpitations, Orthopnea, Paroxysmal Noc. Dyspnea, Edema, Lt Headedness, Other Symptoms Gastrointestinal: Denies: Nausea, Vomiting, Abdominal Pain, Diarrhea, Constipation, Melena, Hematochezia, Other Symptoms Musculoskeletal: Denies: Neck Pain, Back Pain, Shoulder Pain, Arm Pain, Hand Pain, Leg Pain, Foot Pain, Joint Pain, Muscle Pain, Spasms, Other Symptoms Neurological: Denies: Weakness, Numbness, Incoordination, Change in speech, Confusion, Seizures, Other Symptoms Objective Physical Examination Neck Exam: Positive: Supple Chest Exam: Positive: Clear to auscultation, Normal air movement Heart Exam: Positive: Rate Normal, Regular Rhythm, Normal S1, Normal S2 Abdomen Exam: Positive: Normal bowel sounds, Soft, Tenderness (mild tenderness left lower quadrant on deep palpation) Extremity Exam: Positive: Normal pulses Skin Exam: Positive: Nl turgor and temperature Assessment /Plan Problems (1) Diverticulitis Status: Acute Problem Text: Patient is 69 years old male with past medical history of autoimmune neutropenia, 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 We'll repeat a CT of the abdomen and pelvis (2) Autoimmune neutropenia Status: Chronic Problem Text: WBC count is 1.9 today with a stable hemoglobin of 10.5 Continue to reverse isolation Monitor CBC Troponin is secondary to autoimmune disorder, Dr. Still on thecase (3) Hypomagnesemia Status: Acute Problem Text: Mg so4 1 gm run 1 given To be labs in a.m. Plan/VTE VTE Prophylaxis Ordered?: Yes VS, I&O, 24H, Fishbone Vital Signs/I&O Vital Signs Date Time Temp Pulse Resp B/P (MAP) Pulse Ox O2 Delivery O2 Flow Rate FiO2 06/01/19 09:25 135/66 06/01/19 06:00 98.8 82 18 96 05/28/19 22:33 Room Air I&O- Last 24 Hours up to 6 AM0 06/01/19 06:00 Intake Total 3480 ml Output Total 365 ml Balance 3115 ml Laboratory Data 24H LABS Laboratory Tests 2 06/01/19 05:38: White Blood Count 1.9L, Red Blood Count 3.72L, Hemoglobin 10.5L, Hematocrit 31.9L, Mean Corpuscular Volume 85.8, Mean Corpuscular Hemoglobin 28.2, Mean Corpuscular Hemoglobin Concent 32.9, Red Cell Distribution Width 16.1H, Platelet Count 658H, Neutrophils # (Auto) , Nucleated Red Blood Cells % (auto) 0.0, Neutrophils 38, Lymphocytes (Manual) 52H, Monocytes (Manual) 6H, Atypical Lymphocytes 4, Platelet Estimate INCREASED, Polychromasia 1+, Anisocytosis 1+, Anion Gap 8, Glomerular Filtration Rate > 60.0, Blood Urea Nitrogen 14, Creatinine 0.93, Sodium Level 139, Potassium Level 3.6, Chloride Level 106, Carbon Dioxide Level 25, Calcium Level 8.3L, Aspartate Amino Transf (AST/SGOT) 6 L, Alanine Aminotransferase (ALT/SGPT) 14, Alkaline Phosphatase 74, Total Bilirubin 1.6H, Total Protein 5.6L, Albumin 2.8L, Magnesium Level 1.5L, Albumin/Globulin Ratio 1.00 CBC/BMP Laboratory Tests 06/01/19 05:38 Red Blood Count 3.72 L, Mean Corpuscular Volume 85.8, Mean Corpuscular Hemoglobin 28.2, Mean Corpuscular Hemoglobin Concent 32.9, Red Cell Distribution Width 16.1 H, Neutrophils # (Auto) , Calcium Level 8.3 L, Aspartate Amino Transf (AST/SGOT) 6 L, Alanine Aminotransferase (ALT/SGPT) 14, Alkaline Phosphatase 74, Total Bilirubin 1.6 H, Total Protein 5.6 L, Albumin 2.8 L LALIT VALENCIA MD Jun 01, 2019 11:35
[2019-06-01 16:00] VITALS: BP 134/65
[2019-06-01] MEDS: ACETAMINOPHEN TAB 650MG DOSE (2X325MG) PO PRN (17:55)
[2019-06-01 20:00] VITALS: BP 134/62
[2019-06-01] MEDS: QUEtiapine FUMARATE 25 MG TAB PO SCH (21:22)
[2019-06-02] MEDS: NS 1,000 ML IV SCH ×2 (01:49→13:15)
[2019-06-02] MEDS: PIPERACILLIN/TAZOBACTAM SOD 3.375 GM in D5W MINI-BAG PLUS 50 ML IV SCH ×4 (03:40→20:47)
[2019-06-02] MEDS: LEVOTHYROXINE 75MCG TABLET (0.075MG) PO SCH (05:51)
[2019-06-02] MEDS: LEVOTHYROXINE 100MCG TABLET (0.1MG) PO SCH (05:51)
[2019-06-02 06:00] VITALS: BP 128/78
[2019-06-02 06:42] LABS: HEMATOCRIT 31.5 % (42.0-52.0); HEMOGLOBIN 10.6 g/dl (13.5-17.5); MEAN CORPUSCULAR HEMOGLOBIN 28.6 pg (27.0-33.0); MEAN CORPUSCULAR HGB CONC 33.7 g/dl (32.0-36.5); MEAN CORPUSCULAR VOLUME 85.1 fl (80.0-96.0); PLATELET COUNT, AUTOMATED 571 10^3/uL (150-450)
[2019-06-02 07:02] LABS: WHITE BLOOD COUNT 1.5 10^3/uL (4.0-10.0)
[2019-06-02 07:06] LABS: BLOOD UREA NITROGEN 9 MG/DL (7-18); CARBON DIOXIDE LEVEL 27 MEQ/L (21-32); CHLORIDE LEVEL 107 MEQ/L (98-107); CREATININE FOR GFR 1.01 MG/DL (0.70-1.30); GLOMERULAR FILTRATION RATE > 60.0 (>42); GLUCOSE, FASTING 93 MG/DL (70-100); MAGNESIUM LEVEL 1.4 MG/DL (1.8-2.4); POTASSIUM SERUM 2.9 MEQ/L (3.5-5.1); SODIUM LEVEL 141 MEQ/L (136-145)
[2019-06-02] MEDS ORDERED: MAG SULF 1GM/100ML (MAG RUN) 1 GM in IV 1 EA IV ONE (08:00)
[2019-06-02 08:10] LABS: LYMPHOCYTES 68 % (16-44); MONOCYTES 2 % (0-5); NEUTROPHILS 30 % (28-66); PLATELET ESTIMATE INCREASED (NORMAL)
[2019-06-02] MEDS: MULTIVITAMINS/MINERALS THERAP 1 TAB PO SCH (09:05)
[2019-06-02] MEDS: LOSARTAN 50 MG TAB PO SCH (09:05)
[2019-06-02] MEDS: MAGNESIUM OXIDE 400 MG TAB (MAG-OX) PO SCH ×2 (09:05→17:31)
[2019-06-02] MEDS: ASPIRIN 81 MG ENTERIC TAB PO SCH (09:05)
[2019-06-02] MEDS: KCL 10MEQ/100ML SWI (KRUN) 10 MEQ in IV 1 EA IV SCH ×2 (09:05→11:55)
[2019-06-02] MEDS: ENOXAPARIN 40 MG/0.4 ML SYRINGE (J1650) SC SCH (09:06)
[2019-06-02] MEDS: FILGRASTIM 480 MCG/0.8 ML SYRINGE (J1442) SC SCH (10:53)
[2019-06-02] MEDS ORDERED: ISOVUE-370 76% 100ML VIAL (Q9967) As Ordered ONE (11:47)
--- NOTE | 2019-06-02 12:08 | IPNPDOC ---
Subjective Date Seen The patient was seen on 06/02/19. Subjective Chief Complaint/HPI Patient feels much better today. He seems to be tolerating clear liquid diet. We will advance his diet today and he wants to eat regular food, nausea and vomiting. He has subsequently declined significantly Skin: Denies: Rash, Lesions, Jaundice, Bruising, Itching, Dry, Breakdown, Nail Changes, Other Pulmonary: Denies: Dyspnea, Cough, Pleuritic Chest Pain, Other Symptoms Cardiovascular: Denies: Chest Pain, Palpitations, Orthopnea, Paroxysmal Noc. Dyspnea, Edema, Lt Headedness, Other Symptoms Gastrointestinal: Reports: Nausea (minimal nausea) Musculoskeletal: Denies: Neck Pain, Back Pain, Shoulder Pain, Arm Pain, Hand Pain, Leg Pain, Foot Pain, Joint Pain, Muscle Pain, Spasms, Other Symptoms Neurological: Denies: Weakness, Numbness, Incoordination, Change in speech, Confusion, Seizures, Other Symptoms Objective Physical Examination Chest Exam: Positive: Clear to auscultation, Normal air movement Heart Exam: Positive: Rate Normal, Regular Rhythm, Normal S1, Normal S2 Abdomen Exam: Positive: Normal bowel sounds, Soft, Tenderness (. 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 At this point Will progress his diet as tolerated. . We will repeat CT of abdomen and pelvis with by mouth and IV contrast to compare with the CT on admission Monitor CBC and CMP Until present care (2) Autoimmune neutropenia Status: Chronic Problem Text: WBC count is 1.5 today with a stable hemoglobin of 10.6 Continue to reverse isolation Monitor CBC Troponin is secondary to autoimmune disorder, Dr. Still on the case (3) Hypomagnesemia Status: Acute Problem Text: Magnesium sulfate ordered again as patient's mag is 1.4 today Repeat labs in a.m. (4) Hypokalemia Status: Acute Problem Text: Potassium supplemented with IV and by mouth Repeat labs in a.m. Plan/VTE VTE Prophylaxis Ordered?: Yes VS, I&O, 24H, Fishbone Vital Signs/I&O Vital Signs Date Time Temp Pulse Resp B/P (MAP) Pulse Ox O2 Delivery O2 Flow Rate FiO2 06/02/19 09:05 132/78 06/02/19 06:00 98.1 78 19 95 05/28/19 22:33 Room Air I&O- Last 24 Hours up to 6 AM 06/02/19 06:00 Intake Total 1940 ml Output Total 300 ml Balance 1640 ml Laboratory Data 24H LABS Laboratory Tests 2 06/01/19 14:07: Magnesium Level 1.7L 06/02/19 06:05: Magnesium Level 1.4L, White Blood Count 1.5L, Red Blood Count 3.70L, Hemoglobin 10.6L, Hematocrit 31.5L, Mean Corpuscular Volume 85.1, Mean Corpuscular Hemoglobin 28.6, Mean Corpuscular Hemoglobin Concent 33.7, Red Cell Distribution Width 16.0H, Platelet Count 571H, Neutrophils # (Auto) , Nucleated Red Blood Cells % (auto) 0.0, Neutrophils 30, Lymphocytes (Manual) 68H, Monocytes (Manual) 2, Platelet Estimate INCREASED, Red Blood Cell Morphology NORMAL, Anion Gap 7L, Glomerular Filtration Rate > 60.0, Blood Urea Nitrogen 9, Creatinine 1.01, Sodium Level 141, Potassium Level 2.9*L, Chloride Level 107, Carbon Dioxide Level 27, Calcium Level 8.0L CBC/BMP Laboratory Tests 06/02/19 06:05 Red Blood Count 3.70 L, Mean Corpuscular Volume 85.1, Mean Corpuscular Hemoglobin 28.6, Mean Corpuscular Hemoglobin Concent 33.7, Red Cell Distribution Width 16.0 H, Neutrophils # (Auto) , Calcium Level 8.0 L LALIT VALENCIA MD Jun 02, 2019 12:08
[2019-06-02] MEDS: GASTROGRAFIN SOLUTION 30ML PO SCH ×2 (12:46→13:14)
[2019-06-02 14:00] VITALS: BP 134/61
--- NOTE | 2019-06-02 19:22 | REP ---
HISTORY: Abdominal pain. COMPARISON: Multiple, the latest 05/28/2019, a noncontrast enhanced examination. The latest contrast enhanced examination 02/05/2019. CONTRAST: 100 mL [id number]. There are chronic lung base changes, status quo. There is bilateral pleural thickening posteriorly, status quo. Tiny pleural effusions are present and have developed since the latest prior 05/28/2019. There is mild anterior pericardial thickening, status quo. There is no cheikh pericardial effusion. Due to the thickening a small effusion cannot be ruled out. The patient is status post cholecystectomy. The liver, spleen, pancreas, adrenal glands and kidneys have not changed significantly. Note is again made of hepatosplenomegaly and a simple cyst arising from the inferior pole of the left kidney, all stable. The abdominal aorta and periaortic regions are essentially unchanged, again seen to be within normal limits. The bowel loops and the mesenteries are within normal limits. There is no free fluid or free air. There is a tiny ventral hernia, status quo. CT PELVIS: The bowel loops and the mesenteries are within normal limits. There is no mass or adenopathy. There is no free fluid or free air. Bone window technique throughout the examination shows the osseous structures to be stable and intact. IMPRESSION: 1. Minimal bilateral pleural effusions. 2. Hepatosplenomegaly, status quo. 3. Stable Bosniak class I left renal cyst. 4. Stable tiny ventral hernia through which only mesentery protrudes. 5. No evidence of acute intra-abdominal or intrapelvic disease. Other findings as described above. Electronically Signed by Jose A Zamora DO 06/05/2019 04:13 P
[2019-06-02] MEDS: QUEtiapine FUMARATE 25 MG TAB PO SCH (20:48)
[2019-06-02 22:00] VITALS: BP 149/67
[2019-06-03] MEDS: PIPERACILLIN/TAZOBACTAM SOD 3.375 GM in D5W MINI-BAG PLUS 50 ML IV SCH ×2 (02:43→09:00)
[2019-06-03] MEDS: LEVOTHYROXINE 75MCG TABLET (0.075MG) PO SCH (05:56)
[2019-06-03] MEDS: LEVOTHYROXINE 100MCG TABLET (0.1MG) PO SCH (05:56)
[2019-06-03 06:00] VITALS: BP 158/75
[2019-06-03 07:04] LABS: HEMOGLOBIN 10.2 g/dl (13.5-17.5); MEAN CORPUSCULAR HEMOGLOBIN 28.9 pg (27.0-33.0); PLATELET COUNT, AUTOMATED 536 10^3/uL (150-450); RED BLOOD COUNT 3.53 10^6/uL (4.30-6.10)
[2019-06-03 07:11] LABS: WHITE BLOOD COUNT 1.9 10^3/uL (4.0-10.0)
[2019-06-03 07:15] LABS: BLOOD UREA NITROGEN 7 MG/DL (7-18); CALCIUM LEVEL 8.4 MG/DL (8.8-10.2); CARBON DIOXIDE LEVEL 30 MEQ/L (21-32); CHLORIDE LEVEL 106 MEQ/L (98-107); CREATININE FOR GFR 0.97 MG/DL (0.70-1.30); GLOMERULAR FILTRATION RATE > 60.0 (>42); GLUCOSE, FASTING 110 MG/DL (70-100); MAGNESIUM LEVEL 1.5 MG/DL (1.8-2.4); SODIUM LEVEL 142 MEQ/L (136-145)
[2019-06-03] MEDS ORDERED: CEFP200T PO (08:56)
[2019-06-03] MEDS: MAGNESIUM OXIDE 400 MG TAB (MAG-OX) PO SCH (09:25)
[2019-06-03] MEDS: MULTIVITAMINS/MINERALS THERAP 1 TAB PO SCH (09:25)
[2019-06-03] MEDS: ASPIRIN 81 MG ENTERIC TAB PO SCH (09:25)
[2019-06-03 09:26] VITALS: BP 158/75
[2019-06-03] MEDS: ENOXAPARIN 40 MG/0.4 ML SYRINGE (J1650) SC SCH (09:26)
[2019-06-03] MEDS: FILGRASTIM 480 MCG/0.8 ML SYRINGE (J1442) SC SCH (09:26)
[2019-06-03] MEDS: LOSARTAN 50 MG TAB PO SCH (09:26)
--- NOTE | 2019-06-03 10:53 | DS.PDOC ---
Discharge Summary General Date of Admission May 29, 2019 at 02:24 Date of Discharge 06/03/19 Attending Physician: LALIT VALENCIA MD Discharge Summary PROCEDURES PERFORMED DURING STAY: None. ADMITTING DIAGNOSES: 1. Acute diverticulitis, autoimmune neutropenia. DISCHARGE DIAGNOSES: 1. Acute diverticulitis, autoimmune neutropenia. COMPLICATIONS/CHIEF COMPLAINT: Acute Diverticulitis, Autoimmune Neutripenia. 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 Pt was admitted 05/05- 05/08 for neutropenic fever and diverticulitis. He completed a 10 day course of antibiotics and was given neupogen to support his neutrophil count. His pain had improved but never quite resolved. He reports seeing Dr Lieberman 05/15 for follow up and noted to be neutropenic again. She prescribed him another four days of neupogen as he was still having some discomfort. Prior to this episode he felt he had strained his abdominal muscles lifting something heavy and still attributes the persisting pain perhaps to this injury. Last night after eating dinner he acutely felt a severe pain in his lower left abdomen which he felt was more consistent with his diverticulitis episodes and he came to the ED. He denied any fevers this time.. HOSPITAL COURSE: Patient was admitted with the diagnosis of acute diverticulitis secondary to autoimmune neutropenia. Patient follows up with Dr. Lieberman for his neutropenia. His baseline is about 2000, WBCs, patient was admitted, started on IV antibiotics initially Flagyl and Cipro, but patient has a adverse effect of nausea, vomiting with Flagyl and Cipro, hence was changed to IV Zosyn. Patient's nausea, vomiting were treated with Zofran and Phenergan and subsequently and his symptom resolved. He started eating since yesterday. He is tolerating oral feeding very well. CT of the abdomen and pelvis and repeat one was done yesterday which showed the resolution of acute diverticulitis. Patient's WBC is on baseline and he can be discharged home and he will follow with Dr. Lieberman as an outpatient for his neutropenia as well as Dr. Velazco for possible resection of the recurrent infected area in the sigmoid colon as an outpatient once he is clinically stable. DISCHARGE MEDICATIONS: Please see below. ALLERGIES: Please see below. PHYSICAL EXAMINATION ON DISCHARGE: VITAL SIGNS: Please see below. GENERAL: Within normal limits HEENT: PERRLA NECK: Supple CARDIOVASCULAR EXAMINATION: S1, S2, regular RESPIRATORY EXAMINATION: Clear to A&P ABDOMINAL EXAMINATION: , Soft, nontender, bowel sounds present EXTREMITIES: No clubbing, cyanosis, edema SKIN: Normal NEUROLOGICAL EXAMINATION: . No focal motor sensory deficit PSYCHIATRIC EXAMINATION: Normal LABORATORY DATA: Please see below. IMAGING: Repeat CT of the abdomen and pelvis with IV and by mouth contrast:1. Minimal bilateral pleural effusions. 2. Hepatosplenomegaly, status quo. 3. Stable Bosniak class I left renal cyst. 4. Stable tiny ventral hernia through which only mesentery protrudes. 5. No evidence of acute intra-abdominal or intrapelvic disease. Other findings as described above. PROGNOSIS: Fair ACTIVITY: As tolerated. DIET: As tolerated DISCHARGE PLAN: Follow with oncology and surgery as an outpatient DISPOSITION: . Home DISCHARGE INSTRUCTIONS: 1. As per discharge instructions. ITEMS TO FOLLOWUP ON ON OUTPATIENT: 1. Follow with oncology and surgery as an outpatient. DISCHARGE CONDITION: Stable. TIME SPENT ON DISCHARGE: 38 minutes. Vital Signs/I&Os Vital Signs Date Time Temp Pulse Resp B/P (MAP) Pulse Ox O2 Delivery O2 Flow Rate FiO2 06/03/19 09:26 158/75 06/03/19 06:00 97.8 82 18 100 05/28/19 22:33 Room Air I&O- Last 24 Hours up to 6 AM 06/03/19 06:00 Intake Total 2170 ml Output Total 375 ml Balance 1795 ml Laboratory Data Labs 24H Laboratory Tests 2 06/03/19 05:36: Nucleated Red Blood Cells % (auto) 0.0, Anion Gap 6L, Glomerular Filtration Rate > 60.0, Blood Urea Nitrogen 7, Creatinine 0.97, Sodium Level 142, Potassium Level 4.0#, Chloride Level 106, Carbon Dioxide Level 30, Calcium Level 8.4L, Magnesium Level 1.5L CBC/BMP Laboratory Tests 06/02/19 12:00 06/03/19 05:36 Red Blood Count 3.53 L, Mean Corpuscular Volume 85.0, Mean Corpuscular Hemoglobin 28.9, Mean Corpuscular Hemoglobin Concent 34.0, Red Cell Distribution Width 16.3 H, Calcium Level 8.4 L Discharge Medications Scheduled Aspirin (Aspirin EC) 81 Mg Tab, 81 MG PO DAILY, (Reported) Cefpodoxime Proxetil (Cefpodoxime Proxetil) 200 Mg Tablet, 200 MG PO BID Cholecalciferol (Vitamin D3) (Vitamin D3) 2,000 Unit Capsule, 2,000 MG PO DAILY, (Reported) Iodine (Kelp) 150 Mcg Tablet, 150 MCG PO DAILY, (Reported) Lactobacillus Combo No.10 (Probiotic) 1 Each Capsule, 1 TAB PO DAILY, (Reported) Levothyroxine Sodium (Levothyroxine Sodium) 175 Mcg Tab, 175 MCG PO DAILY, (Reported) Losartan Potassium (Losartan Potassium) 50 Mg Tab, 25 MG PO DAILY, (Reported) Magnesium Oxide (Magnesium Oxide) 400 Mg Tablet, 800 MG PO BID, (Reported) TAKES AT NOON AND DINNERTIME Multivitamins (Thera M Plus Tablet) 1 Tab Tab, 1 TAB PO DAILY, (Reported) [place]-3 Fatty Acids/Fish Oil (Fish Oil 1,200 mg Softgel) 1 Each Capsule, 2,400 MG PO BID, (Reported) TAKES AT BREAKFAST AND DINNERTIME Quetiapine Fumarate (Quetiapine Fumarate) 25 Mg Tab, 25 MG PO QHS, (Reported) Vitamin E (Vitamin E) 200 Unit Capsule, 200 UNIT PO DAILY, (Reported) Scheduled PRN Acetaminophen (Pain Relief Extra Strength) 500 Mg Tablet, 500 MG PO for PAIN, (Reported) Polyvinyl Alcohol (Artificial Tears) 1.4 % Rach, 1 DROP OU QID PRN for DRY EYES, (Reported) Allergies Coded Allergies: bee venom protein (honey bee) (Verified Allergy, Severe, ANAPHYLACTIC, 11/25/18) amoxicillin (Verified Allergy, Intermediate, ALL OVER BODY RASH, 11/25/18) clavulanic acid (Verified Allergy, Intermediate, ALL OVER BODY RASH, 11/25/18) POULTRY (Verified Adverse Reaction, Intermediate, turkey - gout, 07/01/18) MICH Inhibitors (Verified Adverse Reaction, Mild, COUGH, 11/25/18) LALIT VALENCIA MD Jun 03, 2019 10:53
== END 2019-06-03 12:10 | disposition home or self-care (01) | DRG 809 ==
LOC: M ED 22:33 → M ED INP 05-29 02:24 → M MSPAV 05-29 03:39
PROVIDERS: ADMIT Hospitalist; ATTEND Internal Medicine
DX: D70.8 Other neutropenia (principal); K57.32 Diverticulitis of large intestine without perforation or abscess without bleeding; E03.9 Hypothyroidism, unspecified; E87.6 Hypokalemia; E83.42 Hypomagnesemia; K43.9 Ventral hernia without obstruction or gangrene; F25.9 Schizoaffective disorder, unspecified; Z79.82 Long term (current) use of aspirin; Z79.899 Other long term (current) drug therapy; Z88.0 Allergy status to penicillin; Z88.8 Allergy status to other drugs, medicaments and biological substances; Z91.030 Bee allergy status; Z91.018 Allergy to other foods; Z90.49 Acquired absence of other specified parts of digestive tract

== ENCOUNTER 2019-10-13 12:03 | Emergency (ER) | payer MEDICARE, OTHER ==
[~2019-10-13] VITALS: Ht 175.3 cm; Wt 71.6 kg
[~2019-10-13 12:03] MED LIST changes: -ARTIDRO2 OU; +CEFP200T PO; +D32000TA PO; +GING1CAP PO; +GRAP50CA3 PO; +GRAP60TA PO; +LIDO2SOL17 MT; -LORA1TAB12 PO; +LORA1TAB4 PO; +MAGICMW SSP; -MAGN400T PO; +MAGN400T3 PO; +POLYOPD OU; +VITA1CHW7 PO; +VITAE20CA PO; +[UNRECOGNIZED DRUG - CODE] PO
[2019-10-13 13:18] LABS: HEMATOCRIT 35.1 % (42.0-52.0); HEMOGLOBIN 11.3 g/dl (13.5-17.5); MEAN CORPUSCULAR HEMOGLOBIN 27.1 pg (27.0-33.0); MEAN CORPUSCULAR HGB CONC 32.2 g/dl (32.0-36.5); MEAN CORPUSCULAR VOLUME 84.2 fl (80.0-96.0); PLATELET COUNT, AUTOMATED 426 10^3/uL (150-450); RED BLOOD COUNT 4.17 10^6/uL (4.30-6.10)
[2019-10-13 13:23] LABS: WHITE BLOOD COUNT 1.9 10^3/uL (4.0-10.0)
[2019-10-13 13:40] LABS: BLOOD UREA NITROGEN 28 MG/DL (7-18); CALCIUM LEVEL 9.3 MG/DL (8.8-10.2); CARBON DIOXIDE LEVEL 31 MEQ/L (21-32); CHLORIDE LEVEL 104 MEQ/L (98-107); CREATININE FOR GFR 1.18 MG/DL (0.70-1.30); GLOMERULAR FILTRATION RATE > 60.0 (>42); GLUCOSE, FASTING 170 MG/DL (70-100); POTASSIUM SERUM 4.1 MEQ/L (3.5-5.1); SODIUM LEVEL 141 MEQ/L (136-145)
--- NOTE | 2019-10-13 13:55 | REP ---
KUB: TWO VIEWS. HISTORY: Left lower quadrant pain. Comparison radiographs, November 28, 2010. Comparison CT study abdomen and pelvis, June 02, 2019. FINDINGS: The spleen is again noted to be enlarged, extending nearly to the iliac crest in the left upper abdomen. The liver does not appear enlarged. Spleen size is approximately 19 cm in craniocaudal span, perhaps slightly larger than on the CT study from June 02, 2019. There is some vascular calcification. There are surgical clips in the right mid abdomen. Bowel gas pattern is unremarkable. No bony abnormality is seen. Flank stripes are intact. IMPRESSION: Moderate splenomegaly. Probably slightly larger than at the time of the June 02, [address] study. Postoperative changes on the right. Otherwise no acute disease. Electronically Signed by Aravind Ge MD 10/13/2019 02:18 P
[2019-10-13 13:58] LABS: ATYPICAL LYMPH 14 % (0-5); GIANT PLATELETS 1+; LYMPHOCYTES 67 % (16-44); METAMYELOCYTES 1 % (0-0); MONOCYTES 2 % (0-5); NEUTROPHILS 9 % (28-66); PLATELET ESTIMATE NORMAL (NORMAL)
[2019-10-13 13:59] LABS: ANISOCYTOSIS 1+
[2019-10-13 14:27] VITALS: BP 131/59
== END 2019-10-13 14:35 | disposition home or self-care (01) ==
LOC: M ED 12:03
DX: R16.1 Splenomegaly, not elsewhere classified (principal); D70.9 Neutropenia, unspecified; Z79.899 Other long term (current) drug therapy; Z79.82 Long term (current) use of aspirin

== ENCOUNTER 2019-11-06 19:03 | Emergency (ER) | payer MEDICARE, OTHER ==
[~2019-11-06] VITALS: Ht 177.8 cm; Wt 71.4 kg
[2019-11-06 19:04] VITALS: BP 118/70
[2019-11-06 20:45] LABS: HEMATOCRIT 26.8 % (42.0-52.0); HEMOGLOBIN 8.9 g/dl (13.5-17.5); MEAN CORPUSCULAR HEMOGLOBIN 27.6 pg (27.0-33.0); MEAN CORPUSCULAR HGB CONC 33.2 g/dl (32.0-36.5); PLATELET COUNT, AUTOMATED 311 10^3/uL (150-450); RED BLOOD COUNT 3.23 10^6/uL (4.30-6.10); WHITE BLOOD COUNT 2.2 10^3/uL (4.0-10.0)
[2019-11-06 21:02] LABS: ATYPICAL LYMPH 2 % (0-5); GIANT PLATELETS 1+; LYMPHOCYTES 88 % (16-44); NEUTROPHILS 8 % (28-66)
[2019-11-06 21:03] LABS: DOHLE BODIES 1+; PLATELET ESTIMATE NORMAL (NORMAL)
[2019-11-06 21:06] LABS: MICROCYTOSIS 1+; OVALOCYTES 1+
[2019-11-06 21:07] LABS: HYPOCHROMASIA 1+
[2019-11-06 21:11] LABS: INFLUENZA A AMPLIFICATION NEGATIVE (NEGATIVE); INFLUENZA B AMPLIFICATION NEGATIVE (NEGATIVE)
== END 2019-11-06 22:56 | disposition home or self-care (01) ==
LOC: M ED 19:03
DX: D70.9 Neutropenia, unspecified (principal); Z20.89 Contact with and (suspected) exposure to other communicable diseases; F20.9 Schizophrenia, unspecified; Z79.82 Long term (current) use of aspirin; Z79.899 Other long term (current) drug therapy; Z88.8 Allergy status to other drugs, medicaments and biological substances; Z88.0 Allergy status to penicillin; Z91.030 Bee allergy status; Z91.018 Allergy to other foods

== ENCOUNTER 2019-12-10 13:09 | Emergency (ER) | payer MEDICARE, OTHER ==
[~2019-12-10] VITALS: Ht 177.8 cm; Wt 71.3 kg
[~2019-12-10 13:09] MED LIST changes: +AZIT-12 PO; +MAGN500C2 PO
[2019-12-10] MEDS ORDERED: NS 500 ML IV ONE (13:45)
[2019-12-10 14:07] LABS: HEMATOCRIT 28.7 % (42.0-52.0); HEMOGLOBIN 9.3 g/dl (13.5-17.5); MEAN CORPUSCULAR HEMOGLOBIN 27.7 pg (27.0-33.0); MEAN CORPUSCULAR HGB CONC 32.4 g/dl (32.0-36.5); MEAN CORPUSCULAR VOLUME 85.4 fl (80.0-96.0); PLATELET COUNT, AUTOMATED 724 10^3/uL (150-450); RED BLOOD COUNT 3.36 10^6/uL (4.30-6.10); WHITE BLOOD COUNT 2.9 10^3/uL (4.0-10.0)
--- NOTE | 2019-12-10 14:27 | REP ---
CHEST: REASON: Dizziness. FINDINGS: The technique utilized in obtaining the radiograph has magnified the cardiac silhouette and accentuated the interstitial markings. The superior mediastinal structures are midline. The cardiac silhouette is unremarkable in size, shape, and position. The diaphragmatic surfaces of the lungs are regular, and the costophrenic angles are clear. The pulmonary calderon are clear. The imaged osseous structures are intact. IMPRESSION: There is no acute cardiopulmonary disease. Electronically Signed by Jose A Zamora DO 12/10/2019 03:09 P
[2019-12-10 14:28] LABS: ATYPICAL LYMPH 4 % (0-5); EOSINOPHILS 1 % (0-3); GIANT PLATELETS 2+; LYMPHOCYTES 91 % (16-44); MONOCYTES 3 % (0-5); NEUTROPHILS 1 % (28-66); PLATELET ESTIMATE INCREASED (NORMAL)
[2019-12-10 14:29] LABS: HYPOCHROMASIA 1+
[2019-12-10 14:30] LABS: ANISOCYTOSIS 1+
[2019-12-10 14:40] LABS: ALBUMIN 3.9 GM/DL (3.2-5.2); ALT/SGPT 14 U/L (12-78); BILIRUBIN,DIRECT 0.2 MG/DL (0.0-0.2); BILIRUBIN,TOTAL 1.3 MG/DL (0.2-1.0); BLOOD UREA NITROGEN 28 MG/DL (7-18); CALCIUM LEVEL 8.8 MG/DL (8.8-10.2); CARBON DIOXIDE LEVEL 26 MEQ/L (21-32); CHLORIDE LEVEL 103 MEQ/L (98-107); CK-MB VALUE MASS 1.6 NG/ML (<3.6); CPK CREATINE PHOSPHOKINASE 18 U/L (39-308); CREATININE FOR GFR 1.24 MG/DL (0.70-1.30); GLOMERULAR FILTRATION RATE > 60.0 (>42); GLUCOSE, FASTING 160 MG/DL (70-100); LIPASE 130 U/L (73-393); MAGNESIUM LEVEL 1.3 MG/DL (1.8-2.4); MB/CK RELATIVE INDEX 8.89 (< OR =4); PHOSPHORUS LEVEL 4.4 MG/DL (2.5-4.9); POTASSIUM SERUM 4.2 MEQ/L (3.5-5.1); SODIUM LEVEL 139 MEQ/L (136-145); TOTAL PROTEIN 6.9 GM/DL (6.4-8.2); TROPONIN I < 0.02 NG/ML (< 0.10)
[2019-12-10 15:36] LABS: HEMOGLOBIN A1c 5.6 %
--- NOTE | 2019-12-10 15:58 | ECGEPIP ---
[facility] - ED Test Date: 2019-12-10 Pat Name: XOCHILT TAVERAS Department: Room: - Gender: Male [employer] Officer: joya : 1950 Requested By: James Zafar Order Number: [id number] Reading MD: James Zafar Measurements Intervals [place] Rate: 74 P: 51 GA: 152 QRS: 59 QRSD: 98 T: 72 QT: 388 QTc: 433 Interpretive Statements SINUS RHYTHM POSSIBLE RIGHT VENTRICULAR CONDUCTION DELAY NONSPECIFIC ST T WAVE CHANGES DELAYED R WAVE PROGRESSION CW 05/05/[address] T WAVE CHANGES Electronically Signed on 12-10-2019 15:57:56 EDT by James Zafar
[2019-12-10 16:10] VITALS: BP 109/52
== END 2019-12-10 16:12 | disposition home or self-care (01) ==
LOC: M ED 13:09
DX: K52.9 Noninfective gastroenteritis and colitis, unspecified (principal); E83.42 Hypomagnesemia; D72.819 Decreased white blood cell count, unspecified; R53.1 Weakness; E11.9 Type 2 diabetes mellitus without complications; I10 Essential (primary) hypertension; E78.9 Disorder of lipoprotein metabolism, unspecified; F41.9 Anxiety disorder, unspecified; F32.9 Major depressive disorder, single episode, unspecified; K21.9 Gastro-esophageal reflux disease without esophagitis; Z88.8 Allergy status to other drugs, medicaments and biological substances; Z88.0 Allergy status to penicillin; Z91.030 Bee allergy status; Z91.018 Allergy to other foods; Z79.899 Other long term (current) drug therapy; Z79.82 Long term (current) use of aspirin

== ENCOUNTER 2019-12-12 11:40 | Inpatient (IN) | payer MEDICARE, OTHER ==
[~2019-12-12] VITALS: Ht 177.8 cm; Wt 75.5 kg
[2019-12-12] MEDS: FILGRASTIM 480 MCG/0.8 ML SYRINGE (J1442) SC SCH (09:00)
[~2019-12-12 11:40] MED LIST changes: +ENOXAPARIN 40MG/0.4ML SYRINGE (J1650 PER 10MG) SC SCH
[2019-12-12] MEDS ORDERED: KAOPECTATE (11:51)
[2019-12-12] MEDS ORDERED: ONDANSETRON 4MG/2ML VIAL (J2405 PER 1MG) IV ONE (13:00)
[2019-12-12 13:22] LABS: HEMATOCRIT 25.8 % (42.0-52.0); HEMOGLOBIN 8.5 g/dl (13.5-17.5); MEAN CORPUSCULAR HEMOGLOBIN 28.2 pg (27.0-33.0); MEAN CORPUSCULAR HGB CONC 32.9 g/dl (32.0-36.5); MEAN CORPUSCULAR VOLUME 85.7 fl (80.0-96.0); PLATELET COUNT, AUTOMATED 576 10^3/uL (150-450); RED BLOOD COUNT 3.01 10^6/uL (4.30-6.10); WHITE BLOOD COUNT 2.1 10^3/uL (4.0-10.0)
[2019-12-12] MEDS ORDERED: ISOVUE-370 76% 100ML VIAL (Q9967) As Ordered ONE (13:24)
[2019-12-12 13:43] LABS: ALBUMIN 3.6 GM/DL (3.2-5.2); ALT/SGPT 16 U/L (12-78); BILIRUBIN,DIRECT 0.4 MG/DL (0.0-0.2); LIPASE 132 U/L (73-393); MAGNESIUM LEVEL 1.2 MG/DL (1.8-2.4); TOTAL PROTEIN 6.3 GM/DL (6.4-8.2)
[2019-12-12 13:48] LABS: ATYPICAL LYMPH 12 % (0-5); MONOCYTES 2 % (0-5); PLATELET ESTIMATE INCREASED (NORMAL)
[2019-12-12 13:49] LABS: DOHLE BODIES 1+; GIANT PLATELETS 1+
[2019-12-12 13:50] LABS: LYMPHOCYTES 85 % (16-44)
[2019-12-12 13:51] LABS: MICROCYTOSIS 1+; NEUTROPHILS 1 % (28-66)
[2019-12-12 13:52] LABS: OVALOCYTES 1+
[2019-12-12 13:53] LABS: HYPOCHROMASIA 1+
--- NOTE | 2019-12-12 14:25 | REP ---
CT ABDOMEN AND PELVIS WITH IV CONTRAST: TECHNIQUE: Axial contrast enhanced images from the lung bases to the pubic symphysis using 100 mL Isovue 370 intravenous contrast material with multiplanar reformations. Comparison 06/02/2019. In the visualized lung bases there are chronic fibrocalcific changes in the posterior right lower lobe and to a lesser extent in the inferior left lower lobe. Liver is enlarged with a length of approximately 20 cm. This has mildly increased in size since the prior CT scan. The spleen is significantly larger than on the prior CT scan with significant splenomegaly. Length of the spleen is currently 21.3 cm. No adrenal mass is seen. No pancreatic mass is seen. Left kidney is displaced anteromedially by the enlarged spleen. There are bilateral renal cysts again noted without hydronephrosis. There is no abdominal aortic aneurysm. No significantly enlarged lymph nodes are seen in the abdomen or pelvis. There are a few right lower quadrant mesenteric lymph nodes having a maximum short axis dimension of 1 cm. No free air is seen. The patient has had a prior cholecystectomy. There is a small right anterior abdominal wall hernia containing fat. Scattered diverticula are seen of the colon. There is mild thickening and pericolonic stranding of the left colon most consistent with mild left sided diverticulitis. There is a mild amount of free fluid in the left paracolic region. There is no other definite bowel thickening. No pelvic mass is seen. Urinary bladder is mildly distended and grossly unremarkable. There are mild degenerative changes of the spine. IMPRESSION: Hepatosplenomegaly. The spleen is significantly enlarged with a length of 21.3 cm. It is significantly larger than on the prior CT scan of 06/02/2019. It displaces the left kidney anteromedially . Scattered diverticula of the colon. There are findings most consistent with mild left colonic diverticulitis. There is mild adjacent free fluid. Small right anterior abdominal wall hernia containing fat. Electronically Signed by Brendon Pickens MD 12/12/2019 03:33 P
[2019-12-12 14:46] LABS: MONO REFLEX EBV VCA IgM NEGATIVE (NEGATIVE)
[2019-12-12 15:01] LABS: VITAMIN B12 LEVEL 1659 PG/ML (247-911)
[2019-12-12] MEDS ORDERED: LOSA25TA14 PO (15:51)
[2019-12-12] MEDS ORDERED: VITAD1000T PO (15:51)
[2019-12-12] MEDS ORDERED: FISH1000 PO (15:51)
[2019-12-12] MEDS ORDERED: KAOP262S PO (15:51)
[2019-12-12] MEDS ORDERED: GRAP50CA3 PO ×2 (15:51)
[2019-12-12] MEDS: MAG SULF 1GM/100ML (MAG RUN) 1 GM in IV 1 EA IV SCH ×3 (15:57→17:48)
[2019-12-12] MEDS ORDERED: MAGNESIUM OXIDE 400 MG TAB (MAG-OX) PO ONE (16:00)
[2019-12-12] MEDS ORDERED: POTASSIUM CHLORIDE 10 MEQ SR TABLET PO ONE (16:15)
[2019-12-12] MEDS ORDERED: POLYVINYL ALCOHOL OPHTH SOLN 15 ML(LIQUITEARS) OU PRN (16:15)
[2019-12-12] MEDS ORDERED: ENTER DRUG NAME HERE (PATIENT'S OWN MED) PO SCH ×4 (16:15)
[2019-12-12] MEDS ORDERED: LIDOCAINE VISCOUS 2% SOLN 15ML UDC MT PRN (16:15)
[2019-12-12] MEDS ORDERED: PINK BISMUTH SUSP 524MG/30ML ORAL SYRINGE PO PRN (16:15)
[2019-12-12] MEDS ORDERED: FILGRASTIM 480 MCG/0.8 ML SYRINGE (J1442) SC SCH (17:00)
--- NOTE | 2019-12-12 17:49 | HPEPDOC ---
General Date of Admission 12/12/2019 Date of Service: Dec 12, 2019 Attending Physician: RAMYA HASSAN MD Chief Complaint The patient is a 69-year-old male admitted with a reason for visit of Abdominal Pain, Nausea. Source: Patient Exam Limitations: No limitations Timing/Duration: Week(s) (1 month, of worsening chronic diarrhea now with LLQ pain) Severity: Moderate Associated Symptoms: Nausea, Shortness of breath (with exertion), Other (abdominal pain (LLQ), worsening non bloody diarrhea) History of Present Illness 69 yo man with a history of chronic autoimmune neutropenia since 2018 s/p 2 bone marrow biopsies on chronic intermittent neupogen vs. neulasta, as well as trial of rituximab, with a history of recurrent bouts of diverticulitis and previously noted mild splenomegaly, as well as chronic diarrhea who presented from home complaining of worsening diarrhea, development of LLQ pain, nausea, generalized arthralgias and myalgias and SOB with exertion without fever, chills, rigors, cough, rhinorrhea, congestion or travel history. Of note, he also has a history of NIDDM previously on metformin but recently with diet controlled prediabetes and and a history of a remote colonic resection 2/2 volvulus. He presented to the ED today, reporting the above noted symptoms after having presented to the ED 2 days ago. He follows with Dr. Denson in hematology. While in the ED, he was hemodynamically stable, afebrile and stable on room air and speaking in full sentences. His workup was notable for WBC 2.1, with 1% PMNs and 85% lymphocytes, hgb 8.5, platelets 576, K 3.3, Cr 1.2, mag 1.2 with normal LFTs while CT A/P showed significant increase in splenomegaly to 21.3 cm displacing the L kidney as well as mild L diverticulitis and mild adenopathy. Given the significant neutropenia, pain, diarrhea, splenomegaly, arthralgias and dyspnea on exertion, the ED ordered him for COVID-19 rule out, and replaced his electrolytes. I spoke with Dr. Marcella Tucker covering from Dr. Denson who suggested treating the diverticulitis with empiric antibiotics and starting him on filgastrim 480 daily until ANC is close to 1500. Home Medications Scheduled Aspirin (Aspirin EC) 81 Mg Tab, 81 MG PO DAILY, (Reported) Cholecalciferol (Vitamin D3) (Vitamin D3) 1,000 Unit Tablet, 2,000 UNITS PO 6XWK, (Reported) EVERY DAY EXCEPT WEDNESDAY Adalgisa Root (Adalgisa Root) 550 Mg Capsule, 550 MG PO 5XW, (Reported) QPM: WED, WED, WED, , WED Grape Seed Extract (Grape Seed Extract) 50 Mg Capsule, 200 MG PO 4XWK, (Reported) WED, , , WED Grape Seed Extract (Grape Seed Extract) 50 Mg Capsule, 100 MG PO 3XW, (Reported) WED, WED, WED Iodine (Kelp) 150 Mcg Tablet, 150 MCG PO 4XWK, (Reported) WED, , , WED Lactobacillus Combo No.10 (Probiotic) 1 Each Capsule, 1 TAB PO DAILY, (Reported) Levothyroxine Sodium (Levothyroxine Sodium) 175 Mcg Tab, 175 MCG PO DAILY, (Reported) Losartan Potassium (Losartan Potassium) 25 Mg Tablet, 25 MG PO DAILY, (Reported) Magnesium Oxide (Magnesium Oxide) 500 Mg Capsule, 1,500 MG PO DAILY, (Reported) TAKES AROUND 1400 Multivitamins (Thera M Plus Tablet) 1 Tab Tab, 1 TAB PO DAILY, (Reported) [place]-3 Fatty Acids/Fish Oil (Fish Oil 1,000 mg Capsule) 1 Each Capsule, 1,000 MG PO 5XW, (Reported) WED, WED, , , WED Quetiapine Fumarate (Quetiapine Fumarate) 25 Mg Tab, 25 MG PO QHS, (Reported) Vitamin E (Dl,Tocopheryl Acet) (Vitamin E) 200 Unit Capsule, 200 UNIT PO 5XW, (Reported) WED, WED, , , WED Scheduled PRN Acetaminophen (Pain Relief Extra Strength) 500 Mg Tablet, 500 MG PO QID PRN for PAIN, (Reported) Bismuth Subsalicylate (Kaopectate) 262 Mg/15 Ml Oral.susp, 262 MG PO Q4H PRN for DIARRHEA, (Reported) Lidocaine HCl (Lidocaine HCl Viscous) 15 Ml Solution, 2 % MT Q2-4HP PRN for PAIN OR DYSPNEA Apply viscous lidocaine to painful oral ulcers using cotton tip applicator q 2 hours prn pain Polyvinyl Alcohol (Artificial Tears) 1.4 % Rach, 1 DROP OU QID PRN for DRY EYES, (Reported) Allergies Coded Allergies: bee venom protein (honey bee) (Verified Allergy, Severe, ANAPHYLACTIC, 11/25/18) amoxicillin (Verified Allergy, Intermediate, ALL OVER BODY RASH, 11/25/18) clavulanic acid (Verified Allergy, Intermediate, ALL OVER BODY RASH, 11/25/18) wheat (Verified Allergy, Intermediate, 12/12/19) POULTRY (Verified Adverse Reaction, Intermediate, turkey - gout, 07/01/18) MICH Inhibitors (Verified Adverse Reaction, Mild, COUGH, 11/25/18) Past Medical History Medical History chronic autoimmune neutropenia colon resection s/s volvulus hypothyroidism schizophrenia history of recurrent episodes of diverticulitis Surgical History colon resection s/s volvulus s/p 2 bone marrow biopsies Family History Significant Family History: No pertinent family hx Social History * Smoker: Denies Alcohol: Denies Drugs: denies Recent Travel/Sick Contacts: Denies: Recent travel, Recent sick contacts Psychosocial History: Schizophrenia Lives at home with who is his HCP A-FIB/CHADSVASC A-FIB History Current/History of A-Fib/PAF?: No Current PO Anticoag Therapy: No Age/Risk Factor Scoring CHADSVASC: CHADSVASC Response (Comments) Value Age Risk Factor Age 65-74 years old 1 Gender Risk Factor Male 0 Hx of CHF No 0 Hx of HTN No 0 Hx of Stroke/TIA/or VTE No 0 Hx of Diabetes Yes 1 Hx of Vascular Disease No 0 Total 2 Treatment Treatment ordered: NONE Reason Anticoagulant not given: Not indicated/[id number] Review of Systems Constitutional: Reports: Malaise, Weight Loss (chronic, stable in the last few months) Eyes: Denies: Pain, Vision change ENT: Denies: Head Aches, Ear Pain, Dysphagia Skin: Denies: Rash, Lesions, Breakdown Pulmonary: Reports: Dyspnea; Denies: Cough, Pleuritic Chest Pain Cardiovascular: Denies: Chest Pain, Palpitations, Orthopnea, Paroxysmal Noc. Dyspnea, Edema, Lt Headedness Gastrointestinal: Reports: Nausea, Abdominal Pain (LLQ is sharp with deep palpation, otherwise abdomen with dull achy 3/10 pain), Diarrhea; Denies: Vomiting, Melena, Hematochezia Genitourinary: Denies: Dysuria, Frequency, Incontinence, Retention Hematologic: Denies: Bruising, Bleeding Excessively Endocrine: Denies: Polydipsia, Polyphagia, Polyuria, Heat Intolerance, Cold Intolerance, Other Endocrine Sx Musculoskeletal: Reports: Other Symptoms (describes vagues diffuse aching) Neurological: Denies: Weakness, Numbness, Change in speech, Confusion Psych: Reports: Mood Normal; Denies: Depression, Memory Issues Physical Examination General Exam: Positive: Alert, Cooperative, No Acute Distress, Other (thin) Eye Exam: Positive: PERRLA, Conjunctiva & lids normal, EOMI; Negative: Sclera icteric ENT Exam: Positive: Atraumatic, Mucous membr. moist/pink, Pharynx Normal Neck Exam: Positive: Supple; Negative: JVD, thyromegaly Chest Exam: Positive: Clear to auscultation, Normal air movement; Negative: Rales, Rhonchi, Wheezing, Diminished Heart Exam: Positive: Rate Normal, Regular Rhythm, Normal S1, Normal S2; Negative: Murmurs, Rubs Abdomen Exam: Positive: Normal bowel sounds, Soft, Tenderness (LLQ pain with palpation, no rebound, no guarding), Hepatospenomegaly (palpable spleen tip 2- 3cm below costal margin.), Mass Extremity Exam: Positive: Normal pulses; Negative: Clubbing, Cyanosis, Edema Skin Exam: Positive: Nl turgor and temperature; Negative: Breakdown, Lesion Neuro Exam: Positive: Strength at 5/5 X4 ext, Normal Tone, Sensation Intact, Cranial Nerves 3-12 NL Psych Exam: Positive: Mental status NL, Memory Intact, Oriented x 3 Vital Signs Vital Signs Date Time Temp Pulse Resp B/P (MAP) Pulse Ox O2 Delivery O2 Flow Rate FiO2 12/12/19 13:48 12/12/19 11:41 97.6 79 18 96 Room Air Laboratory Data Labs 24H Laboratory Tests 2 12/12/19 12:47: Neutrophils (%) (Auto) , Neutrophils # (Auto) , Nucleated Red Blood Cells % (auto) 0.9H, Neutrophils 1L, Lymphocytes (Manual) 85H, Monocytes (Manual) 2, Atypical Lymphocytes 12H, Hypochromasia 1+, Microcytosis 1+, Macrocytosis 1+, Ovalocytes 1+, Dohle Bodies 1+, Giant Platelets 1+, Platelet Estimate INCREASED, Magnesium Level 1.2L, Total Bilirubin 1.0, Direct Bilirubin 0.4H, Aspartate Amino Transf (AST/SGOT) < 3L, Alanine Aminotransferase (ALT/SGPT) 16, Alkaline Phosphatase 94, Total Protein 6.3L, Albumin 3.6, Albumin/Globulin Ratio 1.33, Lipase 132, Vitamin B12 Level 1659H, Monoscreen NEGATIVE 12/12/19 13:16: POC Glucose (Misc Panel) 153H, POC Sodium (Misc Panel) 137, POC Potassium (Misc Panel) 3.3L, POC Chloride (Misc Panel) 101, POC Total CO2 (Misc Panel) 23.0, POC Blood Urea Nitrogen (Misc Panel 23, POC Ionized Calcium (Misc Panel) 5.0, POC Creatinine (Misc Panel) 1.2, POC Hematocrit (Misc Panel) 27.0L CBC/BMP Laboratory Tests 12/12/19 12:47 Microbiology Microbiology 12/12/19 Coronavirus COVID-19 PCR (HERNANDEZ), Received Pending Assessment/Plan 69 yo man with a history of chronic autoimmune neutropenia since 2018 s/p 2 bone marrow biopsies on chronic intermittent neupogen vs. neulasta, as well as trial of rituximab, with a history of recurrent bouts of diverticulitis and previously noted mild splenomegaly, as well as chronic diarrhea who presented from home complaining of worsening diarrhea, development of LLQ pain, nausea, generalized arthralgias and myalgias and SOB with exertion without fever, chills, rigors, cough, rhinorrhea, congestion or travel history and found to have mild left colonic diverticulitis and worsening splenomegaly with severe neutropenia. Abdominal pain: CT showing L sided inflammation c/w diverticulitis, as well splenomegaly likely related to his autoimmune disease per my discussion with Dr. Tucker -r/o COVID-19 given abdominal complaints with generalized arthralgias, myalgias and SIMMONS with low counts. Will therefore check covid-19 associated workup -follow up EBV -empiric cipro/flagyl for diverticulitis -IV fluids for repletion given poor PO and diarrhea -continue home bismuth PRN for diarrhea -LFTS were normal, will check tomorrow AM as well Dyspnea on exertion: With the constellation of abdominal pain, diarrrhea, arthralgias and found to be severely neutropenic, will r/o COVID-19. -Covid testing pending -D-dimer, ferritin, LDH, CXR, proBNP, cardiac markers, fibrinogen, coags, CRP, procalcitonin all pending -droplet isolation -No hypoxemia at this time and breathing comfortably on room air with unremarkable pulm exam -will place on lovenox 40 BID ppx for now Severe neutropenia: acute on chronic in the setting of ongoing inflammation with evidence of diverticulitis -Follows with Dr. Denson, consulted Dr. Marcella Tucker, will plan on filgastrim 480 QD with goal ANC > 1500, for up to 10 days -empiric antibiotics as noted above -follow up EBV PCR Hypothyroidism: -check TSH and free T4, will for now continue home dose of synthroid Schizophrenia: -continue home seroquel Electrolyte derrangements: in the setting of persistent diarrhea and poor PO -replete Mag, K and check lytes daily DVT ppx: lovenox 40 BID Diet: clear liquid diet, to advance if he tolerates it well Plan / VTE VTE Prophylaxis Ordered?: Yes RAMYA HASSAN MD Dec 12, 2019 17:49
[2019-12-12] MEDS ORDERED: CIPROFLOXACIN 400 MG in IV 1 EA IV SCH (18:00)
[2019-12-12 18:29] LABS: C REACTIVE PROTEIN QUANTITATIV 1.55 MG/DL (0.00-0.30); CK-MB VALUE MASS < 1.0 NG/ML (<3.6); CPK CREATINE PHOSPHOKINASE 11 U/L (39-308); FERRITIN 394 NG/ML (26-388); LDH LACTATE DEHYDROGENASE 83 U/L (87-241); MB/CK RELATIVE INDEX 9.09 (< OR =4); NT-PRO BNP 792 PG/ML (<125); TRIGLYCERIDES LEVEL 73 MG/DL (<150); TROPONIN I < 0.02 NG/ML (< 0.10)
[2019-12-12 18:31] LABS: INR 1.69; PROTHROMBIN TIME 19.7 SECONDS (11.8-14.0)
[2019-12-12 18:32] LABS: PARTIAL THROMBOPLASTIN TIME 46.5 SECONDS (25.0-38.4)
[2019-12-12 18:34] LABS: D-DIMER QUANT 440.05 ng/ml (<500)
--- NOTE | 2019-12-12 19:03 | REP ---
PORTABLE CHEST: HISTORY: Dyspnea. COMPARISON: 12/10/2019 The technique utilized in obtaining the radiograph has magnified the cardiac silhouette and accentuated the interstitial markings. The superior mediastinal structures are midline. The cardiac silhouette is unremarkable in size, shape, and position. The diaphragmatic surfaces of the lungs are regular, and the costophrenic angles are clear. The pulmonary calderon are clear. The imaged osseous structures are intact. IMPRESSION: There is no acute cardiopulmonary disease. No significant change. Electronically Signed by Jose A Zamora DO 12/12/2019 07:34 P
[2019-12-12 20:00] VITALS: BP 113/56
[2019-12-12] MEDS: metroNIDAZOLE 500 MG in IV 1 EA IV SCH (20:49)
[2019-12-12] MEDS: KCL 20MEQ in NS 1000ML 1,000 ML IV SCH (20:49)
[2019-12-12] MEDS: ACETAMINOPHEN 500 MG TAB PO PRN (23:05)
[2019-12-12] MEDS: QUEtiapine FUMARATE 25 MG TAB PO SCH (23:06)
[2019-12-12] MEDS: MEROPENEM INJ 500 MG in IV 1 EA IV SCH (23:06)
[2019-12-13 04:00] VITALS: BP 112/53
[2019-12-13] MEDS: metroNIDAZOLE 500 MG in IV 1 EA IV SCH (04:03)
[2019-12-13] MEDS: KCL 20MEQ in NS 1000ML 1,000 ML IV SCH (04:03)
[2019-12-13 05:31] LABS: HEMATOCRIT 23.8 % (42.0-52.0); HEMOGLOBIN 7.8 g/dl (13.5-17.5); MEAN CORPUSCULAR HEMOGLOBIN 28.1 pg (27.0-33.0); MEAN CORPUSCULAR HGB CONC 32.8 g/dl (32.0-36.5); MEAN CORPUSCULAR VOLUME 85.6 fl (80.0-96.0); PLATELET COUNT, AUTOMATED 530 10^3/uL (150-450); RED BLOOD COUNT 2.78 10^6/uL (4.30-6.10); WHITE BLOOD COUNT 1.9 10^3/uL (4.0-10.0)
[2019-12-13] MEDS: LEVOTHYROXINE 150MCG TABLET (0.15MG) PO SCH (06:01)
[2019-12-13] MEDS: MEROPENEM INJ 500 MG in IV 1 EA IV SCH (06:01)
[2019-12-13 06:06] LABS: ALBUMIN 3.2 GM/DL (3.2-5.2); ALT/SGPT 14 U/L (12-78); BILIRUBIN,TOTAL 0.9 MG/DL (0.2-1.0); BLOOD UREA NITROGEN 19 MG/DL (7-18); C REACTIVE PROTEIN QUANTITATIV 1.59 MG/DL (0.00-0.30); CALCIUM LEVEL 8.5 MG/DL (8.8-10.2); CARBON DIOXIDE LEVEL 24 MEQ/L (21-32); CHLORIDE LEVEL 109 MEQ/L (98-107); FERRITIN 410 NG/ML (26-388); GLOMERULAR FILTRATION RATE > 60.0 (>42); GLUCOSE, FASTING 109 MG/DL (70-100); MAGNESIUM LEVEL 1.6 MG/DL (1.8-2.4); POTASSIUM SERUM 4.4 MEQ/L (3.5-5.1); SODIUM LEVEL 139 MEQ/L (136-145); TOTAL PROTEIN 5.6 GM/DL (6.4-8.2)
[2019-12-13] MEDS ORDERED: ONDANSETRON 4MG/2ML VIAL (J2405 PER 1MG) IV PRN (09:30)
[2019-12-13] MEDS: NS 1,000 ML IV SCH ×2 (09:34→20:59)
[2019-12-13] MEDS: MEROPENEM INJ 1 GM in IV 1 EA IV SCH ×2 (09:35→18:31)
[2019-12-13] MEDS: FILGRASTIM 480 MCG/0.8 ML SYRINGE (J1442) SC SCH (09:36)
[2019-12-13] MEDS: ASPIRIN 81 MG ENTERIC TAB PO SCH (09:37)
[2019-12-13] MEDS: MAGNESIUM OXIDE 400 MG TAB (MAG-OX) PO SCH (09:37)
[2019-12-13] MEDS: VITAMIN D 1,000 INTERNATIONAL UNITS TABLET PO SCH (09:37)
[2019-12-13] MEDS: LOSARTAN 25 MG TAB PO SCH (09:38)
[2019-12-13] MEDS: LACTOBACILLUS ACIDOPHILUS CAP (BACID) PO SCH (09:38)
[2019-12-13] MEDS: ENOXAPARIN 40MG/0.4ML SYRINGE (J1650 PER 10MG) SC SCH ×2 (09:39→21:00)
[2019-12-13] MEDS: MULTIVITAMINS/MINERALS THERAP 1 TAB PO SCH (09:43)
[2019-12-13] MEDS ORDERED: PROMETHAZINE INJ 25 MG/ML VIAL (J2550) As Ordered ONE (10:45)
[2019-12-13] MEDS: PROMETHAZINE INJ 25 MG/ML VIAL (J2550) IV PRN ×2 (11:02→21:10)
[2019-12-13] MEDS: ACETAMINOPHEN 500 MG TAB PO PRN (11:03)
[2019-12-13] MEDS: MAG SULF 1GM/100ML (MAG RUN) 1 GM in IV 1 EA IV SCH ×4 (11:25→15:05)
[2019-12-13 12:23] VITALS: O2SAT 96
--- NOTE | 2019-12-13 15:08 | IPNPDOC ---
Text Note Date of Service The patient was seen on 12/13/19. NOTE Subjective: -Feels poorly and weak -Nauseous, asking for Phenergan because zofran does not work for him from prior experience -Only 2 episodes of diarrhea since admission at this point which he reports to be an improvement Objective: Vitals: hemodynamically stable and afebrile General: Alert, Cooperative, Ill appearing without distress, thin Eye: PERRLA, pale, anicteric, otherwise EOMI ENT: Mucous membrane moist/pink Neck: no JVD or thyromegaly, no palpable adenopathy Chest: Clear to auscultation, normal air movement, no rales, rhonchi or wheezing, breathing comfortably and speaking in full sentences Heart: Rate Normal, Regular Rhythm, Normal S1, Normal S2, no mrg Abdomen: Normal bowel sounds, Soft, mild TTP in LLQ, no rebound, no guarding), palpable spleen tip 2-3cm below costal margin Ext: WWP, 2+ DP pulses, no edema Skin: pale, no rashes, petechiae or ecchymoses Neuro: 5/5 X4 strength in all 4 ext, weak and slow but eventually shows full strength, CN2-12 grossly intact, AOx3, clear speech Psych Exam: Positive: Mental status NL, Memory Intact, Oriented x 3 Labs: WBC - 1.9 Hgb - 7.8 Hct - 23.8 plts - 530 na 139 k 4.4 Cr 1.1 mag 1.6 monoscreen - negative, pending IgM serology ferritin - 410 CRP - 1.59 covid-19 PCR - pending Assessment/Plan 69 yo man with a history of chronic autoimmune neutropenia since 2018 s/p 2 bone marrow biopsies on chronic intermittent neupogen vs. neulasta, as well as trial of rituximab, with a history of recurrent bouts of diverticulitis and previously noted mild splenomegaly, as well as chronic diarrhea who presented from home complaining of worsening diarrhea, development of LLQ pain, nausea, generalized arthralgias and myalgias and SOB with exertion without fever, chills, rigors, cough, rhinorrhea, congestion or travel history and found to have mild left colonic diverticulitis and worsening splenomegaly with severe neutropenia. Abdominal pain: CT showed L sided inflammation c/w diverticulitis, as well splenomegaly likely related to his autoimmune disease per my discussion with Dr. Gillett -r/o COVID-19 given abdominal complaints with generalized arthralgias, myalgias and SIMMONS with low counts. covid-19 PCR pending -EBV monospot negative, pending IgM -continue empiric meropenem (allergic to PCNs and quinolones) for diverticulitis -IV fluids for repletion given poor PO and diarrhea, currently at 100cc/hr -continue home bismuth PRN for diarrhea -LFTS remain normal Dyspnea on exertion: With the constellation of abdominal pain, diarrhea, arthralgias and found to be severely neutropenic, will r/o COVID-19. -Covid-19 PCR pending -D-dimer wnl, ferritin mildly high, LDH wnl, CXR without pathology, proBNP unr emarkable, cardiac markers negative, fibrinogen wnl, coags wnl, CRP elevated, procalcitonin pending -continue covid-19 precautions -No hypoxemia at this time and breathing comfortably on room air with unremarkable pulm exam -continue lovenox 40 BID ppx -PT/OT Severe neutropenia: acute on chronic in the setting of ongoing inflammation with evidence of diverticulitis -Follows with Dr. Denson, consulted Dr. Marcella Tucker, started filgastrim 480 QD this AM with goal ANC > 1500, for up to 10 days -continue empiric meropenem, day 2, as noted above -follow up EBV IgM Hypothyroidism: -check TSH and free T4, will for now continue home dose of synthroid Schizophrenia: -continue home seroquel Electrolyte derrangements: in the setting of persistent diarrhea and poor PO -replete Mag and K aggressively as indicated DVT ppx: lovenox 40 BID Diet: advance to full liquid diet VS,Fishbone, I+O VS, Fishbone, I+O Laboratory Tests 12/13/19 05:25 Vital Signs Date Time Temp Pulse Resp B/P (MAP) Pulse Ox O2 Delivery O2 Flow Rate FiO2 12/13/19 12:23 96 Room Air 12/13/19 09:45 97.3 79 16 12/13/19 09:38 113/57 I&O- Last 24 Hours up to 6 AM 12/13/19 06:00 Intake Total 1080 ml Output Total 700 ml Balance 380 ml RAMYA HASSAN MD Dec 13, 2019:08
[2019-12-13 15:09] VITALS: BP 119/58
[2019-12-13 20:00] VITALS: BP 130/50
[2019-12-13] MEDS: QUEtiapine FUMARATE 25 MG TAB PO SCH (20:59)
[2019-12-14] VITALS (11 sets, daily range): BP systolic 100–128; BP diastolic 48–62
[2019-12-14] MEDS: MEROPENEM INJ 1 GM in IV 1 EA IV SCH ×3 (01:34→18:12)
[2019-12-14] MEDS: NS 1,000 ML IV SCH ×3 (01:34→20:06)
[2019-12-14] MEDS: LEVOTHYROXINE 150MCG TABLET (0.15MG) PO SCH (05:23)
[2019-12-14 05:28] LABS: HEMATOCRIT 23.4 % (42.0-52.0); HEMOGLOBIN 7.6 g/dl (13.5-17.5); MEAN CORPUSCULAR HEMOGLOBIN 27.5 pg (27.0-33.0); MEAN CORPUSCULAR HGB CONC 32.5 g/dl (32.0-36.5); MEAN CORPUSCULAR VOLUME 84.8 fl (80.0-96.0); PLATELET COUNT, AUTOMATED 594 10^3/uL (150-450); RED BLOOD COUNT 2.76 10^6/uL (4.30-6.10)
[2019-12-14 05:55] LABS: ATYPICAL LYMPH 6 % (0-5); BASOPHILS 1 % (0-1); GIANT PLATELETS 1+; HYPOCHROMASIA 1+; LYMPHOCYTES 89 % (16-44); METAMYELOCYTES 1 % (0-0); MICROCYTOSIS 1+; MONOCYTES 3 % (0-5); PLATELET ESTIMATE INCREASED (NORMAL)
[2019-12-14 05:56] LABS: ANISOCYTOSIS 1+; POIKILOCYTOSIS 1+; POLYCHROMASIA 1+
[2019-12-14 06:06] LABS: BLOOD UREA NITROGEN 13 MG/DL (7-18); CALCIUM LEVEL 8.3 MG/DL (8.8-10.2); CARBON DIOXIDE LEVEL 25 MEQ/L (21-32); CHLORIDE LEVEL 109 MEQ/L (98-107); CREATININE FOR GFR 0.94 MG/DL (0.70-1.30); FREE T4 1.23 NG/DL (0.76-1.46); GLOMERULAR FILTRATION RATE > 60.0 (>42); GLUCOSE, FASTING 128 MG/DL (70-100); MAGNESIUM LEVEL 1.6 MG/DL (1.8-2.4); POTASSIUM SERUM 3.7 MEQ/L (3.5-5.1); SODIUM LEVEL 138 MEQ/L (136-145); THYROID STIMULATING HORMONE 0.254 uIU/ML (0.358-3.740)
[2019-12-14] MEDS: MAG SULF 1GM/100ML (MAG RUN) 1 GM in IV 1 EA IV SCH ×3 (07:59→10:27)
[2019-12-14] MEDS: VITAMIN D 1,000 INTERNATIONAL UNITS TABLET PO SCH (08:01)
[2019-12-14] MEDS: ASPIRIN 81 MG ENTERIC TAB PO SCH (08:01)
[2019-12-14] MEDS: LACTOBACILLUS ACIDOPHILUS CAP (BACID) PO SCH (08:01)
[2019-12-14] MEDS: LOSARTAN 25 MG TAB PO SCH (08:02)
[2019-12-14] MEDS: ENOXAPARIN 40MG/0.4ML SYRINGE (J1650 PER 10MG) SC SCH ×2 (08:02→20:05)
[2019-12-14] MEDS: PROMETHAZINE INJ 25 MG/ML VIAL (J2550) IV PRN ×2 (08:11→16:52)
[2019-12-14] MEDS ORDERED: VITAMIN E 400 INTERNATIONAL UNITS CAP PO SCH (09:00)
[2019-12-14] MEDS ORDERED: OMEGA-3 1000MG CAPSULE PO SCH (09:00)
[2019-12-14] MEDS: MAGNESIUM OXIDE 400 MG TAB (MAG-OX) PO SCH (09:27)
[2019-12-14] MEDS: MULTIVITAMINS/MINERALS THERAP 1 TAB PO SCH (09:27)
[2019-12-14] MEDS: FILGRASTIM 480 MCG/0.8 ML SYRINGE (J1442) SC SCH (10:27)
[2019-12-14 17:27] LABS: HEMATOCRIT 30.2 % (42.0-52.0); HEMOGLOBIN 10.1 g/dl (13.5-17.5); MEAN CORPUSCULAR HEMOGLOBIN 28.6 pg (27.0-33.0); MEAN CORPUSCULAR HGB CONC 33.4 g/dl (32.0-36.5); MEAN CORPUSCULAR VOLUME 85.6 fl (80.0-96.0); RED BLOOD COUNT 3.53 10^6/uL (4.30-6.10); WHITE BLOOD COUNT 1.9 10^3/uL (4.0-10.0)
[2019-12-14 17:49] LABS: PLATELET COUNT, AUTOMATED 467 10^3/uL (150-450)
--- NOTE | 2019-12-14 18:25 | IPNPDOC ---
Text Note Date of Service The patient was seen on 12/14/19. NOTE S: Pt examined at bedside. Continues to have nausea with dry heaving breathing of mucus, left lower quadrant abdominal pain diverticulitis, fatigued with little energy. Minimal appetite. No reported events overnight. PE: Vitals: see below General: NAD, A&Ox3, resting comfortably HEENT: NCAT, EOMI, anicteric sclera, MMM CV: RRR, no murmurs or clicks or rub. No edema RESP: CTAB, no w/r/r/ ABD: soft, ND. Tendere LLQ, no r/g/r. Palpable spleen EXTREMITIES: 2+ radial pulses b/l, able to move all extremities NEURO: no focal deficits or acute changes SKIN no visible lesions, pale-appearing: A/P: This is a 69-year-old male with chronic autoimmune neutropenia since 2018 who has had 2 bone marrow biopsies and frequently requires Neupogen and Neulasta, and normally follows with Dr. Denson. He has also tried rituximab. He presented for worsening of his symptoms that have been ongoing for the past 1-2 months: Abdominal pain, nausea, fatigue, muscle aches. On admission, was noted to have diverticulitis and severe neutropenia with worsening splenomegaly. 1. Abdominal pain - Gradually worsening abdominal pain over the past 1-2 months -Likely 2/2 left colonic diverticulitis and worsening splenomegaly 2/2 autoimmune disorder -EBV Monospot negative, pending IgM -Continue empiric meropenem (allergic to penicillin quinolones) day 3, and supportive care, on IV fluids -Encourage by mouth intake, will advanced diet 2. Severe neutropenia in the setting of chronic autoimmune neutropenia -Normally follows with Dr. Denson -Dr. Tucker consulted on admission; per her recommendations, start Neupogen with goal ANC greater than 1500 -Continue empiric meropenem. No signs of systemic infection 3. Anemia in the setting of pancytopenia -No acute blood loss. Hemodynamically stable -Baseline hemoglobin 10-11, dropped gradually to 7.6 this morning -Likely 2/2 baseline autoimmune disorder -May be contributing to his symptoms -Verbal and written consent obtained for transfusion with staff in room; give 2 units PRBC and trend H&H 4. Hypomagnesemia -Supplemented, reassess Hypothyroidism Continue Synthroid Schizophrenia Continue Seroquel Hypertension Controlled, continue Losartan DVT ppx: Lovenox SC DISPO: Pending clinical improvement. Will downgrade and advanced diet. VS,Fishbone, I+O VS, Fishbone, I+O Laboratory Tests 12/14/19 05:10 12/14/19 17:11 Vital Signs Date Time Temp Pulse Resp B/P (MAP) Pulse Ox O2 Delivery O2 Flow Rate FiO2 12/14/19 16:00 99.1 82 16 112/51 97 Room Air I&O- Last 24 Hours up to 6 AM 12/14/19 05:59 Intake Total 4080 ml Output Total 800 ml Balance 3280 ml GME ATTESTATION GME ATTESTATION My faculty preceptor for this patient encounter was physically present during the encounter and was fully available. All aspects of the patient interview, examination, medical decision making process, and medical care plan development were reviewed and approved by the faculty preceptor. The faculty preceptor is aware and concurs with the plan as stated in the body of this note and will attest to such by his/her cosignature. ATTENDING NOTE I, Janell Hassan, have independently examined this patient and performed my own physical exam, as well as reviewed the documentation and edited where necessary. I have discussed in detail with the resident / student the f indings and plan of treatment as documented by the resident / student and edited their note. I agree with their findings and treatment plan and have edited their documentation. We will continue filgastrim, meropenem and advance his diet cautiously. ALEX DANGELO DO Dec 14, 2019 18:25 JANELL HASSAN MD Dec 14, 2019 19:36
[2019-12-14] MEDS ORDERED: ONDANSETRON 4MG/2ML VIAL (J2405 PER 1MG) IV PRN (19:45)
[2019-12-14] MEDS: QUEtiapine FUMARATE 25 MG TAB PO SCH (20:05)
[2019-12-14] MEDS: ACETAMINOPHEN 500 MG TAB PO PRN (20:06)
[2019-12-15] MEDS: MEROPENEM INJ 1 GM in IV 1 EA IV SCH ×2 (01:43→09:59)
[2019-12-15] MEDS: NS 1,000 ML IV SCH (05:31)
[2019-12-15] MEDS: LEVOTHYROXINE 150MCG TABLET (0.15MG) PO SCH (05:31)
[2019-12-15 06:00] VITALS: BP 118/54
[2019-12-15 07:00] LABS: HEMATOCRIT 29.5 % (42.0-52.0); HEMOGLOBIN 9.8 g/dl (13.5-17.5); MEAN CORPUSCULAR HEMOGLOBIN 28.5 pg (27.0-33.0); MEAN CORPUSCULAR HGB CONC 33.2 g/dl (32.0-36.5); MEAN CORPUSCULAR VOLUME 85.8 fl (80.0-96.0); RED BLOOD COUNT 3.44 10^6/uL (4.30-6.10); WHITE BLOOD COUNT 2.5 10^3/uL (4.0-10.0)
[2019-12-15 07:05] LABS: PLATELET COUNT, AUTOMATED 665 10^3/uL (150-450)
[2019-12-15 07:48] LABS: ATYPICAL LYMPH 3 % (0-5); BLOOD UREA NITROGEN 11 MG/DL (7-18); CALCIUM LEVEL 8.3 MG/DL (8.8-10.2); CARBON DIOXIDE LEVEL 24 MEQ/L (21-32); CHLORIDE LEVEL 110 MEQ/L (98-107); CREATININE FOR GFR 0.96 MG/DL (0.70-1.30); GLOMERULAR FILTRATION RATE > 60.0 (>42); GLUCOSE, FASTING 117 MG/DL (70-100); LYMPHOCYTES 89 % (16-44); MONOCYTES 6 % (0-5); NEUTROPHILS 2 % (28-66); POTASSIUM SERUM 4.5 MEQ/L (3.5-5.1); SODIUM LEVEL 140 MEQ/L (136-145)
[2019-12-15 07:49] LABS: ANISOCYTOSIS 1+; HYPOCHROMASIA 1+; PLATELET ESTIMATE INCREASED (NORMAL); POIKILOCYTOSIS 1+
[2019-12-15 08:47] LABS: MAGNESIUM LEVEL 1.6 MG/DL (1.8-2.4)
[2019-12-15] MEDS: LACTOBACILLUS ACIDOPHILUS CAP (BACID) PO SCH (09:58)
[2019-12-15] MEDS: MAGNESIUM OXIDE 400 MG TAB (MAG-OX) PO SCH (09:58)
[2019-12-15] MEDS: ASPIRIN 81 MG ENTERIC TAB PO SCH (09:58)
[2019-12-15] MEDS: VITAMIN D 1,000 INTERNATIONAL UNITS TABLET PO SCH (09:58)
[2019-12-15 09:59] VITALS: BP 138/54
[2019-12-15] MEDS: ENOXAPARIN 40MG/0.4ML SYRINGE (J1650 PER 10MG) SC SCH (09:59)
[2019-12-15] MEDS: MULTIVITAMINS/MINERALS THERAP 1 TAB PO SCH (09:59)
[2019-12-15] MEDS: LOSARTAN 25 MG TAB PO SCH (09:59)
[2019-12-15] MEDS: FILGRASTIM 480 MCG/0.8 ML SYRINGE (J1442) SC SCH (11:48)
[2019-12-15] MEDS: MAG SULF 1GM/100ML (MAG RUN) 1 GM in IV 1 EA IV SCH ×2 (13:26→14:24)
[2019-12-15] MEDS ORDERED: FLAG500T PO (13:30)
[2019-12-15] MEDS ORDERED: CIPR500T3 PO (13:30)
--- NOTE | 2019-12-15 17:30 | DS.PDOC ---
Discharge Summary General Date of Admission Dec 12, 2019 at 16:14 Date of Discharge 12/15/2019 Attending Physician: RAMYA HASSAN MD Discharge Summary PROCEDURES PERFORMED DURING STAY: none DISCHARGE DIAGNOSES: 1. Left colonic diverticulitis 2. Worsening splenomegaly 3. Severe neutropenia 4. Chronic autoimmune neutropenia 5. Chronic anemia 6. Hypomagnesemia 7. Hypothyroidism 8. Schizophrenia 9. Hypertension HISTORY OF PRESENT ILLNESS: This is a 69-year-old male with chronic autoimmune neutropenia since 2018 who has had 2 bone marrow biopsies and frequently requires Neupogen and Neulasta, and normally follows with Dr. Denson. He has also tried rituximab. He presented for worsening of his symptoms that have been ongoing for the past 1-2 months: Abdominal pain, nausea, fatigue, muscle aches. On admission, was noted to have diverticulitis and severe neutropenia with worsening splenomegaly. HOSPITAL COURSE: Patient was admitted and started on empiric meropenem given his allergies to penicillin and quinolones. Oncologist Dr. Tucker was consulted on admission, who recommended giving daily Neupogen with a goal ANC greater than 1500. Patient was hemodynamically stable throughout the stay without any system ic infection. During his stay, he was found to gradually drop his hemoglobin to 7.6 from his baseline which appears to be 10-11. This is likely from his autoimmune disorder as he is in no occult bleed and this drop was very gradual. Patient was consented and given 2 units PRBC, with an adequate rise in his H&H and improvement in his symptoms. He felt improved and his diet was gradually increased from clear liquids up to a regular diet. With supportive care, he began tolerating food without any nausea or vomiting, abdominal pain subsided, ambulated hallways with great strength, and was discharged home on ciprofloxacin and Flagyl to complete his course of antibiotics. He is advised to stay hyd rated, take isolation precautions, and follow up closely with his primary physicians and oncology. DISCHARGE MEDICATIONS: Please see below. ALLERGIES: Please see below. PHYSICAL EXAMINATION ON DISCHARGE: Vitals: see below General: NAD, A&Ox3, resting comfortably HEENT: NCAT, EOMI, anicteric sclera, MMM CV: RRR, no murmurs or clicks or rub. No edema RESP: CTAB, no w/r/r/ ABD: soft, ND. Tender LLQ, no r/g/r. Palpable spleen EXTREMITIES: 2+ radial pulses b/l, able to move all extremities NEURO: no focal deficits or acute changes SKIN: no visible lesions, well-perfused LABORATORY DATA: Please see below. IMAGING: * 12/12/2019 CT abdomen and pelvis: Hepatosplenomegaly. The spleen is significantly enlarged with a length of 21.3 cm. It is significantly larger than on the prior CT scan of 06/02/2019. It displaces the left kidney anteromedially . Scattered diverticula of the colon. There are findings most consistent with mild left colonic diverticulitis. There is mild adjacent free fluid. Small right anterior abdominal wall hernia containing fat. * 12/12/2019 CXR: There is no acute cardiopulmonary disease. No significant change. PROGNOSIS: good ACTIVITY: As tolerated. DIET: 2g sodium DISPOSITION: home DISCHARGE INSTRUCTIONS: 1. Follow-up with PCP within a week, oncology 1-2 weeks 2. Return to ER for emergency DISCHARGE CONDITION: Stable. TIME SPENT ON DISCHARGE: Greater than 35 minutes. Vital Signs/I&Os Vital Signs Date Time Temp Pulse Resp B/P (MAP) Pulse Ox O2 Delivery O2 Flow Rate FiO2 12/15/19 09:59 138/54 12/15/19 06:00 98.6 82 18 94 Room Air I&O- Last 24 Hours up to 6 AM 12/15/19 06:00 Intake Total 3319 ml Balance 3319 ml Laboratory Data Labs 24H Laboratory Tests 2 12/15/19 06:44: Neutrophils (%) (Auto) , Neutrophils # (Auto) , Nucleated Red Blood Cells % (auto) 2.4H, Neutrophils 2L, Lymphocytes (Manual) 89H, Monocytes (Manual) 6H, Atypical Lymphocytes 3, Hypochromasia 1+, Poikilocytosis 1+, Anisocytosis 1+, Platelet Estimate INCREASED, Anion Gap 6L, Glomerular Filtration Rate > 60.0, Calcium Level 8.3L, Magnesium Level 1.6L CBC/BMP Laboratory Tests 12/15/19 06:44 Microbiology Microbiology 12/12/19 Coronavirus COVID-19 PCR ([facility]) - Final, Complete Discharge Medications Scheduled Aspirin (Aspirin EC) 81 Mg Tab, 81 MG PO DAILY, (Reported) Cholecalciferol (Vitamin D3) (Vitamin D3) 1,000 Unit Tablet, 2,000 UNITS PO 6XWK, (Reported) EVERY DAY EXCEPT WEDNESDAY Adalgisa Root (Adalgisa Root) 550 Mg Capsule, 550 MG PO 5XW, (Reported) QPM: WED, WED, WED, , WED Grape Seed Extract (Grape Seed Extract) 50 Mg Capsule, 200 MG PO 4XWK, (Reported) , WED Grape Seed Extract (Grape Seed Extract) 50 Mg Capsule, 100 MG PO 3XW, (Reported) WED, WED, WED Iodine (Kelp) 150 Mcg Tablet, 150 MCG PO 4XWK, (Reported) WED, , WED Lactobacillus Combo No.10 (Probiotic) 1 Each Capsule, 1 TAB PO DAILY, (Reported) Levothyroxine Sodium (Levothyroxine Sodium) 175 Mcg Tab, 175 MCG PO DAILY, (Reported) Losartan Potassium (Losartan Potassium) 25 Mg Tablet, 25 MG PO DAILY, (Reported) Magnesium Oxide (Magnesium Oxide) 500 Mg Capsule, 1,500 MG PO DAILY, (Reported) TAKES AROUND 1400 Metronidazole (Flagyl) 500 Mg Tablet, 500 MG PO Q8H Multivitamins (Thera M Plus Tablet) 1 Tab Tab, 1 TAB PO DAILY, (Reported) Central-3 Fatty Acids/Fish Oil (Fish Oil 1,000 mg Capsule) 1 Each Capsule, 1,000 MG PO 5XW, (Reported) WED, WED, , , WED Quetiapine Fumarate (Quetiapine Fumarate) 25 Mg Tab, 25 MG PO QHS, (Reported) Vitamin E (Dl,Tocopheryl Acet) (Vitamin E) 200 Unit Capsule, 200 UNIT PO 5XW, (R eported) WED, WED, , , WED Scheduled PRN Acetaminophen (Pain Relief Extra Strength) 500 Mg Tablet, 500 MG PO QID PRN for PAIN, (Reported) Bismuth Subsalicylate (Kaopectate) 262 Mg/15 Ml Oral.susp, 262 MG PO Q4H PRN for DIARRHEA, (Reported) Lidocaine HCl (Lidocaine HCl Viscous) 15 Ml Solution, 2 % MT Q2-4HP PRN for PAIN OR DYSPNEA Apply viscous lidocaine to painful oral ulcers using cotton tip applicator q 2 hours prn pain Ondansetron HCl (Zofran) 4 Mg Tablet, 4 MG PO Q6-8HP PRN for nausea/vomiting Polyvinyl Alcohol (Artificial Tears) 1.4 % Rach, 1 DROP OU QID PRN for DRY EYES, (Reported) Allergies Coded Allergies: bee venom protein (honey bee) (Verified Allergy, Severe, ANAPHYLACTIC, 11/25/18) amoxicillin (Verified Allergy, Intermediate, ALL OVER BODY RASH, 11/25/18) clavulanic acid (Verified Allergy, Intermediate, ALL OVER BODY RASH, 11/25/18) wheat (Verified Allergy, Intermediate, 12/12/19) POULTRY (Verified Adverse Reaction, Intermediate, turkey - gout, 07/01/18) ciprofloxacin (Verified Adverse Reaction, Intermediate, nausea, 12/12/19) MICH Inhibitors (Verified Adverse Reaction, Mild, COUGH, 11/25/18) GME ATTESTATION GME ATTESTATION My faculty preceptor for this patient encounter was physically present during the encounter and was fully available. All aspects of the patient interview, examination, medical decision making process, and medical care plan development were reviewed and approved by the faculty preceptor. The faculty preceptor is aware and concurs with the plan as stated in the body of this note and will attest to such by his/her cosignature. ATTENDING NOTE I, Ramya Hassan, have independently examined this patient and performed my own physical exam, as well as reviewed the documentation and edited where necessary. I have discussed in detail with the resident / student the findings and plan of treatment as documented by the resident / student and edited their note. I agree with their findings and treatment plan and have edited their documentation. Mr. Chin was admitted with diverticulitis and acute on chronic autoimmune neutropenia. We treated him with meropenem and 3days of filgrastim with resolution of pain. He is now being discharged home with 4d of flagyl for empiric colitis coverage and PRN zofran with close hematology follow up. ALEX DANGELO DO Dec 15, 2019 17:30 RAMYA HASSAN MD Dec 16, 2019 07:47
[2019-12-15] MEDS ORDERED: ZOFR4TAB16 PO (19:07)
== END 2019-12-15 16:25 | disposition home or self-care (01) | DRG 809 ==
LOC: M ED 11:40 → M ED INP 16:14 → ENRESERVDT 18:29 → ENRESERVTM 18:29 → M PCU 20:00 → M MS5PR 12-14 09:31
PROVIDERS: ADMIT Internal Medicine; ATTEND Internal Medicine
PROC: 30233N1 Transfusion of Nonautologous Red Blood Cells into Peripheral Vein, Percutaneous Approach (ICD-10-PCS; principal; 2019-12-14)
DX: D70.8 Other neutropenia (principal); K57.92 Diverticulitis of intestine, part unspecified, without perforation or abscess without bleeding; K52.9 Noninfective gastroenteritis and colitis, unspecified; E83.42 Hypomagnesemia; R53.1 Weakness; R73.03 Prediabetes; I10 Essential (primary) hypertension; E03.9 Hypothyroidism, unspecified; R16.1 Splenomegaly, not elsewhere classified; M79.18 Myalgia, other site; F20.9 Schizophrenia, unspecified; E78.9 Disorder of lipoprotein metabolism, unspecified; F41.9 Anxiety disorder, unspecified; F32.9 Major depressive disorder, single episode, unspecified; K21.9 Gastro-esophageal reflux disease without esophagitis; Z88.8 Allergy status to other drugs, medicaments and biological substances; Z88.0 Allergy status to penicillin; Z91.030 Bee allergy status; Z91.018 Allergy to other foods; Z79.899 Other long term (current) drug therapy; Z79.82 Long term (current) use of aspirin; Z90.49 Acquired absence of other specified parts of digestive tract; Z11.59 Encounter for screening for other viral diseases

== ENCOUNTER → 2019-12-21 | Outpatient (CLI) | payer MEDICARE, OTHER ==
[~2019-12-21] MED LIST changes: +CIPR500T3 PO; -ENOXAPARIN 40MG/0.4ML SYRINGE (J1650 PER 10MG) SC SCH; +KAOP262S PO; +KAOPECTATE; +ONDA-83 PO; +PROC1AER16 PR; +QUES4POW PO; +SLOWTAB2 PO; +VITAD1000T PO; +ZOFR4TAB16 PO
[2019-12-21 10:46] LABS: HEMATOCRIT 27.3 % (42.0-52.0); HEMOGLOBIN 9.1 g/dl (13.5-17.5); LYMPH # 1.8 10^3/uL (1.5-5.0); LYMPH % 89.6 % (24.0-44.0); MEAN CORPUSCULAR HEMOGLOBIN 28.3 pg (27.0-33.0); MEAN CORPUSCULAR HGB CONC 33.3 g/dl (32.0-36.5); MEAN CORPUSCULAR VOLUME 84.8 fl (80.0-96.0); MONO # 0.1 10^3/uL (0.0-0.8); MONO % 4.5 % (0.0-5.0); NEUTROPHILS % 4.4 % (36.0-66.0); PLATELET COUNT, AUTOMATED 521 10^3/uL (150-450); RED BLOOD COUNT 3.22 10^6/uL (4.30-6.10)
[2019-12-21 10:51] LABS: NEUTROPHILS # 0.1 10^3/uL (1.5-8.5)
[2019-12-24 00:06] LABS: FATS NEUTRAL Increased (.); FATS TOTAL Increased (.)
== END ==
LOC: M LAB 10:17
PROVIDERS: ATTEND Internal Medicine Hematology
DX: D72.819 Decreased white blood cell count, unspecified (principal)

== ENCOUNTER 2019-12-23 13:33 | Inpatient (IN) | payer MEDICARE, OTHER ==
[~2019-12-23] VITALS: Ht 177.8 cm; Wt 72.7 kg
[~2019-12-23 13:33] MED LIST changes: -ONDA-83 PO
[2019-12-23] MEDS ORDERED: NS 1,000 ML IV SCH (14:00)
[2019-12-23] MEDS ORDERED: PROMETHAZINE INJ 25 MG/ML VIAL (J2550) IV ONE (14:00)
[2019-12-23 14:30] LABS: HEMATOCRIT 28.8 % (42.0-52.0); HEMOGLOBIN 9.6 g/dl (13.5-17.5); MEAN CORPUSCULAR HEMOGLOBIN 28.4 pg (27.0-33.0); MEAN CORPUSCULAR HGB CONC 33.3 g/dl (32.0-36.5); MEAN CORPUSCULAR VOLUME 85.2 fl (80.0-96.0); PLATELET COUNT, AUTOMATED 593 10^3/uL (150-450); RED BLOOD COUNT 3.38 10^6/uL (4.30-6.10); WHITE BLOOD COUNT 2.9 10^3/uL (4.0-10.0)
[2019-12-23 14:54] LABS: ALBUMIN 3.4 GM/DL (3.2-5.2); ALT/SGPT 17 U/L (12-78); BILIRUBIN,DIRECT 0.2 MG/DL (0.0-0.2); BILIRUBIN,TOTAL 1.2 MG/DL (0.2-1.0); LIPASE 269 U/L (73-393)
[2019-12-23] MEDS ORDERED: ISOVUE-370 76% 100ML VIAL As Ordered ONE (15:03)
[2019-12-23 15:07] LABS: ANISOCYTOSIS 2+; ATYPICAL LYMPH 14 % (0-5); HYPOCHROMASIA 1+; LYMPHOCYTES 84 % (16-44); NEUTROPHILS 2 % (28-66); PLATELET ESTIMATE INCREASED (NORMAL)
[2019-12-23 15:08] LABS: BURR CELLS 1+
[2019-12-23 15:09] LABS: TEAR DROP CELLS 1+
[2019-12-23] MEDS ORDERED: MAG SULF 1GM/100ML (MAG RUN) 1 GM in IV 1 EA IV ONE (15:30)
[2019-12-23 15:58] VITALS: BP 112/56
[2019-12-23 16:01] LABS: PHOSPHORUS LEVEL 4.1 MG/DL (2.5-4.9)
[2019-12-23] MEDS ORDERED: MORPHINE 2 MG/ML 1ML VIAL (J2270) IV PRN (16:45)
[2019-12-23] MEDS ORDERED: MOM 30ML SUSPENSION UDC PO PRN (16:45)
[2019-12-23] MEDS ORDERED: MAALOX 30 ML SUSP *UDC PO PRN (16:45)
--- NOTE | 2019-12-23 16:45 | HPEPDOC ---
General Date of Admission 12/23/19 Date of Service: Dec 23, 2019 Chief Complaint The patient is a 69-year-old male admitted with a reason for visit of Gen Med. Source: Patient, Old records Exam Limitations: No limitations Timing/Duration: Day(s) (5) Severity: Moderate Associated Symptoms: Loss of appetite, Malaise, Nausea, Weakness History of Present Illness 69 yo man with a history of chronic autoimmune neutropenia since 2018 s/p 2 bone marrow biopsies on chronic intermittent neupogen vs. neulasta, as well as trial of rituximab, with a history of recurrent bouts of diverticulitis and previously noted mild splenomegaly, as well as chronic diarrhea presents back to the ER for complaints of left lower quadrant abdominal pain and diarrhea. Patient was recently hospitalized for diverticulitis and discharged on by mouth Cipro and Flagyl. However, patient reports that he was unable to take his ciprofloxacin due to extreme nausea. He continued to take his Flagyl for 4 days. However, on day 3 he developed worsening abdominal pain and malaise. Patient states that the pain was similar to his other episodes of diverticulitis. He was unable to tolerate by mouth diet as he felt very nauseous although he did not throw up. He did not record any temperatures but the pain in his stomach continued to grow bigger. Patient also reports having copious amounts of loose stools as well whi ch made his rectum burn. He has been putting zinc oxide cream and other hemorrhoidal creams day with no relief. She denies any recent fevers, chills, short supply breath, chest pain, leg swelling. ER evaluation was completed and imaging was done. CT abdomen pelvis revealed diverticulitis which was unimproved. 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 Patient to be admitted to hospitalist service for failed outpatient treatment of diverticulitis. Home Medications Scheduled Aspirin (Aspirin EC) 81 Mg Tab, 81 MG PO DAILY, (Reported) Cholecalciferol (Vitamin D3) (Vitamin D3) 1,000 Unit Tablet, 2,000 UNITS PO 6XWK, (Reported) EVERY DAY EXCEPT WEDNESDAY Adalgisa Root (Adalgisa Root) 550 Mg Capsule, 550 MG PO 5XW, (Reported) QPM: SUN, MON, WED, THURS, SAT Grape Seed Extract (Grape Seed Extract) 50 Mg Capsule, 200 MG PO 4XWK, (Reported) SUN, , THURS, SAT Grape Seed Extract (Grape Seed Extract) 50 Mg Capsule, 100 MG PO 3XW, (Reported) MON, WED, WED Hydrocortisone/Pramoxine (Proctofoam-Hc 1%-1% Foam) 10 Gm Foam, 1 APLCTR AR BID for anal pain apply to anal region b.i.d. prn Iodine (Kelp) 150 Mcg Tablet, 150 MCG PO 4XWK, (Reported) WED, , , WED Lactobacillus Combo No.10 (Probiotic) 1 Each Capsule, 1 TAB PO DAILY, (Reported) Levothyroxine Sodium (Levothyroxine Sodium) 175 Mcg Tab, 175 MCG PO DAILY, (Reported) Losartan Potassium (Losartan Potassium) 25 Mg Tablet, 25 MG PO DAILY, (Reported) Magnesium Chloride (Slow-Mag) 71.5 Mg Tablet.dr, 71.5 MG PO BID for hypomagnesemia Take 1 tablet po b.i.d. Multivitamins (Thera M Plus Tablet) 1 Tab Tab, 1 TAB PO DAILY, (Reported) [place]-3 Fatty Acids/Fish Oil (Fish Oil 1,000 mg Capsule) 1 Each Capsule, 1,000 MG PO 5XW, (Reported) WED, WED, , , SAT Quetiapine Fumarate (Quetiapine Fumarate) 25 Mg Tab, 25 MG PO QHS, (Reported) Vitamin E (Dl,Tocopheryl Acet) (Vitamin E) 200 Unit Capsule, 200 UNIT PO 5XW, (Reported) WED, WED, , , SAT Scheduled PRN Acetaminophen (Pain Relief Extra Strength) 500 Mg Tablet, 500 MG PO QID PRN for PAIN, (Reported) Cholestyramine (with Sugar) (Questran Packet) 4 Gm Powd.pack, 4 GM PO QIDP PRN for DIARRHEA Take 1 packet po q.i.d. prn, additional after each loose bowel movement, to max 8 doses per day Lidocaine HCl (Lidocaine HCl Viscous) 15 Ml Solution, 2 % MT Q2-4HP PRN for PAIN OR DYSPNEA Apply viscous lidocaine to painful oral ulcers using cotton tip applicator q 2 hours prn pain Ondansetron HCl (Zofran) 4 Mg Tablet, 4 MG PO Q6-8HP PRN for nausea/vomiting Polyvinyl Alcohol (Artificial Tears) 1.4 % Rach, 1 DROP OU QID PRN for DRY EYES, (Reported) Allergies Coded Allergies: bee venom protein (honey bee) (Verified Allergy, Severe, ANAPHYLACTIC, 11/25/18) amoxicillin (Verified Allergy, Intermediate, ALL OVER BODY RASH, 11/25/18) clavulanic acid (Verified Allergy, Intermediate, ALL OVER BODY RASH, 11/25/18) wheat (Verified Allergy, Intermediate, 12/12/19) POULTRY (Verified Adverse Reaction, Intermediate, turkey - gout, 07/01/18) ciprofloxacin (Verified Adverse Reaction, Intermediate, nausea, 12/12/19) MICH Inhibitors (Verified Adverse Reaction, Mild, COUGH, 11/25/18) Past Medical History Medical History chronic autoimmune neutropenia colon resection s/s volvulus hypothyroidism schizophrenia history of recurrent episodes of diverticulitis Surgical History colon resection s/s volvulus s/p 2 bone marrow biopsies Family History Father from a massive heart attack in his 60s Mother from renal failure in her 90s Social History * Smoker: Denies Alcohol: rarely Drugs: denies Recent Travel/Sick Contacts: Denies: Recent travel, Recent sick contacts Psychosocial History: Schizophrenia 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 A-FIB/CHADSVASC A-FIB History Current/History of A-Fib/PAF?: No Review of Systems Constitutional: Reports: Malaise, Weakness, Fatigue; Denies: Chills, Fever Eyes: Denies: Pain, Vision change ENT: Denies: Head Aches, Ear Pain, Sore Throat Skin: Denies: Rash, Lesions, Jaundice, Bruising Pulmonary: Denies: Dyspnea, Cough, Pleuritic Chest Pain Cardiovascular: Denies: Chest Pain, Palpitations, Orthopnea, Edema Gastrointestinal: Reports: Nausea, Abdominal Pain (in all 4 quadrants but specifically worse in left lower quadrant), Diarrhea (approximately 10 episodes per day or more), Other Symptoms (rectal pain and tenesmus); Denies: Vomiting, Constipation, Melena Genitourinary: Denies: Dysuria, Frequency Hematologic: Denies: Bruising, Petecchia, Purpura Musculoskeletal: Denies: Back Pain, Shoulder Pain, Joint Pain, Muscle Pain Neurological: Denies: Weakness, Numbness, Change in speech, Confusion Psych: Reports: Mood Normal; Denies: Anxiety, Depression, Memory Issues, Thoughts of Self Harm, Thoughts of Harming Other Physical Examination General Exam: Positive: Alert, Cooperative, No Acute Distress, Other (white male who appears to be stated age. Resting comfortably on the bed and able to talk in full sentences.) Eye Exam: Positive: PERRLA, Conjunctiva & lids normal, EOMI; Negative: Sclera icteric ENT Exam: Positive: Atraumatic, Mucous membr. moist/pink, Tongue Midline Neck Exam: Positive: Supple; Negative: JVD, thyromegaly Chest Exam: Positive: Clear to auscultation, Normal air movement Heart Exam: Positive: Rate Normal, Regular Rhythm, Normal S1, Normal S2; Negative: Murmurs Abdomen Exam: Positive: Normal bowel sounds, Soft, Tenderness (tender to palpation of the left lower quadrant on superficial palpation), Hepatospenomegaly (masses splenomegaly appreciated on percussion), Other (patient has an anal tear at the 6 o'clock position which appears to be healing. There is redness and irritation at the 12 o'clock position. No external hemorrhoids appreciated.) Extremity Exam: Positive: Normal pulses; Negative: Clubbing, Edema Skin Exam: Positive: Nl turgor and temperature Neuro Exam: Positive: Normal Gait, Normal Speech, Strength at 5/5 X4 ext, Normal Tone, Sensation Intact Psych Exam: Positive: Mental status NL, Mood NL Vital Signs Vital Signs Date Time Temp Pulse Resp B/P (MAP) Pulse Ox O2 Delivery O2 Flow Rate FiO2 12/23/19 16:33 86 91 12/23/19 16:30 94/47 (63) 12/23/19 13:38 18 12/23/19 13:34 98.4 Room Air Laboratory Data Labs 24H Laboratory Tests 2 12/23/19 14:00: Neutrophils (%) (Auto) , Neutrophils # (Auto) , Nucleated Red Blood Cells % (auto) 2.1H, Neutrophils 2L, Lymphocytes (Manual) 84H, Atypical Lymphocytes 14H, Hypochromasia 1+, Anisocytosis 2+, Tear Drop Cells 1+, Pascual Cells 1+, Platelet Estimate INCREASED, Lactic Acid Level 1.0, Phosphorus Level 4.1, Magnesium Level 1.0L, Total Bilirubin 1.2H, Direct Bilirubin 0.2, Aspartate Amino Transf (AST/SG OT) < 3L, Alanine Aminotransferase (ALT/SGPT) 17, Alkaline Phosphatase 63, Total Protein 6.0L, Albumin 3.4, Albumin/Globulin Ratio 1.31, Lipase 269 12/23/19 14:13: POC Glucose (Misc Panel) 172H, POC Sodium (Misc Panel) 135L, POC Potassium (Misc Panel) 4.0, POC Chloride (Misc Panel) 98, POC Total CO2 (Misc Panel) 24.0, POC Blood Urea Nitrogen (Misc Panel 16, POC Ionized Calcium (Misc Panel) 5.0, POC Creatinine (Misc Panel) 1.1, POC Hematocrit (Misc Panel) 31.0L CBC/BMP Laboratory Tests 12/23/19 14:00 Microbiology Microbiology 12/23/19 Blood Culture, Received Pending 12/23/19 Blood Culture, Received Pending RAD Interpretation STUDY: CT abdomen pelvis Rad Actions: Wet Read Reviewed, Films Reviewed RAD Interpretation: Other Result Comments: (findings consistent with acute diverticulitis. Splenomegaly also appreciated that is similar in size to previous imaging 2 weeks prior) Assessment/Plan 69-year-old male with history of recurrent diverticulitis who was recently discharged for similar issue presents to the ER for acute diverticulitis. Likely due to medication noncompliance as he was unable to take his antibiotics as prescribed. Repeat CT abdomen pelvis reveals diverticulitis and will treat accordingly. Patient received meropenem given his multiple antibiotic issues. Patient also has chronic neutropenia which is being followed by Dr. Denson as an outpatient. Notes were reviewed and will continue with current treatment plan. Anticipate discharge when patient is able to tolerate by mouth diet and having less abdominal pain. We'll continue to find antibiotic regimen that works for him as outpatient. Plan / VTE VTE Prophylaxis Ordered?: Yes Plan Plan Acute diverticulitis likely secondary to medication noncompliance Patient presents with signs and symptoms consistent with diverticulitis and confirmed on imaging. We'll begin antibiotic therapy with meropenem. - Meropenem 1 g every 8 hours - Clear liquid diet, advance as tolerated - Morphine IV push when necessary for pain Rectal pain likely due to anal fissures from chronic diarrhea Patient has some small fissures likely related to his chronic diarrhea. - Proctofoam cream to be applied twice a day Chronic autoimmune neutropenia Hepatosplenomegaly - currently being worked up Establish issue is currently being followed by Dr. Denson, oncology as an outpatient. Receiving Neulasta with last dose on . - We'll continue with antibiotic therapy for now - Monitor CBC daily, this acute drop noted will reconsult oncology for follow-up Hypothyroidism - Will continue with home dose Synthroid Schizophrenia: Schizophrenia Currently not delusional, having suicidal ideations, having homicidal ideations. Mood appears stable - continue home seroquel hypomagnesemia in the setting of persistent diarrhea and poor PO -replete Mag, K and check lytes daily DVT ppx: lovenox 40 daily PRISCILA CARIAS MD Dec 23, 2019 16:45
[2019-12-23] MEDS ORDERED: SLOWTAB2 PO ×2 (17:34)
[2019-12-23] MEDS ORDERED: ONDA-83 PO (17:34)
[2019-12-23] MEDS: NS 1,000 ML IV SCH (18:16)
[2019-12-23] MEDS: MEROPENEM INJ 1 GM in IV 1 EA IV SCH (18:16)
[2019-12-23] MEDS: ENOXAPARIN 40MG/0.4ML SYRINGE (J1650 PER 10MG) SC SCH (21:26)
[2019-12-23] MEDS: DOCUSATE SODIUM 100 MG CAP PO SCH (21:26)
[2019-12-23] MEDS: QUEtiapine FUMARATE 25 MG TAB PO SCH (21:26)
[2019-12-23] MEDS: ANUSOL HC CREAM 30GM TOP SCH (21:27)
[2019-12-23 22:00] VITALS: BP 114/57
[2019-12-24] MEDS: NS 1,000 ML IV SCH ×2 (01:50→15:39)
[2019-12-24] MEDS: MEROPENEM INJ 1 GM in IV 1 EA IV SCH ×3 (01:50→17:12)
[2019-12-24 06:00] VITALS: BP 113/56
[2019-12-24 06:04] LABS: HEMOGLOBIN 8.3 g/dl (13.5-17.5); MEAN CORPUSCULAR HEMOGLOBIN 28.2 pg (27.0-33.0); MEAN CORPUSCULAR HGB CONC 33.2 g/dl (32.0-36.5); PLATELET COUNT, AUTOMATED 560 10^3/uL (150-450); RED BLOOD COUNT 2.94 10^6/uL (4.30-6.10); WHITE BLOOD COUNT 1.8 10^3/uL (4.0-10.0)
[2019-12-24 06:30] LABS: ALBUMIN 2.9 GM/DL (3.2-5.2); ALT/SGPT 13 U/L (12-78); BILIRUBIN,TOTAL 1.4 MG/DL (0.2-1.0); BLOOD UREA NITROGEN 17 MG/DL (7-18); CALCIUM LEVEL 8.6 MG/DL (8.8-10.2); CARBON DIOXIDE LEVEL 23 MEQ/L (21-32); CHLORIDE LEVEL 107 MEQ/L (98-107); CREATININE FOR GFR 0.97 MG/DL (0.70-1.30); GLOMERULAR FILTRATION RATE > 60.0 (>42); GLUCOSE, FASTING 110 MG/DL (70-100); POTASSIUM SERUM 4.8 MEQ/L (3.5-5.1); SODIUM LEVEL 136 MEQ/L (136-145); TOTAL PROTEIN 5.3 GM/DL (6.4-8.2)
--- NOTE | 2019-12-24 07:21 | REP ---
CT ABDOMEN AND PELVIS WITH IV CONTRAST: TECHNIQUE: Axial contrast enhanced images from the lung bases to the pubic symphysis using 100 mL Isovue 370 intravenous contrast material with multiplanar reformations. COMPARISON: 12/12/2019 as well as other prior exams. There are small bilateral effusions with mild adjacent patchy atelectasis or infiltrate. The liver is again noted to be enlarged. The length is approximately 21.3 cm. Spleen is markedly enlarged, length is about 23.1 cm. Both have progressively increased in size when compared back to the prior study of 06/02/2019. There is no intrinsic mass of the liver or spleen. The patient has had a prior cholecystectomy. There is dilatation of the portal vein and splenic vein suggesting portal hypertension. The adrenals and pancreas are unremarkable. There is no hydronephrosis bilaterally. There are bilateral renal cysts, the largest is in the lower pole of the left kidney measuring 3.9 cm in diameter. Left kidney is displaced anteromedially by the huge spleen. There is no abdominal aortic aneurysm. I see no adenopathy. There is no free air. There is mild scattered free fluid in the abdomen and pelvis. There is scattered diverticula of the sigmoid and left colon. There may be some mild thickening of a portion of the left colon suggesting mild diverticulitis. No pelvic mass is seen. Urinary bladder is mildly distended and not optimally evaluated. There are degenerative changes of the spine. There is a small anterior abdominal hernia again noted containing fat. IMPRESSION: Small bilateral effusions with mild adjacent bibasilar atelectasis/infiltrate. Hepatomegaly. Severe splenomegaly. The liver and spleen are progressively increased in size compared back to a prior CT of 06/02/2019. Portal vein and splenic vein are dilated suggesting portal hypertension. Mild free fluid in the abdomen and pelvis. Sigmoid and left colonic diverticulosis. A portion of the left colon is mildly thickened suggesting mild diverticulitis. No other acute findings. Electronically Signed by Brendon Pickens MD 12/24/2019 04:49 P
[2019-12-24] MEDS ORDERED: POLYVINYL ALCOHOL OPHTH SOLN 15 ML(LIQUITEARS) OU PRN (07:45)
[2019-12-24] MEDS ORDERED: CHOLESTYRAMINE 4 GM PWD PKT PO PRN (07:45)
[2019-12-24] MEDS: ANUSOL HC CREAM 30GM TOP SCH ×2 (08:42→20:02)
[2019-12-24] MEDS: LACTOBACILLUS ACIDOPHILUS CAP (BACID) PO SCH (08:44)
[2019-12-24] MEDS: MULTIVITAMINS/MINERALS THERAP 1 TAB PO SCH (08:44)
[2019-12-24] MEDS: LOSARTAN 25 MG TAB PO SCH (08:44)
[2019-12-24] MEDS: DOCUSATE SODIUM 100 MG CAP PO SCH ×2 (08:44→20:02)
[2019-12-24] MEDS: LEVOTHYROXINE 100MCG TABLET (0.1MG) PO SCH (08:44)
[2019-12-24] MEDS: ASPIRIN 81 MG ENTERIC TAB PO SCH (08:44)
[2019-12-24] MEDS: LEVOTHYROXINE 75MCG TABLET (0.075MG) PO SCH (08:44)
[2019-12-24] MEDS: MAGNESIUM CHLORIDE 64 MG TABCR (SLO MAG) PO SCH ×2 (08:48→20:03)
--- NOTE | 2019-12-24 10:02 | ECGEPIP ---
[facility] - ED Test Date: 2019-12-23 Pat Name: XOCHILT TAVERAS Department: Room: - Gender: Male [employer]: : [id number] Requested By: Kandi Acosta Order Number: [id number] Reading MD: Jair Thurman Measurements Intervals [place] Rate: 79 P: 41 GA: 160 QRS: 41 QRSD: 95 T: 63 QT: 385 QTc: 442 Interpretive Statements SINUS RHYTHM POSSIBLE INCOMPLETE RIGHT BUNDLE BRANCH BLOCK SIMILAR TO 12/10/19 Electronically Signed on 12-24-2019 10:01:39 EDT by Jair Thurman
--- NOTE | 2019-12-24 10:43 | IPNPDOC ---
Subjective Date Seen The patient was seen on 12/24/19. Subjective Chief Complaint/HPI Patient seen and examined at bedside this morning. Patient reports that he feels that the abdominal pain has improved overnight. He also reports that the cream is helping his rectal pain as well. He had 2 loose stools overnight but otherwise says that he has been afebrile, no chills, no chest pain, no breathing issues. All questions regarding his treatment plan were discussed at bedside. Patient agrees to current treatment regimen. Morphine is controlling his pain well. Other systems 10 point review of systems negative except for what stated above in the subjective Objective Physical Examination General Exam: Positive: Alert, Cooperative, No Acute Distress, Other (white male who appears to be stated age. Resting comfortably on the bed and able to talk in full sentences.) Eye Exam: Positive: PERRLA, Conjunctiva & lids normal, EOMI; Negative: Sclera icteric ENT Exam: Positive: Atraumatic, Mucous membr. moist/pink, Tongue Midline Neck Exam: Positive: Supple; Negative: JVD, thyromegaly Chest Exam: Positive: Clear to auscultation, Normal air movement Heart Exam: Positive: Rate Normal, Regular Rhythm, Normal S1, Normal S2; Negative: Murmurs Abdomen Exam: Positive: Normal bowel sounds, Soft, Tenderness (tender to palpation of the left lower quadrant on superficial palpation), Hepatospenomegaly (masses splenomegaly appreciated on percussion), Other (patient has an anal tear at the 6 o'clock position which appears to be healing. There is redness and irritation at the 12 o'clock position. No external hemorrhoids appreciated.) Extremity Exam: Positive: Normal pulses; Negative: Clubbing, Edema Skin Exam: Positive: Nl turgor and temperature Neuro Exam: Positive: Normal Gait, Normal Speech, Strength at 5/5 X4 ext, Normal Tone, Sensation Intact Psych Exam: Positive: Mental status NL, Mood NL Assessment /Plan Assessment 69-year-old male with history of recurrent diverticulitis who was recently d ischarged for similar issue presents to the ER for acute diverticulitis due to medication noncompliance. Patient's symptoms have continued to improve. Laboratory work is currently unremarkable for any drastic changes. Patient still having loose stools although no blood was observed this morning upon inspection of his bowel movement. Hemoglobin did noted to drop approximately 1 g. Unclear if it is dilutional? We'll continue with current treatment plan for now. Anticipate discharge in the next 48 hours. Plan/VTE VTE Prophylaxis Ordered?: Yes Plan Acute diverticulitis likely secondary to medication noncompliance Patient presents with signs and symptoms consistent with diverticulitis and confirmed on imaging. Will continue with meropenem. - Meropenem 1 g every 8 hours - Clear liquid diet, advance as tolerated - Morphine IV push when necessary for pain Rectal pain likely due to anal fissures from chronic diarrhea Patient has some small fissures likely related to his chronic diarrhea. - Proctofoam cream to be applied twice a day Chronic autoimmune neutropenia Hepatosplenomegaly - currently being worked up Establish issue is currently being followed by Dr. Denson, oncology as an outpatient. Receiving Neulasta with last dose on . Patient noted to have 1 g plus hemoglobin drop overnight. However appears to dilutional given concurrent drop in albumin as well. Patient currently on fluids - We'll continue with antibiotic therapy for now - Monitor CBC daily, this acute drop noted will reconsult oncology for follow-up - Transfuse if hemoglobin less than 7 Hypothyroidism - Will continue with home dose Synthroid Schizophrenia Currently not delusional, having suicidal ideations, having homicidal ideations. Mood appears stable - continue home seroquel dose hypomagnesemia in the setting of persistent diarrhea and poor PO -replete Mag, K and check lytes daily DVT ppx: lovenox 40 daily VS, I&O, 24H, Fishbone Vital Signs/I&O Vital Signs Date Time Temp Pulse Resp B/P (MAP) Pulse Ox O2 Delivery O2 Flow Rate FiO2 12/24/19 06:00 98.0 85 17 113/56 (75) 94 Room Air I&O- Last 24 Hours up to 6 AM0 12/24/19 05:59 Intake Total 1120 ml Output Total 0 ml Balance 1120 ml Laboratory Data 24H LABS Laboratory Tests 2 12/23/19 14:00: Neutrophils (%) (Auto) , Neutrophils # (Auto) , Nucleated Red Blood Cells % (auto) 2.1H, Neutrophils 2L, Lymphocytes (Manual) 84H, Atypical Lymphocytes 14H, Hypochromasia 1+, Anisocytosis 2+, Tear Drop Cells 1+, Pascual Cells 1+, Platelet Estimate INCREASED, Lactic Acid Level 1.0, Phosphorus Level 4.1, Magnesium Level 1.0L, Total Bilirubin 1.2H, Direct Bilirubin 0.2, Aspartate Amino Transf ( AST/SGOT) < 3L, Alanine Aminotransferase (ALT/SGPT) 17, Alkaline Phosphatase 63, Total Protein 6.0L, Albumin 3.4, Albumin/Globulin Ratio 1.31, Lipase 269 12/23/19 14:13: POC Glucose (Misc Panel) 172H, POC Sodium (Misc Panel) 135L, POC Potassium (Misc Panel) 4.0, POC Chloride (Misc Panel) 98, POC Total CO2 (Misc Panel) 24.0, POC Blood Urea Nitrogen (Misc Panel 16, POC Ionized Calcium (Misc Panel) 5.0, POC Creatinine (Misc Panel) 1.1, POC Hematocrit (Misc Panel) 31.0L 12/24/19 05:17: Nucleated Red Blood Cells % (auto) 2.2H, Total Bilirubin 1.4H, Aspartate Amino Transf (AST/SGOT) 4L, Alanine Aminotransferase (ALT/SGPT) 13, Alkaline Phosphatase 58, Total Protein 5.3L, Albumin 2.9L, Albumin/Globulin Ratio 1.21, Anion Gap 6L, Glomerular Filtration Rate > 60.0, Calcium Level 8.6L CBC/BMP Laboratory Tests 12/23/19 14:00 12/24/19 05:17 Microbiology Microbiology 12/23/19 Blood Culture, Received Pending 12/23/19 Blood Culture, Received Pending PRISCILA CARIAS MD Dec 24, 2019 10:43
[2019-12-24 14:00] VITALS: BP 112/50
[2019-12-24] MEDS ORDERED: PROCTOFOAM-HC 1% FOAM 10 GM CAN PR PRN (16:30)
[2019-12-24] MEDS ORDERED: ANUSOL HC CREAM 30GM TOP PRN (17:00)
[2019-12-24] MEDS: ENOXAPARIN 40MG/0.4ML SYRINGE (J1650 PER 10MG) SC SCH (20:03)
[2019-12-24] MEDS: QUEtiapine FUMARATE 25 MG TAB PO SCH (20:03)
[2019-12-24 22:00] VITALS: BP 112/57
[2019-12-25] MEDS: MEROPENEM INJ 1 GM in IV 1 EA IV SCH (02:14)
[2019-12-25 06:00] VITALS: BP 112/52
[2019-12-25] MEDS: LEVOTHYROXINE 75MCG TABLET (0.075MG) PO SCH (06:03)
[2019-12-25] MEDS: LEVOTHYROXINE 100MCG TABLET (0.1MG) PO SCH (06:03)
[2019-12-25] MEDS: NS 1,000 ML IV SCH ×2 (06:04→18:00)
[2019-12-25 06:14] LABS: HEMATOCRIT 28.9 % (42.0-52.0); HEMOGLOBIN 9.5 g/dl (13.5-17.5); MEAN CORPUSCULAR HEMOGLOBIN 28.1 pg (27.0-33.0); MEAN CORPUSCULAR HGB CONC 32.9 g/dl (32.0-36.5); MEAN CORPUSCULAR VOLUME 85.5 fl (80.0-96.0); PLATELET COUNT, AUTOMATED 642 10^3/uL (150-450); RED BLOOD COUNT 3.38 10^6/uL (4.30-6.10); WHITE BLOOD COUNT 2.9 10^3/uL (4.0-10.0)
[2019-12-25 06:41] LABS: ALBUMIN 3.2 GM/DL (3.2-5.2); ALT/SGPT 16 U/L (12-78); BILIRUBIN,TOTAL 1.1 MG/DL (0.2-1.0); BLOOD UREA NITROGEN 14 MG/DL (7-18); CALCIUM LEVEL 8.2 MG/DL (8.8-10.2); CARBON DIOXIDE LEVEL 24 MEQ/L (21-32); CHLORIDE LEVEL 108 MEQ/L (98-107); CREATININE FOR GFR 0.92 MG/DL (0.70-1.30); GLOMERULAR FILTRATION RATE > 60.0 (>42); GLUCOSE, FASTING 124 MG/DL (70-100); POTASSIUM SERUM 4.1 MEQ/L (3.5-5.1); SODIUM LEVEL 140 MEQ/L (136-145); TOTAL PROTEIN 5.9 GM/DL (6.4-8.2)
[2019-12-25] MEDS ORDERED: CIPROFLOXACIN 200 MG in IV 1 EA IV SCH (09:00)
[2019-12-25] MEDS ORDERED: ONDANSETRON 4MG/2ML VIAL IV SCH (09:00)
[2019-12-25] MEDS: MULTIVITAMINS/MINERALS THERAP 1 TAB PO SCH (09:06)
[2019-12-25] MEDS: LOSARTAN 25 MG TAB PO SCH (09:06)
[2019-12-25] MEDS: MAGNESIUM CHLORIDE 64 MG TABCR (SLO MAG) PO SCH ×2 (09:06→20:02)
[2019-12-25] MEDS: DOCUSATE SODIUM 100 MG CAP PO SCH ×2 (09:06→20:02)
[2019-12-25] MEDS: ASPIRIN 81 MG ENTERIC TAB PO SCH (09:06)
[2019-12-25] MEDS: LACTOBACILLUS ACIDOPHILUS CAP (BACID) PO SCH (09:06)
[2019-12-25] MEDS: ANUSOL HC CREAM 30GM TOP SCH ×2 (09:08→20:03)
[2019-12-25] MEDS: CIPROFLOXACIN 500MG TABLET PO SCH ×2 (10:11→18:19)
[2019-12-25] MEDS: ONDANSETRON 4MG/2ML VIAL IV SCH ×2 (10:12→18:19)
--- NOTE | 2019-12-25 11:30 | IPNPDOC ---
Subjective Date Seen The patient was seen on 12/25/19. Subjective Chief Complaint/HPI Patient seen and examined at bedside this morning. Patient still complaining of diarrhea at this time. Abdominal pain has somewhat subsided however. Patient denies any recent fevers, chills, shortness of breath, chest pain, nausea, vomiting. Plan of care was discussed with patient at bedside at length. Decision was made to de-escalate antibiotics given only mild diverticulitis was seen on imaging. We will attempt a trial of Cipro and Flagyl with Zofran given prior to dosing to see if patient can tolerate medications. Patient also agreed to advanced diet as well. He has no other complaints at this time. Other systems 10 point review systems was negative except for what stated above in the subjective Objective Physical Examination General Exam: Positive: Alert, Cooperative, No Acute Distress, Other (white male who appears to be stated age. Resting comfortably on the bed and able to talk in full sentences.) Eye Exam: Positive: PERRLA, Conjunctiva & lids normal, EOMI; Negative: Sclera icteric ENT Exam: Positive: Atraumatic, Mucous membr. moist/pink, Tongue Midline Neck Exam: Positive: Supple; Negative: JVD, thyromegaly Chest Exam: Positive: Clear to auscultation, Normal air movement Heart Exam: Positive: Rate Normal, Regular Rhythm, Normal S1, Normal S2; Negative: Murmurs Abdomen Exam: Positive: Normal bowel sounds, Soft, Tenderness (tender to palpation of the left lower quadrant on superficial palpation), Hepatospeno megaly (masses splenomegaly appreciated on percussion), Other (patient has an anal tear at the 6 o'clock position which appears to be healing. There is redness and irritation at the 12 o'clock position. No external hemorrhoids appreciated.) Extremity Exam: Positive: Normal pulses; Negative: Clubbing, Edema Skin Exam: Positive: Nl turgor and temperature Neuro Exam: Positive: Normal Gait, Normal Speech, Strength at 5/5 X4 ext, Nor mal Tone, Sensation Intact, Cranial Nerves 3-12 NL Psych Exam: Positive: Mental status NL, Mood NL, Oriented x 3 Assessment /Plan Assessment 69-year-old male with history of recurrent diverticulitis who was recently discharged for similar issue presents to the ER for acute diverticulitis due to medication noncompliance. Symptoms continued to improve ecxept patient still having diarrhea. Discussion was had at bedside regarding patient's plan of care. Patient understands the diarrhea can be caused by antibiotics as well. Labs show no gross abnormalities from baseline. Once we can de-escalate antibiotics to by mouth form, patient should be medically stable for discharge. Anticipate discharge in 2448 hrs. Will advance diet to regular today Plan/VTE VTE Prophylaxis Ordered?: Yes Plan Acute diverticulitis likely secondary to medication noncompliance Patient presents with signs and symptoms consistent with diverticulitis and confirmed on imaging. Pain seems to be improving the patient continues to have significant diarrhea. We'll de-escalate antibiotics to oral ciprofloxacin and Flagyl. Patient received Zofran prior to dosing of antibiotics given his nausea. - Stop meropenem. Start ciprofloxacin and Flagyl. - Zofran to be given prior to medication administration - Advance diet to regular diet - Morphine IV push when necessary for pain Rectal pain likely due to anal fissures from chronic diarrhea Patient has some small fissures likely related to his chronic diarrhea. Patient's pain is improved with medication - Proctofoam cream to be applied twice a day Chronic autoimmune neutropenia Hepatosplenomegaly - currently being worked up Establish issue is currently being followed by Dr. Denson, oncology as an outpatient. Receiving Neulasta with last dose on . Hemoglobin remained stable as yesterday's labs appeared to be an outlier. - We'll continue with antibiotic therapy for now - Monitor CBC daily, this acute drop noted will reconsult oncology for follow-up - Transfuse if hemoglobin less than 7 Hypothyroidism - Will continue with home dose Synthroid Schizophrenia Currently not delusional, having suicidal ideations, having homicidal ideations. Mood appears stable - continue home seroquel dose hypomagnesemia in the setting of persistent diarrhea and poor PO -replete Mag, K and check lytes daily DVT ppx: lovenox 40 daily VS, I&O, 24H, Fishbone Vital Signs/I&O Vital Signs Date Time Temp Pulse Resp B/P (MAP) Pulse Ox O2 Delivery O2 Flow Rate FiO2 12/25/19 09:06 112/52 12/25/19 06:00 98.6 82 17 98 Room Air I&O- Last 24 Hours up to 6 AM 12/25/19 06:00 Intake Total 720 ml Output Total 725 ml Balance -5 ml Laboratory Data 24H LABS Laboratory Tests 2 12/25/19 06:02: Nucleated Red Blood Cells % (auto) 1.7H, Anion Gap 8, Glomerular Filtration Rate > 60.0, Calcium Level 8.2L, Total Bilirubin 1.1H, Aspartate Amino Transf (AST/SGOT) < 3L, Alanine Aminotransferase (ALT/SGPT) 16, Alkaline Phosphatase 68, Total Protein 5.9L, Albumin 3.2, Albumin/Globulin Ratio 1.19 CBC/BMP Laboratory Tests 12/25/19 06:02 Microbiology Microbiology 12/23/19 Blood Culture - Preliminary, Resulted No growth after 24 hours . All specim... 12/23/19 Blood Culture - Preliminary, Resulted No growth after 24 hours . All specim... PRISCILA CARIAS MD Dec 25, 2019 11:30
[2019-12-25] MEDS: metroNIDAZOLE (FLAGYL) 500 MG TAB PO SCH ×2 (12:23→20:02)
[2019-12-25 14:00] VITALS: BP 114/56
[2019-12-25] MEDS: QUEtiapine FUMARATE 25 MG TAB PO SCH (20:02)
[2019-12-25] MEDS: ENOXAPARIN 40MG/0.4ML SYRINGE (J1650 PER 10MG) SC SCH (20:02)
[2019-12-25 22:00] VITALS: BP 114/52
[2019-12-26] VITALS (11 sets, daily range): BP systolic 100–116; BP diastolic 46–57
[2019-12-26] MEDS: metroNIDAZOLE (FLAGYL) 500 MG TAB PO SCH ×3 (04:15→20:15)
[2019-12-26] MEDS: ONDANSETRON 4MG/2ML VIAL IV SCH ×2 (05:39→17:52)
[2019-12-26] MEDS: LEVOTHYROXINE 100MCG TABLET (0.1MG) PO SCH (05:39)
[2019-12-26] MEDS: CIPROFLOXACIN 500MG TABLET PO SCH ×2 (05:39→17:52)
[2019-12-26] MEDS: LEVOTHYROXINE 75MCG TABLET (0.075MG) PO SCH (05:39)
[2019-12-26 06:47] LABS: ALBUMIN 2.9 GM/DL (3.2-5.2); ALT/SGPT 12 U/L (12-78); BILIRUBIN,TOTAL 0.9 MG/DL (0.2-1.0); BLOOD UREA NITROGEN 14 MG/DL (7-18); CARBON DIOXIDE LEVEL 24 MEQ/L (21-32); CHLORIDE LEVEL 110 MEQ/L (98-107); CREATININE FOR GFR 0.92 MG/DL (0.70-1.30); GLOMERULAR FILTRATION RATE > 60.0 (>42); GLUCOSE, FASTING 128 MG/DL (70-100); POTASSIUM SERUM 4.2 MEQ/L (3.5-5.1); SODIUM LEVEL 140 MEQ/L (136-145); TOTAL PROTEIN 5.2 GM/DL (6.4-8.2)
[2019-12-26 07:10] LABS: HEMATOCRIT 24.4 % (42.0-52.0); HEMOGLOBIN 8.2 g/dl (13.5-17.5); MEAN CORPUSCULAR HEMOGLOBIN 28.7 pg (27.0-33.0); MEAN CORPUSCULAR HGB CONC 33.6 g/dl (32.0-36.5); MEAN CORPUSCULAR VOLUME 85.3 fl (80.0-96.0); PLATELET COUNT, AUTOMATED 606 10^3/uL (150-450); RED BLOOD COUNT 2.86 10^6/uL (4.30-6.10); WHITE BLOOD COUNT 1.6 10^3/uL (4.0-10.0)
[2019-12-26] MEDS: NS 1,000 ML IV SCH ×2 (08:00→20:16)
[2019-12-26] MEDS: ANUSOL HC CREAM 30GM TOP SCH ×2 (09:00→20:17)
[2019-12-26] MEDS: LACTOBACILLUS ACIDOPHILUS CAP (BACID) PO SCH (09:13)
[2019-12-26] MEDS: DOCUSATE SODIUM 100 MG CAP PO SCH ×2 (09:13→20:16)
[2019-12-26] MEDS: MAGNESIUM CHLORIDE 64 MG TABCR (SLO MAG) PO SCH ×2 (09:13→20:15)
[2019-12-26] MEDS: MULTIVITAMINS/MINERALS THERAP 1 TAB PO SCH (09:13)
[2019-12-26] MEDS: ASPIRIN 81 MG ENTERIC TAB PO SCH (09:13)
[2019-12-26] MEDS: LOSARTAN 25 MG TAB PO SCH (09:13)
[2019-12-26 09:25] LABS: MAGNESIUM LEVEL 1.2 MG/DL (1.8-2.4)
[2019-12-26] MEDS ORDERED: VITAMIN A & D OINTMENT 60 GM TOP PRN (14:30)
[2019-12-26] MEDS: MAG SULF 1GM/100ML (MAG RUN) 1 GM in IV 1 EA IV SCH ×2 (14:30→15:59)
[2019-12-26 15:07] LABS: LYMPH # 1.2 10^3/uL (1.5-5.0); LYMPH % 88.1 % (24.0-44.0); MONO # 0.1 10^3/uL (0.0-0.8); MONO % 7.4 % (0.0-5.0); NEUTROPHILS % 4.5 % (36.0-66.0)
[2019-12-26 15:13] LABS: NEUTROPHILS # 0.1 10^3/uL (1.5-8.5)
--- NOTE | 2019-12-26 16:16 | IPN ---
DATE: 12/26/2019 Patient continues to complain of 7/8 pain from his diverticulitis left lower quadrant. No nausea or vomiting. Tolerating his diet but has decrease in appetite. Patient has a 50-pound weight loss for the past 18 months, which was unintentional. Afebrile. No chills. No cough, no shortness of breath. Patient ambulates well from bed to the bathroom without dizziness or lightheadedness. Temperature 97.8, pulse 79, respiratory rate 18, blood pressure 106/52, 96% on room air. Generally, patient is awake, alert, oriented to person, place and time, answering questions appropriately. Lungs are clear to auscultation. No wheezing, rales or rhonchi. Heart: S1, S2, sinus rhythm. Abdomen is soft, tender in the left lower quadrant. No rebound/guarding. Extremities: No cyanosis, clubbing or any pitting edema. LABORATORY DATA: White count 1.6, hemoglobin 8.2, hematocrit 24.4, platelet count 606. Sodium 140, potassium 4.2, chloride 110, bicarbonate 24, BUN 14, creatinine 0.92, glucose of 128, calcium of 8, magnesium of 1.2. AST less than 3, ALT 12. ASSESSMENT AND PLAN: This is a 69-year-old male with a history of chronic neutropenia, which appears to be immune mediated, status post two bone marrow biopsies, on chronic Neupogen versus Neulasta and trial of rituximab without any improvement. Patient has recurrent bouts of diverticulitis with hepatosplenomegaly and chronic diarrhea. Despite Cipro, Flagyl as outpatient, continues to have extreme nausea and was admitted. CURRENT ISSUES: 1. Recurrent diverticulitis. Had a barium enema per the patient as an outpatient. No mass noted. Currently on meropenem one gram IV every 8 hours, clears diet, IV morphine as needed for pain. 2. Chronic autoimmune neutropenia and hepatosplenomegaly, managed by Dr. Denson, medical oncologist as outpatient. Received Neulasta last . Current white count is 1.6, afebrile. 3. Hypothyroidism, on home dose of Synthroid. 4. Schizophrenia. Continued on Seroquel. 5. Hypomagnesemia. Repleted magnesium. Check electrolytes serially. Addendum: Per Dr. Denson, pt responded to IVIg 30grams given by Dr. Baptiste previously. may give overnight or over 6-8hrs if available. 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 BM biopsies have been unremarkable. MTDD
[2019-12-26] MEDS ORDERED: IMMUNE GLOBULIN 10% 0 GM in IV 1 EA IV SCH (16:45)
[2019-12-26] MEDS ORDERED: IMMUNE GLOBULIN 10% 20 GM in IV 1 EA IV ONE (18:00)
[2019-12-26] MEDS ORDERED: IMMUNE GLOBULIN 10% 10 GM in IV 1 EA IV ONE (18:00)
[2019-12-26] MEDS ORDERED: diphenhydrAMINE 25MG CAP PO ONE (20:15)
[2019-12-26] MEDS: QUEtiapine FUMARATE 25 MG TAB PO SCH (20:16)
[2019-12-26] MEDS: ENOXAPARIN 40MG/0.4ML SYRINGE (J1650 PER 10MG) SC SCH (20:16)
[2019-12-27 00:30] VITALS: BP 100/43
[2019-12-27 01:20] VITALS: BP 102/53
[2019-12-27 01:42] VITALS: BP 104/54
[2019-12-27] MEDS: metroNIDAZOLE (FLAGYL) 500 MG TAB PO SCH ×3 (05:00→20:25)
[2019-12-27] MEDS: ONDANSETRON 4MG/2ML VIAL IV SCH ×2 (05:00→17:46)
[2019-12-27] MEDS: CIPROFLOXACIN 500MG TABLET PO SCH ×2 (05:00→17:46)
[2019-12-27 06:00] VITALS: BP 106/53
[2019-12-27 06:04] LABS: HEMATOCRIT 24.4 % (42.0-52.0); MEAN CORPUSCULAR HEMOGLOBIN 28.2 pg (27.0-33.0); MEAN CORPUSCULAR HGB CONC 32.8 g/dl (32.0-36.5); MEAN CORPUSCULAR VOLUME 85.9 fl (80.0-96.0); PLATELET COUNT, AUTOMATED 625 10^3/uL (150-450); RED BLOOD COUNT 2.84 10^6/uL (4.30-6.10)
[2019-12-27] MEDS: LEVOTHYROXINE 75MCG TABLET (0.075MG) PO SCH (06:09)
[2019-12-27] MEDS: LEVOTHYROXINE 100MCG TABLET (0.1MG) PO SCH (06:09)
[2019-12-27 06:29] LABS: BLOOD UREA NITROGEN 14 MG/DL (7-18); CALCIUM LEVEL 8.1 MG/DL (8.8-10.2); CARBON DIOXIDE LEVEL 24 MEQ/L (21-32); CHLORIDE LEVEL 109 MEQ/L (98-107); CREATININE FOR GFR 0.91 MG/DL (0.70-1.30); GLOMERULAR FILTRATION RATE > 60.0 (>42); GLUCOSE, FASTING 110 MG/DL (70-100); MAGNESIUM LEVEL 1.4 MG/DL (1.8-2.4); POTASSIUM SERUM 4.8 MEQ/L (3.5-5.1); SODIUM LEVEL 139 MEQ/L (136-145)
[2019-12-27 07:00] LABS: ANISOCYTOSIS 2+; ATYPICAL LYMPH 8 % (0-5); LYMPHOCYTES 85 % (16-44); MONOCYTES 5 % (0-5); NEUTROPHILS 2 % (28-66); PLATELET ESTIMATE INCREASED (NORMAL)
[2019-12-27 07:01] LABS: GIANT PLATELETS 2+
[2019-12-27] MEDS: MULTIVITAMINS/MINERALS THERAP 1 TAB PO SCH (09:20)
[2019-12-27] MEDS: ASPIRIN 81 MG ENTERIC TAB PO SCH (09:20)
[2019-12-27] MEDS: DOCUSATE SODIUM 100 MG CAP PO SCH ×2 (09:20→20:25)
[2019-12-27] MEDS: MAGNESIUM CHLORIDE 64 MG TABCR (SLO MAG) PO SCH ×2 (09:20→20:23)
[2019-12-27] MEDS: ACETAMINOPHEN TAB 650MG DOSE (2X325MG) PO PRN (09:20)
[2019-12-27] MEDS: NS 1,000 ML IV SCH ×2 (09:21→20:31)
[2019-12-27] MEDS: LACTOBACILLUS ACIDOPHILUS CAP (BACID) PO SCH (09:21)
[2019-12-27] MEDS: ANUSOL HC CREAM 30GM TOP SCH ×2 (09:21→21:00)
[2019-12-27] MEDS: LOSARTAN 25 MG TAB PO SCH (09:26)
[2019-12-27] MEDS: ONDANSETRON 4MG/2ML VIAL IV PRN (10:36)
[2019-12-27] MEDS: MAG SULF 1GM/100ML (MAG RUN) 1 GM in IV 1 EA IV SCH ×2 (11:36→12:55)
[2019-12-27 14:00] VITALS: BP_SYST 100; BP_SYST 102; BP_DIAS 45; BP_DIAS 47
--- NOTE | 2019-12-27 15:52 | IPNPDOC ---
Subjective Date Seen The patient was seen on 12/27/19. Subjective Chief Complaint/HPI Patient comfortable offers no new complaints at the present time, slowly improving General: Denies: ROS Unobtainable, Chills, Night Sweats, Fatigue, Malaise, Normal Appetite, Other Symptoms Constitutional: Denies: Chills, Fever, Malaise, Night Sweats, Weakness, Fatigue, Weight Loss, Lethargy, Other Eyes: Denies: Pain, Vision change, Conjunctivae inflammation, Eyelid inflammati on, Redness, Other ENT: Denies: Head Aches, Ear Pain, Dysphagia, Sinus Congestion, Post Nasal Drip, Sore Throat, Epistaxis, Other Symptoms Skin: Denies: Rash, Lesions, Jaundice, Bruising, Itching, Dry, Breakdown, Nail Changes, Other Pulmonary: Denies: Dyspnea, Cough, Pleuritic Chest Pain, Other Symptoms Cardiovascular: Denies: Chest Pain, Palpitations, Orthopnea, Paroxysmal Noc. Dyspnea, Edema, Lt Headedness, Other Symptoms Gastrointestinal: Reports: Abdominal Pain Hematologic: Denies: Bruising, Bleeding Excessively, Petecchia, Purpura, Enlarged Lymph Nodes, Other Hematologic Endocrine: Denies: Polydipsia, Polyphagia, Polyuria, Heat Intolerance, Cold Intolerance, Other Endocrine Sx Musculoskeletal: Denies: Neck Pain, Back Pain, Shoulder Pain, Arm Pain, Hand Pain, Leg Pain, Foot Pain, Joint Pain, Muscle Pain, Spasms, Other Symptoms Neurological: Denies: Weakness, Numbness, Incoordination, Change in speech, Confusion, Seizures, Other Symptoms Objective Physical Examination General Exam: Positive: Alert, Cooperative, No Acute Distress, Other (white male who appears to be stated age. Resting comfortably on the bed and able to talk in full sentences.) Eye Exam: Positive: PERRLA, Conjunctiva & lids normal, EOMI; Negative: Sclera icteric ENT Exam: Positive: Atraumatic, Mucous membr. moist/pink, Tongue Midline Neck Exam: Positive: Supple; Negative: JVD, thyromegaly Chest Exam: Positive: Clear to auscultation, Normal air movement Heart Exam: Positive: Rate Normal, Regular Rhythm, Normal S1, Normal S2; Negative: Murmurs Abdomen Exam: Positive: Normal bowel sounds, Soft, Tenderness (tender to palpation of the left lower quadrant on superficial palpation), Hepatospenomegaly (masses splenomegaly appreciated on percussion), Other (patient has an anal tear at the 6 o'clock position which appears to be healing. There is redness and irritation at the 12 o'clock position. No external hemorrhoids appreciated.) Extremity Exam: Positive: Normal pulses; Negative: Clubbing, Edema Skin Exam: Positive: Nl turgor and temperature Neuro Exam: Positive: Normal Gait, Normal Speech, Strength at 5/5 X4 ext, Normal Tone, Sensation Intact, Cranial Nerves 3-12 NL Psych Exam: Positive: Mental status NL, Mood NL, Oriented x 3 Assessment /Plan Problems (1) Acute diverticulitis Status: Acute Problem Text: This is a 69-year-old male with a history of chronic neutropenia, which appears to be immune mediated, status post two bone marrow biopsies, on chronic Neupogen versus Neulasta and trial of rituximab without any improvement. Patient has recurrent bouts of diverticulitis with hepatosplenomegaly and chronic diarrhea. Despite Cipro, Flagyl as outpatient, continues to have extreme nausea and was admitted. Patient was admitted with recurrent diverticulitis . Had a barium enema per the patient as an outpatient. No mass noted. Currently on by mouth Cipro and Flagyl Morphine when necessary for pain On clear liquid diet Repeat labs in a.m. (2) Autoimmune neutropenia Status: Chronic Problem Text: Chronic autoimmune neutropenia and hepatosplenomegaly, managed by Dr. Denson, medical oncologist as outpatient. Received Neulasta last . Current white count is 2.0, afebrile. Repeat labs in a.m. (3) Splenomegaly Status: Chronic Problem Text: Part of autoimmune neutropenia Eventually probably need a splenectomy as an outpatient (4) Hypomagnesemia Status: Acute Problem Text: Magnesium 2 g IV ordered today Repeat levels in a.m. Plan/VTE VTE Prophylaxis Ordered?: Yes VS, I&O, 24H, Fishbone Vital Signs/I&O Vital Signs Date Time Temp Pulse Resp B/P (MAP) Pulse Ox O2 Delivery O2 Flow Rate FiO2 12/27/19 14:00 97.6 68 16 100/45 (63) 97 Room Air I&O- Last 24 Hours up to 6 AM 12/27/19 06:00 Intake Total 3320 ml Balance 3320 ml Laboratory Data 24H LABS Laboratory Tests 2 12/27/19 05:30: Neutrophils (%) (Auto) , Neutrophils # (Auto) , Nucleated Red Blood Cells % (auto) 2.5H, Neutrophils 2L, Lymphocytes (Manual) 85H, Monocytes (Manual) 5, Atypical Lymphocytes 8H, Anisocytosis 2+, Giant Platelets 2+, Platelet Estimate INCREASED, Anion Gap 6L, Glomerular Filtration Rate > 60.0, Calcium Level 8.1L, Magnesium Level 1.4L CBC/BMP Laboratory Tests 12/27/19 05:30 Microbiology Microbiology 12/26/19 Gastrointestinal Tract Panel (PCR) - Final, Complete 12/23/19 Blood Culture - Preliminary, Resulted No Growth after 72 hours. All specime... 12/23/19 Blood Culture - Preliminary, Resulted No Growth after 72 hours. All specime... LALIT VALENCIA MD Dec 27, 2019 15:52
[2019-12-27] MEDS: ENOXAPARIN 40MG/0.4ML SYRINGE (J1650 PER 10MG) SC SCH (20:24)
[2019-12-27] MEDS: QUEtiapine FUMARATE 25 MG TAB PO SCH (20:25)
[2019-12-27] MEDS: diphenhydrAMINE CREAM 30GM TOP PRN (21:05)
[2019-12-27 22:00] VITALS: BP 116/48
[2019-12-28 02:30] VITALS: BP 120/57
[2019-12-28] MEDS: metroNIDAZOLE (FLAGYL) 500 MG TAB PO SCH ×3 (04:10→21:23)
[2019-12-28] MEDS: ONDANSETRON 4MG/2ML VIAL IV PRN ×2 (04:10→12:08)
[2019-12-28 06:00] VITALS: BP 119/49
[2019-12-28] MEDS: LEVOTHYROXINE 100MCG TABLET (0.1MG) PO SCH (06:17)
[2019-12-28] MEDS: ONDANSETRON 4MG/2ML VIAL IV SCH ×2 (06:17→17:56)
[2019-12-28] MEDS: LEVOTHYROXINE 75MCG TABLET (0.075MG) PO SCH (06:17)
[2019-12-28] MEDS: CIPROFLOXACIN 500MG TABLET PO SCH ×2 (06:17→17:56)
[2019-12-28 07:03] LABS: HEMATOCRIT 24.4 % (42.0-52.0); HEMOGLOBIN 8.2 g/dl (13.5-17.5); MEAN CORPUSCULAR HEMOGLOBIN 28.8 pg (27.0-33.0); MEAN CORPUSCULAR HGB CONC 33.6 g/dl (32.0-36.5); MEAN CORPUSCULAR VOLUME 85.6 fl (80.0-96.0); PLATELET COUNT, AUTOMATED 661 10^3/uL (150-450); RED BLOOD COUNT 2.85 10^6/uL (4.30-6.10); WHITE BLOOD COUNT 1.8 10^3/uL (4.0-10.0)
[2019-12-28 07:31] LABS: ALBUMIN 2.9 GM/DL (3.2-5.2); ALT/SGPT 13 U/L (12-78); ATYPICAL LYMPH 9 % (0-5); BILIRUBIN,TOTAL 0.9 MG/DL (0.2-1.0); BLOOD UREA NITROGEN 14 MG/DL (7-18); CALCIUM LEVEL 8.4 MG/DL (8.8-10.2); CARBON DIOXIDE LEVEL 22 MEQ/L (21-32); CHLORIDE LEVEL 110 MEQ/L (98-107); GIANT PLATELETS 1+; GLOMERULAR FILTRATION RATE > 60.0 (>42); GLUCOSE, FASTING 86 MG/DL (70-100); LYMPHOCYTES 81 % (16-44); MAGNESIUM LEVEL 1.4 MG/DL (1.8-2.4); MONOCYTES 7 % (0-5); NEUTROPHILS 3 % (28-66); PLATELET ESTIMATE INCREASED (NORMAL); POTASSIUM SERUM 4.6 MEQ/L (3.5-5.1); SODIUM LEVEL 138 MEQ/L (136-145); TOTAL PROTEIN 5.6 GM/DL (6.4-8.2)
[2019-12-28 07:32] LABS: ANISOCYTOSIS 2+
[2019-12-28] MEDS: DOCUSATE SODIUM 100 MG CAP PO SCH ×2 (09:00→21:00)
[2019-12-28] MEDS: ANUSOL HC CREAM 30GM TOP SCH ×2 (09:00→21:00)
[2019-12-28] MEDS: MAGNESIUM CHLORIDE 64 MG TABCR (SLO MAG) PO SCH ×2 (10:48→21:22)
[2019-12-28] MEDS: LACTOBACILLUS ACIDOPHILUS CAP (BACID) PO SCH (10:48)
[2019-12-28] MEDS: LOSARTAN 25 MG TAB PO SCH (10:49)
[2019-12-28] MEDS: ASPIRIN 81 MG ENTERIC TAB PO SCH (10:49)
[2019-12-28] MEDS: MULTIVITAMINS/MINERALS THERAP 1 TAB PO SCH (10:49)
[2019-12-28] MEDS: NS 1,000 ML IV SCH ×2 (10:50→23:13)
--- NOTE | 2019-12-28 10:54 | IPNPDOC ---
Subjective Date Seen The patient was seen on 12/28/19. Subjective Chief Complaint/HPI As per patient, he is not feeling good, is not sure whether he has nausea are some abdominal pain General: Denies: ROS Unobtainable, Chills, Night Sweats, Fatigue, Malaise, Normal Appetite, Other Symptoms Constitutional: Reports: Weakness Pulmonary: Denies: Dyspnea, Cough, Pleuritic Chest Pain, Other Symptoms Cardiovascular: Denies: Chest Pain, Palpitations, Orthopnea, Paroxysmal Noc. Dyspnea, Edema, Lt Headedness, Other Symptoms Gastrointestinal: Reports: Nausea, Abdominal Pain Endocrine: Denies: Polydipsia, Polyphagia, Polyuria, Heat Intolerance, Cold Intolerance, Other Endocrine Sx Musculoskeletal: Denies: Neck Pain, Back Pain, Shoulder Pain, Arm Pain, Hand Pain, Leg Pain, Foot Pain, Joint Pain, Muscle Pain, Spasms, Other Symptoms Neurological: Denies: Weakness, Numbness, Incoordination, Change in speech, Confusion, Seizures, Other Symptoms Objective Physical Examination General Exam: Positive: Alert Neck Exam: Positive: Supple Chest Exam: Positive: Clear to auscultation, Normal air movement Heart Exam: Positive: Rate Normal, Regular Rhythm, Normal S1, Normal S2; Negative: Murmurs Abdomen Exam: Positive: Normal bowel sounds, Soft, Tenderness (, mild tenderness all over the abdomen. No rebound tenderness), Hepatospenomegaly (, splenomegaly) Extremity Exam: Positive: Normal pulses Skin Exam: Positive: Nl turgor and temperature Assessment /Plan Problems (1) Acute diverticulitis Status: Acute Problem Text: This is a 69-year-old male with a history of chronic neutropenia, which appears to be immune mediated, status post two bone marrow biopsies, on chronic Neupogen versus Neulasta and trial of rituximab without any improvement. Patient has recurrent bouts of diverticulitis with hepatosplenomegaly and chronic diarrhea. Despite Cipro, Flagyl as outpatient, continues to have extreme nausea and was admitted. Patient was admitted with recurrent diverticulitis . Had a barium enema per the patient as an outpatient. Continue by mouth Cipro and Flagyl as per orders. He seems to be improving. Morphine when necessary for pain On clear liquid diet Repeat labs in a.m. (2) Autoimmune neutropenia Status: Chronic Problem Text: Chronic autoimmune neutropenia and hepatosplenomegaly. Managed by Dr. Denson, medical oncologist as outpatient. Received Neulasta last . Currently his WBC count is 1.8, and he is afebrile Repeat labs in a.m. (3) Splenomegaly Status: Chronic Problem Text: Part of autoimmune neutropenia Eventually probably need a splenectomy as an outpatient (4) Hypomagnesemia Status: Acute Problem Text: Corrected yesterday, but again today is 1.4 Will order mag sulfate 1 g IV 1 dose Plan/VTE VTE Prophylaxis Ordered?: Yes VS, I&O, 24H, Fishbone Vital Signs/I&O Vital Signs Date Time Temp Pulse Resp B/P (MAP) Pulse Ox O2 Delivery O2 Flow Rate FiO2 12/28/19 06:00 97.9 77 18 119/49 (72) 97 Room Air I&O- Last 24 Hours up to 6 AM 12/28/19 06:00 Intake Total 3200 ml Output Total 0 ml Balance 3200 ml Laboratory Data 24H LABS Laboratory Tests 2 12/27/19 16:15: Magnesium Level 1.7L 12/28/19 06:33: Magnesium Level 1.4L, Neutrophils (%) (Auto) , Neutrophils # (Auto) , Nucleated Red Blood Cells % (auto) 1.7H, Neutrophils 3L, Lymphocytes (Manual) 81H, Monocytes (Manual) 7H, Atypical Lymphocytes 9H, Anisocytosis 2+, Giant Platelets 1+, Platelet Estimate INCREASED, Anion Gap 6L, Glomerular Filtration Rate > 6 0.0, Calcium Level 8.4L, Total Bilirubin 0.9, Aspartate Amino Transf (AST/SGOT) 5L, Alanine Aminotransferase (ALT/SGPT) 13, Alkaline Phosphatase 50, Total Protein 5.6L, Albumin 2.9L, Albumin/Globulin Ratio 1.07 CBC/BMP Laboratory Tests 12/28/19 06:33 Microbiology Microbiology 12/26/19 Gastrointestinal Tract Panel (PCR) - Final, Complete 12/23/19 Blood Culture - Preliminary, Resulted No Growth after 72 hours. All specime... 12/23/19 Blood Culture - Preliminary, Resulted No Growth after 72 hours. All specime... LALIT VALENCIA MD Dec 28, 2019 10:54
[2019-12-28] MEDS ORDERED: MAG SULF 1GM/100ML (MAG RUN) 1 GM in IV 1 EA IV ONE (11:00)
[2019-12-28] MEDS: DIAPER RELIEF PASTE (DESITIN) 60GM TOP SCH ×3 (12:44→21:22)
[2019-12-28 14:00] VITALS: BP 120/50
[2019-12-28] MEDS ORDERED: PROMETHAZINE INJ 25 MG/ML VIAL (J2550) IV ONE (21:15)
[2019-12-28] MEDS: ENOXAPARIN 40MG/0.4ML SYRINGE (J1650 PER 10MG) SC SCH (21:22)
[2019-12-28] MEDS: QUEtiapine FUMARATE 25 MG TAB PO SCH (21:23)
[2019-12-28] MEDS: diphenhydrAMINE CREAM 30GM TOP PRN (21:23)
[2019-12-28 22:00] VITALS: BP 125/57
[2019-12-29] MEDS: metroNIDAZOLE (FLAGYL) 500 MG TAB PO SCH ×3 (04:48→20:24)
[2019-12-29] MEDS: ONDANSETRON 4MG/2ML VIAL IV SCH ×2 (05:07→18:00)
[2019-12-29] MEDS: CIPROFLOXACIN 500MG TABLET PO SCH ×2 (05:07→18:25)
[2019-12-29] MEDS: LEVOTHYROXINE 75MCG TABLET (0.075MG) PO SCH (05:48)
[2019-12-29] MEDS: LEVOTHYROXINE 100MCG TABLET (0.1MG) PO SCH (05:48)
[2019-12-29 06:00] VITALS: BP 110/50
[2019-12-29 08:16] LABS: HEMATOCRIT 24.7 % (42.0-52.0); HEMOGLOBIN 8.3 g/dl (13.5-17.5); MEAN CORPUSCULAR HEMOGLOBIN 28.9 pg (27.0-33.0); MEAN CORPUSCULAR HGB CONC 33.6 g/dl (32.0-36.5); MEAN CORPUSCULAR VOLUME 86.1 fl (80.0-96.0); PLATELET COUNT, AUTOMATED 685 10^3/uL (150-450); RED BLOOD COUNT 2.87 10^6/uL (4.30-6.10); WHITE BLOOD COUNT 2.1 10^3/uL (4.0-10.0)
[2019-12-29 08:44] LABS: ALBUMIN 2.7 GM/DL (3.2-5.2); ALT/SGPT 11 U/L (12-78); BILIRUBIN,TOTAL 0.8 MG/DL (0.2-1.0); BLOOD UREA NITROGEN 13 MG/DL (7-18); CARBON DIOXIDE LEVEL 21 MEQ/L (21-32); CHLORIDE LEVEL 109 MEQ/L (98-107); CREATININE FOR GFR 0.86 MG/DL (0.70-1.30); GLOMERULAR FILTRATION RATE > 60.0 (>42); GLUCOSE, FASTING 79 MG/DL (70-100); MAGNESIUM LEVEL 1.5 MG/DL (1.8-2.4); POTASSIUM SERUM 4.5 MEQ/L (3.5-5.1); SODIUM LEVEL 139 MEQ/L (136-145); TOTAL PROTEIN 5.3 GM/DL (6.4-8.2)
[2019-12-29 08:47] LABS: ANISOCYTOSIS 2+; LYMPHOCYTES 99 % (16-44); MONOCYTES 1 % (0-5); NUCLEATED RED BLOOD CELL 5 % (0-0); PLATELET ESTIMATE INCREASED (NORMAL)
[2019-12-29 08:48] LABS: GIANT PLATELETS 1+
[2019-12-29] MEDS: DOCUSATE SODIUM 100 MG CAP PO SCH ×2 (09:00→20:25)
[2019-12-29] MEDS: ANUSOL HC CREAM 30GM TOP SCH ×2 (09:00→22:27)
[2019-12-29] MEDS: ONDANSETRON 4MG/2ML VIAL IV PRN (09:47)
[2019-12-29] MEDS: LACTOBACILLUS ACIDOPHILUS CAP (BACID) PO SCH (10:54)
[2019-12-29] MEDS: LOSARTAN 25 MG TAB PO SCH (10:56)
[2019-12-29] MEDS: MULTIVITAMINS/MINERALS THERAP 1 TAB PO SCH (10:57)
[2019-12-29] MEDS: DIAPER RELIEF PASTE (DESITIN) 60GM TOP SCH ×2 (10:57→20:26)
[2019-12-29] MEDS: MAGNESIUM CHLORIDE 64 MG TABCR (SLO MAG) PO SCH ×2 (11:00→20:24)
[2019-12-29] MEDS: ASPIRIN 81 MG ENTERIC TAB PO SCH (11:00)
[2019-12-29] MEDS: NS 1,000 ML IV SCH ×2 (11:04→22:27)
--- NOTE | 2019-12-29 11:37 | IPNPDOC ---
Subjective Date Seen The patient was seen on 12/29/19. Subjective Chief Complaint/HPI Patient is still complaining of abdominal pain. As per patient, he is not very happy feels miserable. General: Denies: ROS Unobtainable, Chills, Night Sweats, Fatigue, Malaise, Normal Appetite, Other Symptoms Constitutional: Denies: Chills, Fever, Malaise, Night Sweats, Weakness, Fatigue, Weight Loss, Lethargy, Other Skin: Denies: Rash, Lesions, Jaundice, Bruising, Itching, Dry, Breakdown, Nail Changes, Other Pulmonary: Denies: Dyspnea, Cough, Pleuritic Chest Pain, Other Symptoms Cardiovascular: Denies: Chest Pain, Palpitations, Orthopnea, Paroxysmal Noc. Dyspnea, Edema, Lt Headedness, Other Symptoms Endocrine: Denies: Polydipsia, Polyphagia, Polyuria, Heat Intolerance, Cold Intolerance, Other Endocrine Sx Musculoskeletal: Denies: Neck Pain, Back Pain, Shoulder Pain, Arm Pain, Hand Pain, Leg Pain, Foot Pain, Joint Pain, Muscle Pain, Spasms, Other Symptoms Objective Physical Examination General Exam: Positive: Alert Neck Exam: Positive: Supple Chest Exam: Positive: Clear to auscultation, Normal air movement Heart Exam: Positive: Rate Normal, Regular Rhythm, Normal S1, Normal S2; Negative: Murmurs Abdomen Exam: Positive: Normal bowel sounds, Soft, Tenderness (, mild tenderness all over the abdomen. No rebound tenderness), Hepatospenomegaly (, splenomegaly) Extremity Exam: Positive: Normal pulses Skin Exam: Positive: Nl turgor and temperature Assessment /Plan Problems (1) Acute diverticulitis Status: Acute Problem Text: This is a 69-year-old male with a history of chronic neutropenia, which appears to be immune mediated, status post two bone marrow biopsies, on chronic Neupogen versus Neulasta and trial of rituximab without any improvement. Patient is status quo on by mouth antibiotics. His WBC count is Continue by mouth Cipro and Flagyl as per orders. He seems to be improving. Morphine when necessary for pain Continue clear liquid diets and will increase once patient has no abdominal sy mptoms Discussed with patient's last night in detail and explained patient's present condition, prognosis and management (2) Autoimmune neutropenia Status: Chronic Problem Text: Chronic autoimmune neutropenia and hepatosplenomegaly. Managed by Dr. Denson, medical oncologist as outpatient. Received Neulasta last . Patient is present. WBC count is a 2.1, which is much improved than previously Will continue monitor CBC (3) Splenomegaly Status: Chronic Problem Text: Part of autoimmune neutropenia Eventually probably need a splenectomy as an outpatient (4) Hypomagnesemia Status: Acute Problem Text: Magnesium level is still low to 1.5 today Will give her 2 g of mag sulfate IV today Plan/VTE VTE Prophylaxis Ordered?: Yes VS, I&O, 24H, Fishbone Vital Signs/I&O Vital Signs Date Time Temp Pulse Resp B/P (MAP) Pulse Ox O2 Delivery O2 Flow Rate FiO2 12/29/19 10:56 115/51 12/29/19 06:00 99.3 77 18 94 Room Air I&O- Last 24 Hours up to 6 AM 12/29/19 06:00 Intake Total 2310 ml Output Total 0 ml Balance 2310 ml Laboratory Data 24H LABS Laboratory Tests 2 12/29/19 07:45: Neutrophils (%) (Auto) , Neutrophils # (Auto) , Nucleated Red Blood Cells % (auto) 2.4H, Lymphocytes (Manual) 99H, Monocytes (Manual) 1, Nucleated Red Blood Cells 5H, Anisocytosis 2+, Giant Platelets 1+, Platelet Estimate INCREASED, Anion Gap 9, Glomerular Filtration Rate > 60.0, Calcium Level 8.0L, Magnesium Level 1.5L, Total Bilirubin 0.8, Aspartate Amino Transf (AST/SGOT) < 3L, Alanine Aminotransferase (ALT/SGPT) 11L, Alkaline Phosphatase 51, Total Protein 5.3L, Albumin 2.7L, Albumin/Globulin Ratio 1.04 CBC/BMP Laboratory Tests 12/29/19 07:45 Microbiology Microbiology 12/26/19 Gastrointestinal Tract Panel (PCR) - Final, Complete 12/23/19 Blood Culture - Final, Complete NO GROWTH AFTER 5 DAYS 12/23/19 Blood Culture - Final, Complete NO GROWTH AFTER 5 DAYS LALIT VALENCIA MD December 29, 2019 11:37
[2019-12-29] MEDS: MAG SULF 1GM/100ML (MAG RUN) 1 GM in IV 1 EA IV SCH ×2 (12:24→14:18)
[2019-12-29 14:00] VITALS: BP 109/50
[2019-12-29] MEDS: ACETAMINOPHEN TAB 650MG DOSE (2X325MG) PO PRN (14:21)
[2019-12-29] MEDS: QUEtiapine FUMARATE 25 MG TAB PO SCH (20:24)
[2019-12-29] MEDS: ENOXAPARIN 40MG/0.4ML SYRINGE (J1650 PER 10MG) SC SCH (20:25)
[2019-12-29 22:00] VITALS: BP 124/50
[2019-12-30] VITALS (8 sets, daily range): BP systolic 117–127; BP diastolic 48–61
[2019-12-30] MEDS: ONDANSETRON 4MG/2ML VIAL IV PRN (02:31)
[2019-12-30] MEDS: metroNIDAZOLE (FLAGYL) 500 MG TAB PO SCH (04:27)
[2019-12-30] MEDS: ONDANSETRON 4MG/2ML VIAL IV SCH ×2 (05:55→19:40)
[2019-12-30] MEDS: CIPROFLOXACIN 500MG TABLET PO SCH (05:55)
[2019-12-30] MEDS: LEVOTHYROXINE 100MCG TABLET (0.1MG) PO SCH (05:55)
[2019-12-30] MEDS: LEVOTHYROXINE 75MCG TABLET (0.075MG) PO SCH (05:55)
[2019-12-30 06:52] LABS: HEMATOCRIT 24.4 % (42.0-52.0); HEMOGLOBIN 8.2 g/dl (13.5-17.5); MEAN CORPUSCULAR HEMOGLOBIN 27.8 pg (27.0-33.0); MEAN CORPUSCULAR HGB CONC 33.6 g/dl (32.0-36.5); MEAN CORPUSCULAR VOLUME 82.7 fl (80.0-96.0); PLATELET COUNT, AUTOMATED 648 10^3/uL (150-450); RED BLOOD COUNT 2.95 10^6/uL (4.30-6.10); WHITE BLOOD COUNT 1.6 10^3/uL (4.0-10.0)
[2019-12-30 07:08] LABS: BLOOD UREA NITROGEN 11 MG/DL (7-18); CALCIUM LEVEL 7.8 MG/DL (8.8-10.2); CARBON DIOXIDE LEVEL 22 MEQ/L (21-32); CHLORIDE LEVEL 109 MEQ/L (98-107); CREATININE FOR GFR 0.82 MG/DL (0.70-1.30); GLOMERULAR FILTRATION RATE > 60.0 (>42); GLUCOSE, FASTING 126 MG/DL (70-100); MAGNESIUM LEVEL 1.4 MG/DL (1.8-2.4); POTASSIUM SERUM 3.4 MEQ/L (3.5-5.1); SODIUM LEVEL 139 MEQ/L (136-145)
[2019-12-30 07:34] LABS: ATYPICAL LYMPH 1 % (0-5); LYMPHOCYTES 93 % (16-44); MONOCYTES 3 % (0-5); NEUTROPHILS 3 % (28-66)
[2019-12-30 07:36] LABS: ANISOCYTOSIS 1+; HYPOCHROMASIA 1+; PLATELET ESTIMATE INCREASED (NORMAL); POIKILOCYTOSIS 1+
[2019-12-30] MEDS ORDERED: POTASSIUM CHLORIDE 10 MEQ SR TABLET PO ONE (08:00)
[2019-12-30] MEDS: DOCUSATE SODIUM 100 MG CAP PO SCH ×3 (09:00→20:03)
[2019-12-30] MEDS: MULTIVITAMINS/MINERALS THERAP 1 TAB PO SCH (09:41)
[2019-12-30] MEDS: ASPIRIN 81 MG ENTERIC TAB PO SCH (09:41)
[2019-12-30] MEDS: LACTOBACILLUS ACIDOPHILUS CAP (BACID) PO SCH (09:41)
[2019-12-30] MEDS: LOSARTAN 25 MG TAB PO SCH (09:43)
[2019-12-30] MEDS: MAG SULF 1GM/100ML (MAG RUN) 1 GM in IV 1 EA IV SCH ×2 (09:44→12:33)
[2019-12-30] MEDS: DIAPER RELIEF PASTE (DESITIN) 60GM TOP SCH ×2 (09:45→20:07)
[2019-12-30] MEDS: ANUSOL HC CREAM 30GM TOP SCH ×2 (09:46→20:04)
[2019-12-30] MEDS: MAGNESIUM CHLORIDE 64 MG TABCR (SLO MAG) PO SCH ×2 (09:52→20:02)
[2019-12-30] MEDS ORDERED: IMMUNE GLOBULIN 10% 10 GM in IV 1 EA IV ONE (10:00)
[2019-12-30] MEDS: ACETAMINOPHEN TAB 650MG DOSE (2X325MG) PO PRN ×2 (11:22→20:06)
--- NOTE | 2019-12-30 11:35 | IPNPDOC ---
Subjective Date Seen The patient was seen on 12/30/19. Subjective Chief Complaint/HPI Patient complaining of soreness around the anus secondary to frequent stools, also for his nausea after taking by mouth Cipro and Flagyl General: Denies: ROS Unobtainable, Chills, Night Sweats, Fatigue, Malaise, Normal Appetite, Other Symptoms Constitutional: Reports: Other (, generalized weakness) Eyes: Denies: Pain, Vision change, Conjunctivae inflammation, Eyelid inflammation, Redness, Other ENT: Denies: Head Aches, Ear Pain, Dysphagia, Sinus Congestion, Post Nasal Drip, Sore Throat, Epistaxis, Other Symptoms Skin: Denies: Rash, Lesions, Jaundice, Bruising, Itching, Dry, Breakdown, Nail Changes, Other Pulmonary: Denies: Dyspnea, Cough, Pleuritic Chest Pain, Other Symptoms Cardiovascular: Denies: Chest Pain, Palpitations, Orthopnea, Paroxysmal Noc. Dyspnea, Edema, Lt Headedness, Other Symptoms Gastrointestinal: Reports: Nausea, Other Symptoms (, soreness around and as) Hematologic: Reports: Other Hematologic (history of neutropenic anemia) Musculoskeletal: Denies: Neck Pain, Back Pain, Shoulder Pain, Arm Pain, Hand Pain, Leg Pain, Foot Pain, Joint Pain, Muscle Pain, Spasms, Other Symptoms Objective Physical Examination General Exam: Positive: Alert Neck Exam: Positive: Supple Chest Exam: Positive: Clear to auscultation, Normal air movement Heart Exam: Positive: Rate Normal, Regular Rhythm, Normal S1, Normal S2; Negative: Murmurs Abdomen Exam: Positive: Normal bowel sounds, Soft, Tenderness (, mild tenderness all over the abdomen. No rebound tenderness), Hepatospenomegaly (, splenomegaly) Extremity Exam: Positive: Normal pulses Skin Exam: Positive: Nl turgor and temperature Assessment /Plan Problems (1) Acute diverticulitis Status: Acute Problem Text: This is a 69-year-old male with a history of chronic neutropenia, which appears to be immune mediated, status post two bone marrow biopsies, on chronic Neupogen versus Neulasta and trial of rituximab without any improvement. Will change patient's Cipro and Flagyl to IV to avoid nausea as patient is experiencing with present medications and oral form Will also order Questran twice a day to make the stools more bulky as patient is complaining of sores in his soreness around his anus and will be using Desitin for it Patient's a WBC count is 1.6, hemoglobin 8.2, platelets 648, and potassium slightly low to 3.4 (2) Autoimmune neutropenia Status: Chronic Problem Text: Chronic autoimmune neutropenia and hepatosplenomegaly. Managed by Dr. Denson, medical oncologist as outpatient. Received Neulasta last . Patient's WBC count is 1.6 today, we will give 10 g of IVIG today and monitor CBC in a.m. Unable to reach patient's oncology, Dr. Denson at [place] today (3) Splenomegaly Status: Chronic Problem Text: Part of autoimmune neutropenia Eventually probably need a splenectomy as an outpatient (4) Hypomagnesemia Status: Acute Problem Text: Please see him supplement again given Mag sulfate 1 g 2 Repeat levels in a.m. (5) Hypokalemia Status: Acute Problem Text: Potassium supplement given Repeat labs in a.m. Plan/VTE VTE Prophylaxis Ordered?: Yes VS, I&O, 24H, Fishbone Vital Signs/I&O Vital Signs Date Time Temp Pulse Resp B/P (MAP) Pulse Ox O2 Delivery O2 Flow Rate FiO2 12/30/19 09:43 115/44 12/30/19 06:00 99.3 80 17 90 Room Air I&O- Last 24 Hours up to 6 AM 12/30/19 06:00 Intake Total 3460 ml Balance 3460 ml Laboratory Data 24H LABS Laboratory Tests 2 12/30/19 06:24: Neutrophils (%) (Auto) , Neutrophils # (Auto) , Nucleated Red Blood Cells % (auto) 2.5H, Neutrophils 3L, Lymphocytes (Manual) 93H, Monocytes (Manual) 3, Atypical Lymphocytes 1, Hypochromasia 1+, Poikilocytosis 1+, Anisocytosis 1+, Platelet Estimate INCREASED, Anion Gap 8, Glomerular Filtration Rate > 60.0, Calcium Level 7.8L, Magnesium Level 1.4L CBC/BMP Laboratory Tests 12/30/19 06:24 Microbiology Microbiology 12/26/19 Gastrointestinal Tract Panel (PCR) - Final, Complete 12/23/19 Blood Culture - Final, Complete NO GROWTH AFTER 5 DAYS 12/23/19 Blood Culture - Final, Complete NO GROWTH AFTER 5 DAYS LALIT VALENCIA MD December 30, 2019 11:35
[2019-12-30] MEDS: NS 1,000 ML IV SCH (12:33)
[2019-12-30] MEDS: metroNIDAZOLE 500 MG in IV 1 EA IV SCH ×2 (15:18→21:17)
[2019-12-30] MEDS: CIPROFLOXACIN 400 MG in IV 1 EA IV SCH (18:00)
[2019-12-30] MEDS: QUEtiapine FUMARATE 25 MG TAB PO SCH (20:02)
[2019-12-30] MEDS: ENOXAPARIN 40MG/0.4ML SYRINGE (J1650 PER 10MG) SC SCH (20:02)
[2019-12-30] MEDS: CHOLESTYRAMINE 4 GM PWD PKT PO SCH (21:17)
[2019-12-31] MEDS: NS 1,000 ML IV SCH ×2 (00:41→12:56)
[2019-12-31] MEDS: metroNIDAZOLE 500 MG in IV 1 EA IV SCH ×3 (04:31→20:07)
[2019-12-31] MEDS: CIPROFLOXACIN 400 MG in IV 1 EA IV SCH ×2 (05:33→18:21)
[2019-12-31] MEDS: LEVOTHYROXINE 100MCG TABLET (0.1MG) PO SCH (05:33)
[2019-12-31] MEDS: LEVOTHYROXINE 75MCG TABLET (0.075MG) PO SCH (05:33)
[2019-12-31] MEDS: ONDANSETRON 4MG/2ML VIAL IV SCH ×2 (05:33→18:22)
[2019-12-31] MEDS: ACETAMINOPHEN TAB 650MG DOSE (2X325MG) PO PRN ×2 (05:46→13:41)
[2019-12-31 06:00] VITALS: BP 138/66
[2019-12-31 06:52] LABS: HEMATOCRIT 24.1 % (42.0-52.0); HEMOGLOBIN 8.3 g/dl (13.5-17.5); MEAN CORPUSCULAR HEMOGLOBIN 28.9 pg (27.0-33.0); MEAN CORPUSCULAR HGB CONC 34.4 g/dl (32.0-36.5); PLATELET COUNT, AUTOMATED 612 10^3/uL (150-450); RED BLOOD COUNT 2.87 10^6/uL (4.30-6.10); WHITE BLOOD COUNT 1.9 10^3/uL (4.0-10.0)
[2019-12-31 07:13] LABS: BLOOD UREA NITROGEN 7 MG/DL (7-18); CALCIUM LEVEL 7.9 MG/DL (8.8-10.2); CARBON DIOXIDE LEVEL 21 MEQ/L (21-32); CHLORIDE LEVEL 109 MEQ/L (98-107); CREATININE FOR GFR 0.81 MG/DL (0.70-1.30); GLOMERULAR FILTRATION RATE > 60.0 (>42); GLUCOSE, FASTING 138 MG/DL (70-100); MAGNESIUM LEVEL 1.4 MG/DL (1.8-2.4); POTASSIUM SERUM 3.5 MEQ/L (3.5-5.1); SODIUM LEVEL 137 MEQ/L (136-145)
[2019-12-31 07:34] LABS: ATYPICAL LYMPH 1 % (0-5); LYMPHOCYTES 92 % (16-44); MONOCYTES 7 % (0-5); PLATELET ESTIMATE INCREASED (NORMAL)
[2019-12-31 07:35] LABS: ANISOCYTOSIS 1+; POIKILOCYTOSIS 1+
[2019-12-31 07:36] LABS: HYPOCHROMASIA 1+
[2019-12-31] MEDS: MAG SULF 1GM/100ML (MAG RUN) 1 GM in IV 1 EA IV SCH ×2 (09:13→10:58)
[2019-12-31] MEDS: LACTOBACILLUS ACIDOPHILUS CAP (BACID) PO SCH (09:13)
[2019-12-31] MEDS: ASPIRIN 81 MG ENTERIC TAB PO SCH (09:13)
[2019-12-31] MEDS: MULTIVITAMINS/MINERALS THERAP 1 TAB PO SCH (09:13)
[2019-12-31] MEDS: LOSARTAN 25 MG TAB PO SCH (09:13)
[2019-12-31] MEDS: CHOLESTYRAMINE 4 GM PWD PKT PO SCH ×2 (09:13→20:00)
[2019-12-31] MEDS: DOCUSATE SODIUM 100 MG CAP PO SCH ×2 (09:13→20:04)
[2019-12-31] MEDS: diphenhydrAMINE CREAM 30GM TOP PRN (09:14)
[2019-12-31] MEDS: DIAPER RELIEF PASTE (DESITIN) 60GM TOP SCH ×2 (09:14→20:05)
[2019-12-31] MEDS: MAGNESIUM CHLORIDE 64 MG TABCR (SLO MAG) PO SCH ×2 (09:14→20:05)
[2019-12-31] MEDS: ANUSOL HC CREAM 30GM TOP SCH ×2 (09:15→20:07)
--- NOTE | 2019-12-31 12:14 | IPNPDOC ---
Subjective Date Seen The patient was seen on 12/31/19. Subjective Chief Complaint/HPI Patient is feeling slightly better. He still feels nausea. Once he gets IV Cipro and Flagyl, his burning at the anal area has decreased since the Desitin cream was started and he is been started on Questran General: Denies: ROS Unobtainable, Chills, Night Sweats, Fatigue, Malaise, Normal Appetite, Other Symptoms Skin: Denies: Rash, Lesions, Jaundice, Bruising, Itching, Dry, Breakdown, Nail Changes, Other Pulmonary: Denies: Dyspnea, Cough, Pleuritic Chest Pain, Other Symptoms Cardiovascular: Denies: Chest Pain, Palpitations, Orthopnea, Paroxysmal Noc. D yspnea, Edema, Lt Headedness, Other Symptoms Gastrointestinal: Reports: Nausea Musculoskeletal: Denies: Neck Pain, Back Pain, Shoulder Pain, Arm Pain, Hand Pain, Leg Pain, Foot Pain, Joint Pain, Muscle Pain, Spasms, Other Symptoms Neurological: Denies: Weakness, Numbness, Incoordination, Change in speech, Confusion, Seizures, Other Symptoms Objective Physical Examination Neck Exam: Positive: Supple Chest Exam: Positive: Clear to auscultation, Normal air movement Heart Exam: Positive: Rate Normal, Regular Rhythm, Normal S1, Normal S2; Negative: Murmurs Abdomen Exam: Positive: Normal bowel sounds, Soft, Tenderness (, mild tenderness all over the abdomen. No rebound tenderness), Hepatospenomegaly (, splenomegaly) Extremity Exam: Positive: Normal pulses Skin Exam: Positive: Nl turgor and temperature Assessment /Plan Problems (1) Acute diverticulitis Status: Acute Problem Text: This is a 69-year-old male with a history of chronic neutropenia, which appears to be immune mediated, status post two bone marrow biopsies, on chronic Neupogen versus Neulasta and trial of rituximab without any improvement. Will change patient's Cipro and Flagyl to IV to avoid nausea as patient is experiencing with present medications and oral form Will also order Questran twice a day to make the stools more bulky as patient is complaining of sores in his soreness around his anus and will be using Desitin for it Patient is a WBC count is 1.9, hemoglobin 8.3, magnesium 1.4 If patient has received 10 days of IV and by mouth antibiotics, then I will repeat a CT of abdomen and pelvis if the acute diverticulitis has resolved, then antibiotics can be DC'd Physical therapy evaluation called and spoke with the nursing staff regarding getting patient out of bed and ambulatory to get him ready for discharge soon (2) Autoimmune neutropenia Status: Chronic Problem Text: Chronic autoimmune neutropenia and hepatosplenomegaly. Managed by Dr. Denson, medical oncologist as outpatient. Received Neulasta last . Patient is a WBC count is increased to 1.9 after IVIG was given yesterday Once discharged. He can follow-up with his oncologist, Dr. Denson at [place] [facility] (3) Splenomegaly Status: Chronic Problem Text: Part of autoimmune neutropenia Eventually probably need a splenectomy as an outpatient (4) Hypomagnesemia Status: Acute Problem Text: Magnesium level is still low at 1.4 Magnesium sulfate 2 g IV 1 given today (5) Hypokalemia Status: Resolved Problem Text: Within normal limit. Today Plan/VTE VTE Prophylaxis Ordered?: Yes VS, I&O, 24H, Fishbone Vital Signs/I&O Vital Signs Date Time Temp Pulse Resp B/P (MAP) Pulse Ox O2 Delivery O2 Flow Rate FiO2 12/31/19 09:13 138/66 12/31/19 06:00 98.9 85 16 93 Room Air I&O- Last 24 Hours up to 6 AM 12/31/19 06:00 Intake Total 2500 ml Balance 2500 ml Laboratory Data 24H LABS Laboratory Tests 2 12/31/19 06:36: Neutrophils (%) (Auto) , Neutrophils # (Auto) , Nucleated Red Blood Cells % (auto) 3.2H, Lymphocytes (Manual) 92H, Monocytes (Manual) 7H, Atypical Lymphocytes 1, Hypochromasia 1+, Poikilocytosis 1+, Anisocytosis 1+, Platelet Estimate INCREASED, Anion Gap 7L, Glomerular Filtration Rate > 60.0, Calcium Level 7.9L, Magnesium Level 1.4L CBC/BMP Laboratory Tests 12/31/19 06:36 Microbiology Microbiology 12/26/19 Gastrointestinal Tract Panel (PCR) - Final, Complete 12/23/19 Blood Culture - Final, Complete NO GROWTH AFTER 5 DAYS 12/23/19 Blood Culture - Final, Complete NO GROWTH AFTER 5 DAYS LALIT VALENCIA MD December 31, 2019 12:14
[2019-12-31] MEDS: GASTROGRAFIN SOLUTION 30ML PO SCH ×2 (13:30→14:27)
[2019-12-31] MEDS: ONDANSETRON 4MG/2ML VIAL IV PRN (13:41)
[2019-12-31] MEDS ORDERED: ISOVUE-370 76% 100ML VIAL As Ordered ONE (14:26)
--- NOTE | 2019-12-31 16:03 | REP ---
Clinical: Acute diverticulitis. Comparison: 12/23/2019. Technique: Axial contrast enhanced images from the lung bases to the pubic symphysis using the 100 ml Isovue 370 intravenous contrast material with coronal and sagittal re-formations. Findings: Moderate bilateral pleural effusions and bibasilar atelectasis increased from prior examination. Hepatosplenomegaly again noted without focal hepatic or splenic lesion identified. Pancreas, bilateral adrenal glands, and right kidney are normal. The left kidney is anteriorly displaced by the enlarged spleen and again demonstrates few simple cysts measuring up to approximately 4.2 cm maximal diameter. The enteric system is incompletely evaluated due to poor intraluminal contrast enhancement, but there is no evidence for bowel obstruction. A small amount of ascites is again appreciated which appears to be slightly increased when compared to prior examination. No Underlying infectious/inflammatory enterocolitis cannot be excluded. A portion of nonobstructed nondilated bowel is identified extending through a presumed iatrogenic ventral hernia along the right anterolateral abdominal wall (images 64 - 80). No free air. No drainable collection/abscess. Further evaluation the pelvis demonstrates normal bladder and age appropriate prostate/seminal vesicles. Abdominal aorta and vasculature without aneurysm or dissection. Musculoskeletal structures demonstrate age-related degenerative changes. Moderate anasarca and subcutaneous edema noted throughout the visualized subcutaneous tissues of the abdomen and pelvis. Impression: 1. Moderate bilateral pleural effusions and bibasilar atelectasis increased from prior examination. 2. Small amount of ascites increased from prior examination along with suggestions for possible infectious/inflammatory enterocolitis. No bowel obstruction or perforation. 3. Hepatic splenomegaly unchanged. 4. Further nonacute findings as described above. Electronically Signed by Billy Proctor MD 12/31/2019 03:55 P
[2019-12-31] MEDS: QUEtiapine FUMARATE 25 MG TAB PO SCH (20:05)
[2019-12-31] MEDS: ENOXAPARIN 40MG/0.4ML SYRINGE (J1650 PER 10MG) SC SCH (20:05)
[2019-12-31 22:00] VITALS: BP 123/57
[2020-01-01] MEDS: metroNIDAZOLE 500 MG in IV 1 EA IV SCH ×2 (05:00→13:00)
[2020-01-01] MEDS: CIPROFLOXACIN 400 MG in IV 1 EA IV SCH (05:33)
[2020-01-01] MEDS: LEVOTHYROXINE 100MCG TABLET (0.1MG) PO SCH (05:47)
[2020-01-01] MEDS: LEVOTHYROXINE 75MCG TABLET (0.075MG) PO SCH (05:47)
[2020-01-01 06:00] VITALS: BP 127/88
[2020-01-01] MEDS: ONDANSETRON 4MG/2ML VIAL IV SCH (06:00)
[2020-01-01 06:59] LABS: HEMATOCRIT 24.5 % (42.0-52.0); HEMOGLOBIN 8.6 g/dl (13.5-17.5); MEAN CORPUSCULAR HGB CONC 35.1 g/dl (32.0-36.5); MEAN CORPUSCULAR VOLUME 82.5 fl (80.0-96.0); PLATELET COUNT, AUTOMATED 615 10^3/uL (150-450); RED BLOOD COUNT 2.97 10^6/uL (4.30-6.10); WHITE BLOOD COUNT 2.1 10^3/uL (4.0-10.0)
[2020-01-01 07:27] LABS: ATYPICAL LYMPH 17 % (0-5); LYMPHOCYTES 83 % (16-44)
[2020-01-01 07:28] LABS: ANISOCYTOSIS 1+; PLATELET ESTIMATE INCREASED (NORMAL)
[2020-01-01 07:30] LABS: BLOOD UREA NITROGEN 5 MG/DL (7-18); CALCIUM LEVEL 7.9 MG/DL (8.8-10.2); CARBON DIOXIDE LEVEL 23 MEQ/L (21-32); CHLORIDE LEVEL 108 MEQ/L (98-107); CREATININE FOR GFR 0.78 MG/DL (0.70-1.30); GLOMERULAR FILTRATION RATE > 60.0 (>42); GLUCOSE, FASTING 119 MG/DL (70-100); MAGNESIUM LEVEL 1.4 MG/DL (1.8-2.4); POTASSIUM SERUM 3.3 MEQ/L (3.5-5.1); SODIUM LEVEL 137 MEQ/L (136-145)
[2020-01-01] MEDS: ANUSOL HC CREAM 30GM TOP SCH (09:00)
[2020-01-01] MEDS: DIAPER RELIEF PASTE (DESITIN) 60GM TOP SCH (09:00)
[2020-01-01] MEDS: DOCUSATE SODIUM 100 MG CAP PO SCH (09:00)
[2020-01-01] MEDS: ASPIRIN 81 MG ENTERIC TAB PO SCH (09:11)
[2020-01-01] MEDS: NS 1,000 ML IV SCH (09:11)
[2020-01-01] MEDS: LACTOBACILLUS ACIDOPHILUS CAP (BACID) PO SCH (09:11)
[2020-01-01 09:12] VITALS: BP 127/88
[2020-01-01] MEDS: LOSARTAN 25 MG TAB PO SCH (09:12)
[2020-01-01] MEDS: MAGNESIUM CHLORIDE 64 MG TABCR (SLO MAG) PO SCH (09:54)
[2020-01-01] MEDS: MULTIVITAMINS/MINERALS THERAP 1 TAB PO SCH (09:54)
[2020-01-01] MEDS: CHOLESTYRAMINE 4 GM PWD PKT PO SCH (11:06)
[2020-01-01] MEDS ORDERED: CEFP200T PO (12:58)
--- NOTE | 2020-01-01 13:51 | DS.PDOC ---
Discharge Summary General Date of Admission Dec 23, 2019 at 16:36 Date of Discharge 01/01/20 Discharge Summary PROCEDURES PERFORMED DURING STAY: None. ADMITTING DIAGNOSES: 1. Acute diverticulitis. DISCHARGE DIAGNOSES: 1. Acute diverticulitis, acute gastroenteritis, chronic autoimmune neutropenia, splenomegaly. COMPLICATIONS/CHIEF COMPLAINT: Acute Diverticulitis. HISTORY OF PRESENT ILLNESS: 69 yo man with a history of chronic autoimmune neutropenia since 2018 s/p 2 bone marrow biopsies on chronic intermittent neupogen vs. neulasta, as well as trial of rituximab, with a history of recurrent bouts of diverticulitis and previously noted mild splenomegaly, as well as chronic diarrhea presents back to the ER for complaints of left lower quadrant abdominal pain and diarrhea. Patient was recently hospitalized for diverticulitis and discharged on by mouth Cipro and Flagyl. However, patient reports that he was unable to take his ciprofloxacin due to extreme nausea. He continued to take his Flagyl for 4 days. However, on day 3 he developed worsening abdominal pain and malaise. Patient states that the pain was similar to his other episodes of diverticulitis. He was unable to tolerate by mouth diet as he felt very nauseous although he did not throw up. He did not record any temperatures but the pain in his stomach continued to grow bigger. Patient also reports having copious amounts of loose stools as well which made his rectum burn. He has been putting zinc oxide cream and other hemorrhoidal creams day with no relief. She denies any recent fevers, chills, short supply breath, chest pain, leg swelling. ER evaluation was completed and imaging was done. CT abdomen pelvis revealed diverticulitis which was unimproved. 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 Patient to be admitted to hospitalist service for failed outpatient treatment of diverticulitis.. HOSPITAL COURSE: This is a 69-year-old male with a history of chronic neutropenia, which appears to be immune mediated, status post two bone marrow biopsies, on chronic Neupogen versus Neulasta and trial of rituximab without any improvement. Will change patient's Cipro and Flagyl to IV to avoid nausea as patient is experiencing with present medications and oral form Will also order Questran twice a day to make the stools more bulky as patient is complaining of sores in his soreness around his anus and will be using Desitin for it pt is tolerating oral feeding very well. His abdominal pain has resolved. He is no more burning at the anal area. His nausea, vomiting has resolved Patient can be discharged home today on by mouth antibiotics, but he is refusing to take by mouth. Huma Medina secondary to side effect hence, he will be started on cefpodoxime which she routinely takes as an outpatient for his recurrent diverticulitis/enterocolitis Patient will follow up with his PCP and he markedly in one week after discharge, I had discussed with patient and over the phone and has informed her about management and follow-up of his conditions Patient does have a history of Chronic autoimmune neutropenia and hepatosplenomegaly. Managed by Dr. Denson, medical oncologist as outpatient. Received Neulasta last . His WBC count has significantly increased to 2.1 today as he was given IVIG 2 days ago Patient is planning to follow-up with this etiology oncology on this Re: Patient,s the splenomegaly which is Part of autoimmune neutropenia Eventually probably need a splenectomy as an outpatient Patient had a persistent hypomagnesemia for which she was corrected many times and has been advised to take magnesium supplement as an outpatient and follow up with his PCP which she is a scheduled to see him this . DISCHARGE MEDICATIONS: Please see below. ALLERGIES: Please see below. PHYSICAL EXAMINATION ON DISCHARGE: VITAL SIGNS: Please see below. GENERAL: Within normal limits HEENT: PERRLA. Extraocular muscles intact NECK: Supple. Negative JVD, negative lymphadenopathy CARDIOVASCULAR EXAMINATION: S1, S2, regular RESPIRATORY EXAMINATION: Clear to A&P ABDOMINAL EXAMINATION: Abdomen is soft, nontender, bowel sound present EXTREMITIES: no Clubbing, cyanosis, edema SKIN: Normal NEUROLOGICAL EXAMINATION: . No focal motor sensory deficit PSYCHIATRIC EXAMINATION: Normal LABORATORY DATA: Please see below. IMAGING: CT abdomen and pelvis 01/01/2020:Impression: 1. Moderate bilateral pleural effusions and bibasilar atelectasis increased from prior examination. 2. Small amount of ascites increased from prior examination along with suggestions for possible infectious/inflammatory enterocolitis. No bowel obstruction or perforation. 3. Hepatic splenomegaly unchanged. 4. Further nonacute findings as described above. PROGNOSIS: Fair ACTIVITY: As tolerated. DIET: As tolerated DISCHARGE PLAN: Discharged home DISPOSITION: Home DISCHARGE INSTRUCTIONS: 1. As per discharge instructions. ITEMS TO FOLLOWUP ON ON OUTPATIENT: 1. Followed with heme/ onc AND PCP in one week. DISCHARGE CONDITION: Stable. TIME SPENT ON DISCHARGE: 38 minutes. Vital Signs/I&Os Vital Signs Date Time Temp Pulse Resp B/P (MAP) Pulse Ox O2 Delivery O2 Flow Rate FiO2 01/01/20 09:12 127/88 01/01/20 06:00 99.5 81 16 94 Room Air I&O- Last 24 Hours up to 6 AM 01/01/20 06:00 Intake Total 200 ml Balance 200 ml Laboratory Data Labs 24H Laboratory Tests 2 01/01/20 06:48: Neutrophils (%) (Auto) , Neutrophils # (Auto) , Nucleated Red Blood Cells % (auto) 2.4H, Lymphocytes (Manual) 83H, Atypical Lymphocytes 17H, Anisocytosis 1+, Platelet Estimate INCREASED, Anion Gap 6L, Glomerular Filtration Rate > 60.0, Calcium Level 7.9L, Magnesium Level 1.4L CBC/BMP Laboratory Tests 01/01/20 06:48 Microbiology Microbiology 12/26/19 Gastrointestinal Tract Panel (PCR) - Final, Complete 12/23/19 Blood Culture - Final, Complete NO GROWTH AFTER 5 DAYS 12/23/19 Blood Culture - Final, Complete NO GROWTH AFTER 5 DAYS Discharge Medications Scheduled Aspirin (Aspirin EC) 81 Mg Tab, 81 MG PO DAILY, (Reported) Cefpodoxime Proxetil (Cefpodoxime Proxetil) 200 Mg Tablet, 200 MG PO BID Cholecalciferol (Vitamin D3) (Vitamin D3) 1,000 Unit Tablet, 2,000 UNITS PO 6XWK, (Reported) EVERY DAY EXCEPT WEDNESDAY Adalgisa Root (Adalgisa Root) 550 Mg Capsule, 550 MG PO 5XW, (Reported) QPM: SUN, WED, WED, TH, SAT Grape Seed Extract (Grape Seed Extract) 50 Mg Capsule, 200 MG PO 4XWK, (Re ported) SUN, , , SAT Grape Seed Extract (Grape Seed Extract) 50 Mg Capsule, 100 MG PO 3XW, (Reported) MON, WED, FRI Iodine (Kelp) 150 Mcg Tablet, 150 MCG PO 4XWK, (Reported) SUN, , THURS, SAT Lactobacillus Combo No.10 (Probiotic) 1 Each Capsule, 1 TAB PO DAILY, (Reported) Levothyroxine Sodium (Levothyroxine Sodium) 175 Mcg Tab, 175 MCG PO DAILY, (Reported) Losartan Potassium (Losartan Potassium) 25 Mg Tablet, 25 MG PO DAILY, (Reported) Magnesium Chloride (Slow-Mag) 71.5 Mg Tablet.dr, 71.5 MG PO BID, (Reported) Multivitamins (Thera M Plus Tablet) 1 Tab Tab, 1 TAB PO DAILY, (Reported) Gray-3 Fatty Acids/Fish Oil (Fish Oil 1,000 mg Capsule) 1 Each Capsule, 1,000 MG PO 5XW, (Reported) SUN, WED, , , SAT Quetiapine Fumarate (Quetiapine Fumarate) 25 Mg Tab, 25 MG PO QHS, (Reported) Vitamin E (Dl,Tocopheryl Acet) (Vitamin E) 200 Unit Capsule, 200 UNIT PO 5XW, (Reported) WED, WED, , , SAT Scheduled PRN Acetaminophen (Pain Relief Extra Strength) 500 Mg Tablet, 500 MG PO QID PRN for PAIN, (Reported) Cholestyramine (with Sugar) (Questran Packet) 4 Gm Powd.pack, 4 GM PO QIDP PRN for DIARRHEA Take 1 packet po q.i.d. prn, additional after each loose bowel movement, to max 8 doses per day Ondansetron HCl (Ondansetron HCl) 4 Mg Tablet, 4 MG PO Q6-8HP PRN for NAUSEA OR VOMITING, (Reported) Polyvinyl Alcohol (Artificial Tears) 1.4 % Rach, 1 DROP OU QID PRN for DRY EYES, (Reported) Allergies Coded Allergies: bee venom protein (honey bee) (Verified Allergy, Severe, ANAPHYLACTIC, 11/25/18) amoxicillin (Verified Allergy, Intermediate, ALL OVER BODY RASH, 11/25/18) clavulanic acid (Verified Allergy, Intermediate, ALL OVER BODY RASH, 11/25/18) wheat (Verified Allergy, Intermediate, 12/12/19) POULTRY (Verified Adverse Reaction, Intermediate, turkey - gout, 07/01/18) ciprofloxacin (Verified Adverse Reaction, Intermediate, nausea, 12/12/19) MICH Inhibitors (Verified Adverse Reaction, Mild, COUGH, 11/25/18) LALIT VALENCIA MD January 01, 2020 13:51
[2020-01-02 14:07] LABS: Chitobioside Carbohydrat (ACCA 5 units (0-90); Laminaribioside Carbohyd (ALCA 1 units (0-60); Mannobioside Carbohydrat (AMCA 13 units (0-100); Saccharomyces cerevisiae IgG A 3 units (0-50)
== END 2020-01-01 14:29 | disposition home or self-care (01) | DRG 392 ==
LOC: M ED 13:33 → M ED INP 16:36 → ENRESERV 16:50 → M MSPAV 18:07
PROVIDERS: ADMIT Internal Medicine; ATTEND Internal Medicine
DX: K57.32 Diverticulitis of large intestine without perforation or abscess without bleeding (principal); D72.819 Decreased white blood cell count, unspecified; E03.9 Hypothyroidism, unspecified; F20.9 Schizophrenia, unspecified; K52.9 Noninfective gastroenteritis and colitis, unspecified; K60.2 Anal fissure, unspecified; R16.2 Hepatomegaly with splenomegaly, not elsewhere classified; E87.6 Hypokalemia; E83.42 Hypomagnesemia; Z88.0 Allergy status to penicillin; Z88.1 Allergy status to other antibiotic agents; Z88.8 Allergy status to other drugs, medicaments and biological substances; Z91.14 Patient's other noncompliance with medication regimen; Z91.013 Allergy to seafood; Z91.018 Allergy to other foods; Z90.49 Acquired absence of other specified parts of digestive tract; Z79.82 Long term (current) use of aspirin; Z79.899 Other long term (current) drug therapy

== ENCOUNTER 2020-01-02 22:41 | Emergency (ER) | payer MEDICARE, OTHER ==
[~2020-01-02] VITALS: Ht 177.8 cm; Wt 77.7 kg
[~2020-01-02 22:41] MED LIST changes: -METF-791 PO; +METF-838 PO; +ONDA-83 PO
[2020-01-02] MEDS ORDERED: NS 500 ML IV ONE (23:30)
[2020-01-03 00:14] LABS: ALT/SGPT 14 U/L (12-78); BILIRUBIN,DIRECT 0.3 MG/DL (0.0-0.2); BILIRUBIN,TOTAL 0.9 MG/DL (0.2-1.0); BLOOD UREA NITROGEN 6 MG/DL (7-18); CARBON DIOXIDE LEVEL 24 MEQ/L (21-32); CHLORIDE LEVEL 103 MEQ/L (98-107); CREATININE FOR GFR 0.82 MG/DL (0.70-1.30); ETHYL ALCOHOL (ETHANOL) < 0.003 % (0.000-0.010); GLOMERULAR FILTRATION RATE > 60.0 (>42); GLUCOSE, FASTING 145 MG/DL (70-100); LIPASE 162 U/L (73-393); POTASSIUM SERUM 3.4 MEQ/L (3.5-5.1); SODIUM LEVEL 137 MEQ/L (136-145); TOTAL PROTEIN 5.8 GM/DL (6.4-8.2)
[2020-01-03 00:25] LABS: HEMATOCRIT 25.1 % (42.0-52.0); HEMOGLOBIN 8.6 g/dl (13.5-17.5); MEAN CORPUSCULAR HEMOGLOBIN 28.3 pg (27.0-33.0); MEAN CORPUSCULAR HGB CONC 34.3 g/dl (32.0-36.5); MEAN CORPUSCULAR VOLUME 82.6 fl (80.0-96.0); PLATELET COUNT, AUTOMATED 560 10^3/uL (150-450); RED BLOOD COUNT 3.04 10^6/uL (4.30-6.10); WHITE BLOOD COUNT 1.8 10^3/uL (4.0-10.0)
[2020-01-03 00:50] LABS: ANISOCYTOSIS 2+; ATYPICAL LYMPH 3 % (0-5); LYMPHOCYTES 95 % (16-44); MONOCYTES 2 % (0-5); PLATELET ESTIMATE INCREASED (NORMAL); POIKILOCYTOSIS 2+
[2020-01-03 00:51] LABS: CRENATED RBC 1+; GIANT PLATELETS 1+; HYPOCHROMASIA 1+
[2020-01-03] MEDS ORDERED: MAGNESIUM OXIDE 400 MG TAB (MAG-OX) PO ONE (01:00)
[2020-01-03] MEDS ORDERED: METAL LOCK LOOP XX ONE (02:14)
[2020-01-03 02:50] VITALS: BP 128/60
== END 2020-01-03 03:27 | disposition home or self-care (01) ==
LOC: M ED 22:41
DX: D72.819 Decreased white blood cell count, unspecified (principal); R19.7 Diarrhea, unspecified; D64.9 Anemia, unspecified; E83.42 Hypomagnesemia; Z91.030 Bee allergy status; Z91.018 Allergy to other foods; Z88.0 Allergy status to penicillin; Z88.8 Allergy status to other drugs, medicaments and biological substances; Z79.82 Long term (current) use of aspirin; R53.1 Weakness
CPT/HCPCS: 80048; 80076; 83605; 83690; 83735; 85025; 96360; 99284; G0480

== ENCOUNTER 2020-01-11 01:53 | Inpatient (IN) | payer MEDICARE, OTHER ==
[2020-01-11] VITALS (23 sets, daily range): BP systolic 78–120; BP diastolic 42–61
[~2020-01-11] VITALS: Ht 175.3 cm; Wt 87.4 kg
[2020-01-11 02:58] LABS: HEMOGLOBIN 8.4 g/dl (13.5-17.5); MEAN CORPUSCULAR HGB CONC 33.6 g/dl (32.0-36.5); MEAN CORPUSCULAR VOLUME 83.3 fl (80.0-96.0); PLATELET COUNT, AUTOMATED 509 10^3/uL (150-450); WHITE BLOOD COUNT 1.8 10^3/uL (4.0-10.0)
[2020-01-11] MEDS ORDERED: ACETAMINOPHEN TAB 650MG DOSE (2X325MG) PO ONE (03:00)
[2020-01-11] MEDS ORDERED: NS 1,000 ML IV ONE ×5 (03:00→16:15)
[2020-01-11 03:13] LABS: ALBUMIN 2.7 GM/DL (3.2-5.2); ALT/SGPT 15 U/L (12-78); BILIRUBIN,DIRECT 0.6 MG/DL (0.0-0.2); BILIRUBIN,TOTAL 2.4 MG/DL (0.2-1.0); BLOOD UREA NITROGEN 10 MG/DL (7-18); CALCIUM LEVEL 7.1 MG/DL (8.8-10.2); CARBON DIOXIDE LEVEL 22 MEQ/L (21-32); CHLORIDE LEVEL 101 MEQ/L (98-107); CK-MB VALUE MASS 6.4 NG/ML (<3.6); CPK CREATINE PHOSPHOKINASE 585 U/L (39-308); CREATININE FOR GFR 1.17 MG/DL (0.70-1.30); GLOMERULAR FILTRATION RATE > 60.0 (>42); GLUCOSE, FASTING 101 MG/DL (70-100); LIPASE 19 U/L (73-393); MB/CK RELATIVE INDEX 1.09 (< OR =4); POTASSIUM SERUM 4.7 MEQ/L (3.5-5.1); SODIUM LEVEL 134 MEQ/L (136-145); TOTAL PROTEIN 5.5 GM/DL (6.4-8.2); TROPONIN I 0.11 NG/ML (< 0.10)
[2020-01-11 03:19] LABS: ATYPICAL LYMPH 8 % (0-5); LYMPHOCYTES 80 % (16-44); MONOCYTES 12 % (0-5)
[2020-01-11 03:24] LABS: GIANT PLATELETS 1+; HYPOCHROMASIA 1+; PLATELET ESTIMATE INCREASED (NORMAL)
[2020-01-11 03:25] LABS: ANISOCYTOSIS 2+
[2020-01-11] MEDS ORDERED: IMIPENEM/CILASTATIN 500 MG in D5W MINI-BAG PLUS 100 ML IV ONE (03:45)
[2020-01-11] MEDS ORDERED: VANCOMYCIN HCL 1,500 MG in D5W 250 ML IV ONE (03:45)
[2020-01-11] MEDS ORDERED: VANCOMYCIN HCL 750 MG, VIAL MATE ADAPTER 1 EACH in D5W 250 ML IV ONE ×2 (04:00→05:00)
[2020-01-11] MEDS ORDERED: APAP325T4 PO (04:39)
[2020-01-11] MEDS ORDERED: NS 1,220 ML in IV 1 EA IV ONE (04:45)
[2020-01-11] MEDS ORDERED: SENN-80 PO (04:49)
[2020-01-11] MEDS ORDERED: MIRA3350 PO (04:49)
[2020-01-11] MEDS ORDERED: DESI13CR2 TOP (04:49)
[2020-01-11] MEDS ORDERED: HYDROIN8 TOP (04:49)
[2020-01-11] MEDS ORDERED: FLOM0.4C39 PO (04:49)
[2020-01-11] MEDS ORDERED: BISA5TAB13 PO (04:49)
[2020-01-11] MEDS ORDERED: BISACODYL 5 MG TAB PO PRN (05:45)
[2020-01-11] MEDS ORDERED: MIRALAX *UNIT DOSE* 17GM PACKET PO PRN (05:45)
[2020-01-11] MEDS ORDERED: POLYVINYL ALCOHOL OPHTH SOLN 15 ML(LIQUITEARS) OU PRN (05:45)
[2020-01-11] MEDS ORDERED: SENNA 8.6 MG TAB (SENOKOT) PO PRN (05:45)
[2020-01-11] MEDS ORDERED: ONDANSETRON 4 MG TAB PO PRN (05:45)
[2020-01-11] MEDS ORDERED: IPRATROPIUM 0.5MG/ALBUTEROL 2.5MG INH SOL UD 3ML (DUONEB)(J7620) INH PRN (05:45)
[2020-01-11] MEDS: LEVOTHYROXINE 100MCG TABLET (0.1MG) PO SCH (06:00)
[2020-01-11] MEDS ORDERED: NS 1,000 ML IV SCH (06:00)
[2020-01-11] MEDS: LEVOTHYROXINE 75MCG TABLET (0.075MG) PO SCH (06:00)
[2020-01-11] MEDS ORDERED: LEVOTHYROXINE 125MCG TABLET (0.125MG) PO SCH (06:00)
--- NOTE | 2020-01-11 06:27 | HPEPDOC ---
[facility] Medical History & Physical Date of Admission January 11, 2020 Date of Service: January 11, 2020 Attending Physician: RAMYA HASSAN MD History and Physical CHIEF COMPLAINT: Weakness, fell out of bed HISTORY OF PRESENT ILLNESS: 69 yo man with a history of chronic autoimmune neutropenia since 2018 s/p 2 bone marrow biopsies on chronic intermittent neupogen vs. neulasta, as well as trial of rituximab, with a history of recurrent bouts of diverticulitis and previously noted mild splenomegaly, as well as chronic diarrhea, recently admitted at [facility] for chronic diarrhea that was deemed overflow diarrhea and resolved after bowel prep with go-lytely and was discharged home on 01/09. He had only been home for a few hours when he fell out of bed and has reported weakness with inability to get out of bed, and his called EMS expressing that she is unable to take care of him anymore at this time. In the ED, he presented normotensive but febrile to 101.2 and on studies was not ed to be neutropenic with WBC 1.8 and ANC 0, hgb 8.4, platelets 509 with a CXR showing LLL PNA. Blood cultures were drawn and he was given empiric vanc/imipenem given the recent admission at [facility] and covid-19 PCR was negative. Otherwise aside from fever and generalized weakness, he denied recent chills, rigors, cough, rhinorrhea, congestion or travel history except for recent hospitalization in [place]. While in the ED, he developed hypotension and was given 3L of NS. Other notable findings were mild troponinemia to 0.11 with a non ischemic EKG and a lactate of 3.1. He is now being admitted to medicine for LLL PNA with deconditioning and chronic neutropenia. Past Medical History: chronic autoimmune neutropenia colon resection s/s volvulus hypothyroidism schizophrenia history of recurrent episodes of diverticulitis Surgical History colon resection s/s volvulus s/p 2 bone marrow biopsies Family History Significant Family History: No pertinent family hx Social History Smoker: Denies Alcohol: Denies Drugs: denies Recent Travel/Sick Contacts: Was recently admitted at [facility] until 01/09 when he was discharged home Psychosocial History: Schizophrenia Lives at home with who is his HCP Review of Systems: 10 point ROS was otherwise negative if not noted in the above HPI. Physical Examination General: Alert, Cooperative, NAD, thin, chronically ill appearing Eye: PERRLA, Conjunctiva & lids normal, EOMI, anicteric ENT: Atraumatic, dry MM, Pharynx Normal Neck: Supple, no JVD or thyromegaly Chest: Posterior left lower field with wet crackles, otherwise clear without wheezing or rhonchi, on 2L NC Heart: RRR, no mrg Abdomen: Previously noted hepatospenomegaly, no masses, NTND, scaphoid abdomen, normoactive sounds, mild TTP diffusely Extremity: 2+ LE edema bilaterally to knees, WWP Skin: Nl turgor and temperature, no breakdown or lesions Neuro: Strength at 4/5 X4 ext, normal tone, cranial nerves 2-12 are intact Psych: Mental status NL, Memory Intact, Oriented x 3 Assessment 69 yo man with a history of chronic autoimmune neutropenia since 2018 s/p 2 bone marrow biopsies on chronic intermittent neupogen vs. neulasta, with a history of recurrent bouts of diverticulitis, as well as chronic diarrhea, who was discharged home from [facility] yesterday where he had been admitted for chronic diarrhea that was deemed overflow diarrhea and resolved after receiving golytely who is now being admitted for LLL PNA with deconditioning and profound neutropenia per baseline. Severe sepsis 2/2 LLL PNA: High risk for infections given his severe chronic autoimmune disease, with fever, tachycardia, leukopenia and radiologic evidence of PNA -r/o COVID-19 given radiologic PNA, weakness, recent hospital admission with low counts --> negative -continue empiric vanc/imipenem, send MRSA PCR -IV fluids for repletion with evidence of dehydration and ongoing sepsis, s/p 3L, continue at 125cc/hr -sputum culture -urine legionella and strep antigens -procalcitonin -incentive spirometry -supplemental O2 to sat >90% Severe neutropenia: acute on chronic in the setting of ongoing PNA -Patient of Dr. Denson, per my last discussion with Dr. Marcella Tucker during his last admission with ongoing infection and inflammation with an ANC of 0, will plan on filgastrim 480 QD with goal ANC > 1500, for up to 10 days -empiric antibiotics as noted above Hypertension: hold home ARB while hypotensive 2/2 sepsis from PNA Lactic acidosis: 2/2 severe sepsis in the setting of pneumonia -check lactate post sepsis bolus at 4h Mild troponinemia: -EKG was non ischemic -f/u trop x 2 for downtrend Hypothyroidism: -continue home dose of synthroid Schizophrenia: -continue home seroquel DVT ppx: lovenox 40 SQ Diet: advance if he tolerates it well Deconditioning: PT/OT Dispo: inpatient for anticipated >48h stay. PFS consult for potential placement Vital Signs Vital Signs Date Time Temp Pulse Resp B/P (MAP) Pulse Ox O2 Delivery O2 Flow Rate FiO2 01/11/20 04:30 102 20 85/50 (62) 95 Nasal Cannula 2.0 01/11/20 02:51 99 01/11/20 02:03 101.2 Laboratory Data Labs 24H Laboratory Tests 2 01/11/20 02:21: Neutrophils (%) (Auto) , Neutrophils # (Auto) , Nucleated Red Blood Cells % (auto) 6.1H, Lymphocytes (Manual) 80H, Monocytes (Manual) 12H, Atypical Ly mphocytes 8H, Hypochromasia 1+, Anisocytosis 2+, Giant Platelets 1+, Platelet Estimate INCREASED, Anion Gap 11, Glomerular Filtration Rate > 60.0, Lactic Acid Level 3.1*H, Calcium Level 7.1L, Total Bilirubin 2.4H, Direct Bilirubin 0.6H, Aspartate Amino Transf (AST/SGOT) 21, Alanine Aminotransferase (ALT/SGPT) 15, Alkaline Phosphatase 75, Total Creatine Kinase 585H, Creatine Kinase MB 6.4H, Creatine Kinase MB Relative Index 1.09, Troponin I 0.11H, Total Protein 5.5L, Albumin 2.7L, Albumin/Globulin Ratio 0.96L, Lipase 19L CBC/BMP Laboratory Tests 01/11/20 02:21 Microbiology Microbiology 01/11/20 Respiratory Virus Panel (PCR) (HERNANDEZ), Received Pending 01/11/20 Blood Culture, Received Pending 01/11/20 Blood Culture, Received Pending Home Medications Scheduled Aspirin (Aspirin EC) 81 Mg Tab, 81 MG PO DAILY Cholecalciferol (Vitamin D3) (Vitamin D3) 1,000 Unit Tablet, 2,000 UNITS PO DAILY Adalgisa Root (Adalgisa Root) 550 Mg Capsule, 550 MG PO 5XW QPM: SUN, MON, WED, THURS, SAT Grape Seed Extract (Grape Seed Extract) 50 Mg Capsule, 200 MG PO 4XWK SUN, TUES, THURS, SAT Grape Seed Extract (Grape Seed Extract) 50 Mg Capsule, 100 MG PO 3XW MON, WED, WED Hydrophilic Ointment (Hydrophilic Ointment) 410 Gm Oint...g., 3 GRAM TOP TID PERIANAL AREA Iodine (Kelp) 150 Mcg Tablet, 150 MCG PO 4XWK WED, , , SAT Lactobacillus Combo No.10 (Probiotic) 1 Each Capsule, 1 TAB PO DAILY Levothyroxine Sodium (Levothyroxine Sodium) 175 Mcg Tab, 175 MCG PO DAILY Losartan Potassium (Losartan Potassium) 25 Mg Tablet, 25 MG PO DAILY Multivitamins (Thera M Plus Tablet) 1 Tab Tab, 1 TAB PO DAILY Climax-3 Fatty Acids/Fish Oil (Fish Oil 1,000 mg Capsule) 1 Each Capsule, 1,000 MG PO 5XW WED, WED, , , SAT Quetiapine Fumarate (Quetiapine Fumarate) 25 Mg Tab, 25 MG PO QHS Tamsulosin HCl (Flomax) 0.4 Mg Capsule, 0.4 MG PO DAILY once daily 1/2 hour following the same meal each day Vitamin E (Dl,Tocopheryl Acet) (Vitamin E) 200 Unit Capsule, 200 UNIT PO 5XW WED, WED, , , SAT Scheduled PRN Acetaminophen (Acetaminophen) 325 Mg Tablet, 650 MG PO Q6H PRN for PAIN Bisacodyl (Bisacodyl) 5 Mg Tablet.dr, 5 MG PO DAILY PRN for CONSTIPATION Ondansetron HCl (Ondansetron HCl) 4 Mg Tablet, 4 MG PO Q6H PRN for NAUSEA OR VOMITING Polyethylene Glycol 3350 (Miralax) 119 Gm Powder, 17 GM PO QHS PRN for CONSTIPATION dilute in 8 ounces of water or juice Polyvinyl Alcohol (Artificial Tears) 1.4 % Rach, 1 DROP OU QID PRN for DRY EYES Sennosides (Senna) 8.6 Mg Tablet, 8.6 MG PO DAILY PRN for CONSTIPATION Zinc Oxide (Desitin) 454 Gm Cream..g., 1 APPLIC TOP QID PRN for RASH Allergies Coded Allergies: bee venom protein (honey bee) (Verified Allergy, Severe, ANAPHYLACTIC, 11/25/18) amoxicillin (Verified Allergy, Intermediate, ALL OVER BODY RASH, 11/25/18) clavulanic acid (Verified Allergy, Intermediate, ALL OVER BODY RASH, 11/25/18) wheat (Verified Allergy, Intermediate, 12/12/19) POULTRY (Verified Adverse Reaction, Intermediate, turkey - gout, 07/01/18) ciprofloxacin (Verified Adverse Reaction, Intermediate, nausea, 12/12/19) MICH Inhibitors (Verified Adverse Reaction, Mild, COUGH, 11/25/18) A-FIB/CHADSVASC A-FIB History Current/History of A-Fib/PAF?: No Current PO Anticoag Therapy: No Age/Risk Factor Scoring CHADSVASC: CHADSVASC Response (Comments) Value Age Risk Factor Age 65-74 years old 1 Gender Risk Factor Male 0 Hx of CHF No 0 Hx of HTN Yes 1 Hx of Stroke/TIA/or VTE No 0 Hx of Diabetes Yes 1 Hx of Vascular Disease No 0 Total 3 Treatment Treatment ordered: NONE Reason Anticoagulant not given: Not indicated/[id number] RAMYA HASSAN MD January 11, 2020 05:18
--- NOTE | 2020-01-11 06:57 | PHACANCOPD ---
PHARMACY VANCOMYCIN DOSING Pt Demographics Demographics Patient Age:69 , Weight:74.090 , Gender: male Adjusted Body Weight Date: 01/11/20, Adjusted Body Weight: [74] Kg(ACTUAL WT) Vancomycin Vancomycin indication: HAP/SEPSIS Vancomycin Target Ranges: 15-20 mcg/ml Vancomycin Load Y/N: Yes Load Dose Date Time Vancomycin Load Dose: 1.5GM Date:01/10 Time: 6-7:00 Vancomycin Dose Date: 01/11/20. Current Vancomycin Dose: [1GM Q12] Intermittent Dosing?: No Labs Micro Microbiology 01/11/20 Respiratory Virus Panel (PCR) (HERNANDEZ) - Final, Complete 01/11/20 Blood Culture, Received Pending 01/11/20 Blood Culture, Received Pending Creatinine Clearance Date:01/11/20. Creatinine Clearance: [60.6].CALCULATED Assessment and Plan Maintaining Current Dose?: Yes Reason for dose change: No Dose Change Pharmacist Note Pharmacist Note Date: 01/11/20. Pharmacist note:69 YOM ADMMITTED W/HAP/SEPSIS.ALLERGIES: AMOXICILLIN,CIPROFLOXACIN,BEES,Ht:69"Wt:74KG,SCR:1.17,CRCL=60.6(CALCULATED)MRSA PCR SCREEN PENDING. Vancomycin 1.5GM administered in ED@06-7:00, then will begin regimen of 1 gram IV [id number] to begin this pm@20:00. First trough is scheduled for 01/11@19:00(prior to the 4th dose).Patient also receives imipenem/Cilastatin 500mg IV q6h. Will continue to follow [facility] January 11, 2020 06:56
--- NOTE | 2020-01-11 07:53 | REP ---
Portable chest x-ray: Single view. History: Neutropenic fever. Comparison chest x-ray: December 12, 2019. Findings: There are air bronchograms and increased parenchymal density in the left lower lobe behind the heart consistent with infiltrate and/or atelectasis. Pleural angles are sharp. Right lung is clear. Heart is not enlarged. No bony abnormalities seen. Impression: Consolidation and/or atelectasis left lower lobe with air bronchograms. Electronically Signed by Aravind Ge MD 01/11/2020 07:44 A
[2020-01-11] MEDS: VITAMIN D 1,000 INTERNATIONAL UNITS TABLET PO SCH (08:57)
[2020-01-11] MEDS: MULTIVITAMINS/MINERALS THERAP 1 TAB PO SCH (08:57)
[2020-01-11] MEDS: FILGRASTIM 480 MCG/0.8 ML SYRINGE (J1442) SC SCH (08:57)
[2020-01-11] MEDS: ENOXAPARIN 40MG/0.4ML SYRINGE (J1650 PER 10MG) SC SCH (08:57)
[2020-01-11] MEDS: TAMSULOSIN 0.4 MG CAP PO SCH (08:58)
[2020-01-11] MEDS: ASPIRIN 81 MG ENTERIC TAB PO SCH (08:59)
[2020-01-11] MEDS ORDERED: SODIUM CHLORIDE 0.9% INJ 10 ML SYR IV SCH (09:00)
[2020-01-11] MEDS: ACETAMINOPHEN TAB 650MG DOSE (2X325MG) PO PRN (10:11)
[2020-01-11] MEDS: IMIPENEM/CILASTATIN 500 MG in D5W MINI-BAG PLUS 100 ML IV SCH ×2 (10:51→17:34)
[2020-01-11] MEDS: LACTOBACILLUS ACIDOPHILUS CAP (BACID) PO SCH ×3 (14:11→20:21)
[2020-01-11] MEDS ORDERED: LIDOCAINE 1% MDV 20ML VIAL As Ordered ONE (14:25)
[2020-01-11] MEDS ORDERED: MORPHINE 4 MG/ML 1ML VIAL/SYRINGE (J2270) IV ONE (16:15)
[2020-01-11] MEDS ORDERED: VITAMIN A & D OINTMENT 60GM EXT PRN (16:15)
--- NOTE | 2020-01-11 16:20 | REP ---
Procedure: PICC line insertion with Michelle The procedure was performed under the direct supervision of Dr. Pickens. The risks and benefits of the procedure were explained to the patient and informed consent was obtained. The right basilic vein was localized using ultrasound guidance. The skin was prepped and draped in a sterile fashion. 2% lidocaine was used as a local anesthetic. Using ultrasound guidance the basilic vein was cannulated and a 0.018 guidewire was inserted and advanced to the SVC using fluoroscopic guidance. The needle was removed and a 5.5 Algerian dilator and peel-away sheath was inserted over the guide wire. A 5.5 Algerian dual lumen catheter was cut to length of 44 cm. The dilator was removed and the catheter was inserted over the guide wire with the tip ending in the SVC. The peel-away sheath was removed and the catheter was flushed with heparinized saline as per Hospital protocol. The catheter was affixed to the skin and a sterile dressing was applied. The ultrasound image was lost due to technical error. The patient tolerated the procedure well and there were no immediate complications. 0.5 minutes of fluoro time was utilized for this procedure. Electronically Signed by JUANIS Arreola 01/11/2020 03:55 P Electronically Signed by Brendon Pickens MD 01/11/2020 04:12 P
[2020-01-11] MEDS ORDERED: MORPHINE 4 MG/ML 1ML VIAL/SYRINGE (J2270) IV PRN (17:00)
[2020-01-11 18:53] LABS: IMMUNOGLOBULIN G 848 MG/DL (681-1648)
[2020-01-11] MEDS ORDERED: SODIUM CHLORIDE 0.9% 1000ML IV ONE (19:00)
[2020-01-11] MEDS: PERCOCET 5MG/325MG TAB PO PRN (19:54)
[2020-01-11] MEDS: NS 1,000 ML IV SCH (19:55)
[2020-01-11] MEDS ORDERED: VANCOMYCIN HCL 1,000 MG, VIAL MATE ADAPTER 1 EACH in D5W 250 ML IV SCH (20:00)
[2020-01-11] MEDS: QUEtiapine FUMARATE 25 MG TAB PO SCH (20:21)
[2020-01-11 21:02] LABS: IMMUNOGLOBULIN M < 5.3 MG/DL (40-230)
--- NOTE | 2020-01-11 22:12 | ECGEPIP ---
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
--- NOTE | 2020-01-11 22:26 | ECHO ---
DATE OF PROCEDURE: 01/11/2020 DATE OF : 1950 REFERRING PROVIDER: Dr. Sandy Guillaume 2D MEASUREMENT: IVS: 1.0 cm LV: 5.3 cm LVPW: 0.9 cm LA: 3.9 cm Aorta: 3.3 cm IVC: 2.6 cm DOPPLER MEASUREMENTS: Peak velocity across the aortic valve: 1.7 meters per second Peak gradient across the aortic valve: 11 mmHg Peak velocity across the LVOT: 1.0 meters per second Mitral E: 1.0, mitral A: 1.3 with a ratio of 0.8 Maximum tricuspid valve velocity: 2.9 meters per second 1. Normal left ventricular size, wall thickness, and normal global left ventricular systolic function. The estimated left ventricular systolic ejection fraction is 60-65%. 2. Normal left atrium. Normal right atrium and right ventricle. 3. The atrial septum appeared to be normal without evidence of defect or shunt. 4. Normal aortic root. 5. No pericardial effusion seen. Pleural effusion was noted, bilaterally. Mildly calcified aortic valve, leaflet excursion appeared to be normal. Normal mitral valve, tricuspid valve. The pulmonic valve and proximal pulmonary artery branches were not well visualized. 6. The inferior vena cava was mildly enlarged, central venous pressure might be elevated. DOPPLER: It detects mild mitral regurgitation, moderate tricuspid regurgitation. The calculated pulmonary artery systolic pressure varies between 40-50 mmHg. Abnormal relaxation pattern was noted across the mitral valve leaflets as well as the mitral valve annulus consistent with features of grade 1 left ventricular diastolic dysfunction. IMPRESSION: 1. Normal global left ventricular systolic function. There were some features of left ventricular diastolic dysfunction manifested by abnormal relaxation, grade 1. 2. Aortic valve sclerosis without stenosis or aortic regurgitation. 3. Mild mitral regurgitation. 4. Moderate tricuspid regurgitation with moderate pulmonary hypertension. 5. There are features of elevated central venous pressure, the inferior vena cava was mildly enlarged. 6. Aortic valve sclerosis with trivial aortic stenosis but no aortic regurgitation.
[2020-01-11] MEDS: NOREPINEPHRINE BITARTRATE 8 MG in D5W 492 ML IV SCH (23:20)
[2020-01-12] VITALS (69 sets, daily range): BP systolic 80–115; BP diastolic 47–59
[2020-01-12] MEDS: IMIPENEM/CILASTATIN 500 MG in D5W MINI-BAG PLUS 100 ML IV SCH ×2 (01:09→05:46)
[2020-01-12 04:49] LABS: HEMATOCRIT 22.2 % (42.0-52.0); HEMOGLOBIN 7.3 g/dl (13.5-17.5); MEAN CORPUSCULAR HEMOGLOBIN 27.5 pg (27.0-33.0); MEAN CORPUSCULAR HGB CONC 32.9 g/dl (32.0-36.5); MEAN CORPUSCULAR VOLUME 83.8 fl (80.0-96.0); PLATELET COUNT, AUTOMATED 390 10^3/uL (150-450); RED BLOOD COUNT 2.65 10^6/uL (4.30-6.10); WHITE BLOOD COUNT 1.7 10^3/uL (4.0-10.0)
[2020-01-12 05:04] LABS: BLOOD UREA NITROGEN 20 MG/DL (7-18); CALCIUM LEVEL 6.2 MG/DL (8.8-10.2); CARBON DIOXIDE LEVEL 21 MEQ/L (21-32); CHLORIDE LEVEL 104 MEQ/L (98-107); GLOMERULAR FILTRATION RATE > 60.0 (>42); GLUCOSE, FASTING 203 MG/DL (70-100); POTASSIUM SERUM 4.2 MEQ/L (3.5-5.1); SODIUM LEVEL 134 MEQ/L (136-145)
[2020-01-12] MEDS ORDERED: IMMUNE GLOBULIN 10% 0 GM in IV 1 EA IV SCH (05:15)
[2020-01-12 05:43] LABS: ANISOCYTOSIS 3+; ATYPICAL LYMPH 3 % (0-5); GIANT PLATELETS 2+; LYMPHOCYTES 92 % (16-44); MONOCYTES 5 % (0-5); PLATELET ESTIMATE INCREASED (NORMAL)
[2020-01-12] MEDS: PERCOCET 5MG/325MG TAB PO PRN ×4 (05:46→21:52)
[2020-01-12] MEDS: MAG SULF 1GM/100ML (MAG RUN) 1 GM in IV 1 EA IV SCH ×4 (05:50→22:57)
[2020-01-12] MEDS: NS 1,000 ML IV SCH ×2 (06:15→18:00)
[2020-01-12] MEDS: LEVOTHYROXINE 75MCG TABLET (0.075MG) PO SCH (06:26)
[2020-01-12] MEDS: LEVOTHYROXINE 100MCG TABLET (0.1MG) PO SCH (06:26)
[2020-01-12] MEDS: TAMSULOSIN 0.4 MG CAP PO SCH (08:28)
[2020-01-12] MEDS: ASPIRIN 81 MG ENTERIC TAB PO SCH (08:28)
[2020-01-12] MEDS: VITAMIN D 1,000 INTERNATIONAL UNITS TABLET PO SCH (08:28)
[2020-01-12] MEDS: MULTIVITAMINS/MINERALS THERAP 1 TAB PO SCH (08:28)
[2020-01-12] MEDS: ENOXAPARIN 40MG/0.4ML SYRINGE (J1650 PER 10MG) SC SCH (08:28)
[2020-01-12] MEDS: LACTOBACILLUS ACIDOPHILUS CAP (BACID) PO SCH ×4 (08:29→21:51)
[2020-01-12] MEDS ORDERED: IMMUNE GLOBULIN 10% 10 GM in IV 1 EA IV ONE (09:00)
[2020-01-12] MEDS ORDERED: IMMUNE GLOBULIN 10% 20 GM in IV 1 EA IV ONE (09:00)
[2020-01-12] MEDS: ACETAMINOPHEN TAB 650MG DOSE (2X325MG) PO PRN (09:18)
[2020-01-12] MEDS: MEROPENEM INJ 1 GM in IV 1 EA IV SCH ×2 (10:13→17:32)
[2020-01-12] MEDS ORDERED: LOPERAMIDE 2 MG CAPLET PO PRN (10:45)
[2020-01-12] MEDS: NOREPINEPHRINE BITARTRATE 8 MG in D5W 492 ML IV SCH ×2 (11:29→12:15)
[2020-01-12] MEDS ORDERED: CALCIUM GLUCONATE 1,000 MG in D5W MINI-BAG PLUS 100 ML IV ONE (11:30)
[2020-01-12] MEDS: FILGRASTIM 480 MCG/0.8 ML SYRINGE (J1442) SC SCH (12:22)
--- NOTE | 2020-01-12 13:39 | REP ---
REASON: Septic shock, assess for possible empyema. The lack of intravenous contrast significantly decreases the sensitivity of the exam. There are no priors for comparison. There is no gross mediastinal or hilar adenopathy. The tip of a central venous catheter is seen in the superior vena cava. There are bilateral moderate to large pleural effusions. There is no pericardial effusion. Evaluation of the osseous structures shows no acute abnormalities. For discussion of the imaged upper abdomen, see abdomen and pelvis CT report also made today. Evaluation of the lung calderon shows bilateral lower lobe asymmetric opacities with some air bronchograms. These could obscure a significant nodule or lesion, as could the aforementioned pleural effusions. There are bilateral pleural calcifications. There is no evidence of a significant nodule or mass seen in the aerated portions of the lung calderon. There is a ground-glass opacity in the right lung apical region having a maximal dimension of 2.7 cm. IMPRESSION: 1. Exam limitations, as described above. 2. Pleural effusions, as described above. 3. Bibasilar opacities, as described above, suspicious for atelectasis/pneumonia. 4. Right upper lobe ground-glass opacity, as described above, which warrants close followup. It likely represents a focus of subsegmental atelectatic change but with no priors for comparison, that cannot be stated with certainly and followup is warranted. 5. Other findings, as described above. Electronically Signed by Jose A Zamora DO 01/12/2020 02:38 P
--- NOTE | 2020-01-12 13:49 | REP ---
CT ABDOMEN AND PELVIS WITHOUT IV OR ORAL CONTRAST: HISTORY: Septic shock, rule out abscess. Comparison CT study, December 31, 2019. CT FINDINGS: There are moderate bilateral pleural effusions. A small pericardial effusion is seen. There is mild diffuse abdominal ascites. There is an anasarca picture with edema throughout the subcutaneous fat in the extra-abdominal soft tissues and in the retroperitoneal fat. A Escobar catheter is noted in place and a rectal tube is seen. There is a ventral hernia just to the right of midline in the periumbilical region transmitting a portion of an unobstructed loop of transverse colon wall and some pericolonic fat. There is a broad defect in the right anterior abdominal wall just above this, again transmitting a portion of large intestine. There is no evidence of bowel obstruction. Marked splenomegaly is again observed. The spleen measures 21.8 cm in craniocaudal span. The liver is not definitely enlarged. Clips are noted the gallbladder fossa. The left kidney is displaced anteriorly by the enlarged spleen, as before. No renal mass is seen. No abdominal abscess is observed. No evidence of free air. IMPRESSION: Marked splenomegaly. Mild ascites. Anasarca picture. Bilateral moderate effusions in the pleural space. Small amount of pericardial fluid. Abdominal wall defects unchanged. Escobar catheter and rectal tubes. No abscess seen. Electronically Signed by Aravind Ge MD 01/12/2020 02:46 P
[2020-01-12] MEDS: CHOLESTYRAMINE 4 GM PWD PKT PO SCH ×3 (13:53→21:49)
[2020-01-12] MEDS: MAGNESIUM CHLORIDE 64 MG TABCR (SLO MAG) PO SCH (13:53)
--- NOTE | 2020-01-12 14:32 | CR.PDOC ---
General Date of Consultation: January 12, 2020 Referring Provider: Anny Burleson MD Attending Physician: KENDRA TAPIA MD Consultation Primary physician/ hospitalist: Dr. Muñoz Reason for consult: Acute on Chronic diarrhea HPI: Mr. 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 He was found to be febrile with a temperature of 101.2 and neutropenic with an ANC of 0. Further work-up at the time revealed a left lower lobe pneumonia. During the patients hospitalization he continued to have diarrhea and Gastroenterology was consulted for further evaluation and management Patient states that he had developed diarrhea in October of 2019. He stated that the diarrhea is watery and typically large volume. He denies any blood in his stool. He denies abdominal pain. He was hospitalized at [facility] recently where he was seen by gastroenterology. At the time it was felt that he had spurious diarrhea secondary to constipation. He was given Go-lytely and had apparently reported improvement at the time. Today the patient states that he really has no had much improvement in his diarrhea. He states that he typically has 6-7 episodes of diarrhea a day although this can vary and be more or less. He has had a GI panel performed at [facility] which was negative for any findings Pertinent negative GI symptoms: Patient denies fever, sick contacts, recent travel, nausea, vomiting, abdominal pain, loss of appetite, early satiety or unintentional weight loss. No history of hematemesis, melena or hematochezia. Review of Systems: GI: as stated above CVS: Denies chest pain, pressure, or palpitations RS: Admits to Shortness of breath, No Wheezing, Admits to cough ASSISTANT PRODUCER: No dizziness, No motor weakness, No sensory problems Hematology: No bruising, No gum bleeding, Musculoskeletal: No joint pain, ambulating well. Skin: No rash : No hematuria, No burning sensation of the urine ENT: No ear discharge/ pain, No dysphagia.. Admits to chronic hearing loss Eyes: No photophobia. Jaundice Home medications: reviewed. Antithrombotic agents - Lovenox Medical h/o: As above. Surgical h/o: Ileostomy with ileocolic reanastomosis Social h/o: Alcohol Patient denies any alcohol, tobacco, or illicit drug use. Family h/o of GI cancers - None Prior Endoscopies: When, who, if remember- findings --- Colonoscopy - [place] [address] Burnham. Reported to be "unremarkable" Prior GI evaluations: None at [facility] Exam: Vitals: reviewed General: Awake, alert, and oriented. Appears in no acute distress. Lying comfortably in bed HEENT: No conjunctival pallor. No scleral icterus. Mucous membranes are pink and moist. Hearing aids in place. Trachea midline Chest: Diminished breath sounds in left lower lung field with decreased tactile fremitus. Symmetric chest expansion. No wheezes or rales CVS: Normal S1, S2. Regular rate and rhythm. No clicks rubs or murmurs appreciated Abdomen: Soft, non-distended, no surgical scars, non-tender, no palpable masses. Hyperactive bowel sounds throughout Rectal exam: Deferred at this time in view of scheduled colonoscopy. Extremities: 1-2+ bilateral pitting edema. Full and equal pulses in bilateral lower extremities ASSISTANT PRODUCER: No focal neurological deficits Skin: no rash. Labs: reviewed. HCV screening: Completed in past Imaging: reviewed. Abdominal pelvis CT demonstrating marked splenomegaly, mild ascites, anasarca, bilateral pleural effusion and trace pericardial effusion Attending note: The above resident note is reviewed, patient personally examined, above history of presenting illness and prior Patient medical records reviewed. Impression: -- Patient is a 69 year old male with severe neutropenia ( unclear etiology, evaluated in hematology clinic, and also in [place], thought to be secondary to autoimmune etiology, recently treated with rituximab, with no response), on Quetiapine for schizophrenia, remote h/o cecal volvulus s/p right hemicolectomy, ileostomy and subsequent reversal of ileostomy, currently being treated for neutropenic fever, pneumonia and chronic diarrhea in ICU. 1) Chronic diarrhea with prior work up - negative for Lactoferrin, GI panel and CT abdomen - not showing bowel dilation or pneumatosis -- DDx - likely from malabsorptive diarrhea ( SIBO vs microscopic colitis) vs atypical infectious diarrhea (including viral) vs less likely Typhlitis ( based on above and clinical assessment). Patient's neutropenia far preceded diarrhea, so unlikely the source of neutropenia is from bowel infection, but in view of severe sepsis will need further work up. 2) Severe neutropenia -- there have been reports of atypical anti-psychotic medications ( including quetiapine) causing severe neutropenia, so would recommend to stop Seroquel/quetiapine if not contraindicated. ( consider alternative medications as per evaluation by psychiatrist) Recommendations: - Patient is educated about the test results and allpossible differential diagnoses. All questions answered. - Agree with obtain CMV and HSV testing for atypical viral infections. ( especially in view of the ulcerations noted in angie- anal area). - In view of severe neutropenia, even with no CT evidence of pneumatosis, will need to consider typhlitis in the differential diagnoses. So patient would need broad spectrum antibiotics. Close monitor of abdominal exam, bowel sounds and consider interval abdominal Xrays to evaluate for bowel distention/ obstruction. ( consider surgery evaluation based on clinical course). - Septic work up and strict neutropenic precautions as per the ID recommendations. - As part of further work up, discussed about flexible sigmoidoscopy with colonic biopsies with patient. Patient is educated above. The procedure, indications, risks (bleeding, perforation, infection, hypotension, respiratory depression, allergy, need for endotracheal intubation, surgery, colostomy, cardiac arrest, even ), benefits, limitations (e.g., missing a lesion), and all other alternatives (including no intervention) were explained to the patient who understood and agreed for the procedure. Will send stool aspirate for repeat stool lactoferrin, fecal elastase, stool panel and possible colon biopsies. - As there have been reports of atypical anti-psychotic medications ( including quetiapine) causing severe neutropenia, so would recommend to stop Seroquel/quetiapine if not contraindicated. ( consider alternative medications as per evaluation by psychiatrist) - Please follow up Operative report for post procedural recommendations. - GI will follow. Plan of care discussed with patient and primary team. Patient verbalized understanding and agreed with the plan. Vital Signs/I&O Vital Signs Date Time Temp Pulse Resp B/P (MAP) Pulse Ox O2 Delivery O2 Flow Rate FiO2 01/12/20 13:30 97.9 87 12 98/55 93 Nasal Cannula 3.0 01/11/20 02:51 99 I&O- Last 24 Hours up to 6 AM 01/12/20 06:00 Intake Total 7645 ml Output Total 1325 ml Balance 6320 ml Laboratory Data Labs 24H Laboratory Tests 2 01/11/20 16:40: Immunoglobulin A 172.0, Immunoglobulin G 848, Immunoglobulin M < 5.3L 01/12/20 03:56: Urine Color RODERICK, Urine Appearance CLOUDYH, Urine pH 5.0, Urine Specific Gravit y 1.020, Urine Protein 1+H, Urine Glucose (UA) 1+H, Urine Ketones TRACEH, Urine Blood 3+H, Urine Nitrite NEGATIVE, Urine Bilirubin NEGATIVE, Urine Urobilinogen 2.0H, Urine Leukocyte Esterase NEGATIVE, Urine WBC (Auto) 12H, Urine RBC (Auto) 5H, Urine Hyaline Casts (Auto) 4, Urine Bacteria (Auto) NEGATIVE, Urine Squamous Epithelial Cells 2, Urine Amorphous Sediment MODERATEH, Urine Granular Casts (A uto) 37, Urine Mucus (Auto) SMALL, Urine Sperm (Auto) 01/12/20 04:12: Neutrophils (%) (Auto) , Neutrophils # (Auto) , Nucleated Red Blood Cells % (auto) 4.2H, Lymphocytes (Manual) 92H, Monocytes (Manual) 5, Atypical Lymphocytes 3, Anisocytosis 3+, Smudge Cells , Giant Platelets 2+, Platelet Estimate INCREASED, Anion Gap 9, Glomerular Filtration Rate > 60.0, Calcium Level 6.2L, Magnesium Level 1.0L 01/12/20 05:24: Whole Blood Ionized Calcium 3.8L 01/12/20 05:27: 01/12/20 09:47: 01/12/20 12:34: Magnesium Level 1.3L 01/12/20 12:54: CBC/BMP Laboratory Tests 01/12/20 04:12 Microbiology Microbiology 01/12/20 Urine Culture, Received Pending 01/11/20 Gastrointestinal Tract Panel (PCR) - Final, Complete 01/11/20 Respiratory Virus Panel (PCR) (HERNANDEZ) - Final, Complete 01/11/20 Blood Culture - Preliminary, Resulted No growth after 24 hours . All specim... 01/11/20 Blood Culture - Preliminary, Resulted No growth after 24 hours . All specim... Allergies Coded Allergies: bee venom protein (honey bee) (Verified Allergy, Severe, ANAPHYLACTIC, 11/25/18) amoxicillin (Verified Allergy, Intermediate, ALL OVER BODY RASH, 11/25/18) clavulanic acid (Verified Allergy, Intermediate, ALL OVER BODY RASH, ) wheat (Verified Allergy, Intermediate, 12/12/19) POULTRY (Verified Adverse Reaction, Intermediate, turkey - gout, 07/01/18) ciprofloxacin (Verified Adverse Reaction, Intermediate, nausea, 12/12/19) MICH Inhibitors (Verified Adverse Reaction, Mild, COUGH, 11/25/18) Home Medications Scheduled Aspirin (Aspirin EC) 81 Mg Tab, 81 MG PO DAILY, (Reported) Cholecalciferol (Vitamin D3) (Vitamin D3) 1,000 Unit Tablet, 2,000 UNITS PO DAILY, (Reported) Adalgisa Root (Adalgisa Root) 550 Mg Capsule, 550 MG PO 5XW, (Reported) QPM: SUN, WED, WED, , WED Grape Seed Extract (Grape Seed Extract) 50 Mg Capsule, 200 MG PO 4XWK, (Re ported) WED, , , WED Grape Seed Extract (Grape Seed Extract) 50 Mg Capsule, 100 MG PO 3XW, (Reported) WED, WED, WED Hydrophilic Ointment (Hydrophilic Ointment) 410 Gm Oint...g., 3 GRAM TOP TID, (Reported) PERIANAL AREA Iodine (Kelp) 150 Mcg Tablet, 150 MCG PO 4XWK, (Reported) WED, , , WED Lactobacillus Combo No.10 (Probiotic) 1 Each Capsule, 1 TAB PO DAILY, (Reported) Levothyroxine Sodium (Levothyroxine Sodium) 175 Mcg Tab, 175 MCG PO DAILY, (Reported) Losartan Potassium (Losartan Potassium) 25 Mg Tablet, 25 MG PO DAILY, (Reported) Multivitamins (Thera M Plus Tablet) 1 Tab Tab, 1 TAB PO DAILY, (Reported) Joffre-3 Fatty Acids/Fish Oil (Fish Oil 1,000 mg Capsule) 1 Each Capsule, 1,000 MG PO 5XW, (Reported) SUN, WED, , , SAT Quetiapine Fumarate (Quetiapine Fumarate) 25 Mg Tab, 25 MG PO QHS, (Reported) Tamsulosin HCl (Flomax) 0.4 Mg Capsule, 0.4 MG PO DAILY, (Reported) once daily 1/2 hour following the same meal each day Vitamin E (Dl,Tocopheryl Acet) (Vitamin E) 200 Unit Capsule, 200 UNIT PO 5XW, (Reported) SUN, WED, , , SAT Scheduled PRN Acetaminophen (Acetaminophen) 325 Mg Tablet, 650 MG PO Q6H PRN for PAIN, (Reported) Bisacodyl (Bisacodyl) 5 Mg Tablet.dr, 5 MG PO DAILY PRN for CONSTIPATION, (Reported) Ondansetron HCl (Ondansetron HCl) 4 Mg Tablet, 4 MG PO Q6H PRN for NAUSEA OR VOMITING, (Reported) Polyethylene Glycol 3350 (Miralax) 119 Gm Powder, 17 GM PO QHS PRN for CONSTIPATION, (Reported) dilute in 8 ounces of water or juice Polyvinyl Alcohol (Artificial Tears) 1.4 % Rach, 1 DROP OU QID PRN for DRY EYES, (Reported) Sennosides (Senna) 8.6 Mg Tablet, 8.6 MG PO DAILY PRN for CONSTIPATION, (Reported) Zinc Oxide (Desitin) 454 Gm Cream..g., 1 APPLIC TOP QID PRN for RASH, (Reported) CARLOTTA CERVANTES DO January 12, 2020 14:32 KENDRA TAPIA MD January 13, 2020 09:53
[2020-01-12] MEDS ORDERED: MAGNESIUM CHLORIDE 64 MG TABCR (SLO MAG) PO ONE (15:00)
[2020-01-12] MEDS: LIDOCAINE 4% CREAM 5GM (LMX4) TOP PRN (16:51)
[2020-01-12] MEDS: valACYclovir HCL 500 MG TAB PO SCH ×2 (16:51→21:51)
--- NOTE | 2020-01-12 17:46 | CR ---
DATE OF CONSULTATION: 01/12/2020 INPATIENT CONSULTATION NOTE REQUESTING PHYSICIAN: Anny Burleson MD INDICATION FOR CONSULTATION: Evaluation and management recommendations regarding profound neutropenia. IDENTIFICATION AND CHIEF COMPLAINT: Bryson Chin is a very pleasant 69-year-old gentleman followed in the hematology and medical oncology practice for chronic neutropenia, seen in the medical intensive care unit at the request of Anny Burleson MD of infectious diseases. The patient reports, "I came in because I was weak, and I still have diarrhea and then I got a fever. The diarrhea is still pretty awful." HISTORY OF PRESENT ILLNESS: Bryson Chin is a very pleasant 69-year-old gentleman, a retired traveling accountant by profession, with a history of present illness that dates back several years, to when he was first noted to be neutropenic during an episode of diverticulitis, in the year 2017. Mr. Chin has a long history of diverticulitis that has been recurrent, and had an episode of volvulus in the distant past which required partial colectomy with resultant ileostomy. During an emergency department evaluation at [facility] on July 31, 2014, complete blood count showed a normal white blood count of 10,700 per microliter with 73% neutrophils. However, since the year 2017, he has had variable but generally severe persistent neutropenia. Bone marrow examination performed July 19, [address] [facility] reported a normal cellular marrow with erythroid hyperplasia, but no other significant abnormalities. Mr. Chin was evaluated at the [facility] for the purpose of a second opinion regarding the neutropenia, but no specific recommendations were made at that time. Mr. Chin has received granulocyte colony-stimulating factor injections intermittently, for management of neutropenia, with transient improvement in the neutrophil count. He received a course of intravenous immunoglobulin under the direction of Loraine Baptiste MD in 2018 with a modest, transient improvement in the neutrophil count, arguing for an autoimmune basis of the neutropenia. In addition, he has a strongly positive antinuclear antibody assay, also suggesting autoimmune neutropenia. In light of these findings, Mr. Chin was treated using single-agent rituximab 375 mg/m2 per dose weekly in July 2019, completing four doses without immediate complication. However, in September 2019 he developed a painful ulcer in the right buccal region and received Neulasta. On December 12, 2019, he presented to the emergency department at [facility] with nausea, abdominal pain, dizziness and diarrhea. There was evidence of dehydration, and volume contraction, and he was hospitalized and managed with aggressive fluid hydration as well as empiric antimicrobials. CT scan during that admission showed inflammatory changes in the colon consistent with diverticulitis. He clinically improved and was discharged home on December 15, 2019. Diarrhea persisted and left lower quadrant abdominal pain worsened, and he again presented to the emergency department at [facility] on December 23, 2019, at which time he was again admitted. He was hospitalized from December 22 through January 01, 2020, and diarrhea gradually improved, although did not fully resolve. He was then discharged home, and subsequently presented to the [facility] where he was admitted briefly. Diagnostic evaluation was again unrevealing, and he was discharged. Mr. Chin presented on this occasion to the emergency department on January 11, 2020 with generalized weakness, persisting diarrhea, and fever to 101.2 degrees Fahrenheit while neutropenic. Imaging on presentation showed infiltrate in the left lower lobe. He was, therefore, admitted, and he has been hypotensive and therefore is currently in the medical intensive care unit. A rectal tube has been placed due to the severe ongoing diarrhea. He reports no pain at this time and is eating without nausea or vomiting. He does report, however, profound fatigue. ALLERGIES: The patient has a history of allergy to CIPROFLOXACIN and AMOXICILLIN. He is intolerant of ANGIOTENSIN-CONVERTING ENZYME INHIBITORS, as well as WHEAT. There is also history of allergy to POULTRY and HONEY BEE VENOM. CURRENT MEDICATIONS IN HOSPITAL: - cholestyramine 4 grams by mouth every 4 hours as needed for diarrhea - loperamide 2 mg by mouth every 6 hours as needed for diarrhea - meropenem 1 gram intravenously every 8 hours - Seroquel 25 mg by mouth nightly - morphine sulfate 3 mg IV every 2 hours as needed for severe pain - oxycodone/acetaminophen 5/325 one tablet by mouth every 4 hours prn - Lovenox 40 mg subcutaneously daily - aspirin 81 mg by mouth daily - vitamin D 2000 units by mouth daily - tamsulosin 0.4 mg by mouth daily - Neupogen 480 mcg subcutaneously daily - levothyroxine 175 mcg by mouth daily - DuoNeb nebulizer therapy every 4 hours as needed - A dose of vancomycin was also administered but then discontinued. PAST MEDICAL HISTORY: The patient has a past medical history remarkable for diverticulosis, as noted above, with volvulus in the past requiring surgery with ileostomy. There is a history of hypothyroidism as well as hypertension, and the patient has glucose intolerance in the past. There is history of chronic kidney disease, although creatinine has been normal recently. The patient carries a diagnosis of a schizoaffective disorder, well controlled on Seroquel. SOCIAL HISTORY: The patient is and is a retired traveling accountant. Tobacco: The patient has never used tobacco. Alcohol: The patient has never used alcohol. Illicit drugs: The patient has never used illicit drugs. FAMILY HISTORY: Family history significant for organic heart disease in both parents. There is no history of hematologic disorder. REVIEW OF SYSTEMS: Neurologic: No history of head trauma, no headaches. No tremor. No seizures. No focal neurologic deficit. Respiratory: No cough, no shortness of breath at this time. No chest pain. Cardiac: No history of myocardial infarction. No exertional chest pressure. No orthopnea. The patient does have leg edema over the past month. Gastrointestinal: No recent nausea or vomiting, abdominal pain previously present has resolved largely; however, the patient continues to have copious diarrhea. Genitourinary: No dysuria. No hematuria. There is a history of urinary hesitancy in the past. No nephrolithiases. Musculoskeletal: No recent fractures. No bone pain. No joint effusions. Constitutional: Fever on admission, now resolved. No sweats or chills, but the patient has generalized fatigue. PHYSICAL EXAMINATION: The patient is a thin, well-developed, well-nourished gentleman, awake, alert and fully oriented, friendly, cooperative, in no acute distress but ill in appearance. Temperature 97.9, pulse 87, blood pressure 98/55, respirations 12, oxygen saturation 98% on 2 liters by nasal cannula. Skin: Full turgor, anicteric and without rash. HEENT Examination: Normocephalic, atraumatic. Pupils equal, round, reactive to light and accommodate. Extraocular muscles intact. Sclerae anicteric. Oropharynx with superficial ulcer in the left buccal region. Neck: Supple without appreciable thyromegaly. Lymphatics: No pathologic lymphadenopathy noted. Lungs: Clear to auscultation. Cardiac Exam: Regular rhythm. Point of maximal impulse nondisplaced. S1, S2, without gallop, rub or murmur noted. Full pulses. Active bowel sounds, soft, nontender. The liver percusses to 12 cm. The spleen percusses to 15 cm and is modestly enlarged. No guarding or rebound elicited. An umbilical hernia is present, easily reducible. Rectal Examination: Rectal tube in place. Rectal examination otherwise deferred. Extremities: Without clubbing or cyanosis, but there is 1+ edema of all extremities. Neurologic Exam: Mental status intact. Cranial nerves intact. Motor and sensory grossly intact. LABORATORY DATA: Laboratory studies dated January 12, 2020 include the following: White blood count 1700 per microliter, hemoglobin 7.3 grams per deciliter, hematocrit 22.2%, MCV 83.8 fl, platelet count 390,000, nucleated red blood cells 4.2%, elevated. Differential white cell count 92% lymphocytes, 5% monocytes, 3% atypical lymphocytes, no neutrophils noted. BUN 20, creatinine 1.0, glucose 203, lactic acid level was 2.1 on admission, falling to 1.5, normal subsequently. Total bilirubin January 11, 2020 was 2.4 mg per deciliter. Albumin level October 13, 2019 was 2.7 grams per deciliter, decreased from normal. Pro-B-type natriuretic peptide level December 12, 2019 elevated at 792. IMPRESSION: Neutropenia. The patient has profound neutropenia with an absolute neutrophil count in the peripheral blood at this time of well below 100 per microliter, with no identifiable neutrophils seen. 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 The case was discussed with Dr. Burleson at the time of consultation, and it is certainly possible that the patient would respond favorably to high-dose corticosteroids with an increase in neutrophil count. However, high-dose corticosteroids would further immunocompromise the patient, and this appears to be undesirable. Repeat intravenous immunoglobulin at a dose of 2 grams per kilogram body weight administered over anywhere from 2 days to 4 days with a target of 2 gm/kg should saturate splenic macrophage receptors and allow for a rise in neutrophil count if indeed the patient has antibody-mediated neutropenia. If a trial of intravenous immunoglobulin is unsuccessful in raising the neutrophil count, then it would appear appropriate to repeat bone marrow examination, although he has had this performed in the past. If, as expected, marrow examination shows active myelopoiesis, then consideration could be given to sub total splenic embolization, based on the possibility of a component of the patient's neutropenia being elimination of neutrophils from the circulation by the spleen. Subtotal rather than total splenic embolization would be recommended to permit regrowth of the spleen over time and thereby avoid rendering the patient permanently asplenic. With respect to diarrhea, it would be appropriate to perform colon biopsy as this may define the etiology of the patient's diarrhea. The patient is profoundly immunocompromised both by recent rituximab therapy as well as by neutropenia. Therefore, he is at risk for unusual organisms similar to those seen in patient's with HIV, including cytomegalovirus, Cryptosporidia and other opportunistic pathogens. RECOMMENDATIONS: It is recommended that the patient receive a total of 2 gm/kg intravenous immunoglobulin during this admission; this can be administered as 1 gram per kilogram body weight daily for 2 days or 500 mg per kilogram body weight daily for 4 days. Daily Granulocyte Stanford Stimulating factor is recommended to be continued, and consideration should be given to biopsy of the colon in addition to extensive infectious disease evaluation as Dr. Burleson is undertaking. If cytomegalovirus is identified, then specific therapy is available, such as ganciclovir or Valcyte. Similarly, if an opportunistic fungus is identified, therapy directed to that would be appropriate. Additional management recommendations will be forthcoming based on the patient's clinical status as it evolves. As noted, if there is no response to intravenous immunoglobulin, it would be reasonable to repeat marrow examination to confirm active production of neutrophils prior to consideration of subtotal splenic embolization.
--- NOTE | 2020-01-12 20:57 | IPN ---
DATE: 01/12/2020 Patient denies any shortness of breath, chest pain, pressure, tightness. Requiring a Levophed drip. Despite 10 liters of fluid yesterday, he remained hypotensive. Mean arterial pressure is being kept over 70. Patient is able to speak. No respiratory distress or conversational dyspnea this morning. Denies any nausea or vomiting. Complains of chronic abdominal pain in epigastric, left upper quadrant No rebound or guarding. Patient remains neutropenic with hemodilutional anemia with hemoglobin of 7.3 today. Urine output had some retention yesterday, 550. Escobar catheter placed. Creatinine is remaining stable at 1.0. Electrolytes, such as magnesium and calcium, have been repleted. Lactic acid has normalized. PHYSICAL EXAMINATION: Temperature 98.4, maximum temperature (T max) of 103.7, pulse 96, respiratory rate 19, blood pressure 99/52, 95% on 2 liters nasal cannula. Temperature Generally, patient is awake, alert, oriented to place, time, answers questions appropriately. He has no icterus or jaundice. Dry mucous membranes with chapped lips. Pharynx is clear. No erythema. No sinus tenderness in the maxillary sinus. No jugular venous distention (JVD) or thyromegaly. Lungs are clear to auscultation. No wheezing or rales. Heart: S1, S2, sinus rhythm. No murmurs, rubs or gallops. Abdomen is soft, tender epigastric and left upper quadrant. No rebound guarding. Positive bowel sounds times four quadrants. Extremities: No cyanosis or clubbing. LABORATORY DATA: White count 1.7, hemoglobin 7.3, hematocrit 22.2, platelet count of 390. Sodium 134, potassium 4.2, chloride 104, bicarbonate 21, BUN 20, creatinine 1, glucose 203, ionized calcium 3.8, magnesium 1.0, lactic acid 1.5. Gastrointestinal (GI) panel negative. Urine culture pending. Respiratory panel, blood cultures negative. Urinalysis 01/12/2020: 12 WBCs, negative leukocyte esterase, negative bacteria. IgM less than 5.3. CH50 pending. COVID-19 negative. Aspergillus pending. Methicillin-resistant Staphylococcus aureus (MRSA) screen negative. Echocardiogram: Ejection fraction (EF) of 60-65%. No pericardial effusion. Moderate tricuspid regurgitation with moderate pulmonary hypertension. Mild mitral regurgitation. ASSESSMENT AND PLAN: This is a 69-year-old male with a history of autoimmune neutropenia, managed by Dr. Denson from the [facility] with recurrent episodes of diverticulitis requiring hospitalizations. Patient had received a trial of rituximab weekly in July 2019 times four doses and had been receiving Neulasta subcutaneously weekly and persistent diarrhea, exacerbated by magnesium supplementation and Questran being added. Patient's GI panel had been negative. He had received IVIG with some improvement by Dr. Baptiste previously, and during the previous admission in November, had received two more IVIGs. He then presented to [facility] for admission for chronic diarrhea and had recently been discharged home, now presents with neutropenic fever, empirically treated with vancomycin, subsequently discontinued after a negative MRSA screen, and currently still on IV meropenem with broad-spectrum coverage. Despite full supportive care, the patient continues to have persistent fever. Chest x-ray showed pneumonia. Active issues are as follows: 1. Septic shock secondary to pneumonia in the setting of neutropenic fever and autoimmune neutropenia with functional asplenia and persistent splenomegaly. Patient is receiving full supportive care, but is realistic of the progressive nature of his disease despite full treatment and has made himself DO NOT RESUSCITATE, DO NOT INTUBATE, Medical Orders for Life-Sustaining Treatment (MOLST) form signed yesterday. He is currently continued on meropenem, which was started on admission. Due to mean arterial pressure less than 60, patient had been started on Levophed drip via peripherally inserted central catheter (PICC) line that was placed yesterday. Blood culture remains negative on 01/11/2020. Previous blood cultures on 12/22 remain negative. Respiratory panel, COVID-19, have all been negative. Patient's chest x-ray showed a large consolidation. Urine strep antigen and Legionella have been checked. Infectious disease specialist has been consulted. Immunoglobulin levels and CH50 have been ordered. IVIG will be given as it has helped him in the past. He is still maintained on IV fluids. 2. Chronic diarrhea. May be related to previous magnesium. He is currently on Slow-Mag and given Questran and loperamide. GI panel, Clostridium difficile (C diff) have all been negative. It is unclear whether this is part of his autoimmune process; therefore, Dr. Suero, Senior Android Software Engineer, has also been consulted. Patient is maintained on IV fluids and still requiring Levophed drip to maintain good perfusion. Creatinine remains normal. 3. Urine retention. Despite over 10 liters of IV fluids, patient's urine output had been minimal at 500 and 775 since midnight. Patient does not have any azotemia. Escobar catheter has been placed. Urine output is currently being monitored. Will continue to check serial metabolic panels. 4. Dilutional anemia secondary to recent resuscitation with 10 liters of IV fluids, receiving two units RBC transfusion for supportive care. 5. Splenomegaly. Will check liver with Doppler flow to rule out portal vein thrombosis after nothing by mouth in the morning. Will keep nothing by mouth after midnight. 6. Autoimmune neutropenia/neutropenic fever. Medical oncologist, Dr. Denson, has been consulted. From previous extensive discussion of the patient's recurrent and progressive disease, splenectomy may be an option, but will leave him chronically immunosuppressed. May try cyclosporin, tacrolimus or CellCept but with significant side effects. Previous bone marrow biopsies have unremarkable. If patient requires splenectomy, he will need transfer to [place]. 7. Code status: Patient is DO NOT INTUBATE, DO NOT RESUSCITATE. MOLST form has been signed. MTDD
[2020-01-12] MEDS: QUEtiapine FUMARATE 25 MG TAB PO SCH (21:51)
[2020-01-13] VITALS (51 sets, daily range): BP systolic 85–118; BP diastolic 47–67
[2020-01-13] MEDS: NOREPINEPHRINE BITARTRATE 8 MG in D5W 492 ML IV SCH (00:20)
[2020-01-13] MEDS: MEROPENEM INJ 1 GM in IV 1 EA IV SCH ×3 (01:00→17:31)
[2020-01-13 04:45] LABS: HEMATOCRIT 25.3 % (42.0-52.0); HEMOGLOBIN 8.4 g/dl (13.5-17.5); MEAN CORPUSCULAR HEMOGLOBIN 28.3 pg (27.0-33.0); MEAN CORPUSCULAR HGB CONC 33.2 g/dl (32.0-36.5); MEAN CORPUSCULAR VOLUME 85.2 fl (80.0-96.0); PLATELET COUNT, AUTOMATED 324 10^3/uL (150-450); RED BLOOD COUNT 2.97 10^6/uL (4.30-6.10); WHITE BLOOD COUNT 1.6 10^3/uL (4.0-10.0)
[2020-01-13 05:04] LABS: LYMPHOCYTES 91 % (16-44); MONOCYTES 4 % (0-5); NEUTROPHILS 3 % (28-66); PLATELET ESTIMATE NORMAL (NORMAL)
[2020-01-13 05:05] LABS: ANISOCYTOSIS 3+; BLOOD UREA NITROGEN 28 MG/DL (7-18); CALCIUM LEVEL 6.8 MG/DL (8.8-10.2); CARBON DIOXIDE LEVEL 21 MEQ/L (21-32); CHLORIDE LEVEL 106 MEQ/L (98-107); CREATININE FOR GFR 1.03 MG/DL (0.70-1.30); GIANT PLATELETS 2+; GLOMERULAR FILTRATION RATE > 60.0 (>42); GLUCOSE, FASTING 119 MG/DL (70-100); MAGNESIUM LEVEL 1.7 MG/DL (1.8-2.4); POLYCHROMASIA 2+; POTASSIUM SERUM 3.9 MEQ/L (3.5-5.1); SCHISTOCYTES 1+; SODIUM LEVEL 133 MEQ/L (136-145)
[2020-01-13 06:09] LABS: ALBUMIN 2.2 GM/DL (3.2-5.2)
[2020-01-13] MEDS: LEVOTHYROXINE 100MCG TABLET (0.1MG) PO SCH (06:31)
[2020-01-13] MEDS: valACYclovir HCL 500 MG TAB PO SCH ×3 (06:31→21:22)
[2020-01-13] MEDS: LEVOTHYROXINE 75MCG TABLET (0.075MG) PO SCH (06:31)
[2020-01-13] MEDS: PERCOCET 5MG/325MG TAB PO PRN (06:33)
[2020-01-13] MEDS: CHOLESTYRAMINE 4 GM PWD PKT PO SCH ×4 (07:30→21:00)
[2020-01-13] MEDS: MAGNESIUM CHLORIDE 64 MG TABCR (SLO MAG) PO SCH ×3 (08:54→15:04)
[2020-01-13] MEDS ORDERED: IMMUNE GLOBULIN 10% 0 GM in IV 1 EA IV SCH ×2 (09:00→11:15)
[2020-01-13] MEDS ORDERED: IMMUNE GLOBULIN 10% 40 GM in IV 1 EA IV SCH (09:00)
[2020-01-13] MEDS: LACTOBACILLUS ACIDOPHILUS CAP (BACID) PO SCH ×4 (09:06→21:22)
[2020-01-13] MEDS ORDERED: SODIUM CHLORIDE NASAL 0.65% SPRAY BTL (OCEAN) PRN (09:15)
[2020-01-13] MEDS ORDERED: LIDOCAINE 2% 100MG/5ML SDV (FOR ANES.) As Ordered ONE (09:35)
[2020-01-13] MEDS ORDERED: propofoL 200 MG/20 ML VIAL As Ordered ONE (09:35)
[2020-01-13] MEDS ORDERED: FLEET ENEMA PR ONE (10:00)
--- NOTE | 2020-01-13 10:24 | CR ---
DATE OF CONSULTATION: 01/12/2020 REQUESTING PHYSICIAN: Dr. Guillaume REASON FOR CONSULTATION: Neutropenic fever. HISTORY OF PRESENT ILLNESS: The patient is a 69-year-old male who presented to the hospital with fever with maximum temperature (Tmax) of 103.7. The patient was recently discharged from [facility] on 01/10/2020 after being diagnosed with moderate constipation causing diarrhea. The patient was given GoLYTELY and Dulcolax and was sent home. The patient has also been seen multiple times since September in both the emergency room and as an inpatient for diarrhea and abdominal pain. The patient has a history of autoimmune neutropenia and currently has an absolute neutrophil count of zero. The patient said that when he got discharged from the hospital in [place] he was back at his home and he was sitting down and felt very weak. Said he slid out of his chart and was unable to get up. The patient was brought into the hospital where he was found to be septic and started on pressors. The patient was diagnosed with left lower lobe pneumonia based on chest x-ray, which showed a possible infiltrate versus atelectasis. The patient was started on just meropenem, which he remains on now. The patient has been afebrile since yesterday morning with last fever being just over 24 hours ago at the time of dictation, which is 1434 hours. The patient says he is feeling somewhat better but he is very weak and he just wants to get to the bottom of what has happening. The patient says the only pain he is feeling is in his rectal area as the patient's rectal area is very raw from the recurrent diarrhea. The patient also has a rectal tube in place. The patient is otherwise feeling doing well at this time. The patient remains on Levophed for hypotension. PAST MEDICAL HISTORY: 1. Chronic autoimmune neutropenia. 2. Hypothyroidism. 3. Schizophrenia. 4. History of recurrent episodes of diverticulitis. SURGICAL HISTORY: Colon resection, status post volvulus and status post two bone marrow biopsies. FAMILY HISTORY: No significant family history in the patient's parents that he is aware. One of his daughters was diagnosed with type 1 diabetes and is currently on dialysis. SOCIAL HISTORY: The patient denies smoking, alcohol or drugs. The patient used to work as an sales store checker and lives at home with his and does not have any pets. ALLERGIES: ANGIOTENSIN-CONVERTING ENZYME (MICH) INHIBITORS, POULTRY, AMOXICILLIN, BEE VENOM, CIPROFLOXACIN, CLAVULANIC ACID, and WHEAT. CURRENT INPATIENT MEDICATIONS: - magnesium chloride - cholestyramine - loperamide - meropenem - Seroquel 25 mg at bedtime - Levophed - morphine - vitamin A and D ointment - Percocet as needed for pain - Bacid with meals - Lovenox 40 mg subcutaneous - baby aspirin daily - vitamin D 2000 units - multivitamin - tamsulosin 0.4 mg daily - Neupogen 480 mcg subcutaneous daily - levothyroxine 100 mcg daily - levothyroxine 75 mcg daily - DuoNebs REVIEW OF SYSTEMS: General. The patient denies fevers at this time. Does report fever as described above in history of present illness (HPI). The patient denies any chills. The patient does endorse sweating and endorses a weight loss over the past 3 or 4 months. HEENT: The patient denies headaches, blurry vision, ringing in his ears, or sore throat. Cardiovascular: The patient denies chest pain or palpitations. Respiratory: The patient does endorse some shortness of breath, which he thinks is secondary to the pain, but denies any coughing. Gastrointestinal: The patient only endorses pain in his rectal area and has been having diarrhea as described above in HPI. Genitourinary: The patient was retaining urine and had a Escobar catheter placed. Neurologic: The patient denies any numbness or tingling. Extremities: The patient denies any swelling. Skin: The patient denies any rashes or lesions on his skin. Lymphatics: The patient denies any lumps in his neck, axilla, or groin. PHYSICAL EXAMINATION: Vital Signs: Temperature 97.5. Pulse 80. Respiratory rate 14. Blood pressure 88/49. Pulse oximetry 95% on 3 liters via nasal cannula. HEENT: Was normocephalic, atraumatic with anicteric sclerae. The patient had moist mucous membranes. The patient does have an avulsed ulcer that is on the buccal mucosa tooth #2 in the upper right part of the mouth. Neck: Was supple with no lymphadenopathy or thyromegaly. Cardiovascular: Was irregular rate and rhythm with no murmurs auscultated. Respiratory: Was clear to auscultation bilaterally. Abdomen: Was soft and nontender with normoactive bowel sounds. Extremities: There is trace pitting edema in bilateral lower extremities. Skin: There were multiple large ulcerations that are present in the perianal area. There are no other rashes or wounds on the skin. LABORATORY STUDIES: White blood cell is 1.7, hemoglobin 7.3, hematocrit 22.2, platelet count 390. Chemistry: Sodium 134, potassium 4.2, chloride 104, bicarbonate 21, BUN 20, creatinine 1.0, glucose 203, calcium 6.2, magnesium 1.3. COVID-19 PCR was negative and MRSA was not detected. IgG 848, IgA 172, IgM less than 5.3. IMAGING: A chest x-ray performed on 01/11/2020 was reported to show consolidation and/or atelectasis left lower lobe with air bronchograms. A chest CT performed on 01/12/2020 was reported to show exam was limited due to lack of intravenous contrast. There are pleural effusions that are bilateral and moderate to large. There are bibasilar opacities that are ground-glass in nature. There is right upper lobe ground-glass opacity, which warrants close followup, likely represents focus of subsegmental atelectatic change. A CT of the abdomen and pelvis performed on 01/12/2020 was reported to show marked splenomegaly, mild ascites, anasarca picture, bilateral moderate effusions in the pleural space, small amount of pericardial fluid, abdominal wall defects unchanged. Escobar catheter and rectal tube in place. No abscess seen. MICROBIOLOGY: Blood cultures performed on 01/11/2020 show no growth after 24 hours. Respiratory viral panel was negative and gastrointestinal panel was negative. Urine culture is still pending. ASSESSMENT AND PLAN: The patient is a 69-year-old male who presented to the hospital with neutropenic fever and diarrhea. 1. Neutropenic fever. The patient has autoimmune neutropenia according to notes from hematology/oncology. Dr. Denson has been consulted and has seen the patient. We have discussed this case with Dr. Denson extensively. We will continue with intravenous immunoglobulin (IVIG) as well as Neupogen to try to bring the patient's neutrophil count back up. The patient received rituximab back in July, which may have increased his risk of HSV/ cytomegalovirus colitis causing his diarrhea and fever. At this time, we are also ruling out other possible etiologies testing for Legionella, aspergillus and herpes simplex virus (HSV). A viral swab was done on the perianal ulcers and was sent for herpes simplex virus. Gastroenterology has also been consulted to do a sigmoidoscopy or colonoscopy to rule out any forms of colitis, including cryptosporidium, cytomegalovirus (CMV) and HSV. At this time, the patient has been started on valacyclovir preemptively for possible HSV infection. The patient will continue on meropenem for broad-spectrum antibiotic coverage and IVIG has been started. 2. Diarrhea. The patient's diarrhea has been ongoing since September. As described above, this may be secondary to CMV colitis. So, we have consulted gastroenterology and spoken with Dr. Suero who has agreed to see the patient and possibly perform sigmoidoscopy/colonoscopy. The patient does follow with Dr. Lozada, who was also contacted, who said the patient was suppose to have a screen colonoscopy but did not want to do it due to his profound neutropenia. Dr. Lozada did agree at this point that he does need further intervention with sigmoidoscopy or colonoscopy to help further diagnose as the treatment for CMV can be quite toxic, so we want to make sure that we have the correct diagnosis before proceeding with further treatment that may be possibly detrimental to the patient. We will continue to monitor the patient and continue the treatment for septic shock, and as the patient improves, the patient's pressors can be weaned. Currently no changes to be made to any of the antibiotics and we will continue to monitor the patient. We will continue to follow along with the patient as long as he hospitalized. DDEE
--- NOTE | 2020-01-13 12:39 | IPNPDOC ---
Date Seen The patient was seen on 01/13/20. Progress Note SUBJECTIVE: Pt remains oliguric despite >8liters fluid resuscitation,and lee catheter. c/o cough productive of clear sputum without fever. no nausea/vomiting, but increased abdominal distention . c/o nasal dryness with the oxygen and chapped lips. continues to have profuse diarrhea with a rectal tube. denies chills. no sob. CT abd/pelvis: left kidney displaced anteriorly by splenomegaly, but creatinine is normal and no hydronephrosis. iv ig x4days started without complications yesterday, and s/p albumin and rbc transfusion . PHYSICAL EXAMINATION: VITALS: pls see below Generally, patient is awake, alert, oriented to place, time, answers questions appropriately.He has no icterus or jaundice. Dry mucous membranes with chapped lips. Pharynx is clear. No erythema. No sinus tenderness in the maxillary sinus. No jugular venous distention (JVD) or thyromegaly. Lungs: diminished. fine crackles at bases. No wheezing or rales. Heart: S1, S2, sinus rhythm. No murmurs, rubs or gallops. Abdomen is soft, tender epigastric and left upper quadrant. No rebound guarding. Positive bowel sounds times four quadrants.(+) fluid wave Extremities: No cyanosis or clubbing. LABORATORY DATA: pls see below Echocardiogram: Ejection fraction (EF) of 60-65%. No pericardial effusion. Moderate tricuspid regurgitation with moderate pulmonary hypertension. Mild mitral regurgitation. ASSESSMENT AND PLAN: This is a 69-year-old male with a history of autoimmune neutropenia, managed by Dr. Denson from the [facility] Medial Oncology Department with recurrent episodes of diverticulitis requiring hospitalizations. Patient had received a trial of rituximab weekly in July 2019 times four doses and had been receiving Neulasta subcutaneously weekly and persistent diarrhea, exacerbated by magnesium supplementation and Questran being added. Patient's GI panel had been negative. He had received IVIG with some improvement by Dr. Baptiste previously, and during the previous admission in November, had received two more IVIGs. He then presented to [facility] for admission for chronic diarrhea and had recently been discharged home, now presents with neutropenic fever, empirically treated with vancomycin, subsequently discontinued after a negative MRSA screen, and currently still on IV meropenem with broad-spectrum coverage. Despite full supportive care, the patient continues to have persistent fever. Chest x-ray showed pneumonia. Active issues are as follows: 1. Septic shock secondary to pneumonia in the setting of neutropenic fever and autoimmune neutropenia with functional asplenia and persistent splenomegaly, resolved. off levophed iv gtt as of 01/13/20.s/p >8 liters ivfluids Patient is receiving full supportive care, but is realistic of the progressive nature of his disease despite full treatment and has made himself DO NOT RESUSCITATE, DO NOT INTUBATE, Medical Orders for Life-Sustaining Treatment (MOLST) form signed yesterday. He is currently continued on meropenem, which was started on admission. Due to mean arterial pressure less than 60, patient had been started on Levophed drip via peripherally inserted central catheter (PICC) line,but off as of today 01/13/20. Blood culture remains negative on 01/11/2020. Previous blood cultures on 12/22 remain negative. Respiratory panel, COVID-19, have all been negative. Patient's chest x-ray showed a large consolidation. Urine strep antigen and Legionella have been checked. Infectious disease specialist allen s been consulted. Immunoglobulin levels and CH50 have been ordered. IVIG will be given as it has helped him in the past for the next 4 days at 500mg/kg iv daily. IV albumin to decrease worsening anasarca. 2. Diarrhea with normal sigmoidoscopy per Dr. Suero who recommended discontinuation of seroquel. He is currently on Slow-Mag and given Questran and loperamide. GI panel, Clostridium difficile (C diff) have all been negative. Creatinine remains normal. 3. Oliguria/ Urine retention with normal creatinine and no hydronephrosis on CT abd. Despite over 8 liters of IV fluids, patient's urine output had been minimal , which is most likely due to anterior displacement by splenomegaly. right kidney unchanged. Patient does not have any azotemia. Lee catheter has been placed. Urine output is currently being monitored. Will continue to check serial metabolic panels and renal ultrasound to rule out hydronephrosis. Due to anasarca, will continue to hydrate with albumin infusion, but will most likely need a NEPHROSTOMY tube placement by IR if hydronephrosis or renal failure ensue. 4. Dilutional anemia secondary to recent resuscitation with 10 liters of IV fluids, s/ptwo units RBC transfusion for supportive care on 01/12/20. 5. Splenomegaly. Will check liver with Doppler flow to rule out portal vein thrombosis. nothing by mouth until after doppler us of the liver. 6. Autoimmune neutropenia/neutropenic fever. Medical oncologist, Dr. Denson, has been consulted. From previous extensive discussion of the patient's recurrent and progressive disease, splenectomy may be an option, but will leave him chronically immunosuppressed. if 4days of iv ig fails, may need selective embolization to preserve spleen. 7.Pneumonia -on IV meropenem. managed by ID. 8. CMV retinitis/HSV perianal rash-started on IV acyclovir by ID. awaiting culture results. 9.Schizophrenia-GI recommended discontinuation of seroquel. Psychiatrist Dr. Middleton consulted for medication options for schizophrenia. Code status: Patient is DO NOT INTUBATE, DO NOT RESUSCITATE. MOLST form has been signed. Disposition: off vasopressor. may transfer out of ICU. VS, I&O, 24H, Fishbone Vital Signs/I&O Vital Signs Date Time Temp Pulse Resp B/P (MAP) Pulse Ox O2 Delivery O2 Flow Rate FiO2 01/13/20 10:05 99.4 94 17 98/52 89 Room Air 01/13/20 07:03 1.0 01/11/20 02:51 99 I&O- Last 24 Hours up to 6 AM 01/13/20 06:00 Intake Total 7322.1 ml Output Total 835 ml Balance 6487.1 ml Laboratory Data 24H LABS Laboratory Tests 2 01/12/20 12:34: Magnesium Level 1.3L 01/12/20 12:54: 01/12/20 14:46: 01/12/20 18:41: Magnesium Level 1.4L 01/13/20 04:25: Neutrophils (%) (Auto) , Neutrophils # (Auto) , Nucleated Red Blood Cells % (auto) 3.1H, Neutrophils 3L, Band Neutrophils 2, Lymphocytes (Manual) 91H, Monocytes (Manual) 4, Polychromasia 2+, Anisocytosis 3+, Schistocytes 1+, Giant Platelets 2+, Platelet Estimate NORMAL, Anion Gap 6L, Glomerular Filtration Rate > 60.0, Calcium Level 6.8L, Whole Blood Ionized Calcium 4.3L, Magnesium Level 1.7L, Albumin 2.2L CBC/BMP Laboratory Tests 01/13/20 04:25 Microbiology Microbiology 01/13/20 Stool Lactoferrin, Received Pending 01/13/20 Gastrointestinal Tract Panel (PCR), Received Pending 01/12/20 Herpes Simplex Virus I (PCR), Received Pending 01/12/20 Herpes Simplex Virus II (PCR), Received Pending 01/12/20 Urine Culture - Final, Complete 01/11/20 Gastrointestinal Tract Panel (PCR) - Final, Complete 01/11/20 Respiratory Virus Panel (PCR) (HERNANDEZ) - Final, Complete 01/11/20 Blood Culture - Preliminary, Resulted No Growth after 48 hours. All Specime... 01/11/20 Blood Culture - Preliminary, Resulted No Growth after 48 hours. All Specime... KRYSTIAN PANDYA MD January 13, 2020 12:16
[2020-01-13] MEDS: VITAMIN D 1,000 INTERNATIONAL UNITS TABLET PO SCH (13:17)
[2020-01-13] MEDS: TAMSULOSIN 0.4 MG CAP PO SCH (13:17)
[2020-01-13] MEDS: ASPIRIN 81 MG ENTERIC TAB PO SCH (13:17)
[2020-01-13] MEDS: MULTIVITAMINS/MINERALS THERAP 1 TAB PO SCH (13:17)
[2020-01-13] MEDS: ENOXAPARIN 40MG/0.4ML SYRINGE (J1650 PER 10MG) SC SCH (13:17)
[2020-01-13] MEDS: FILGRASTIM 480 MCG/0.8 ML SYRINGE (J1442) SC SCH (13:19)
[2020-01-13 13:24] LABS: BLOOD UREA NITROGEN 28 MG/DL (7-18); CALCIUM LEVEL 7.2 MG/DL (8.8-10.2); CARBON DIOXIDE LEVEL 20 MEQ/L (21-32); CHLORIDE LEVEL 105 MEQ/L (98-107); CREATININE FOR GFR 1.07 MG/DL (0.70-1.30); GLOMERULAR FILTRATION RATE > 60.0 (>42); GLUCOSE, FASTING 104 MG/DL (70-100); SODIUM LEVEL 132 MEQ/L (136-145)
--- NOTE | 2020-01-13 13:35 | IPNPDOC ---
Date Seen The patient was seen on 01/13/20. Progress Note CDIFF POSITIVE Plan: vancomycin 250 mg po q6hrs x 7days contact isolation VS, I&O, 24H, Kyle Vital Signs/I&O Vital Signs Date Time Temp Pulse Resp B/P (MAP) Pulse Ox O2 Delivery O2 Flow Rate FiO2 01/13/20 10:05 99.4 94 17 98/52 89 Room Air 01/13/20 07:15 1.0 01/11/20 02:51 99 I&O- Last 24 Hours up to 6 AM 01/13/20 06:00 Intake Total 7322.1 ml Output Total 835 ml Balance 6487.1 ml Laboratory Data 24H LABS Laboratory Tests 2 01/12/20 14:46: 01/12/20 18:41: Magnesium Level 1.4L 01/13/20 04:25: Magnesium Level 1.7L, Neutrophils (%) (Auto) , Neutrophils # (Auto) , Nucleated Red Blood Cells % (auto) 3.1H, Neutrophils 3L, Band Neutrophils 2, Lymphocytes (Manual) 91H, Monocytes (Manual) 4, Polychromasia 2+, Anisocytosis 3+, Schistocytes 1+, Giant Platelets 2+, Platelet Estimate NORMAL, Anion Gap 6L, Glomerular Filtration Rate > 60.0, Calcium Level 6.8L, Whole Blood Ionized Calcium 4.3L, Albumin 2.2L 01/13/20 12:50: Anion Gap 7L, Glomerular Filtration Rate > 60.0, Calcium Level 7.2L CBC/BMP Laboratory Tests 01/13/20 04:25 01/13/20 12:50 Microbiology Microbiology 01/13/20 Stool Lactoferrin - Final, Complete 01/13/20 Gastrointestinal Tract Panel (PCR) - Final, Complete Clostridium Difficile A/B 01/12/20 Herpes Simplex Virus I (PCR), Received Pending 01/12/20 Herpes Simplex Virus II (PCR), Received Pending 01/12/20 Urine Culture - Final, Complete 01/11/20 Gastrointestinal Tract Panel (PCR) - Final, Complete 01/11/20 Respiratory Virus Panel (PCR) (HERNANDEZ) - Final, Complete 01/11/20 Blood Culture - Preliminary, Resulted No Growth after 48 hours. All Specime... 01/11/20 Blood Culture - Preliminary, Resulted No Growth after 48 hours. All Specime... YA,KRYSTIAN C. MD January 13, 2020 13:35
[2020-01-13] MEDS: ACETAMINOPHEN TAB 650MG DOSE (2X325MG) PO PRN ×2 (15:05→21:23)
[2020-01-13] MEDS: NS 1,000 ML IV SCH (17:31)
[2020-01-13] MEDS: VANCOMYCIN ORAL SOL 250MG/5ML ORAL SYRINGE PO SCH (17:31)
[2020-01-13] MEDS ORDERED: ALPRAZolam 0.5 MG TAB PO ONE (18:30)
--- NOTE | 2020-01-13 19:08 | IPNPDOC ---
Date Seen The patient was seen on 01/13/20. 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 Plan: -stat reading on renal utrasound ordered this morning to rule out hydronephrosis -If hydronephrosis is seen, will need a urostomy tube to decompress kidney -urology will need to be consulted. 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 PLAN: -doppler us LIVER ordered to rule out portal vein thrombosis ordered. -need stat reading on liver us with doppler. VS, I&O, 24H, Fishbone Vital Signs/I&O Vital Signs Date Time Temp Pulse Resp B/P (MAP) Pulse Ox O2 Delivery O2 Flow Rate FiO2 01/13/20 17:52 98.2 103 20 115/55 64 Nasal Cannula 2.0 01/11/20 02:51 99 I&O- Last 24 Hours up to 6 AM 01/13/20 06:00 Intake Total 7322.1 ml Output Total 835 ml Balance 6487.1 ml Laboratory Data 24H LABS Laboratory Tests 2 01/13/20 04:25: Neutrophils (%) (Auto) , Neutrophils # (Auto) , Nucleated Red Blood Cells % (auto) 3.1H, Neutrophils 3L, Band Neutrophils 2, Lymphocytes (Manual) 91H, Monocytes (Manual) 4, Polychromasia 2+, Anisocytosis 3+, Schistocytes 1+, Giant Platelets 2+, Platelet Estimate NORMAL, Anion Gap 6L, Glomerular Filtration Rate > 60.0, Calcium Level 6.8L, Whole Blood Ionized Calcium 4.3L, Magnesium Level 1.7L, Albumin 2.2L 01/13/20 12:50: Anion Gap 7L, Glomerular Filtration Rate > 60.0, Calcium Level 7.2L CBC/BMP Laboratory Tests 01/13/20 04:25 01/13/20 12:50 Microbiology Microbiology 01/13/20 Stool Lactoferrin - Final, Complete 01/13/20 Gastrointestinal Tract Panel (PCR) - Final, Complete Clostridium Difficile A/B 01/12/20 Herpes Simplex Virus I (PCR), Received Pending 01/12/20 Herpes Simplex Virus II (PCR), Received Pending 01/12/20 Urine Culture - Final, Complete 01/11/20 Gastrointestinal Tract Panel (PCR) - Final, Complete 01/11/20 Respiratory Virus Panel (PCR) (HERNANDEZ) - Final, Complete 01/11/20 Blood Culture - Preliminary, Resulted 01/11/20 Blood Culture - Preliminary, Resulted No Growth after 48 hours. All Specime... KRYSTIAN PANDYA MD January 13, 2020 19:08
[2020-01-13 20:46] LABS: BLOOD UREA NITROGEN 27 MG/DL (7-18); CALCIUM LEVEL 7.1 MG/DL (8.8-10.2); CARBON DIOXIDE LEVEL 20 MEQ/L (21-32); CHLORIDE LEVEL 106 MEQ/L (98-107); CREATININE FOR GFR 0.97 MG/DL (0.70-1.30); GLOMERULAR FILTRATION RATE > 60.0 (>42); GLUCOSE, FASTING 122 MG/DL (70-100); POTASSIUM SERUM 3.8 MEQ/L (3.5-5.1); SODIUM LEVEL 133 MEQ/L (136-145)
[2020-01-13] MEDS ORDERED: FUROSEMIDE 40MG/4ML VIAL (J1940) IV SCH (21:00)
[2020-01-13] MEDS ORDERED: MIDODRINE 5 MG TAB PO SCH (21:15)
[2020-01-14] VITALS: BP 122/56
[2020-01-14] MEDS: VANCOMYCIN ORAL SOL 250MG/5ML ORAL SYRINGE PO SCH
[2020-01-14 00:30] VITALS: BP 115/56
[2020-01-14] MEDS: LIDOCAINE 4% CREAM 5GM (LMX4) TOP PRN (01:14)
[2020-01-14] MEDS ORDERED: SCOPOLAMINE 1MG TRANSDERMAL PATCH TOP PRN (01:30)
[2020-01-14] MEDS ORDERED: LORazepam 2 MG/ML VIAL (J2060) IV PRN (01:30)
[2020-01-14] MEDS ORDERED: ONDANSETRON 4MG/2ML VIAL IV PRN (01:30)
[2020-01-14] MEDS: MORPHINE 10MG/0.5ML ORAL CONCENTRATE SOLUTION U/D SL PRN ×2 (04:26→07:16)
--- NOTE | 2020-01-14 09:01 | ROOR ---
Patient Name: Bryson Chin Procedure Date: 01/13/2020 10:14 AM Date of : 1950 Age: 69 Room: ICU Gender: Male Note Status: Finalized Procedure: Flexible Sigmoidoscopy Indications: Diarrhea Providers: Graham Suero MD Referring MD: 2. Inpatient 2. Inpatient, Sadny Guillaume MD Requesting Provider: Rob Denson Md Medicines: Monitored Anesthesia Care Complications: No immediate complications. Procedure: Pre-Anesthesia Assessment: - Prior to the procedure, a History and Physical was performed, and patient medications and allergies were reviewed. The patient is competent. The risks and benefits of the procedure and the sedation options and risks were discussed with the patient. All questions were answered and informed consent was obtained. Patient identification and proposed procedure were verified by the physician, the nurse and the anesthesiologist in the pre-procedure area. Mental Status Examination: alert and oriented. Airway Examination: normal oropharyngeal airway and neck mobility. Respiratory Examination: clear to auscultation. CV Examination: normal. Prophylactic Antibiotics: The patient does not require prophylactic antibiotics. Prior Anticoagulants: The patient has taken no previous anticoagulant or antiplatelet agents. ASA Grade Assessment: III - A patient with severe systemic disease. After reviewing the risks and benefits, the patient was deemed in satisfactory condition to undergo the procedure. The anesthesia plan was to use monitored anesthesia care (MAC). Immediately prior to administration of medications, the patient was re-assessed for adequacy to receive sedatives. The heart rate, respiratory rate, oxygen saturations, blood pressure, adequacy of pulmonary ventilation, and response to care were monitored throughout the procedure. The physical status of the patient was re-assessed after the procedure. The Colonoscope was introduced through the anus and advanced to the sigmoid colon. The flexible sigmoidoscopy was accomplished without difficulty. The patient tolerated the procedure well. The quality of the bowel preparation was fair. Findings: The perianal exam findings include a perianal rash. Normal mucosa was found from rectum to sigmoid colon. Biopsies were taken with a cold forceps for histology. Verification of patient identification for the specimen was done by the physician and nurse using the patient's name, date and medical record number. Fluid aspiration was performed in the sigmoid colon through the scope suction channel. The amount of fluid collected was 20 mL. The fluid was yellow. Sample(s) were sent for microbiology. The exam was otherwise without abnormality. Impression: - Preparation of the colon was fair. - Perianal rash found on perianal exam. - Normal mucosa from rectum to sigmoid colon. Biopsied. - The examination was otherwise normal. - Fluid aspiration was performed. Recommendation: - Patient has a contact number available for emergencies. The signs and symptoms of potential delayed complications were discussed with the patient. Return to normal activities tomorrow. Written discharge instructions were provided to the patient. - Advance diet as tolerated today. - Observe the patient for clinical symptoms and continued care. - Await pathology results. - Return to primary care physician. - The findings and recommendations were discussed with the patient's primary physician. Graham Suero MD Graham Suero MD 01/14/2020 9:00:57 AM Electronically signed by Graham Suero MD Number of Addenda: 0 Note Initiated On: 01/13/2020 10:14 AM Estimated Blood Loss: Estimated blood loss: none.
[2020-01-14] MEDS ORDERED: VITAMIN A & D OINTMENT 60GM TOP PRN (10:00)
[2020-01-14] MEDS ORDERED: SODIUM CHLORIDE NASAL 0.65% SPRAY BTL (OCEAN) PRN (10:00)
[2020-01-14] MEDS ORDERED: LORazepam 2 MG/ML VIAL (J2060) IV STA (10:03)
[2020-01-14] MEDS: VITAMIN A & D OINTMENT 60GM TOP SCH ×4 (11:06→20:56)
--- NOTE | 2020-01-14 11:10 | IPNPDOC ---
Date Seen The patient was seen on 01/14/20. Progress Note SUBJECTIVE: Despite clinical improvement, pt requested COMFORT MEASURES ONLY, confirmed by Dr. Alberto , and myself this morning at 0714am. Pt declines further treatment, and wanted pain medications to prevent further suffering. Pt's has been informed, and agrees that "he's been through so much. He knows what he wants." c/o generalized pain 10/10 abdomen, and rectal pain from cdiff diarrhea. sob improved. no chest pain, fever or chills. PHYSICAL EXAMINATION: VITALS: pls see below Generally, lethargic, but arousable answers questions by nodding yes/no. nodded yes to stopping all treatment. nodded yes to pain medications. He has no icterus or jaundice. Dry mucous membranes with chapped lips. Pharynx is clear. No erythema. No sinus tenderness in the maxillary sinus. No jugular venous distention (JVD) or thyromegaly. Lungs: diminished. fine crackles at bases. No wheezing or rales. Heart: S1, S2, sinus rhythm. No murmurs, rubs or gallops. Abdomen is soft, tender epigastric and left upper quadrant. No rebound guarding. Positive bowel sounds times four quadrants.(+) fluid wave Extremities: No cyanosis or clubbing. LABORATORY DATA: pls see below Echocardiogram: Ejection fraction (EF) of 60-65%. No pericardial effusion. Moderate tricuspid regurgitation with moderate pulmonary hypertension. Mild mitral regurgitation. ASSESSMENT AND PLAN: This is a 69-year-old male with a history of autoimmune neutropenia, managed by Dr. Denson from the [facility] Medial Oncology Department with recurrent episodes of diverticulitis requiring hospitalizations. Patient had received a trial of rituximab weekly in July 2019 times four doses and had been receiving Neulasta subcutaneously weekly and persistent diarrhea, exacerbated by magnesium supplementation and Questran being added. Patient's GI panel had been negative. He had received IVIG with some improvement by Dr. Baptiste previously, and during the previous admission in November, had received two more IVIGs. He then presented to [facility] for admission for chronic diarrhea and had recently been discharged home, now presents with neutropenic fever, empirically treated with vancomycin, subsequently discontinued after a negative MRSA screen, and currently still on IV meropenem with broad-spectrum coverage. Despite full supportive care, the patient continues to have persistent fever. Chest x-ray showed pneumonia. 1. 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 5.LLL Pneumonia 6.Schizophrenia 7. CMV/HSV infection 8. Chronic immunosuppression 9.Debility DO NOT RESUSCITATE, DO NOT INTUBATE, Medical Orders for Life-Sustaining Treatment (MOLST) form signed. SALESPERSON FURNITURE as of 01/14/20. Pt and are in agreeement with patient's desire and request to be made comfortable. requested ativan and morphine iv gtt for patient's comfort. plan: communication technician, transfer to [facility]. hospice consult morphine iv gtt, ativan iv prn, scopolamine patch VS, I&O, 24H, Fishbone Vital Signs/I&O Vital Signs Date Time Temp Pulse Resp B/P (MAP) Pulse Ox O2 Delivery O2 Flow Rate FiO2 01/14/20 08:15 2.0 01/14/20 00:52 14 01/14/20 00:30 97.8 95 115/56 92 Nasal Cannula 01/11/20 02:51 99 I&O- Last 24 Hours up to 6 AM 01/14/20 06:00 Intake Total 3040.0 ml Output Total 1425 ml Balance 1615.0 ml Laboratory Data 24H LABS Laboratory Tests 2 01/13/20 12:50: Anion Gap 7L, Glomerular Filtration Rate > 60.0, Calcium Level 7.2L 01/13/20 20:00: Anion Gap 7L, Glomerular Filtration Rate > 60.0, Calcium Level 7.1L CBC/BMP Laboratory Tests 01/13/20 12:50 01/13/20 20:00 Microbiology Microbiology 01/13/20 Stool Lactoferrin - Final, Complete 01/13/20 Gastrointestinal Tract Panel (PCR) - Final, Complete Clostridium Difficile A/B 01/12/20 Herpes Simplex Virus I (PCR), Received Pending 01/12/20 Herpes Simplex Virus II (PCR), Received Pending 01/12/20 Urine Culture - Final, Complete 01/11/20 Gastrointestinal Tract Panel (PCR) - Final, Complete 01/11/20 Respiratory Virus Panel (PCR) (HERNANDEZ) - Final, Complete 01/11/20 Blood Culture - Preliminary, Resulted 01/11/20 Blood Culture - Preliminary, Resulted No Growth after 72 hours. All specime... KRYSTIAN PANDYA MD January 14, 2020 11:10
[2020-01-14] MEDS: MORPHINE SULF IN 0.9% NACL 100 MG in IV 1 EA IV SCH ×2 (12:46)
[2020-01-14] MEDS ORDERED: SODIUM CHLORIDE 0.9% INJ 10 ML SYR IV PRN (14:00)
[2020-01-14] MEDS: SODIUM CHLORIDE NASAL 0.65% SPRAY BTL (OCEAN) SCH ×2 (16:00→20:56)
[2020-01-14] MEDS: SODIUM CHLORIDE 0.9% INJ 10 ML SYR IV SCH (18:00)
[2020-01-15] MEDS: SODIUM CHLORIDE 0.9% INJ 10 ML SYR IV SCH (05:14)
[2020-01-15] MEDS: MORPHINE SULF IN 0.9% NACL 100 MG in IV 1 EA IV SCH ×2 (05:48)
--- NOTE | 2020-01-15 11:24 | REP ---
PORTABLE CHEST X-RAY: SINGLE VIEW. HISTORY: Shortness of breath. Preliminary report is provided at the time of the exam by Dr. Proctor. Comparison chest x-ray: January 10. FINDINGS: A right-sided PICC line is seen in place with its tip in the expected location of the superior vena cava. Oxygen delivery tubing is seen. Pleural opacity is present bilaterally consistent with bilateral pleural effusions. Left lateral and right lateral pleural angles are partially blunted. Vascular and interstitial markings are prominent in the perihilar regions bilaterally as well. Perihilar infiltrates versus edema. IMPRESSION: Bilateral pleural effusions. Perihilar infiltrates versus edema pattern. Right-sided PICC line in place. Electronically Signed by Aravind Ge MD 01/15/2020 04:53 P
[2020-01-15 14:06] LABS: BODY FLUID CULTURE Not indicated. (.); LEGIONELLA ANTIGEN URINE Negative (Negative); ORGANISM ID Not indicated. (.); SPECIMEN SOURCE Urine (.); URINE STREP PNEUMONIAE ANTIGEN Negative (Negative)
[2020-01-17 00:08] LABS: ASPERGILLUS FLAVUS ABY Negative (Neg:<1:1); ASPERGILLUS FUMIGATUS ABY Negative (Neg:<1:1); ASPERGILLUS GALACTOMANNAN AG 0.05 Index (0.00-0.49); ASPERGILLUS NIGER ABY Negative (Neg:<1:1); FUNGITELL, SERUM <31 pg/mL (<80)
[2020-01-24 07:00] LABS: CMV QUANT DNA PCR (PLASMA) Negative (Negative)
--- NOTE | 2020-01-24 07:02 | DS.PDOC ---
Discharge Summary General Date of Admission January 11, 2020 at 05:43 Date of Discharge JANUARY 15, 2020 0729AM Discharge Summary DISCHARGE DIAGNOSES: 1. 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 5.LLL Pneumonia 6.Schizophrenia 7. CMV/HSV infection 8. Chronic immunosuppression 9. Debility 10. Anasarca 11. Fluid overload 12. 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 Denson from the [facility] Oncology Department with recurrent episodes of diverticulitis requiring hospitalizations. Patient had received a trial of rituximab weekly in July 2019 times four doses and had been receiving Neulasta subcutaneously weekly and persistent diarrhea, exacerbated by magnesium supplementation , treated with Questran, and worked up at [facility], and discharged home. Patient's GI panel had been negative. He had received IVIG with some improvement by Dr. Baptiste previously, and during the previous admission at [facility] for recurrent diverticulitis in November,had received two more IVIGs. Pt was admitted for persistent diarrhea,LLL pneumonia, and neutropenic fever on 01/11/20, treated with IV vancomycin and IV meropenem. IV vanco was discontinued after MRSA screen was negative. Septic shock secondary to pneumonia in the setting of neutropenic fever and autoimmune neutropenia with functional asplenia and persistent splenomegaly, resolved. pt was started on levophed IV gtt via PICC line to keep mean arterial pressure >60. He was taken off levophed iv gtt as of 01/13/20.s/p 20 liters ivfluids,albumin infusion,rbc transfusion, IVIg, and antibiotics. Blood culture remained negative on 01/11/2020.Previous blood cultures on 12/22 remained negative. Respiratory panel, COVID-19, have all been negative. Patient's chest x-ray showed a large consolidation. Urine strep antigen and Legionella have been checked. Infectious disease specialist has been consulted and recommended iv acyclovir for HSV and CMV retinitis. Immunoglobulin levels and CH50 have been ordered. IVIGx 4 days at 500mg/kg iv daily per medon recommendations. C diff Diarrhea . Pt was recently discharged from [facility] with negative workup, and had been having copious amounts of liquid stools. GI Dr. Suero was consulted for endoscopy. Diarrhea initially thought to be due to seroquel due to normal sigmoidoscopy. per Dr. Suero , discontinue seroquel. for comfort and to prevent skin breakdown, rectal tube and vitamin A&D for skin protection. GI panel returned (+)Cdiff. Pt was started on po vancomycin. strict i/o continued with ivfluid and iv albumin resuscitation, and judicious supplementation of electrolytes. Oliguria/ Urine retention with normal creatinine and no hydronephrosis on CT abd. Despite over 8 liters of IV fluids, patient's urine output had been minimal . Pt is 3rd spacing with increased ascites. Therefore, pt was diuresed with >1liter urine output overnight, and supported with albumin transfusions if needed. Dr. Bowers was consulted,but pt opted to stop all treatment, and requested PETROLEUM REFINERY OPERATOR despite clinical improvement.. Dilutional anemia secondary to recent resuscitation with 10 liters of IV fluids, s/ptwo units RBC transfusion for supportive care on 01/12/20. Splenomegaly. Doppler flow liver us was negative for portal vein thrombosis.due to autoimmune neutropenia with splenic sequestration. has been tried on immunosuppressive therapy, but progressively worsening. Per [facility], Dr. Denson, if no response to IVIG, IR to be consulted for targeted Autoimmune neutropenia/neutropenic fever. Medical oncologist, Dr. Denson, has been consulted. From previous extensive discussion of the patient's recurrent and progressive disease, splenectomy may be an option, but will leave him chronically immunosuppressed. if 4days of iv ig fails, may need selective embolization to preserve spleen. Pneumonia -on IV meropenem. managed by ID. CMV retinitis/HSV perianal rash-started on IV acyclovir by ID. awaiting culture results. Schizophrenia-GI recommended discontinuation of seroquel. Psychiatrist Dr. Middleton consulted for medication options for schizophrenia. Chronic Immunosuppression with Low Immunoglobulin levels due to progressive autoimmune neutropenia with splenic sequestration and splenomegaly, with recurrent gram negative infections requiring 2 separate hospitalizations from Diverticulitis, and now with pneumonia. Due to recent hospitalizations, concerns for pseudomonas and broader gram negative coverage with Imipenem. MRSA screen was negative,and vancomycin has been discontinued. Overall prognosis was guarded in light of poor response and progressive disease despite immunosuppressive treatment,and full supportive care consisting of repeated immunoglobulin infusions, levophed iv gtt, albumin infusions, and iv antibiotics. Code status: Patient is DO NOT INTUBATE, DO NOT RESUSCITATE. MOLST form has been signed. Disposition: Despite clinical improvement, patient requested COMFORT MEASURES ONLY. "I'm tired. I don't want this anymore." Overnight hospitalist, Dr. Alberto, discussed at length that he is improving, after being taken off levophed iv gtt, his blood pressure remained stable, his diarrhea from CDiff was decreased, and he was afebrile with improving white count. There were further plans to increase his life expectancy and delay progression of disease including a 4day trial of IV Ig, trial of targeted splenic embolization to prevent splenectomy. After an hour long discussion, pt called his , and both were in agreement to proceed with COMFORT MEASURES ONLY, and to DISCONTINUE all active treatment. Dr. Pandya, also called his and re-iterated to the patient, that current management was showing favorable response, and given time, the patient may recover, but both the patient and his insisted that this would only prolong his suffering. At this pioint, the patient requested pain medications to be given liberally to allow him to be comfortable. The was permitted to come to the hospital to attend to her during his last hours. She requested with the patient's permission to start a morphine iv gtt for his comfort. Their daughter who was also hospitalized was permitted to see her father in his final hours. Pt at 0729AM, 24hours after he decided to stop all treatment. DISCHARGE PHYSICAL EXAMINATION/DECLARATION OF : VITALS: no blood pressure. no pulse. no respiratory rate. GEN: no spontaneous movements. LUNGS: no breath sounds HEART:no heart sounds ABDOMEN:no abdominal sounds TIME SPENT ON HOSPITAL DISCHARGE: 30MIN. Vital Signs/I&Os Vital Signs Date Time Temp Pulse Resp B/P (MAP) Pulse Ox O2 Delivery O2 Flow Rate FiO2 01/14/20 20:30 2.0 01/14/20 00:52 14 01/14/20 00:30 97.8 95 115/56 92 Nasal Cannula 01/11/20 02:51 99 I&O- Last 24 Hours up to 6 AM 01/15/20 06:00 Intake Total 0 ml Output Total 650 ml Balance -650 ml Microbiology Microbiology 01/13/20 Stool Lactoferrin - Final, Complete 01/13/20 Gastrointestinal Tract Panel (PCR) - Final, Complete Clostridium Difficile A/B 01/12/20 Herpes Simplex Virus I (PCR), Received Pending 01/12/20 Herpes Simplex Virus II (PCR), Received Pending 01/12/20 Urine Culture - Final, Complete 01/11/20 Gastrointestinal Tract Panel (PCR) - Final, Complete 01/11/20 Respiratory Virus Panel (PCR) (HERNANDEZ) - Final, Complete 01/11/20 Blood Culture - Preliminary, Resulted 01/11/20 Blood Culture - Preliminary, Resulted No Growth after 72 hours. All specime... Discharge Medications Scheduled Aspirin (Aspirin EC) 81 Mg Tab, 81 MG PO DAILY, (Reported) Cholecalciferol (Vitamin D3) (Vitamin D3) 1,000 Unit Tablet, 2,000 UNITS PO DAILY, (Reported) Adalgisa Root (Adalgisa Root) 550 Mg Capsule, 550 MG PO 5XW, (Reported) QPM: SUN, MON, WED, THURS, SAT Grape Seed Extract (Grape Seed Extract) 50 Mg Capsule, 200 MG PO 4XWK, (Reported) SUN, TUES, THURS, SAT Grape Seed Extract (Grape Seed Extract) 50 Mg Capsule, 100 MG PO 3XW, (Reported) MON, WED, FRI Hydrophilic Ointment (Hydrophilic Ointment) 410 Gm Oint...g., 3 GRAM TOP TID, (Reported) PERIANAL AREA Iodine (Kelp) 150 Mcg Tablet, 150 MCG PO 4XWK, (Reported) SUN, TUES, THURS, SAT Lactobacillus Combo No.10 (Probiotic) 1 Each Capsule, 1 TAB PO DAILY, (Reported) Levothyroxine Sodium (Levothyroxine Sodium) 175 Mcg Tab, 175 MCG PO DAILY, (Reported) Losartan Potassium (Losartan Potassium) 25 Mg Tablet, 25 MG PO DAILY, (Reported) Multivitamins (Thera M Plus Tablet) 1 Tab Tab, 1 TAB PO DAILY, (Reported) Curlew-3 Fatty Acids/Fish Oil (Fish Oil 1,000 mg Capsule) 1 Each Capsule, 1,000 MG PO 5XW, (Reported) SUN, MON, TUES, THURS, SAT Quetiapine Fumarate (Quetiapine Fumarate) 25 Mg Tab, 25 MG PO QHS, (Reported) Tamsulosin HCl (Flomax) 0.4 Mg Capsule, 0.4 MG PO DAILY, (Reported) once daily 1/2 hour following the same meal each day Vitamin E (Dl,Tocopheryl Acet) (Vitamin E) 200 Unit Capsule, 200 UNIT PO 5XW, (Reported) SUN, MON, TUES, THURS, SAT Scheduled PRN Acetaminophen (Acetaminophen) 325 Mg Tablet, 650 MG PO Q6H PRN for PAIN, (Reported) Bisacodyl (Bisacodyl) 5 Mg Tablet.dr, 5 MG PO DAILY PRN for CONSTIPATION, (Reported) Ondansetron HCl (Ondansetron HCl) 4 Mg Tablet, 4 MG PO Q6H PRN for NAUSEA OR VOMITING, (Reported) Polyethylene Glycol 3350 (Miralax) 119 Gm Powder, 17 GM PO QHS PRN for CONSTIPATION, (Reported) dilute in 8 ounces of water or juice Polyvinyl Alcohol (Artificial Tears) 1.4 % Rach, 1 DROP OU QID PRN for DRY EYES, (Reported) Sennosides (Senna) 8.6 Mg Tablet, 8.6 MG PO DAILY PRN for CONSTIPATION, (Reported) Zinc Oxide (Desitin) 454 Gm Cream..g., 1 APPLIC TOP QID PRN for RASH, (Reported) Allergies Coded Allergies: bee venom protein (honey bee) (Verified Allergy, Severe, ANAPHYLACTIC, 11/25/18) amoxicillin (Verified Allergy, Intermediate, ALL OVER BODY RASH, 11/25/18) clavulanic acid (Verified Allergy, Intermediate, ALL OVER BODY RASH, 11/25/18) wheat (Verified Allergy, Intermediate, 12/12/19) POULTRY (Verified Adverse Reaction, Intermediate, turkey - gout, 07/01/18) ciprofloxacin (Verified Adverse Reaction, Intermediate, nausea, 12/12/19) MICH Inhibitors (Verified Adverse Reaction, Mild, COUGH, 11/25/18) KRYSTIAN PANDYA MD January 15, 2020 16:10
== END 2020-01-15 07:29 | disposition expired | DRG 871 ==
LOC: EDBD 01:53 → M ED 01:53 → M ED INP 05:43 → ENRESERV 06:43 → M ICU 07:28 → M MSPAV 01-14 08:02
PROVIDERS: ADMIT Internal Medicine; ATTEND General Practice
PROC: 02HV33Z Insertion of Infusion Device into Superior Vena Cava, Percutaneous Approach (ICD-10-PCS; 2020-01-11)
PROC: 30233J1 Transfusion of Nonautologous Serum Albumin into Peripheral Vein, Percutaneous Approach (ICD-10-PCS; 2020-01-12)
PROC: 0DB98ZX Excision of Duodenum, Via Natural or Artificial Opening Endoscopic, Diagnostic (ICD-10-PCS; 2020-01-13)
PROC: 30233N1 Transfusion of Nonautologous Red Blood Cells into Peripheral Vein, Percutaneous Approach (ICD-10-PCS; 2020-01-13)
PROC: 0D9E8ZX Drainage of Large Intestine, Via Natural or Artificial Opening Endoscopic, Diagnostic (ICD-10-PCS; principal; 2020-01-13 10:00)
DX: A41.9 Sepsis, unspecified organism (principal); J18.9 Pneumonia, unspecified organism; R65.21 Severe sepsis with septic shock; E87.2 Acidosis; D84.9 Immunodeficiency, unspecified; K62.6 Ulcer of anus and rectum; A04.72 Enterocolitis due to Clostridium difficile, not specified as recurrent; B25.9 Cytomegaloviral disease, unspecified; E46 Unspecified protein-calorie malnutrition; D70.9 Neutropenia, unspecified; E03.9 Hypothyroidism, unspecified; F20.9 Schizophrenia, unspecified; Z51.5 Encounter for palliative care; Z66 Do not resuscitate; I10 Essential (primary) hypertension; K52.9 Noninfective gastroenteritis and colitis, unspecified; E86.0 Dehydration; R33.9 Retention of urine, unspecified; R53.81 Other malaise; R16.1 Splenomegaly, not elsewhere classified; R34 Anuria and oliguria; B00.9 Herpesviral infection, unspecified; R60.1 Generalized edema; Z11.59 Encounter for screening for other viral diseases; Z79.82 Long term (current) use of aspirin; Z79.899 Other long term (current) drug therapy; Z88.0 Allergy status to penicillin; Z90.49 Acquired absence of other specified parts of digestive tract; Z88.1 Allergy status to other antibiotic agents; Z91.018 Allergy to other foods; Z91.030 Bee allergy status; Z88.8 Allergy status to other drugs, medicaments and biological substances